=== PATIENT | male | born 1970 | race Caucasian/White ===

== ENCOUNTER 2019-04-27 12:01 | Observation (INO) | payer SELFPAY ==
[2019-04-27] VITALS (45 sets, daily range): BP systolic 182–226; BP diastolic 104–133; PULSE 73–89; RESP 11–23; TEMP 36.4–37.2; O2SAT 88–96
--- NOTE | 2019-04-27 12:42 | W.ED.GENAD ---
Discharge Plan Disposition Patient Disposition: [facility] INPATIENT Condition: Improving Discharge Details Chief Complaint: Headache Clinical Impression: Hypertensive urgency Primary Care Provider: None,None ED Provider: Anthony Cooley Home Meds and New Rx's Prescriptions: No Action fluticasone propionate [Flonase Allergy Relief] 50 mcg/actuation [place],Suspension INTRANASAL PRN PRNRF: 0 Medical Decision Making 48-year-old male presents from home complaining of headache last night with associated blurry vision. Noted elevated blood pressure. States that he used to take both hydrochlorothiazide and lisinopril, but lost his insurance and has had no medications for approximately 4 to 5 years. Initial blood pressure elevated at 194/112. He does not have any neurologic deficits and visual acuity is as stated 20/100. Referred for CT scan of the head, screening laboratories, EKG and chest x-ray. CAT scan unremarkable, labs essentially unremarkable with a normal troponin and normal creatinine. Chest x-ray without acute findings. Patient given clonidine 0.1 mg and observed. Subsequently he developed recurrent headache and his blood pressure went up to 212/180. Following hydromorphone for pain, the patient's discomfort completely resolved blood pressure measured at 191/115. ECG Data Attestation: I personally reviewed and interpreted this ECG (s) as follows: Interpretation: Normal sinus rhythm with a rate of 82, no evidence of ST segment elevation HPI General Mode of arrival: ambulatory. Date/Time Provider Initiated Documentation: 04/27/19 12:18. Limitations to Documentation: no limitations. Information obtained by: patient and family. History of Present Illness 48 year old M presents to the emergency department with the chief complaint of Headache last night, blurry vision, elevated blood pressure, described as moderate, Quality is described as dull and constant, and is localized to the head. Patient reports no radiation. Patient started experiencing this hour(s) and it has been constant. No relieving factors improve symptom(s), No exacerbating factors reported . Patient notes no other symptoms.; denies chest pain, nausea/vomiting, seizure and syncope. Patient did receive the following treatments prior to arrival, none Related Data Home Medications Medication Instructions Recorded Confirmed fluticasone propionate [Flonase INTRANASAL PRN PRN 04/27/19 Allergy Relief] Allergies Allergy/AdvReac Type Severity Reaction Status Date / Time grass pollen-perennial rye, Allergy Unverified 04/27/19 12:27 standar General Stated Complaint: Headache TOMAS: 3 Review of Systems Review of Systems 6 systems reviewed and otherwise negative [facility] Social History Smoking/Tobacco Use Status: Current every day Tobacco Type: cigarettes Alcohol Intake: current Alcohol Intake frequency: 0-2 drinks per day Alcohol type: hard liquor Drug use: Rarely Substance use type: marijuana Do you feel safe at home: Yes Do you feel safe in your relationship?: Yes Exam Narrative Exam Narrative: GEN: awake, alert, oriented 3. Pleasant, well groomed, interactive. HEAD: Normocephalic, atraumatic ENT: Mucous membranes moist, oropharynx unremarkable, External ear exam unremarkable EYES: PERRL, EOMI NECK: Full ROM, no THANIA, no menigismus CHEST/RESP: Nontender, clear to auscultation bilateral, no wheeze/rhonchi/rales CARDIOVASCULAR: RRR, no murmur, rub tuyet. 2+ Rad pulse bilateral ABDOMEN: Soft, nontender, no mass. +Bowel sounds EXT: Full ROM, no edema, no rash Neuro: Grossly normal neurologic exam, conversant, interactive. Visual ren intact to confrontation, visual acuity is 200/100 OD, OS, OU. [id number]-[id number] intact. Cranial nerves II through XII intact. Psych: Speech fluent, thoughts congruent, affect normal Course Vital Signs Temperature 37.2 C 04/27/19 12:20 Pulse 85 04/27/19 12:20 Respiratory Rate 16 04/27/19 12:20 Blood Pressure 194/112 H 04/27/19 12:20 Pulse Oximetry 94 L 04/27/19 12:20 Temperature 37.2 C 04/27/19 12:20 Temperature Source Temporal Artery Scan 04/27/19 12:20 Pulse 85 04/27/19 12:20 Respiratory Rate 16 04/27/19 12:20 Blood Pressure 194/112 H 04/27/19 12:20 Blood Pressure Position Supine 04/27/19 12:20 Pulse Oximetry 94 L 04/27/19 12:20 Oxygen Delivery Method Room Air 04/27/19 12:20 Oxygen Flow Rate 0 04/27/19 12:20 Pain Level 3 04/27/19 12:20
[2019-04-27 12:55] LABS: Abs Immature Grans 0.02 k/cumm (0.0-0.09); Absolute Basophil Count 0.03 k/cumm (0.0-0.2); Absolute Eosinophil Count 0.46 k/cumm (0.0-0.7); Absolute Lymphocyte Count 1.81 k/cumm (1.2-3.4); Absolute Monocyte Count 0.76 k/cumm (0.11-0.7); Absolute Neutrophil Count 5.11 k/cumm (1.2-6.7); Basophils % 0.4; Eosinophils % 5.6; Immature Grans % 0.2; Lymphocytes % 22.1; Mean Corp. HGB Concentration 35.7 g/dL (32.0-36.0); Mean Corpuscular Hemoglobin 37.2 pg (27.0-33.0); Mean Corpuscular Volume 104.2 fL (80-95); Mean Platelet Volume 10.4 fL (8.0-11.0); Monocytes % 9.3; Neutrophils % 62.4; Platelet Count 197 x1000/uL (130-400); RBC 4.03 m/cumm (4.50-6.00); RBC Distribution Width 12.4 % (11.8-14.1); White Blood Cell Count 8.19 k/cumm (4.4-10.8)
[2019-04-27] MEDS: Normal Saline 1,000 ML 150 ML IV ×2 (12:56→17:02)
--- NOTE | 2019-04-27 13:10 | DI.COMBO_ITS ---
SYMPTOM/DIAGNOSIS: HEADACHE, HYPERTENSION PA AND LATERAL CHEST: The heart is normal in size. The lungs are clear. The mediastinal structures and pleura appear intact. CONCLUSION: Normal chest. NONCONTRAST HEAD CT: A noncontrast cranial CT was performed. Note is made of mucoperiosteal thickening of left maxillary antrum and to a lesser degree the ethmoid air cells consistent with a chronic sinusitis. Mastoid air cells are clear. Sphenoid and frontal sinuses appear clear. Orbital and temporal bone structures appear intact. No evidence of acute intracranial hemorrhage, mass effect or midline shift. There may be mild generalized cerebral atrophy. CONCLUSION: No evidence of acute intracranial process. Note is made of left maxillary chronic sinusitis.
[2019-04-27 13:12] LABS: ALT 48 U/L (16-63); AST 38 U/L (15-37); Albumin 3.6 g/dL (3.4-5.0); Alkaline Phosphatase 113 U/L (46-116); Anion Gap 10.2 mmol/L (3-11); BUN 16 mg/dL (7-18); Bilirubin, Total 0.3 mg/dL (0.2-1.0); CO2 27.8 mmol/L (21.0-32.0); CREATININE 0.81 mg/dL (0.70-1.30); Chloride 100 mmol/L (98-107); Glucose 94 mg/dL (70-100); Potassium 3.8 mmol/L (3.5-5.1); Sodium 138 mmol/L (136-145); Total Protein 7.6 g/dL (6.4-8.2); Troponin I < 0.05 ng/mL (0.00-0.06)
--- NOTE | 2019-04-27 13:22 | DI.VRAD_ITS ---
EXAM: CT Head Without Contrast EXAM DATE/TIME: 04/27/2019 12:42 PM CLINICAL HISTORY: 48 years old, male; Pain and condition or disease; Other: Elevated blood pressure; Headache not specified TECHNIQUE: Imaging protocol: Computed tomography of the head without contrast. COMPARISON: No relevant prior studies available. FINDINGS: No evidence of hemorrhage. No mass effect. No acute intracranial abnormality. Chronic appearing moderate left maxillary sinus disease with minimal left ethmoidal sinus disease. No air-fluid levels. IMPRESSION: No evidence of acute intracranial process. Dictated and Authenticated by: Virgilio Guy MD. Ordering:DEMETRIO Cruz MD
--- NOTE | 2019-04-27 13:23 | DI.VRAD_ITS ---
EXAM: XR Chest, 2 Views EXAM DATE/TIME: 04/27/2019 1:11 PM CLINICAL HISTORY: 48 years old, male; Other: Hypertension, headache TECHNIQUE: Imaging protocol: XR of the chest Views: 2 views. COMPARISON: No relevant prior studies available. FINDINGS: The lung ren are clear bilaterally. No focal pulmonary consolidation is present. The cardiac silhouette is within normal limits. The costophrenic angles are sharp. The bony structures appear unremarkable. IMPRESSION: No evidence of acute cardiopulmonary disease. Dictated and Authenticated by: Virgilio Guy MD. Ordering:DEMETRIO Cruz MD
[2019-04-27] MEDS: cloNIDine 0.1 MG TAB PO (13:29)
[2019-04-27] MEDS: HYDROmorphone 2 MG/ML VIAL 1 MG IVP (14:20)
[2019-04-27] MEDS: Labetalol 100 MG/20 ML VIAL 20 MG IVP (15:22)
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
[2019-04-27] MEDS: amLODIPine 5 MG TAB PO (16:33)
[2019-04-27] MEDS: Enoxaparin 40 MG/0.4 ML SYR SC (16:35)
[2019-04-27] MEDS: hydroCHLOROthiazide 25 MG TAB PO (16:37)
[2019-04-27] MEDS: LORazepam 1 MG TAB PO/SL (18:52)
[2019-04-27 20:50] LABS: Bilirubin Negative (Negative); Blood Negative (Negative); Clarity Clear (Clear); Glucose Negative (Negative); Ketones Negative (Negative); Leukocyte Esterase Negative (Negative); Nitrite Negative (Negative); Specific Gravity 1.015 (1.005-1.025); Urobilinogen 0.2 EU/dL (Up TO 0.2); pH 5.5 (5-8)
[2019-04-28] VITALS (14 sets, daily range): BP systolic 155–198; BP diastolic 98–125; PULSE 69–86; RESP 17–18; TEMP 36.4–37; O2SAT 93–95
[2019-04-28] MEDS: Labetalol 100 MG/20 ML VIAL 20 MG IVP (00:29)
[2019-04-28] MEDS: Multivitamin TAB 1 TAB PO (07:58)
[2019-04-28] MEDS: Thiamine 100 MG TAB PO (07:58)
[2019-04-28] MEDS: Folic Acid 1 MG TAB PO (07:58)
[2019-04-28] MEDS: Omeprazole 20 MG CAPCR PO (07:58)
[2019-04-28] MEDS: hydroCHLOROthiazide 25 MG TAB PO (07:59)
[2019-04-28] MEDS: amLODIPine 10 MG TAB PO (08:00)
[2019-04-28 08:50] LABS: Abs Immature Grans 0.01 k/cumm (0.0-0.09); Absolute Basophil Count 0.03 k/cumm (0.0-0.2); Absolute Eosinophil Count 0.44 k/cumm (0.0-0.7); Absolute Lymphocyte Count 1.32 k/cumm (1.2-3.4); Absolute Monocyte Count 0.66 k/cumm (0.11-0.7); Absolute Neutrophil Count 4.27 k/cumm (1.2-6.7); Basophils % 0.4; Eosinophils % 6.5; HCT 42.4 % (40.0-50.0); HGB 14.7 g/dL (13.5-17.5); Immature Grans % 0.1; Lymphocytes % 19.6; Mean Corp. HGB Concentration 34.7 g/dL (32.0-36.0); Mean Corpuscular Volume 106.8 fL (80-95); Mean Platelet Volume 10.6 fL (8.0-11.0); Monocytes % 9.8; Neutrophils % 63.6; Platelet Count 190 x1000/uL (130-400); RBC 3.97 m/cumm (4.50-6.00); RBC Distribution Width 12.4 % (11.8-14.1); White Blood Cell Count 6.73 k/cumm (4.4-10.8)
[2019-04-28 09:05] LABS: BUN 12 mg/dL (7-18); CREATININE 0.81 mg/dL (0.70-1.30); Calcium 8.4 mg/dL (8.5-10.1); Calculated LDL 89 mg/dL; Chloride 102 mmol/L (98-107); Cholesterol 161 mg/dL (50-200); Glucose 100 mg/dL (70-100); HDL Cholesterol 42 mg/dL (40-60); Magnesium 1.9 mg/dL (1.8-2.4); Potassium 3.6 mmol/L (3.5-5.1); Sodium 139 mmol/L (136-145); Triglyceride 153 mg/dL (30-150)
[2019-04-28 09:09] LABS: Hemoglobin A1C 5.5 % (4.5-6.2)
[2019-04-28] MEDS: LORazepam 1 MG TAB PO/SL (10:18)
[2019-04-28] MEDS: Metoprolol 25 MG TAB PO ×2 (11:24→17:25)
--- NOTE | 2019-04-28 13:19 | PHARADMIT ---
Admission Pharmacy Clinical Review Hypertension (observation) Code Status Full Code Current Weight 147.418 kg Renally Cleared and Narrow Therapeutic Index Meds CrCl~131ml/min QTc Value / Action Taken QTC 462 BP Control, Fever BP 187/116 Afebrile Electrolytes reviewed WNL DVT Prophylaxis Lovenox 40mg Opiate Usage / Scheduled Bowel Regimen Ordered Plt/SCr for Heparin / Enoxaparin Plt 190 SCr 0.81 INR for Warfarin H/H stable, WBC/Bands H/H 14.7/42.4 WBC 6.73 Antibiotic appropriateness Cultures and Sensitivities n/a Surgical ABX d/c within 24 hr DM control / Insulin Dosing A1c 5.5 BG 100 Heart Failure (Check EF%) (SHANTELL's, B-Block, Diuretics) Amlodipine increased from 5mg to 10mg HCTZ, adding Metoprolol tartrate Labetalol IV prn..kindof strange order, not sure if interpreted as 1x order, or as needed with parameters IV to PO Switch Home Meds Reviewed Home Meds Not Ordered Comments Ibuprofen for headache...resolved per coordinator Lorazepam for CIWA, scoring zero Nicotine patch and inhaler
--- NOTE | 2019-04-28 15:30 | DI.CT_ITS ---
SYMPTOM/DIAGNOSIS: HYPERTENSION, BLURRY VISION, ? CVA OR DISSECTION CTA NECK AND HEAD: Noncontrast scanning of the head is unremarkable. CT angiography was performed with multi slice acquisition and multi planar and 3D reconstruction. CT angiography of the cervicocranial region was performed with intravenous infusion of 100 cc's of Omnipaque 350. The most proximal portion of the left common carotid is not included on the imaging field. Remainder of the left common carotid is unremarkable in appearance with mild calcified atheromatous plaque, less than 20% luminal diameter stenosis, at the bulb. Right common carotid artery is unremarkable with minimal calcification also present at the bulb. Internal carotid arteries appear normal bilaterally with no evidence of aneurysm, dissection or stenosis. There is left dominant vertebral artery with a small but patent right vertebral artery. No vertebral aneurysm, dissection or stenosis identified. Basilar artery appears normal. The anterior middle and posterior cerebral arteries are unremarkable in appearance bilaterally. Left posterior cerebral artery is supplied mainly across the posterior communicating artery. Visualized lung apices are clear. Tracheal laryngeal structures appear intact. No cervical mass or adenopathy is seen. CONCLUSION: Minimal atheromatous calcified plaque in the carotid bulbs bilaterally. Otherwise unremarkable study.
--- NOTE | 2019-04-28 15:52 | INITIAL_ITS ---
Care Management Initial Assess REASON FOR HOSPITALIZATION:: HTN PAST MEDICAL HISTORY/PAST SURGICAL HISTORY:: Alcohol dependence, HTN, Tobacco dependence PREVIOUS FUNCTIONAL STATUS/SOCIAL/FAMILY SUPPORTS:: Tremaine resides with his , Misha in [place], [place]. 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 CURRENT FUNCTIONAL STATUS:: Tremaine is lying flat, watching the race on TV. He permits CM to ask questions but provides simple vague answers and avoids eye contact. He does report his vision is still blurry but that his headache has subsided. He is agreeable to PCP follow up at [facility]. He answers questions when prompted with simple yes, ya, no responses. ADVANCE DIRECTIVES:: None on file. Has patient been provided with information about the portal?: No Did the patient sign up for the portal?: No CODE STATUS:: Full Code INSURANCE COVERAGE / FINANCIAL ISSUES:: SELF PAY: Patient agreeable to Financial Assistance application. Non-committal to [facility] referral. Does report seeking insurance in the past but was too expensive. CURRENT HOME/COMMUNITY SERVICES/EQUIPMENT:: No current services or equipment. PRIMARY CARE PHYSICIAN:: Follow up referral faxed to [facility]. Isatu Raza telephone lines repairer telephone provider. POTENTIAL DISCHARGE NEEDS:: PCP F/U appt, medication overview-[facility] $4 list. PATIENT/FAMILY EDUCATION NEEDS:: Patient education around financial assistance and insurance navigation. Review of discharge instructions, discuss Ask Me Three. ANTICIPATED BARRIERS TO DISCHARGE:: None identified. TRANSPORTATION:: Via private vehicle with his . PLAN:: Tremaine reports wanting to return home. He will follow up with [facility] and his plan of care as prescribed. Per provider, medication prescriptions to transfer to [facility] to ensure affordability as Tremaine does not have insurance coverage at this time. Tremaine will transport home via private vehicle with his .
--- NOTE | 2019-04-28 16:00 | W.PM.DS.N ---
Date of service: 04/28/19 Time of Service: 16:01 DS: Diagnosis Discharge Diagnosis (1) HTN (hypertension): Start date: 04/28/19 Start time: 16:01 Status: Chronic Asessment and Plan: Started on amlodipine 10 mg, HCTZ 25 and metoprolol 25 mg BID. Follow up with Dr. Sidhu, we will call for appt and let you know when. Take all meds as prescribed. Right field cut could be due to occipital stroke. Lipid panel normal, A1C 5.3. CTA ordered to r/o carotid stenosis. 20% plaque build up. Start 81 mg ASA daily. (2) Headache: Status: Acute (3) Tobacco dependence: Status: Acute (4) Alcohol dependence: Status: Acute (5) DVT prophylaxis: Status: Acute Discharge Plan Disposition Patient Disposition: HOME Condition: Improving Discharge Details Chief Complaint: Headache Clinical Impression: Hypertensive urgency Reason For Visit: HTN Admit Date/Time: 04/27/19 15:20 Admit Provider: Thania Craig Attending Provider: Thania Craig Primary Care Provider: Isatu Raza ED Provider: Anthony Cooley Hospital Course Hospital Course: Mr. Godfrey was admitted from [facility] yesterday with HTN and BROUSSARD. His only PMH is HTN. BROUSSARD resolved last night. BP is down systolic 180's after receiving dose of amlodipine 10 mg, HCTZ 25 mg and metropolol 25 mg. On admission bp was 220's over 120's. He better describes his vision today as not being able to see peripherally. Which could possibly be occipital cva, however treatment would not change and CT was negative for abnormality. CTA ordered to r/o carotid stenosis or dissection. 20% plaque to carotids with no stenosis or dissection. Lipid panel was normal. A1C 5.3. Recommend 81 aspirin daily along with BP medications. Follow up with PCP this week for bp management and release back to work. He denies CP, SOB, N/v/D. He will be discharged home. Home Meds and New Rx's Prescriptions: No Action fluticasone propionate [Flonase Allergy Relief] 50 mcg/actuation [place],Suspension INTRANASAL PRN PRNRF: 0 Discharge Instructions Instructions: Metoprolol (By mouth), Hydrochlorothiazide (By mouth), Amlodipine (By mouth), How to Stop Smoking (GEN), Heart Healthy Diet (DC), Cigarette Smoking and Your Health (GEN), Cholesterol and Your Health (GEN), DASH Eating Plan (GEN), Low Sodium Diet (GEN), Hypertensive Crisis (GEN), Hypertension (GEN) Additional Instructions: QUIT SMOKING LIMIT DRINKING TO 1 BEER A NIGHT OR COUPLE TIMES PER WEEK Follow up with Dr. Sidhu for outpatient care Out of work until seen by Dr. Sidhu Eat a heart healthy low sodium diet. You have been started on 3 different medications for your blood pressure. It is very important you follow up for management. Take an 81 mg aspirin daily. Seek medical treatment immediately if you have Chest pain, shortness of breath or nausea, vomiting. Activity:: Activity as Tolerated Equipment/Supplies:: No Equipment Needed Diet:: Low Sodium Discharge Orders Discharge Orders: Discharge Order (Routine); Ordered 04/28/19 Ordered By: Thania Craig Exam Const General: cooperative, healthy appearing and comfortable Orientation: alert, awake and oriented x3 HENMT Head: normal to inspection Face and sinus: normal facial exam Eyes General: appearance normal, both eyes and all related structures Neck Neck: normal visual inspection Chest Chest: normal inspection of the chest Resp Effort & Inspection: normal respiratory effort Cardio Jugular venous pressure: no JVD Rate: regular rate Rhythm: regular rhythm Heart Sounds: S1 normal and S2 normal GI Inspection: normal to inspection Palpation: soft and no hepatosplenomegaly Auscultation: normal bowel sounds Back/Spine/Pelvis Back: no CVA tenderness Skin General skin exam: other (sebaceous cyst to left upper back) Wounds: no wounds Neuro General: alert, awake and oriented x3 Speech: speech normal Extrem General: normal to inspection and full ROM Psych Appearance: grossly normal Mood: congruent mood Affect: normal affect Attitude: cooperative Thought Process: normal Thought Content: normal DS: Data Vitals/I&O Vitals and I&O: Vital Signs Temperature 36.8 C 04/28/19 15:54 Temperature Source Tympanic 04/28/19 15:54 Pulse 76 04/28/19 15:54 Pulse Rhythm Regular 04/28/19 08:50 Pulse 75 04/27/19 15:40 Respiratory Rate 18 04/28/19 15:54 Respiratory Effort Non-Labored 04/28/19 08:50 Respiratory Depth Normal 04/28/19 08:50 Respiratory Pattern Normal 04/28/19 08:50 Blood Pressure 183/120 H 04/28/19 15:54 Blood Pressure Mean 139 04/27/19 15:31 Blood Pressure Position Supine 04/27/19 12:20 Pulse Oximetry 93 L 04/28/19 15:54 Oxygen Delivery Method Room Air 04/28/19 15:54 Oxygen Flow Rate 0 04/28/19 15:54 Pain Level 0 04/28/19 15:54 Comment 04/28/19 15:54 Intake & Output 04/27/19 04/28/19 04/28/19 23:59 11:59 23:59 Intake Total 1195 / 1195 480 / 720 240 / 720 Output Total 300 / 300 Balance 895 / 895 480 / 720 240 / 720 Weight 147.418 kg Intake: IV 1195 / 1195 Oral 480 / 720 240 / 720 Output: Urine 300 / 300 Other: Urine Color Yellow Urine Appearance Clear Urine Odor Normal Comment Urine not seen, reports voiding and flushing urine. Voiding Methods Toilet Toilet Completed studies during hospitalization [Text1]: Exam(s) EXAM: CT Head Without Contrast EXAM DATE/TIME: 04/27/2019 12:42 PM CLINICAL HISTORY: 48 years old, male; Pain and condition or disease; Other: Elevated blood pressure; Headache not specified TECHNIQUE: Imaging protocol: Computed tomography of the head without contrast. COMPARISON: No relevant prior studies available. FINDINGS: No evidence of hemorrhage. No mass effect. No acute intracranial abnormality. Chronic appearing moderate left maxillary sinus disease with minimal left ethmoidal sinus disease. No air-fluid levels. IMPRESSION: No evidence of acute intracranial process. Exam(s) a CT:CT brain & neck CTA SYMPTOM/DIAGNOSIS: HYPERTENSION, BLURRY VISION, ? CVA OR DISSECTION CTA NECK AND HEAD: Noncontrast scanning of the head is unremarkable. CT angiography was performed with multi slice acquisition and multi planar and 3D reconstruction. CT angiography of the cervicocranial region was performed with intravenous infusion of 100 cc's of Omnipaque 350. The most proximal portion of the left common carotid is not included on the imaging field. Remainder of the left common carotid is unremarkable in appearance with mild calcified atheromatous plaque, less than 20% luminal diameter stenosis, at the bulb. Right common carotid artery is unremarkable with minimal calcification also present at the bulb. Internal carotid arteries appear normal bilaterally with no evidence of aneurysm, dissection or stenosis. There is left dominant vertebral artery with a small but patent right vertebral artery. No vertebral aneurysm, dissection or stenosis identified. Basilar artery appears normal. The anterior middle and posterior cerebral arteries are unremarkable in appearance bilaterally. Left posterior cerebral artery is supplied mainly across the posterior communicating artery. Visualized lung apices are clear. Tracheal laryngeal structures appear intact. No cervical mass or adenopathy is seen. CONCLUSION: Minimal atheromatous calcified plaque in the carotid bulbs bilaterally. Otherwise unremarkable study. Labs on day of discharge: Labs from last 24 hours 04/28/19 04/28/19 04/28/19 07:48 07:48 07:48 WBC 6.73 RBC 3.97 L Hgb 14.7 Hct 42.4 MCV 106.8 H MCH 37.0 H MCHC 34.7 RDW 12.4 Plt Count 190 MPV 10.6 Immature Gran % 0.1 Neutrophils % 63.6 Lymphocytes % 19.6 Monocytes % 9.8 Eosinophils % 6.5 Basophils % 0.4 Absolute Neutrophils 4.27 Absolute Lymphocytes 1.32 Absolute Monocytes 0.66 Absolute Eosinophils 0.44 Absolute Basophils 0.03 Sodium 139 Potassium 3.6 Chloride 102 Carbon Dioxide 28.0 Anion Gap 9.0 BUN 12 Creatinine 0.81 Estimated GFR/1.73 m2 >= 60.00 Glucose 100 Hemoglobin A1c 5.5 Calcium 8.4 L Magnesium 1.9 Triglycerides 153 H Total Cholesterol 161 LDL Cholesterol, Calc 89 HDL Cholesterol 42 Urine Color Urine Clarity Urine pH Ur Specific [place] Urine Protein Urine Ketones Urine Blood Urine Nitrite Urine Bilirubin Urine Urobilinogen Ur Leukocyte Esterase Urine Glucose 04/27/19 20:40 WBC RBC Hgb Hct MCV MCH MCHC RDW Plt Count MPV Immature Gran % Neutrophils % Lymphocytes % Monocytes % Eosinophils % Basophils % Absolute Neutrophils Absolute Lymphocytes Absolute Monocytes Absolute Eosinophils Absolute Basophils Sodium Potassium Chloride Carbon Dioxide Anion Gap BUN Creatinine Estimated GFR/1.73 m2 Glucose Hemoglobin A1c Calcium Magnesium Triglycerides Total Cholesterol LDL Cholesterol, Calc HDL Cholesterol Urine Color Yellow Urine Clarity Clear Urine pH 5.5 Ur Specific [place] 1.015 Urine Protein Negative Urine Ketones Negative Urine Blood Negative Urine Nitrite Negative Urine Bilirubin Negative Urine Urobilinogen 0.2 Ur Leukocyte Esterase Negative Urine Glucose Negative [facility] Medical History Alcohol dependence (Acute) HTN (hypertension) (Chronic) Tobacco dependence (Acute) Social History Smoking/Tobacco Use Status: Current every day Tobacco Type: cigarettes Alcohol Intake: current Alcohol Intake frequency: 0-2 drinks per day Alcohol type: hard liquor Drug use: Rarely Substance use type: marijuana Do you feel safe at home: Yes Do you feel safe in your relationship?: Yes
[2019-04-28] MEDS: Omnipaque 350 MG/ML 100 ML BTL IJ (16:17)
[2019-04-28] MEDS: Enoxaparin 40 MG/0.4 ML SYR SC (16:39)
== END 2019-04-28 17:20 | disposition home or self-care (01) ==
LOC: ER 15:09 → MS 16:30
PROVIDERS: Admitting Provider Nurse Practitioner Family; Emergency Provider Emergency Medicine; PCP Family Medicine; Visit Provider Internal Medicine
DX: I10 Essential (primary) hypertension; T50.2X6A Underdosing of carbonic-anhydrase inhibitors, benzothiadiazides and other diuretics, initial encounter; T46.4X6A Underdosing of angiotensin-converting-enzyme inhibitors, initial encounter; Z91.128 Patient's intentional underdosing of medication regimen for other reason; R51 Headache; F17.210 Nicotine dependence, cigarettes, uncomplicated; F10.20 Alcohol dependence, uncomplicated
CPT/HCPCS: 36415; 70496; 70498; 80048; 80053; 80061; 93005; 96361; 96374; 99223; 99239; 99285; J1650; 70450; 71046; 81003; 83036; 83735; 84484; 85025; 93010; 99217; 99220; 99284; G0378; J3490

== ENCOUNTER 2019-07-24 13:43 | Emergency (ER) | payer SELFPAY ==
[2019-07-24 13:49] VITALS: BP 178/94; PULSE 87; RESP 16; TEMP 36.4; O2SAT 96
--- NOTE | 2019-07-24 13:59 | ED.GENADUL_ITS ---
Discharge Plan Disposition Patient Disposition: HOME Condition: Improving Discharge Details Chief Complaint: Cellulitis Clinical Impression: Cellulitis of foot, left Primary Care Provider: Harman Watson ED Provider: Anthony Cooley Home Meds and New Rx's Prescriptions: New amoxicillin-pot clavulanate 875-125 mg tablet 1 tab PO BID 10 Days Qty: 20 RF: 0 Continued fluticasone propionate [Flonase Allergy Relief] 50 mcg/actuation [place],Suspension INTRANASAL PRN PRNRF: 0 multivitamin [Multiple Vitamins] Tablet 1 tab PO DAILY Qty: 30 RF: 0 amlodipine 10 mg Tablet 10 mg PO DAILY Qty: 30 RF: 0 hydrochlorothiazide 25 mg Tablet 25 mg PO DAILY Qty: 30 RF: 0 metoprolol tartrate 25 mg Tablet 25 mg PO BID Qty: 60 RF: 0 Discharge Instructions Instructions: Cellulitis (ED) Additional Instructions: Elevate the foot above the level of the heart to reduce pain and swelling. Take antibiotics as prescribed. Return for progressive redness, development of a fever, or any other acute concerns. Continue your regular medications. Stand Alone Forms: Work Release Discharge Data Discharge Date/Time-TO BE ENTERED AT DEPARTURE: 07/24/19 15:19 Medical Decision Making 48-year-old male presents with day 3 of left great toe and foot swelling with erythema. He noted the erythema began after standing on his feet all day and has had some dry skin in the area but no lacerations or abrasions. He will also note injury (broke it) to that toe as a child. He has known hypertension, his vital signs are stable, the foot is swollen and erythematous. Differential diagnosis includes cellulitis versus gout. Screening laboratories and x-ray obtained. XR: There are severe degenerative changes at the 1st MTP joint, worsening when compared with the previous exam. There is prominent periarticular spurring as well as irregularity. There are subchondral cysts on both sides of the joint. There is some soft tissue swelling. No definite bony destruction is seen. The remaining MTP joints are unremarkable. Labs: WBC 10, Hct41, platelets 171. CRP elevated at 11, uric acid within normal limits at 4.6. Most consistent with cellulitis. Note of a glucose of 175 which may be stress response. He does not have a diagnosis of diabetes. Will treat with a course of Augmentin. Today and tomorrow off work for elevation. He understands return precautions for re-check if not improving. HPI General Mode of arrival: ambulatory . Date/Time Provider Initiated Documentation: 07/24/19 13:44 . Limitations to Documentation: no limitations . Information obtained by: patient . History of Present Illness 49 year old M presents to the emergency department with the chief complaint of Left great toe and foot pain over 2 to half days, described as moderate, Quality is described as aching, and is localized to the left. Patient reports no radiation. Patient started experiencing this day(s) and it has been constant. No relieving factors improve symptom(s), No exacerbating factors reported . Patient notes other (Redness. No fever or chills.). Patient did receive the following treatments prior to arrival, none Related Data Home Medications Medication Instructions Recorded Confirmed fluticasone propionate [Flonase INTRANASAL PRN PRN 04/27/19 Allergy Relief] amlodipine 10 mg PO DAILY #30 tab 04/28/19 07/24/19 hydrochlorothiazide 25 mg PO DAILY #30 tab 04/28/19 07/24/19 metoprolol tartrate 25 mg PO BID #60 tab 04/28/19 07/24/19 multivitamin [Multiple Vitamins] 1 tab PO DAILY #30 tab 04/28/19 07/24/19 amoxicillin-pot clavulanate 1 tab PO BID 10 Days #20 tab 07/24/19 Previous Rx's Medication Instructions Recorded amlodipine 10 mg PO DAILY #30 tab 04/28/19 hydrochlorothiazide 25 mg PO DAILY #30 tab 04/28/19 metoprolol tartrate 25 mg PO BID #60 tab 04/28/19 multivitamin [Multiple Vitamins] 1 tab PO DAILY #30 tab 04/28/19 amoxicillin-pot clavulanate 1 tab PO BID 10 Days #20 tab 07/24/19 Allergies Allergy/AdvReac Type Severity Reaction Status Date / Time grass pollen-perennial rye, Allergy Unverified 07/24/19 13:52 standar General Stated Complaint: Cellulitis TOMAS: 3 Review of Systems Narrative: The patient reports breaking his great toe on the left as a child. Feels it is been deformed since that time. 6 systems reviewed and otherwise negative [facility] Medical History Alcohol dependence (Acute) HTN (hypertension) (Chronic) Tobacco dependence (Acute) Social History Smoking/Tobacco Use Status: Current every day Tobacco Type: cigarettes Alcohol Intake: current Alcohol Intake frequency: 0-2 drinks per day Alcohol type: hard liquor Drug use: Rarely Substance use type: marijuana Do you feel safe at home: Yes Do you feel safe in your relationship?: Yes Exam Narrative Exam Narrative: GEN: awake, alert, oriented 3. Pleasant, well groomed, interactive. HEAD: Normocephalic, atraumatic ENT: Mucous membranes moist, oropharynx unremarkable, External ear exam unremarkable EYES: PERRL, EOMI NECK: Full ROM, no THANIA, no menigismus CHEST/RESP: Nontender, clear to auscultation bilateral, no wheeze/rhonchi/rales CARDIOVASCULAR: RRR, no murmur, rub tuyet. 2+ Rad pulse bilateral EXT: Full ROM, left foot is erythematous from the great toe to mid foot primarily on the dorsal surface. There is overlying erythema that blanches to the touch foot is warm to the touch. No lesions appreciated. Neuro: Grossly normal neurologic exam, conversant, interactive. Psych: Speech fluent, thoughts congruent, affect normal Course Vital Signs Vital signs: Vital Signs Temperature 36.4 C L 07/24/19 13:49 Pulse 87 07/24/19 13:49 Respiratory Rate 16 07/24/19 13:49 Blood Pressure 178/94 H 07/24/19 13:49 Pulse Oximetry 96 07/24/19 13:49 Temperature 36.4 C L 07/24/19 13:49 Temperature Source Skin 07/24/19 13:49 Pulse 87 07/24/19 13:49 Respiratory Rate 16 07/24/19 13:49 Respiratory Effort Non-Labored 07/24/19 13:49 Blood Pressure 178/94 H 07/24/19 13:49 Blood Pressure Position Sitting 07/24/19 13:49 Pulse Oximetry 96 07/24/19 13:49 Oxygen Delivery Method Room Air 07/24/19 13:49 Oxygen Flow Rate 0 07/24/19 13:49 Pain Level 10 07/24/19 13:49
--- NOTE | 2019-07-24 14:26 | DI.RAD_ITS ---
EXAM: XR FOOT LT COMPLETE INDICATION: pain and swelling great toe. COMPARISON: LEFT FOOT COMPLETE from 12/12/2013 TECHNIQUE: 2D digital imaging was performed. FINDINGS: No fracture or dislocation is seen. There are severe degenerative changes at the 1st MTP joint, wor sening when compared with the previous exam. There is prominent periarticular spurring as well as ir regularity. There are subchondral cysts on both sides of the joint. There is some soft tissue swell ing. No definite bony destruction is seen. The remaining MTP joints are unremarkable. 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
[2019-07-24 14:39] LABS: Abs Immature Grans 0.04 k/cumm (0.0-0.09); Absolute Basophil Count 0.03 k/cumm (0.0-0.2); Absolute Eosinophil Count 0.26 k/cumm (0.0-0.7); Absolute Neutrophil Count 8.01 k/cumm (1.2-6.7); Basophils % 0.3; Eosinophils % 2.5; Immature Grans % 0.4; Lymphocytes % 10.7; Mean Corp. HGB Concentration 34.1 g/dL (32.0-36.0); Mean Corpuscular Hemoglobin 36.5 pg (27.0-33.0); Mean Corpuscular Volume 106.8 fL (80-95); Mean Platelet Volume 10.1 fL (8.0-11.0); Monocytes % 7.8; Neutrophils % 78.3; Platelet Count 171 x1000/uL (130-400); RBC 3.84 m/cumm (4.50-6.00); RBC Distribution Width 12.7 % (11.8-14.1); White Blood Cell Count 10.24 k/cumm (4.4-10.8)
[2019-07-24 14:51] LABS: Diff Comment RBC Morph Reviewed; Macrocytosis 2+; Polychromasia Present
[2019-07-24 14:53] LABS: Anion Gap 8.7 mmol/L (3-11); BUN 15 mg/dL (7-18); C-Reactive Protein 11.89 mg/dL (0.0-0.3); CO2 28.3 mmol/L (21.0-32.0); CREATININE 0.96 mg/dL (0.70-1.30); Calcium 8.8 mg/dL (8.5-10.1); Chloride 102 mmol/L (98-107); Glucose 175 mg/dL (74-106); Poikilocytes 2+; Potassium 3.8 mmol/L (3.5-5.1); Sodium 139 mmol/L (136-145); Uric Acid 4.6 mg/dL (3.5-7.2)
[2019-07-24] MEDS: Amoxicillin 875/Clav. 125 TAB PO (15:10)
[2019-07-24 15:15] VITALS: BP 157/89; PULSE 86; RESP 16; O2SAT 95
== END 2019-07-24 15:19 | disposition home or self-care (01) ==
PROVIDERS: Emergency Provider Emergency Medicine; PCP Specialist/Technologist Athletic Trainer
DX: L03.116 Cellulitis of left lower limb (principal); R60.0 Localized edema; I10 Essential (primary) hypertension
CPT/HCPCS: 36415; 80048; 99283; 73630; 84550; 85025; 86140

== ENCOUNTER 2019-09-25 08:14 | Emergency (ER) | payer OTHER, SELFPAY ==
[2019-09-25 08:17] VITALS: BP 146/95; PULSE 77; RESP 20; TEMP 36.4; O2SAT 94
--- NOTE | 2019-09-25 08:40 | ED.GENADUL_ITS ---
Discharge Plan Disposition Patient Disposition: HOME Discharge Details Chief Complaint: Orthopedic Clinical Impression: Groin strain Primary Care Provider: Harman Watson ED Provider: Sadie Walker Home Meds and New Rx's Prescriptions: No Action fluticasone propionate [Flonase Allergy Relief] 50 mcg/actuation [place],Suspension INTRANASAL PRN PRNRF: 0 multivitamin [Multiple Vitamins] Tablet 1 tab PO DAILY Qty: 30 RF: 0 amlodipine 10 mg Tablet 10 mg PO DAILY Qty: 30 RF: 0 hydrochlorothiazide 25 mg Tablet 25 mg PO DAILY Qty: 30 RF: 0 metoprolol tartrate 25 mg Tablet 25 mg PO BID Qty: 60 RF: 0 Discharge Instructions Instructions: Groin Strain (ED) Additional Instructions: Rest. Activities as tolerated. Elevate injury to prevent swelling. Crutches for comfort for one week. Ice to the area of discomfort for 15 min. 3-5 times daily. Motrin every 8 hours with food or Tylenol every 6 hours for soreness if needed over the counter for comfort. Followup with orthopedic doctor as discussed if not improving in one week. Xray are normal today. Return for any worsening or concerns sooner if needed. Stand Alone Forms: Work Release Referrals: Elliot Rose MD [ [facility] STAFF PHYSICIAN] - Discharge Data Discharge Date/Time-TO BE ENTERED AT DEPARTURE: 09/25/19 10:53 Medical Decision Making Is a 49-year-old patient presenting for complaints of left groin pain. Patient reports he externally rotated his leg which was caught on a tote on the ground while he was moving items at work. Patient reports immediate pain in the left groin area. Patient reports injury occurred yesterday, he was able to ambulate until getting home when after sitting he attempted to stand and had significant increase in pain in the left groin area. Patient denies radiating symptoms. Denies associated back pain. No areas of swelling in the left groin noted. Urinating and moving bowels without difficulty. No complaints of abdominal pain. On exam patient has pain with hip flexion as well as external rotation of the hip. No palpable tenderness through the back, buttocks, hip or groin. Focal complaints only in the left groin without radiating symptoms. No focal weakness, numbness or tingling on exam. X-rays ordered of the left groin to rule out any associated hip or pelvic fracture. Tylenol for discomfort provided. X-rays reveal EXAM: XR HIP LT COMPLETE AP PELVIS INDICATION: PAIN, injury. COMPARISON: No exams were available for comparison TECHNIQUE: 2D digital imaging was performed. FINDINGS: No acute fracture or dislocation is present. There are degenerative changes of the hips bilaterally. The soft tissues are unremarkable. The sacroiliac joints and symphysis pubis are intact. IMPRESSION: No acute fracture or dislocation. Rice encouraged, crutches encouraged for 1 week. Work note provided. Orthopedic referral provided for persistence of symptoms lasting greater than 1 week however I do suspect a groin strain. The patient was stable and requested discharge. Prior to discharge, my usual and customary return precautions were reviewed with the patient - this included follow-up instructions and reasons to return to the Emergency Department if conditions worsens, does not improve as expected, or other new concerns arise. HPI General Date/Time Provider Initiated Documentation: 09/25/19 08:19 . HPI Narrative: This is a 49-year-old patient presenting to the emergency room for complaints of left hip and groin pain. Patient reports he was at work yesterday moving items from one place to another. Patient works at [employer]. Patient reports when he was moving items which seemed unremarkable his foot got caught and he externally rotated his left hip. Patient felt immediate pain in the groin. Patient reports persistent pain since that time. Pain was mild until he returned home and sat down. After which he noted significant increase in pain and subsequently has had difficulty ambulating due to pain. Patient denies any radiating symptoms. Denies numbness, tingling or weakness. Patient denies any back pain associated. Denies abdominal pain. No other concerns or complaints at this time. Related Data Home Medications Medication Instructions Recorded Confirmed fluticasone propionate [Flonase INTRANASAL PRN PRN 04/27/19 Allergy Relief] amlodipine 10 mg PO DAILY #30 tab 04/28/19 09/25/19 hydrochlorothiazide 25 mg PO DAILY #30 tab 04/28/19 09/25/19 metoprolol tartrate 25 mg PO BID #60 tab 04/28/19 09/25/19 multivitamin [Multiple Vitamins] 1 tab PO DAILY #30 tab 04/28/19 09/25/19 Previous Rx's Medication Instructions Recorded amlodipine 10 mg PO DAILY #30 tab 04/28/19 hydrochlorothiazide 25 mg PO DAILY #30 tab 04/28/19 metoprolol tartrate 25 mg PO BID #60 tab 04/28/19 multivitamin [Multiple Vitamins] 1 tab PO DAILY #30 tab 04/28/19 Allergies Allergy/AdvReac Type Severity Reaction Status Date / Time grass pollen-perennial rye, Allergy Unverified 09/25/19 08:21 standar General Stated Complaint: Orthopedic TOMAS: 3 Review of Systems All systems reviewed & are unremarkable except as noted in HPI and below Constitutional Constitutional: Denies weakness ENT Ears, Nose, Mouth, and Throat: Denies neck pain Musculoskeletal Musculoskeletal: Reports abnormal gait (Limping), Denies back pain, Denies deformity, Denies neck pain, Denies numbness and Denies tingling Integumentary/Breasts Skin/Breast: Denies rash and Denies wounds Neurologic Neurologic: Reports abnormal gait (Limping), Denies focal weakness, Denies numbness, Denies tingling, Denies paresthesias and Denies weakness [facility] Medical History Alcohol dependence (Acute) HTN (hypertension) (Chronic) Tobacco dependence (Acute) Social History Smoking/Tobacco Use Status: Current every day Tobacco Type: cigarettes Alcohol Intake: current Alcohol Intake frequency: 0-2 drinks per day Alcohol type: hard liquor Drug use: Rarely Substance use type: marijuana Do you feel safe at home: Yes Do you feel safe in your relationship?: Yes Exam Narrative Exam Narrative: CONST: Healthy appearing patient, in no acute distress. Well hydrated. Alert and oriented. Back: No midline tenderness through the cervical spine, thoracic or lumbar back. No SI joint tenderness. No sciatic notch pain with palpation. MUSCULOSKELETAL: Normal Gait. Pain with straight leg raise at the hip on the left. Significant pain against resistance of hip flexion. No significant pain with hip extension. Pain with external rotation. No focal groin tenderness with palpation. No femur pain with palpation when he pain with palpation motion pain with palpation, calf, ankle or foot pain with palpation. Sensation intact. No foot drop. No obvious weakness. SKIN: Normal. Dry. No rashes. NEURO: Alert and awake. Speech clear. PSYCH: Normal affect. Cooperative. Course Vital Signs Vital signs: Vital Signs Temperature 36.4 C L 09/25/19 08:17 Pulse 77 09/25/19 08:17 Respiratory Rate 20 09/25/19 08:17 Blood Pressure 146/95 H 09/25/19 08:17 Pulse Oximetry 94 L 09/25/19 08:17 Temperature 36.4 C L 09/25/19 08:17 Temperature Source Temporal Artery Scan 09/25/19 08:17 Pulse 77 09/25/19 08:17 Respiratory Rate 20 09/25/19 08:17 Respiratory Effort Non-Labored 09/25/19 08:25 Blood Pressure 146/95 H 09/25/19 08:17 Blood Pressure Position Sitting 09/25/19 08:17 Pulse Oximetry 94 L 09/25/19 08:17 Oxygen Delivery Method Room Air 09/25/19 08:17 Oxygen Flow Rate 0 09/25/19 08:17 Pain Level 10 09/25/19 08:25 Comment 09/25/19 08:17
[2019-09-25] MEDS: Acetaminophen 500 MG TAB 1000 MG PO (08:48)
--- NOTE | 2019-09-25 08:57 | DI.RAD_ITS ---
EXAM: XR HIP LT COMPLETE AP PELVIS INDICATION: PAIN, injury. COMPARISON: No exams were available for comparison TECHNIQUE: 2D digital imaging was performed. FINDINGS: No acute fracture or dislocation is present. There are degenerative changes of the hips bilaterally. The soft tissues are unremarkable. The sacroiliac joints and symphysis pubis are intact. IMPRESSION: No acute fracture or dislocation.
[2019-09-25 09:57] VITALS: BP 135/83; PULSE 64; RESP 16; TEMP 36.7; O2SAT 94
[2019-09-25 10:51] VITALS: RESP 16; TEMP 36.7; O2SAT 94
== END 2019-09-25 10:53 | disposition home or self-care (01) ==
PROVIDERS: Emergency Provider Physician Assistant; PCP Specialist/Technologist Athletic Trainer
DX: S76.012A Strain of muscle, fascia and tendon of left hip, initial encounter (principal); X50.9XXA Other and unspecified overexertion or strenuous movements or postures, initial encounter; Y99.0 Civilian activity done for income or pay; I10 Essential (primary) hypertension
CPT/HCPCS: 99282; 73502; E0114

== ENCOUNTER → 2020-01-21 08:51 | Outpatient (CLI) | payer BC, SELFPAY ==
--- NOTE | 2020-01-21 09:15 | DI.RAD_ITS ---
EXAM: XR HIP LT COMPLETE AP PELVIS CLINICAL HISTORY: LT HIP JOINT PAIN, M25.552 COMPARISON: CR XR HIP LT COMPLETE AP PELVIS from 09/25/2019 FINDINGS: Four views were obtained. There is severe loss of the cartilaginous joint space of the left hip part icularly superiorly. Moderate marginal osteophyte formation seen involving acetabulum and to a lesse r degree the femoral head. There is subchondral sclerosis of the acetabulum and femoral head. Moderate degenerative changes of the right hip noted as well. There are also questionable lucencies projected over the right hip, I am uncertain whether these represent a bony process or soft tissue pr ocess. Additional radiographs of the right hip including lateral view requested for further evaluati on. IMPRESSION: Severe DJD left hip. Moderate DJD right hip. Questionable lucencies overlying right hip, these may be bony versus artifactual, additional views of the right hip requested.
== END ==
PROVIDERS: PCP Specialist/Technologist Athletic Trainer; Visit Provider Physician Assistant
DX: M25.552 Pain in left hip (principal); M16.0 Bilateral primary osteoarthritis of hip
CPT/HCPCS: 73502

== ENCOUNTER → 2020-02-17 10:38 | Outpatient (CLI) | payer BC, SELFPAY ==
--- NOTE | 2020-02-17 09:10 | DI.RAD_ITS ---
EXAM: XR PELVIS AP and XR hip right AP Lat only CLINICAL HISTORY: left hip DJD. TECHNIQUE: 2D digital imaging was performed. COMPARISON: CT CT BRAIN NECK CTA from 04/28/2019 CR XR HIP LT COMPLETE AP PELVIS from 01/21/2020 FINDINGS: No acute fracture or dislocation is present. In the left hip, there is joint space narrowing, subcho ndral sclerosis and periarticular spurring. In the right hip, there is joint space narrowing, subcho ndral sclerosis and subchondral cysts. The findings appear stable compared to the examination from . Degenerative changes are seen in the lower lumbar spine. The soft tissues are unremarkable . The sacroiliac joints and symphysis pubis appear unremarkable. IMPRESSION: Bilateral osteoarthritis of the hips. DATA REPOSITORY: RADIATION DOSE DELIVERED:
== END ==
PROVIDERS: PCP Specialist/Technologist Athletic Trainer; Referring Provider Specialist/Technologist Athletic Trainer; Visit Provider Physician Assistant
DX: M16.0 Bilateral primary osteoarthritis of hip (principal)
CPT/HCPCS: 72170; 73502

== ENCOUNTER → 2020-02-20 | Outpatient (CLI) | payer BC, SELFPAY ==
--- NOTE | 2020-02-20 08:15 | DI.RAD_ITS ---
EXAM: RF JOINT INJECTION FLUORO GUID CLINICAL HISTORY: L HIP INJ UNDER FLUORO, DEGENERATIVE JOINT DISEASE LT HIP, M16.12 TECHNIQUE: 2D and realtime digital imaging was performed. CONTRAST MATERIAL: Water soluble contrast was administered. COMPARISON: No exams were available for comparison FINDINGS: Fluoroscopy was provided for Dr. Camara during the performance of a left hip injection. Please re rosamaria to the procedure report for complete details. Fluoro time: 5 seconds IMPRESSION:
--- NOTE | 2020-02-20 14:10 | W.PROCNOTE ---
Date of service: 02/20/20 Time of Service: 14:10 Procedure Note Date of procedure: 02/20/20 Procedure: Left Hip Injection with Fluoroscopic Guidance Surgeon/Proceduralist/Physician: Harvey Camara Procedure Diagnosis: Left Hip Osteoarthritis Procedure Indications: Tremaine has had persistent pain of the LEFT hip and groin. Noninvasive measures have been tried. To serve as both diagnostic and therapeutic, an injection under fluoroscopy was recommended. I had discussed the risks of the procedure and the patient elected to proceed. Procedure Description: Tremaine was greeted in the flouroscopy room. The correct side was identified and the consent was reviewed with the patient and signed. The patient was then placed in the supine position on the fluoroscopy table. The LEFT hip was then prepped with Chloraprep. The anterolateral injection starting point was identiifed by bony landmarks and fluoroscopy. The skin and soft tissue in the tract of the injection was anesthetized with 1% Lidocaine. A spinal needle was then inserted deep into the hip joint at the level of the lateral femoral neck under fluoroscopic guidance. A small amount of Omnipaque solution was injected to confirm intraarticular placement. Once confirmed, the hip was injected with 6cc of 0.5% Bupivicaine and 80mg of Depo-Medrol. A bandaid was placed on the injection site. The patient tolerated the procedure well and noted improvement in pre-injection pain.
[2020-02-20] MEDS: Bupivacaine 0.5% Pres-Free 10 ML VIAL 6 ML IJ (14:35)
[2020-02-20] MEDS: Omnipaque 300 MG/ML 10 ML BTL IJ (14:36)
[2020-02-20] MEDS: methylPREDNISolone ACETATE 80 MG/ML VIAL IM (14:36)
== END | disposition home or self-care (01) ==
PROVIDERS: PCP Nurse Practitioner Family; Visit Provider Student in an Organized Health Care Education/Training Program
DX: M25.552 Pain in left hip (principal); M16.12 Unilateral primary osteoarthritis, left hip
CPT/HCPCS: 20610; 77002; J1040

== ENCOUNTER 2020-03-27 07:26 | Day surgery (SDC) | payer BC, SELFPAY ==
[2020-03-27 07:47] VITALS: BP 184/106; PULSE 98; RESP 18; TEMP 36.2; O2SAT 95
--- NOTE | 2020-03-27 08:16 | PDOC.DSDIS_ITS ---
Discharge Plan Disposition Patient Disposition: HOME Condition: Good Discharge Details Reason For Visit: Colonoscopy Attending Provider: Ava Lazaro Primary Care Provider: Suze Nair Home Meds and New Rx's Prescriptions: Discontinued polyethylene glycol 3350 17 gram/dose powder 238 g PO ONCE Qty: 238 RF: 0 bisacodyl [Dulcolax (bisacodyl)] 5 mg tablet,delayed release (DR/EC) 5 mg PO ONCE Qty: 4 RF: 0 No Action albuterol 90 mcg/actuation aerosol 90 mcg IH .Q6 PRNRF: 0 aspirin [Adult Aspirin Regimen] 81 mg tablet,delayed release (DR/EC) 81 mg PO DAILY RF: 0 fluticasone propionate [Flonase Allergy Relief] 50 mcg/actuation [place],Suspension 1 spray INTRANASAL PRN PRNRF: 0 multivitamin [Multiple Vitamins] Tablet 1 tab PO DAILY Qty: 30 RF: 0 amlodipine 10 mg Tablet 10 mg PO DAILY Qty: 30 RF: 0 hydrochlorothiazide 25 mg Tablet 25 mg PO DAILY Qty: 30 RF: 0 metoprolol tartrate 25 mg Tablet 25 mg PO BID Qty: 60 RF: 0 Discharge Instructions Additional Instructions: Findings: One small polyp was removed from the rectum. My office will contact you with biopsy results. Follow up: If the biopsy shows an adenomatous polyp, plan for a colonoscopy in 5 years. Please call if you develop: fevers >101.5 Nausea or Vomiting Abdominal pain that is not transient DAY SURGERY UNIT POST COLONOSCOPY INSTRUCTIONS 1. Because there will be medication in your system for the next 24 hours, you may feel a little sleepy. Your coordination will be affected. Therefore: a. Do not drive or operate dangerous equipment for 24 hours. b. Do not drink alcohol beverages for 24 hours (not even beer). c. Plan to go home and rest for the day. 2. Generally there are no restrictions on your activity after a day or so has gone by, but you may feel a bit fatigued for a few days. 3 After you arrive home you may have a light meal and return to a normal diet as you can tolerate it without feeling sick to your stomach. 4. After surgery, you may feel pain or discomfort. This should be only transient, but if it persists please contact your doctor. 5. If there are any questions regarding the findings of your procedure, please feel free to contact your doctor. 6. If you are unable to contact your doctor with a problem, contact the hospital at [phone]. 7. Continue all your regular medications unless directed otherwise. I understand the above instructions and have no questions. Signature of Patient or Responsible Adult Escort Date/Time Name of Responsible Adult Escort Signature of Nurse Date/Time Activity:: Activity as Tolerated Diet:: As Tolerated Discharge Orders Discharge Orders: Discharge Order (Routine); Ordered 03/27/20 Ordered By: Ava Lazaro DS: Diagnosis Discharge Diagnosis (1) Colon polyp: Status: Acute
[2020-03-27] MEDS: Lactated Ringers 1,000 ML 80 ML IV (08:17)
--- NOTE | 2020-03-27 08:17 | COLE_ITS ---
Date of service: 03/27/20 Time of Service: 10:05 Colonoscopy Report Date of procedure: 03/27/20 Pre-op diagnosis general: Screening Post-op diagnosis procedure note: other (Rectal polyp) Procedure: Colonoscopy with cold forceps polypectomy Surgeon: Ava Lazaro Anesthesia proc note operative: MAC Indications: This 49 year old man presents for his first screening colonoscopy. No symptoms or FH colon cancer. Procedure Description: The patient was placed in the left [place] position. Propofol was titrated to sedation. Digital rectal examination revealed no abnormalities. The scope was advanced to the cecum without difficulty. The ileocecal valve and appendiceal orifice were clearly identified. The prep was good. The scope was slowly withdrawn over the course of greater than 6 minutes with no abnormalities seen in the ascending, transverse, descending or sigmoid c olon. In the rectum a less than 1cm polyp was removed with the cold forceps. The rectum was otherwise normal including on retroflexed view. The patient tolerated the procedure well and was stable to recovery. If the polyp is adenomatous, he will need a colonoscopy in 5 years. Will contact with biopsy results.
--- NOTE | 2020-03-27 09:55 | BOWEL_PTH ---
PATIENT: Tremaine Godfrey LOC: [facility] U#:[id number] AGE/SX: 49/M ROOM: RE03/27/[address]: Ava Lazaro MD : 1970 BED: DIS: 03/27/2020 SPEC #: [id number] RECD: 03/27/20 12:53 STATUS: ELEANOR REQ #: [id number] JOHN: 03/27/20 09:[address]: Ava Lazaro DEPT: Surgical Specimen RECD BY: Iliana Bray ENTERED: 03/27/20 12:55 SP TYPE: Bowel OTHR DR: Suze Nair Tissues: 1 - BIOPSY BOWEL Procedures: GROSS AND MICRO LEVEL 4 Comments: [id number]
[2020-03-27 10:33] VITALS: BP 161/96; PULSE 75; RESP 18; TEMP 36.5; O2SAT 95
== END 2020-03-27 10:39 | disposition home or self-care (01) ==
PROVIDERS: PCP Nurse Practitioner Family; Visit Provider Surgery
PROC: 0DJD8ZZ Inspection of Lower Intestinal Tract, Via Natural or Artificial Opening Endoscopic (ICD-10-PCS; CPT 45378; principal; 2020-03-27 09:15)
DX: Z12.11 Encounter for screening for malignant neoplasm of colon (principal); K62.1 Rectal polyp; I10 Essential (primary) hypertension; E83.119 Hemochromatosis, unspecified; F10.20 Alcohol dependence, uncomplicated
CPT/HCPCS: 45380; 88305; J2001

== ENCOUNTER → 2020-04-23 10:37 | Outpatient (CLI) | payer BC, SELFPAY ==
--- NOTE | 2020-04-23 10:15 | DI.RAD_ITS ---
EXAM: XR PELVIS AP CLINICAL HISTORY: preoperative. TECHNIQUE: 2D digital imaging was performed. COMPARISON: CR XR HIP LT COMPLETE AP PELVIS from 01/21/2020 CR XR PELVIS AP from 02/17/2020 FINDINGS: There are stable severe degenerative changes of the left hip. Findings include joint space narrowing , subchondral sclerosis and periarticular spurring. There is an unchanged lucency and sclerotic line in the head of the right femur which may reflect avascular necrosis. Mild degenerative changes are seen in the right hip. No acute fracture or dislocation. The soft tissues are unremarkable. Vascul ar calcifications are present. IMPRESSION: DATA REPOSITORY: RADIATION DOSE DELIVERED:
== END ==
PROVIDERS: PCP Nurse Practitioner Family; Referring Provider Nurse Practitioner Family; Visit Provider Physician Assistant Surgical
DX: M16.12 Unilateral primary osteoarthritis, left hip (principal)
CPT/HCPCS: 72170

== ENCOUNTER → 2020-06-05 01:46 | Outpatient (CLI) | payer BC, SELFPAY ==
[2020-06-05 14:21] LABS: HCT 43.6 % (40.0-50.0); HGB 15.2 g/dL (13.5-17.5); MCH 37.2 pg (27.0-33.0); MCHC 34.9 % (32.0-36.0); MCV 106.6 fL (80-95); MPV 10.3 fL (8.0-11.0); Platelet Count 181 10^3/uL (130-400); RBC 4.09 10^6/uL (4.36-5.78); RDW 11.8 % (11.8-14.1); RDW-SD 46.1 fL; WBC 9.52 10^3/uL (4.4-10.8)
[2020-06-05 16:26] LABS: Anion Gap 5.4 mmol/L (3-11); BUN 17 mg/dL (7-18); CO2 30.6 mmol/L (21.0-32.0); CREATININE 0.92 mg/dL (0.70-1.30); Calcium 9.7 mg/dL (8.5-10.1); Chloride 100 mmol/L (98-107); Glucose 105 mg/dL (74-106); Potassium 3.9 mmol/L (3.5-5.1); Sodium 136 mmol/L (136-145)
== END ==
PROVIDERS: PCP Nurse Practitioner Family; Visit Provider Student in an Organized Health Care Education/Training Program
DX: M25.552 Pain in left hip (principal); M16.12 Unilateral primary osteoarthritis, left hip; Z01.818 Encounter for other preprocedural examination; Z01.812 Encounter for preprocedural laboratory examination
CPT/HCPCS: 36415; 80048; 85027; 86850; 86900; 86901

== ENCOUNTER 2020-06-05 08:41 | Outpatient (CLI) | payer BC, SELFPAY ==
[2020-06-06 17:55] LABS: COVID-19 RT-PCR Result NEGATIVE (Negative)
== END 2020-06-05 09:01 ==
PROVIDERS: PCP Nurse Practitioner Family; Visit Provider Student in an Organized Health Care Education/Training Program
DX: Z11.59 Encounter for screening for other viral diseases (principal); Z01.818 Encounter for other preprocedural examination; M16.12 Unilateral primary osteoarthritis, left hip
CPT/HCPCS: U0003

== ENCOUNTER 2020-06-10 05:51 | Observation (INO) | payer BC, SELFPAY ==
[2020-06-10] VITALS (16 sets, daily range): BP systolic 92–139; BP diastolic 51–89; PULSE 61–78; RESP 12–27; TEMP 36–36.9; O2SAT 93–99
[2020-06-10] MEDS: Celecoxib 200 MG CAP 400 MG PO (06:18)
[2020-06-10] MEDS: Acetaminophen 500 MG TAB 1000 MG PO ×2 (06:18→12:59)
[2020-06-10] MEDS: Lactated Ringers 1,000 ML 80 ML IV ×2 (06:19→12:59)
[2020-06-10] MEDS: ceFAZolin 3,000 MG in Normal Saline 100 ML 200 MG IVPB (07:35)
[2020-06-10] MEDS: Ketorolac 30 MG/ML VIAL (10:00)
[2020-06-10] MEDS: Bupivacaine 0.25% Pres-Free 30 ML VIAL (10:00)
--- NOTE | 2020-06-10 10:44 | DI.RAD_ITS ---
EXAM: XR HIP LT IN OR CLINICAL HISTORY: DJD LEFT HIP. TECHNIQUE: 2D and realtime digital imaging was performed. COMPARISON: No exams were available for comparison FINDINGS: Fluoroscopy was provided in the OR for Dr. Camara. Hard copy images show placement of a left hip p rosthesis. The alignment appears satisfactory. Please see procedure note for details. Fluoro time: 54.2 sec RADIATION DOSE DELIVERED:
[2020-06-10] MEDS: diazePAM 5 MG TAB PO (12:10)
--- NOTE | 2020-06-10 12:14 | W.PM.OP ---
Date of service: 06/10/20 Time of Service: 10:47 Operative Note Operative Note DATE OF PROCEDURE: 06/10/20 PRE-OP DIAGNOSIS: Left Hip Osteoarthritis POST-OP DIAGNOSIS: same PROCEDURE: Left Anterior Total Hip Arthroplasty SURGEON: Harvey Camara EMERGENCY GENERATOR MECHANIC: Huong Irizarry ANESTHESIA: GETA ESTIMATED BLOOD LOSS: 700 PATHOLOGY: none sent COMPLICATIONS: None Patient was transported to: PACU Patient's condition: stable Implants: 1. Depuy Chandler Acetabular Component, 58mm 2. Depuy Acetabular Liner, [id number] 3. Depuy Actis High Offset Femoral Stem, Size 6 4. Depuy Altrx Ceramic Femoral Head, Size 36+8.5mm Indications: I have seen Tremaine in clinic for symptoms of hip arthritis, confirmed with radiographic findings. He has exhausted nonoperative methods and was having significant limitations in daily function and desired better function and less pain. I discussed the technical details of a hip replacement. I explained the risks of the procedure to include, but not limited to, bleeding, infection, pain, stiffness, fracture, damage to nerves and vessels, damage to muscles and tendons, loosening, instability, leg length inequality, need for repeat procedure, blood clot and cardiopulmonary demise. Despite these risks, Tremaine elected to proceed. Findings: There was significant signs of arthritis throughout the hip. Procedure Description: Tremaine was greeted in the preoperative holding area where the correct side was identified and marked. The consent was reviewed with the patient and signed. The history and physical was updated. All questions were answered. He was taken back to the operating room. A spinal anesthestic was then attempted, but unsuccessful, so he was converted to a general anesthetic. The patient was placed into the supine position on the operating room table. The patient was then positioned onto the ARCH table. Both feet were wrapped with Webrill cotton wrap along with Coban. The feet were placed in specialized boots for the HANA table, well seated within the boots and secured. SCDs were applied. The patient was then slid down onto a peroneal post. A preoperative AP pelvis was obtained to serve as a reference for determining leg lengths. Prophylactic antibiotics in the form of Cefazolin were administered. 1g of Tranxemic Acid was given intravenously within 30 minutes of incision. The left leg was then prepped with Chloraprep and draped in a standard fashion. A second prep with Chloraprep was performed prior to placement of a shower-curtain type drape with Iodine impregnated skin protection. A timeout to confirm correct identity, side and site, procedure, allergies, anesthesia, and medical concerns was performed. An obliquely oriented incision was made starting lateral to the ASIS and running distal over the Tensor Fascia Apoorva (TFL) muscle belly toward the fibular head, approximately 10cm. The skin and soft tissue was dissected sharply, through Izabela?s fascia, and to the fascia of the TFL. With the fascia and superior border of the IT band identified, the fascia was incised with a new knife just above any perforators from the IT band. The TFL muscle belly was bluntly dissected away from the fascia and moved laterally. The fat between TFL and rectus was identified to ensure the dissection was not within the TFL. Blunt dissection created space between abductors and the capsule and retractor was placed over the lateral femoral neck. The fibers of the rectus femoris tendon were identified and these were freed from the anterior capsule. A second cobra retractor was placed around the medial femoral neck. The TFL was further retracted laterally to show the deep fascia. Careful dissection through this layer identified three main crossing vessels of the lateral femoral circumflex. These were cauterized in multiple locations and then cut without any noticeable bleeding. The TFL was further released bluntly from the deep fascia to expose anterior hip capsule and fat The Michael orthopaedic retractor was then placed beneath the TFL and against sartorius and medial soft tissues to protect and retract the soft tissues. A T-capsulotomy was then performed starting at the superior lateral acetabulum and moving distally to the intertrochanteric ridge. These capsular flaps were tagged with a No. 1 Ethibond and elevated from within. The capsular flaps were released to the shoulder of the lateral neck and to the lesser trochanter to give excellent visualization of the proximal femur. A neck osteotomy was performed using an oscillating saw based on preoperative templates. This cut started in the shoulder and of the lateral neck and exited medially. The saw was at all times directed medially to avoid injury to the greater trochanter. The femoral head was removed with a corkscrew, making sure to protect the TFL on its exit. Its removal was difficult due to the size as well as the osteophytes and capsular attachments. This was measured on the back table to determing the starting reamer size. Portions of the rectus obscuring visualization were minimally elevated off the superior acetabulum. An anterior retractor was placed over the anterior wall between capsule and labrum and attached to the Gripper retraction system. A posterior retractor was placed similarly. This provided excellent visualization. The contents of the cotyloid fossa were removed with electrocautery and the labrum was removed with a knife. There was a notable floor osteophyte. There was significant chondromalacia of the superior acetabulum. Acetabular reaming began with a 54mm reamer. This first reaming was directed anterior to posterior and medial to get down to the true floor. This was inspected and reamed until the true floor was reached. The anterior retractor was then released and entry and exit was provided by traction on the capsular flaps. I then reamed sequentially up to a 58mm reamer where good fit was obtained. The larger reamers were oriented based on anatomical reference of the anterior and lateral aguero to ensure proper abduction and anteversion. Positioning and size was confirmed with the fluoroscopy. A 58mm Depuy Chandler acetabular component was selected. The acetabulum was reamed around the periphery with the selected acetabular size to prevent a rim fit. The deep tissues were irrigated. The acetabular component was then impacted in a position of about 40-45 degrees of abduction and 15-20 degrees of anteversion, using the patient?s anatomy as the ultimate landmark. Fluoroscopy was used to confirm this. There was excellent mine safety director of the acetabular component and the inserting handle was removed. The acetabular liner, Depuy [id number] polyethylene liner, was inserted and lined up with the tines of the acetabular component. There was no soft tissue interposition. The liner was then impacted into position and confirmed to be well-seated. A portion of the debbie-articular cocktail was then injected around the acetabulum into the capsule and periosteum. This cocktail consisted of 50cc of 0.25% Bupivicaine and 20cc of Exparel, expanded to a total of 120cc. Traction was released from the femur. The leg was rotated to 120 degrees. Any remaining medial capsule was released until the lesser trochanter was easily palpable. A Alarcon retractor was placed medially. The lateral capsule was further released into the shoulder to allow access to the greater trochanter. A Alarcon retractor was placed over the greater trochanter which allowed the trochanter to flip in front of the capsule for excellent exposure. The leg was brought down into maximal extension and 20 degrees of adduction while ensuring there was no impingement on the acetabulum. Any remnant capsule within the trochanter was released. Piriformis and obturator externis were identified. The lateral neck remnant was removed with a rongeur. Extensively femur was challenging. He had significant soft tissues medially which made exposure quite difficult. I brought the leg up back out of this extended position to reevaluate capsular releases. There is no notable capsular attachments remaining. The leg back in extension and external rotation are removed the short external rotators and piriformis as well to improve exposure. However, access was still challenging. It was not so much that the femur was not moving, it was that the soft tissue medially was impeding access. I worked on this as much as possible to improve visualization. Finally, a blunt canal probe was used to identify the canal and trajectory for later broaching. A box osteotome initiated the broach course. Broaching then began with a size 0 Actisl broach. This was inserted manually around the trochanter and into the canal before mallet blows. The broach was seated to the neck cut level based on the neck cut and the preoperative template. Sequential broaching was continued with the Chartbeatse pneumatic broaching device until a tight fit was obtained with good rotational control of the femur. A trial high offset neck was inserted along with a +5 trial head. The leg was brought out of extension and adduction and then reduced with traction and internal rotation. The leg was stable anteriorly in a position of 30 degrees of extension and 90 degrees of external rotation. Fluoroscopy was used to ensure there was no fracture and the stem was seated well. Leg lengths were checked with an AP pelvis and pelvic reference points. [email or web address] navigation system was used to confirm appropriate positioning and leg length and offset. This still under represented leg length and offset, so I went to a 8.5mm head. Once content with the desired offset and leg lengths, the leg was brought back into extension, external rotation and adduction. The periosteum and surrounding tissue was injected with remaining portion of the debbie-articular cocktail. The proximal femur was irrigated as well as the deep tissues. The SevenLunchesuy Actis High Offset stem, size 6, was then manually inserted into the proximal femur making sure to control rotation. It was then malleted into position with light blows, giving breaks to allow bone expansion and decrease risk of fracture. The selected Depuy Altrx Ceramic Head, size 36+8.5mm, was then placed onto the clean and dry trunnion and secured with impaction onto the tapered fit. The leg was brought back out of extension and adduction and reduced with traction and internal rotation. Stability was confirmed with no shuck at 90 degrees of external rotation and 30 degrees of extension. No impingement through range of motion arc. Final x-ray images were obtained with fluoroscopy to confirm adequate positioning and no intraoperative fracture. The deep tissues were thoroughly irrigated with Irrisept chlorhexadine solution. The second dose of TXA 1g was administered intravenously.The capsule was then reapproximated with the previously placed Ethibond sutures. The TFL fascia was finally closed with a No. 2 Stratafix, barbed suture. Deep tissues were then reapproximated with 0 Vicryl and a running 2-0 Vicryl. The skin was closed with a running 4-0 Monocryl in a subcuticular fashion. This was reinforced with skin glue. A Mepilex silver dressing was applied. At the end of the case, all counts were correct. Tremaine was transferred to the hospital bed without difficulty and suffering no apparent complication. He has a good prognosis. Physical therapy will start today and without restrictions, weight-bearing as tolerated. Aspirin 81mg BID will be used for DVT prophylaxis.
[2020-06-10] MEDS: ceFAZolin 1 GM/50 ML BAG IVPB (12:59)
--- NOTE | 2020-06-10 14:38 | PT.INIE ---
Date of service: 06/10/20 Time of Service: 14:38 PT Notes Visit Reasons: TOTAL HIP Physical Therapy Inpatient Initial Evaluation Date: 06/10/2020 Referring Doctor: Harvey Camara MD PT Orders: PT CONSULT: S/P Ortho surgery. S/P left HIEU. Precautions: Fall. Standard. WBAT on left LE Patient Profile/Admitting Diagnosis: Tremaine is a 49-year-old male with degenerative joint disease of the left hip and is status post left total hip arthroplasty on postoperative day 0. PMHX: Medical History (Updated 04/23/20 @ 10:28 by SAVANAH Hall) Alcohol dependence Degenerative joint disease of left hip Degenerative joint disease of right hip pt. denies having this on right R hip Hemochromatosis HTN (hypertension) Obesity Tobacco dependence Surgical History History of tonsillectomy Hx of wisdom tooth extraction Social History/Home Situation: Tremaine lives with in a private home with 2 steps to enter with rails on both sides; he also has a ramp directly to an alternate entrance in the house. Works at [employer]. Independent with all aspects of ADLs without an assistive ambulatory device nor adaptive equipment. Equipment Owned/DME: None Subjective: Agreeable to PT consult. Denies headache, chest pain, and dizziness throughout PT session. Objective: General Observation: Supine in bed. Bilateral TDS on them. Antithromboembolic pumps to both leg. Mepilex Ag over surgical incision. IV in the left UE. Mental Status: Alert and oriented x4 Pain: 0/10 Vital Signs: Within normal limits as measured by nurse only preceding PT session ROM: Right Upper Extremity: Shoulder Flexion WFL. Shoulder abduction WFL. Elbow flexion WFL. Wrist flexion WFL. Opening and closing of hand WFL. Left Upper Extremity: Shoulder Flexion WFL. Shoulder abduction WFL. Elbow flexion WFL. Wrist flexion WFL. Opening and closing of hand WFL. Right Lower Extremity: Hip flexion WFL. Hip abduction WFL. Knee flexion WFL. Ankle dorsiflexion WFL. Ankle plantarflexion WFL. Left Lower Extremity: Hip flexion WFL. Hip abduction WFL. Knee flexion WFL. Ankle dorsiflexion WFL. Ankle plantarflexion WFL. Strength: Right Upper Extremity: Shoulder flexors 5/5. Shoulder abductors 5/5. Elbow flexors 5/5. Elbow extensors 5/5. 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 Left Upper Extremity: Shoulder flexors 5/5. Shoulder abductors 5/5. Elbow flexors 5/5. Elbow extensors 5/5. 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 Right Lower Extremity: Hip flexors 5/5. Hip abductors 5/5. Knee flexors 5/5. Knee extensors 5/5. Ankle dorsiflexors 5/5. Ankle plantarflexors 5/5. Left Lower Extremity:Hip flexors 4/5. Hip abductors 4/5. Knee flexors 4/5. Knee extensors 4/5. Ankle dorsiflexors 5/5. Ankle plantarflexors 5/5. Sensation: Intact as to pain and pressure on bilateral lower extremities. Bed Mobility/Transfers: Rolling independent Supine to sit independent Sit to supine independent Sit to stand independent Stand to sit independent Bed to chair supervision Chair to bed supervision Gait: Patient tolerated level surface ambulation of 120 feet x 2 using the front wheeled walker with step through gait pattern during only contact-guard assist from PT. Up-and-down six 4 inch steps and 4 onto bilateral rails with step to gait pattern with supervision assist. Balance: Static Sitting: Normal Dynamic Sitting: Normal Static Standing: Fair Dynamic Standing: Fair Special Tests: Mobility Limitations Standardized Measure [facility] 6 clicks Basic Mobility Inpatient Short Form: Raw Score: 23 CMS Score: 11% deficit Informed Consent/Education: Patient instructed in purpose of PT consult and plan of care. Assessment: Tremaine demonstrates functional mobility decline requiring the use of a front wheeled walker for all mobility ADL 4 minutes, decreased activity tolerance, gait impairment, and increased risk for falls due to postoperative status. Tremaine is a 49-year-old male with degenerative joint disease of the left hip and is status post left total hip arthroplasty on postoperative day 0. Patient presents with clinical signs and symptoms consistent with current/admitting diagnoses that have resulted to mobility limitations, gait instability, generalized weakness, and impairment of motor control as demonstrated by the following impairment level findings: 1. Decreased strength to left hip major muscle groups 2. Impaired standing balance 3. Impaired activity tolerance Impairments are contributing to the following functional limitations: 1. Inability to safely ambulate without assistive device and physical assistance 2. Increase completion time for mobility ADL performance 3. Increased fall risk 4. Inability to negotiate steps alone safely Patient is assessed as a 75188 moderate complexity based on the following: History: 49-year-old male with impairment level findings, functional limitations, and past medical history as indicated above Examination: Demonstrable impairment in strength, balance, and mobility level with underlying impairments and functional limitations as documented above Presentation:Evolving Decision Makin moderate complexity Goals: N/A. PT eval and 1 treatment session only for HEP education and functional mobility training using the front wheeled walker to maximize safety at home. Plan of Care/Treatment Plan: N/A. PT eval and 1 treatment session only for HEP education and functional mobility training using the front wheeled walker to maximize safety at home. DISCHARGE RECOMMENDATIONS: Home when medically cleared by orthopedic surgeon. Outpatient PT services to facilitate return to premorbid independent level and vocational activities. TREATMENT CODE/TIME: 63221 x 30 minutes, 00038 x 14 minutes beginning at 14:38 PM. Thank you for the opportunity to participate in the care of this patient. Nicol Quinteros PT, DPT, CLT [facility] [place], [place]
--- NOTE | 2020-06-10 16:34 | W.PM.DS.N ---
Date of service: 06/10/20 Time of Service: 16:35 DS: Diagnosis Discharge Diagnosis (1) Degenerative joint disease of left hip: Status: Acute Discharge Plan Disposition Patient Disposition: HOME Condition: Stable Discharge Details Reason For Visit: TOTAL HIP Admit Date/Time: 06/10/20 05:51 Admit Provider: Harvey Camara Attending Provider: Harvye Camara Primary Care Provider: Suze Nair Hospital Course Hospital Course: Patient was admitted to the medical/surgical floor following the procedure. The surgery was tolerated well without any notable medical, surgical, or anesthetic complications. Mobilization began postoperatively. He was voiding spontaneously. Vitals were stable. Physical therapy worked with the patient and was cleared for discharge home. No acute medical issues. Pain was controlled on oral regimen. Home Meds and New Rx's Prescriptions: New celecoxib [Celebrex] 200 mg capsule 200 mg PO BID Qty: 60 RF: 0 aspirin 81 mg tablet,delayed release (DR/EC) 81 mg PO BID Qty: 60 RF: 0 acetaminophen [Tylenol Extra Strength] 500 mg tablet 500 mg PO Q6H PRNQty: 90 RF: 0 pantoprazole [Protonix] 40 mg tablet,delayed release (DR/EC) 40 mg PO DAILY Qty: 30 RF: 0 oxycodone 5 mg tablet 5 mg PO Q4H PRNQty: 18 RF: 0 Continued albuterol 90 mcg/actuation aerosol 90 mcg IH .Q6 PRNRF: 0 fluticasone propionate [Flonase Allergy Relief] 50 mcg/actuation [place],Suspension 1 spray INTRANASAL PRN PRNRF: 0 multivitamin [Multiple Vitamins] Tablet 1 tab PO DAILY Qty: 30 RF: 0 amlodipine 10 mg Tablet 10 mg PO DAILY Qty: 30 RF: 0 hydrochlorothiazide 25 mg Tablet 25 mg PO DAILY Qty: 30 RF: 0 metoprolol tartrate 25 mg Tablet 25 mg PO BID Qty: 60 RF: 0 Discontinued aspirin [Adult Aspirin Regimen] 81 mg tablet,delayed release (DR/EC) 81 mg PO DAILY RF: 0 Discharge Instructions Additional Instructions: Total Hip Discharge Instructions Activity: The most important activity is to walk. You should try to take short walks a few times a day. You have no restrictions on movement or positioning, but do not try to force what you do. You will find some stiffness and weakness with hip flexion (lifting your knee). Do not try to strengthen this too early, continue to practice walking and stairs and this will come. - Outpatient physical therapy can be helpful to help return you to a normal gait and improve your flexibility and strength. This can start around 2 weeks. For some patients, it?s not necessary. Usually this is determined at the time of discharge or at the first post-operative visit. - You should wear the MONTY hose on both legs for 2 weeks. Dressing: Keep the surgical dressing in place for at least one week. After the first week it may be removed and replace with light gauze and tape or nothing. It may get wet after 3 days but avoid soaking the dressing. If it gets wet, just lightly pat dry. It is important to always keep some gauze between skin folds, especially when you are sitting. Spend some time with the wound exposed when you are lying flat as the incision does wrinkle onto itself. Medications: - You should take Tylenol and an anti-inflammatory Celebrex as your primary pain control medications. If Celebrex is not covered or too expensive, you may take 2 Aleve twice a day, or call Dr. Camara for other options. - You have been prescribed a stronger pain medication Oxycodone for breakthrough pain, take as needed as prescribed. - You have also been prescribed a stomach acid reduction agent Pantoprozole to help reduce stomach acid and reflux. - You will be taking Aspirin 81mg twice a day for DVT prevention unless instructed otherwise. - If you have constipation you should take Colace or Miralax (both [id number]). It takes most people 3-4 days to have a bowel movement. Follow-up: 2 weeks If you have any acute concerns or questions, please do not hesitate to contact the office at [phone]. You may contact Dr. Camara with any questions after hours through the hospital at [phone] or on his cell phone at [phone]. Referrals: Harvey Cmaara MD [ [facility]] - Activity:: Activity as Tolerated Equipment/Supplies:: Walker Diet:: As Tolerated Discharge Orders Discharge Orders: Discharge Order (Routine); Ordered 06/10/20 Ordered By: Harvey Camara DS: Summary Status at Discharge Functional status at discharge: uses cane/walker Overall status at discharge: patient is progressing back to baseline Mental Status: mental status grossly normal Speech and Movement: speech and movement normal Mood: congruent mood Affect: normal affect Exam Psych Mental Status: mental status grossly normal Speech and Movement: speech and movement normal Mood: congruent mood Affect: normal affect DS: Data Vitals/I&O Vitals and I&O: Vital Signs Temperature 36.8 C 06/10/20 14:00 Temperature Source Tympanic 06/10/20 14:00 Pulse 71 06/10/20 14:00 Pulse Rhythm Regular 06/10/20 12:30 Respiratory Rate 18 06/10/20 14:00 Respiratory Effort Non-Labored 06/10/20 12:30 Respiratory Depth Normal 06/10/20 12:30 Respiratory Pattern Normal 06/10/20 12:30 Blood Pressure 128/80 06/10/20 14:00 Pulse Oximetry 94 06/10/20 14:00 Respiratory End-tidal CO2 33 06/10/20 11:55 Oxygen Delivery Method Room Air 06/10/20 14:00 Oxygen Flow Rate 0 06/10/20 14:00 Pain Level 0 06/10/20 14:00 Intake & Output 06/09/20 06/10/20 06/10/20 23:59 11:59 23:59 Intake Total 980 / 1176 196 / 1176 Output Total 700 / 700 Balance 280 / 476 196 / 476 Weight 149 kg Intake: IV 920 / 1096 176 / 1096 Oral 60 / 80 20 / 80 Output: Estimated Blood Loss 700 / 700 Other: Urine Color Yellow Urine Appearance Clear Urine Odor None Emesis Description None None Voiding Methods Toilet [facility] Medical History Alcohol dependence Degenerative joint disease of left hip Degenerative joint disease of right hip pt. denies having this on right R hip Hemochromatosis HTN (hypertension) Obesity Tobacco dependence Surgical History History of tonsillectomy Hx of wisdom tooth extraction Social History Smoking/Tobacco Use Status: Current every day Tobacco Type: cigarettes Smoking packs per day: 1 Smoking cigarettes per day: 20.0 Years smoked: 30 Smoking pack-years: 30.00 Alcohol Intake: current Alcohol Intake frequency: 3 or more drinks per day Alcohol type: hard liquor Drug use: Rarely Substance use type: marijuana current occupation: [employer] Current gender identity: male Do you feel safe at home: Yes Do you feel safe in your relationship?: Yes
== END 2020-06-10 17:50 | disposition home or self-care (01) ==
LOC: PDS 10:57 → MS 10:57
PROVIDERS: Admitting Provider Student in an Organized Health Care Education/Training Program; PCP Nurse Practitioner Family; Visit Provider Student in an Organized Health Care Education/Training Program
PROC: (CPT 27130; principal; 2020-06-10 07:30)
DX: M16.12 Unilateral primary osteoarthritis, left hip (principal); I10 Essential (primary) hypertension; F17.210 Nicotine dependence, cigarettes, uncomplicated; E66.9 Obesity, unspecified; E83.119 Hemochromatosis, unspecified; Z79.82 Long term (current) use of aspirin; Z68.41 Body mass index [BMI] 40.0-44.9, adult
CPT/HCPCS: 27130; 90686; 97162; 97530; NC; 73501; G0378; J0690; J1100; J1885; J2405

== ENCOUNTER → 2020-06-25 10:22 | Outpatient (CLI) | payer BC, SELFPAY ==
--- NOTE | 2020-06-25 09:15 | DI.RAD_ITS ---
EXAM: XR HIP LT COMPLETE AP PELVIS CLINICAL HISTORY: 1ST POST OP. TECHNIQUE: 2D digital imaging was performed. COMPARISON: CR XR HIP LT COMPLETE AP PELVIS from 09/25/2019 CR XR HIP LT COMPLETE AP PELVIS from 01/21/2020 FINDINGS: BONES: There are stable post operative changes present. No fracture or dislocation. Lucencies are se en projected over the right femoral head. These may represent subchondral cysts or avascular necrosi s. Able. JOINTS: The joint spaces are well maintained. No joint effusion is present. SOFT TISSUE: Normal. IMPRESSION: Stable postoperative changes. DATA REPOSITORY: RADIATION DOSE DELIVERED:
== END ==
PROVIDERS: PCP Nurse Practitioner Family; Referring Provider Nurse Practitioner Family; Visit Provider Student in an Organized Health Care Education/Training Program
DX: Z96.642 Presence of left artificial hip joint (principal)
CPT/HCPCS: 73502

== ENCOUNTER 2020-07-28 03:34 | Outpatient (CLI) | payer BC, SELFPAY ==
[2020-07-31 18:52] LABS: COVID-19 RT-PCR Result NEGATIVE (Negative)
== END 2020-07-28 03:54 ==
PROVIDERS: PCP Nurse Practitioner Family; Visit Provider Nurse Practitioner Family
DX: Z20.828 Contact with and (suspected) exposure to other viral communicable diseases (principal)
CPT/HCPCS: U0003

== ENCOUNTER 2020-11-19 11:17 | Outpatient (REF) | payer BC, SELFPAY ==
[2020-11-19 13:53] LABS: HCT 43.4 % (40.0-50.0); MCH 37.2 pg (27.0-33.0); MCHC 34.6 % (32.0-36.0); MCV 107.7 fL (80-95); MPV 11.1 fL (8.0-11.0); Platelet Count 207 10^3/uL (130-400); RBC 4.03 10^6/uL (4.36-5.78); RDW 12.2 % (11.8-14.1); RDW-SD 49.1 fL; WBC 8.72 10^3/uL (4.4-10.8)
[2020-11-19 14:22] LABS: Iron 226 ug/dL (65-175); Total Iron Binding Capacity 217 ug/dL (250-450); Transferrin Sat 104 % (20-55)
[2020-11-19 14:49] LABS: ALT 77 U/L (16-63); AST 51 U/L (15-37); Anion Gap 6.4 mmol/L (3-11); BUN 14 mg/dL (7-18); CO2 32.6 mmol/L (21.0-32.0); CREATININE 0.8 mg/dL (0.70-1.30); Calcium 9.4 mg/dL (8.5-10.1); Chloride 102 mmol/L (98-107); Glucose 100 mg/dL (74-106); Potassium 4.6 mmol/L (3.5-5.1); Sodium 141 mmol/L (136-145)
[2020-11-19 14:50] LABS: Ferritin 1894 ng/mL (26-388)
== END 2020-11-19 11:18 | disposition home or self-care (01) ==
LOC: NCHCN 11:17
PROVIDERS: PCP Nurse Practitioner Family; Visit Provider Nurse Practitioner Family
DX: Z00.00 Encounter for general adult medical examination without abnormal findings (principal); I10 Essential (primary) hypertension; E66.9 Obesity, unspecified
CPT/HCPCS: 80048; 85027; 82728; 83540; 83550; 84450; 84460

== ENCOUNTER 2020-12-15 02:38 | Outpatient (RCR) | payer BC, SELFPAY ==
[2020-12-08 08:09] LABS: HCT 45.2 % (40.0-50.0); HGB 15.7 g/dL (13.5-17.5)
[2020-12-08] MEDS: Normal Saline Flush 10 ML SYR IVP (08:38)
[2020-12-15] MEDS: Normal Saline Flush 10 ML SYR IVP (08:03)
[2020-12-15 08:13] LABS: HGB 14.3 g/dL (13.5-17.5)
== END 2020-12-18 23:59 | disposition home or self-care (01) ==
LOC: INF 02:38
PROVIDERS: PCP Nurse Practitioner Family; Visit Provider Internal Medicine
DX: E83.118 Other hemochromatosis (principal)
CPT/HCPCS: 36415; 99195; 85014; 85018

== ENCOUNTER 2020-12-21 01:55 | Outpatient (CLI) | payer BC, SELFPAY ==
[2020-12-21 11:58] LABS: Source Nasal/Nares
[2020-12-21 19:27] LABS: COVID-19 PCR Negative (Negative)
== END 2020-12-21 01:56 | disposition home or self-care (01) ==
LOC: LBO 01:55
PROVIDERS: PCP Nurse Practitioner Family; Visit Provider Surgery
DX: Z20.822 Contact with and (suspected) exposure to COVID-19 (principal); Z01.818 Encounter for other preprocedural examination
CPT/HCPCS: 87635

== ENCOUNTER 2020-12-22 12:49 | Day surgery (SDC) | payer BC, SELFPAY ==
[2020-12-22 13:18] VITALS: BP 152/91; PULSE 69; RESP 17; TEMP 36.3; O2SAT 94
--- NOTE | 2020-12-22 14:32 | SOFT_PTH ---
PATIENT: Tremaine Godfrey LOC: [facility] U#:[id number] AGE/SX: 50/M ROOM: RE12/22/[address]: Gilda Anthony : 1970 BED: DIS: 12/22/2020 SPEC #: [id number] RECD: 12/22/20 17:00 STATUS: ELEANOR SIMON #: [id number] JOHN: 12/22/20 14:[address]: Gilda Anthony DEPT: Surgical Specimen RECD BY: Iliana Bray ENTERED: 12/22/20 17:01 SP TYPE: SOFT OTHR DR: Suze Nair Tissues: 1 - SOFT TISSUE MISC (INC. LIPOMA) Procedures: GROSS AND MICRO LEVEL 3 Comments: [id number]
[2020-12-22 15:05] VITALS: BP 151/87; PULSE 85; RESP 20; TEMP 36.7; O2SAT 93
--- NOTE | 2020-12-22 15:22 | W.PM.DSUDISC ---
Discharge Plan Disposition Patient Disposition: HOME Condition: Good Discharge Details Reason For Visit: cyst removal Attending Provider: Gilda Anthony Primary Care Provider: Suze Nair Home Meds and New Rx's Prescriptions: New tramadol 50 mg tablet 50 mg PO Q6H PRNQty: 7 RF: 0 Continued aspirin [Adult Aspirin Regimen] 81 mg tablet,delayed release (DR/EC) 81 mg PO DAILY RF: 0 losartan 25 mg tablet 25 mg PO DAILY RF: 0 fluticasone propionate [Flonase Allergy Relief] 50 mcg/actuation [place],Suspension 1 spray INTRANASAL PRN PRNRF: 0 multivitamin [Multiple Vitamins] Tablet 1 tab PO DAILY Qty: 30 RF: 0 amlodipine 10 mg Tablet 10 mg PO DAILY Qty: 30 RF: 0 hydrochlorothiazide 25 mg Tablet 25 mg PO DAILY Qty: 30 RF: 0 metoprolol tartrate 25 mg Tablet 25 mg PO BID Qty: 60 RF: 0 acetaminophen [Tylenol Extra Strength] 500 mg tablet 500 mg PO Q6H PRNQty: 90 RF: 0 Discharge Instructions Additional Instructions: Caring for Your Incision You?ll need to help care for your incision after surgery and certain medical procedures. To close an incision, your healthcare provider used stitches (sutures), special strips of surgical tape called Steri-Strips, surgical wolfgang, or surgical skin glue. Follow the tips on this sheet to help stop bleeding, speed healing, and prevent infection of your incision. Pain Control Use ice! Ice keeps the swelling down and swelling is what causes pain. Never apply ice directly to the skin. Wrap it in a towel or cloth. Apply ice 20 minutes on and 20 minutes off for pain control. Use as needed. Take tylenol 500 mg by mouth with food every 4 hours as needed for pain. Or ibuprofen 600 mg by mouth with food every 6 hours as needed for pain. Do not take tylenol if you have a history of heavy drinking , hepatits C or liver problems. Do not take ibuprofen if you have a history of stomach ulcers/problems, bleeding problem or kidney issues. Types of incision closures ? Surgical stitches (sutures) are placed by sewing the edges of an incision together with surgical thread. Sutures are either absorbable or non-absorbable. Absorbable sutures break down in the body over time. Non-absorbable sutures need to be removed. ? Home care ? Always wash your hands before touching your incision. ? Keep the incision clean, dry, and out of water, keep the incision out of water. ? Do not to pick at the scabs. Scabs help protect the wound. ? You can take a shower in 24 hours and wash the incision with soap and water. Pat dry/don?t scrub. It?s OK to wash around the incision. But don?t spray water directly on it. ? Pat stitches dry if they get wet. Don't rub. ? Check the incision site daily for pain, redness, drainage, swelling, or separation of the incision edges. ? If there is a bandage (dressing) over the incision, change this every 24 hours as instructed by your provider. Using clean hands change the dressing as directed by your healthcare provider. Always wash your hands before changing your dressing. ? Make sure any clothing that touches the incision is loose-fitting. This will prevent rubbing. If the incision is on the head, keep your child from wearing caps or other head coverings. These may rub against the incision. ? Try to avoid from rough play, contact sports, or physical activities for two weeks. This can put you at risk of opening the incision. ? Make sure you avoid doing things that could cause dirt or sweat to get in or on the incision. As your incision heals, the skin may appear pink or red. It may also feel slightly bumpy or raised. This is called a healing ridge. Over time, the color should fade and the raised skin will become less noticeable. Care for specific closures : ? Sutures or wolfgang. Once you no longer need to keep these dry, clean the incision or wound daily, generally after the first 24 hours. First remove the bandage using clean hands. Then wash the area gently with soap and warm water. Use a wet cotton swab to loosen and remove any blood or crust that forms. After cleaning, put a thin layer of antibiotic ointment on. Then put on a new bandage. Follow-up care [place] or sutures generally need to be removed in 7-10 days. Be sure to return for suture or staple removal as directed. If dissolving stitches were used in your mouth, these will not need to be removed. They should fall out or dissolve on their own. If tape closures were used, remove them yourself when your healthcare provider tells you to if they have not fallen off on their own. When to seek medical care Call your healthcare provider right away if you have any of these: ? More pain, redness, swelling, bleeding, or foul-smelling discharge around the incision area ? Fever of 101?F (38.3?C) or higher, or as directed by your child's healthcare provider ? Shaking chills ? Vomiting or nausea that doesn?t go away ? Numbness, coldness, or tingling around the incision area, or changes in skin color ? Opening of the sutures or wound Stitches or wolfgang come apart or fall out or surgical tape falls off before 7 days, or as directed by your healthcare provider [facility] if problems [phone] Follow up: 12/25 @ 8:30am w/ Monique to have the drain removed. 01/07 @ 9am w/ Monique for suture removal Activity:: no lifting over 20#'s x 3 days Remove Dressings/Wound Care:: 24 hours Shower/Bathe:: 24 hours Diet:: As Tolerated Discharge Orders Discharge Orders: Discharge Order (Routine); Ordered 12/21/20 Ordered By: Gilda Anthony DS: Diagnosis Discharge Diagnosis (1) Sebaceous cyst: Status: Acute
--- NOTE | 2020-12-22 21:32 | W.PM.OP ---
Date of service: 12/22/20 Time of Service: 21:32 Operative Note Operative Note DATE OF PROCEDURE: 12/22/20 PRE-OP DIAGNOSIS: Sebaceous cyst POST-OP DIAGNOSIS: same PROCEDURE: Excision SURGEON: Gilda Anthony C UNIX DEVELOPER: Katrina Tovar ANESTHESIA TYPE: Local By Surgeon Refer to Anesthesia Record ESTIMATED BLOOD LOSS: 10 PATHOLOGY: other COMPLICATIONS: None Patient was transported to: same day Procedure Description: Patient has a large sebaceous cyst on the midportion of his upper back that he would like removed. Informed consent is obtained explaining risks and benefits of the procedure including but not limited to: Bleeding, infection, pneumonia, blood clots. Need to heal by secondary intent, scar, need for removal of more tissue. Complications from the anesthesia. And other unforetold complications. Patient was marked and same day. Is brought to the operative room suite and placed in prone position, all bony surfaces padded. A timeout is performed. He was prepped and draped in usual sterile fashion using a ChloraPrep scrub solution. He did not require antibiotics. 50 cc of 1% lidocaine with epi is used for local anesthetization. A 1.5 inch incision is made over the mid apex of the lesion. Skin flaps are raised. Electrocautery is used to provide hemostasis. Lesion was then dissected out. It is approximately 2 x 3 x 1 inches. Does appear to be a sebaceous cyst. He is sent to pathology for evaluation. All portions of the capsule are removed. Electrocautery is used to provide hemostasis. The cavity is irrigated there is no bleeding noted. 1/4 inch [place] drain is placed in the cavity as this does leave slightly larger than 2 x 3 inch defect this is sewn in place with 3-0 nylon sterile dressings were applied. Patient is given instructions in wound care, activity, pain management, and warning signs. He will follow-up in clinic on Monday for wound check and drain removal. We will follow up in 2 weeks for suture removal. If he has any questions or concerns please contact the clinic.
== END 2020-12-22 15:50 | disposition home or self-care (01) ==
PROVIDERS: PCP Nurse Practitioner Family; Visit Provider Surgery
PROC: (CPT 11406; principal; 2020-12-22 14:30)
DX: L72.8 Other follicular cysts of the skin and subcutaneous tissue (principal)
CPT/HCPCS: 11406; 88304

== ENCOUNTER 2021-01-12 02:50 | Outpatient (RCR) | payer BC, SELFPAY ==
[2020-12-29 08:15] LABS: HGB 15.2 g/dL (13.5-17.5)
[2020-12-29] MEDS: Normal Saline Flush 10 ML SYR IVP (08:52)
[2021-01-05] MEDS: Normal Saline Flush 10 ML SYR IVP (08:15)
[2021-01-05 08:28] LABS: HGB 14.4 g/dL (13.5-17.5)
[2021-01-05 09:31] LABS: Ferritin 1705 ng/mL (26-388)
[2021-01-12] MEDS: Normal Saline Flush 10 ML SYR IVP (08:21)
[2021-01-12 08:26] LABS: HGB 14.7 g/dL (13.5-17.5)
== END 2021-01-18 23:59 | disposition home or self-care (01) ==
LOC: INF 02:50
PROVIDERS: PCP Nurse Practitioner Family; Visit Provider Internal Medicine
DX: E83.118 Other hemochromatosis (principal)
CPT/HCPCS: 36415; 99195; 82728; 85018

== ENCOUNTER 2021-02-16 02:34 | Outpatient (RCR) | payer BC, SELFPAY ==
[2021-01-19] MEDS: Normal Saline Flush 10 ML SYR IVP (08:31)
[2021-01-19 08:42] LABS: HCT 40.5 % (40.0-50.0)
[2021-01-26 08:15] LABS: HGB 14.1 g/dL (13.5-17.5)
[2021-01-26] MEDS: Normal Saline Flush 10 ML SYR IVP (09:05)
[2021-02-02] MEDS: Normal Saline Flush 10 ML SYR IVP (08:32)
[2021-02-02 08:33] LABS: HGB 14.1 g/dL (13.5-17.5)
[2021-02-02 09:28] LABS: Ferritin 1579 ng/mL (26-388)
[2021-02-09 08:10] LABS: HGB 14.3 g/dL (13.5-17.5)
[2021-02-16] MEDS: Normal Saline Flush 10 ML SYR IVP (08:07)
[2021-02-16 08:08] LABS: HGB 14.2 g/dL (13.5-17.5)
== END 2021-02-17 23:59 | disposition home or self-care (01) ==
LOC: INF 02:34
PROVIDERS: PCP Nurse Practitioner Family; Visit Provider Internal Medicine
DX: E83.118 Other hemochromatosis (principal)
CPT/HCPCS: 36415; 99195; 82728; 83036; 85014; 85018

== ENCOUNTER 2021-03-16 03:09 | Outpatient (RCR) | payer BC, SELFPAY ==
[2021-03-02] MEDS: Normal Saline Flush 10 ML SYR IVP (08:11)
[2021-03-02 08:21] LABS: HGB 15.5 g/dL (13.5-17.5)
[2021-03-02 09:56] LABS: Ferritin 1572 ng/mL (26-388)
[2021-03-09 08:22] LABS: HGB 15.4 g/dL (13.5-17.5)
[2021-03-09] MEDS: Normal Saline Flush 10 ML SYR IVP (08:32)
== END 2021-03-20 23:59 | disposition home or self-care (01) ==
LOC: INF 03:09
PROVIDERS: PCP Nurse Practitioner Family; Visit Provider Internal Medicine
DX: E83.118 Other hemochromatosis (principal)
CPT/HCPCS: 36415; 99195; 82728; 85018

== ENCOUNTER 2021-04-20 02:09 | Outpatient (RCR) | payer BC, SELFPAY ==
[2021-03-23] MEDS: Normal Saline Flush 10 ML SYR IVP (08:38)
[2021-03-23 08:42] LABS: HGB 15.6 g/dL (13.5-17.5)
[2021-03-30] MEDS: Normal Saline Flush 10 ML SYR IVP (08:12)
[2021-03-30 08:20] LABS: HGB 15.8 g/dL (13.5-17.5)
[2021-03-30 09:08] LABS: Ferritin 1325 ng/mL (26-388)
[2021-04-06 08:27] LABS: HGB 15.7 g/dL (13.5-17.5)
[2021-04-06] MEDS: Normal Saline Flush 10 ML SYR IVP (09:33)
[2021-04-13 08:22] LABS: HGB 15.6 g/dL (13.5-17.5)
[2021-04-13] MEDS: Normal Saline Flush 10 ML SYR IVP (08:35)
== END 2021-04-20 23:59 | disposition home or self-care (01) ==
LOC: INF 02:09
PROVIDERS: PCP Nurse Practitioner Family; Visit Provider Internal Medicine
DX: E83.118 Other hemochromatosis (principal)
CPT/HCPCS: 36415; 99195; 82728; 85018

== ENCOUNTER 2021-05-18 02:45 | Outpatient (RCR) | payer BC, SELFPAY ==
[2021-04-27 08:43] LABS: HGB 15.4 g/dL (13.5-17.5)
[2021-04-27] MEDS: Normal Saline Flush 10 ML SYR IVP (09:02)
[2021-04-27 09:08] LABS: Ferritin 796 ng/mL (26-388)
[2021-05-04] MEDS: Normal Saline Flush 10 ML SYR IVP (09:05)
[2021-05-04 09:35] LABS: HGB 15.8 g/dL (13.5-17.5)
[2021-05-11] MEDS: Normal Saline Flush 10 ML SYR IVP (08:14)
[2021-05-11 08:27] LABS: HGB 15.5 g/dL (13.5-17.5)
[2021-05-18 08:15] LABS: HGB 15.4 g/dL (13.5-17.5)
== END 2021-05-20 23:59 | disposition home or self-care (01) ==
LOC: INF 02:45
PROVIDERS: PCP Nurse Practitioner Family; Visit Provider Internal Medicine
DX: E83.118 Other hemochromatosis (principal)
CPT/HCPCS: 36415; 99195; 82728; 85018

== ENCOUNTER 2021-06-14 09:12 | Outpatient (CLI) | payer BC, SELFPAY ==
--- NOTE | 2021-06-14 08:45 | DI.RAD_ITS ---
Exam(s) XR HIP LT AP LAT ONLY EXAM: XR HIP LT AP LAT ONLY CLINICAL HISTORY: ANNUAL F/U L HIEU. TECHNIQUE: 2D digital imaging was performed. COMPARISON: CR XR HIP LT COMPLETE AP PELVIS from 06/25/2020 FINDINGS: There is continued stable position alignment of the components of the prosthesis. No fracture nor lo osening evident. IMPRESSION: DATA REPOSITORY: RADIATION DOSE DELIVERED:
== END 2021-06-14 09:13 | disposition home or self-care (01) ==
LOC: DIORS 09:13
PROVIDERS: PCP Nurse Practitioner Family; Referring Provider Nurse Practitioner Family; Visit Provider Student in an Organized Health Care Education/Training Program
DX: Z96.642 Presence of left artificial hip joint (principal); Z47.1 Aftercare following joint replacement surgery
CPT/HCPCS: 73502

== ENCOUNTER 2021-06-15 01:09 | Outpatient (RCR) | payer BC, SELFPAY ==
[2021-05-25] MEDS: Normal Saline Flush 10 ML SYR IVP (08:35)
[2021-05-25 08:46] LABS: HGB 14.7 g/dL (13.5-17.5)
[2021-06-01] MEDS: Normal Saline Flush 10 ML SYR IVP (08:30)
[2021-06-01 08:50] LABS: HGB 16.4 g/dL (13.5-17.5)
[2021-06-01 09:12] LABS: Ferritin 454 ng/mL (26-388)
[2021-06-08 08:43] LABS: HGB 15.4 g/dL (13.5-17.5)
[2021-06-08 09:40] LABS: ALT 58 U/L (16-63); AST 42 U/L (15-37); Anion Gap 5.2 mmol/L (3-11); BUN 9 mg/dL (7-18); CO2 33.8 mmol/L (21.0-32.0); CREATININE 0.9 mg/dL (0.70-1.30); Calcium 9.2 mg/dL (8.5-10.1); Chloride 102 mmol/L (98-107); Glucose 116 mg/dL (74-106); Potassium 3.8 mmol/L (3.5-5.1); Sodium 141 mmol/L (136-145)
[2021-06-08] MEDS: Normal Saline Flush 10 ML SYR IVP (09:43)
[2021-06-08 09:45] LABS: Hemoglobin A1C 5.1 % (<5.7)
[2021-06-08 10:02] LABS: Calculated LDL 115 mg/dL (<100); Cholesterol 185 mg/dL (<200); HDL Cholesterol 49 mg/dL (40-60); Triglyceride 105 mg/dL (<150)
[2021-06-15] MEDS: Normal Saline Flush 10 ML SYR IVP (08:26)
[2021-06-15 08:34] LABS: HGB 16.5 g/dL (13.5-17.5)
== END 2021-06-20 23:59 | disposition home or self-care (01) ==
LOC: INF 01:09
PROVIDERS: PCP Nurse Practitioner Family; Visit Provider Internal Medicine
DX: E83.118 Other hemochromatosis (principal); E66.9 Obesity, unspecified; I10 Essential (primary) hypertension
CPT/HCPCS: 36415; 80048; 80061; 99195; 82728; 83036; 84450; 84460; 85018

== ENCOUNTER 2021-07-20 02:10 | Outpatient (RCR) | payer BC, SELFPAY ==
[2021-06-22] MEDS: Normal Saline Flush 10 ML SYR IVP (08:17)
[2021-06-22 08:26] LABS: HGB 15.9 g/dL (13.5-17.5)
[2021-06-29] MEDS: Normal Saline Flush 10 ML SYR IVP (08:10)
[2021-06-29 08:50] LABS: HGB 15.8 g/dL (13.5-17.5)
[2021-06-29 09:07] LABS: Ferritin 341 ng/mL (26-388)
[2021-07-06] MEDS: Normal Saline Flush 10 ML SYR IVP (09:44)
[2021-07-06 11:57] LABS: HGB 15.8 g/dL (13.5-17.5)
[2021-07-20] MEDS: Normal Saline Flush 10 ML SYR IVP (08:29)
[2021-07-20 08:32] LABS: HGB 15.7 g/dL (13.5-17.5)
== END 2021-07-20 23:59 | disposition home or self-care (01) ==
LOC: INF 02:10
PROVIDERS: PCP Nurse Practitioner Family; Visit Provider Internal Medicine
DX: E83.118 Other hemochromatosis (principal)
CPT/HCPCS: 36415; 99195; 82728; 85018

== ENCOUNTER 2021-08-10 01:17 | Outpatient (RCR) | payer BC, SELFPAY ==
[2021-07-27] MEDS: Normal Saline Flush 10 ML SYR IVP (08:16)
[2021-08-03] MEDS: Normal Saline Flush 10 ML SYR IVP (08:24)
[2021-08-03 08:29] LABS: HGB 15.6 g/dL (13.5-17.5)
[2021-08-03 08:55] LABS: Ferritin 104 ng/mL (26-388)
[2021-08-10 08:20] LABS: HGB 15.9 g/dL (13.5-17.5)
[2021-08-10 08:47] LABS: Ferritin 87 ng/mL (26-388)
== END 2021-08-20 23:59 | disposition home or self-care (01) ==
LOC: INF 01:17
PROVIDERS: PCP Nurse Practitioner Family; Visit Provider Internal Medicine
DX: E83.118 Other hemochromatosis (principal)
CPT/HCPCS: 36415; 99195; 82728; 85018

== ENCOUNTER 2021-11-23 14:40 | Outpatient (REF) | payer BC, SELFPAY ==
[2021-11-23 16:18] LABS: HCT 52.6 % (40.0-50.0); HGB 17.8 g/dL (13.5-17.5); MCH 34.7 pg (27.0-33.0); MCHC 33.8 % (32.0-36.0); MCV 102.5 fL (80-95); MPV 11.5 fL (8.0-11.0); Platelet Count 153 10^3/uL (130-400); RBC 5.13 10^6/uL (4.36-5.78); RDW 13.9 % (11.8-14.1); RDW-SD 53.6 fL; WBC 8.57 10^3/uL (4.4-10.8)
[2021-11-23 17:49] LABS: ALT 47 U/L (16-63); AST 36 U/L (15-37); Albumin 3.8 g/dL (3.4-5.0); Alkaline Phosphatase 116 U/L (46-116); Anion Gap 9.4 mmol/L (3-11); BUN 15 mg/dL (7-18); Bilirubin, Total 0.6 mg/dL (0.2-1.0); CO2 31.6 mmol/L (21.0-32.0); CREATININE 0.8 mg/dL (0.70-1.30); Calcium 8.8 mg/dL (8.5-10.1); Chloride 97 mmol/L (98-107); Ferritin 137 ng/mL (26-388); Glucose 103 mg/dL (74-106); Potassium 4.5 mmol/L (3.5-5.1); Sodium 138 mmol/L (136-145); Total Protein 7.3 g/dL (6.4-8.2)
== END 2021-11-23 14:41 | disposition home or self-care (01) ==
LOC: NCHCN 14:40
PROVIDERS: PCP Nurse Practitioner Family; Visit Provider Nurse Practitioner Family
DX: Z00.00 Encounter for general adult medical examination without abnormal findings (principal); E83.119 Hemochromatosis, unspecified; I10 Essential (primary) hypertension
CPT/HCPCS: 80053; 85027; 82728

== ENCOUNTER 2022-03-18 07:10 | Inpatient (IN) | payer BC, SELFPAY ==
[2022-03-18] VITALS (109 sets, daily range): BP systolic 107–180; BP diastolic 67–139; PULSE 58–163; RESP 8–31; TEMP 36.4–37.2; O2SAT 81–97
--- NOTE | 2022-03-18 | DI.CT_ITS ---
Exam(s) CT CHEST PE CTA EXAM: CT CHEST PE CTA CLINICAL HISTORY: Hypoxemia. TECHNIQUE: Imaging Protocol: Axial CT angiography was performed with multi-slice acquisition and mu lti-planar and/or 3D reconstructions. CONTRAST MATERIAL: Intravenous: Omnipaque 350 contrast volume:100 mL COMPARISON: CT CT BRAIN NECK CTA from 04/28/2019 CR XR PORTABLE CHEST AP from 03/18/2022 FINDINGS: The examination is limited due to patient motion artifact. Tracheobronchial tree: Patent where visualized. Pulmonary parenchyma: There is a large right pleural effusion with near complete consolidation of the right lower lobe. Compressive atelectatic changes are also seen in the right middle and right upper lobe. There is a very small left pleural effusion effusion with subjacent small infiltrate. No arc hitectural distortion. Pulmonary Arteries: Because of the patient motion artifact, some segmental and subsegmental branches of the pulmonary artery cannot be evaluated particularly in the right lung. No central pulmonary emb olus is identified. Mediastinum and Yudelka: No dominant adenopathy or fluid collection. The esophagus is unremarkable. Visualized thyroid gland: Unremarkable. Pleura: No pneumothorax. Heart: The heart is not dilated. No coronary artery calcifications are seen. No pericardial effusion. Aorta: Thoracic aorta non-dilated. No evidence of dissection. Atherosclerosis is present. Upper abdomen: Abdominal ascites is present. Soft tissues: Unremarkable. Bones: Within normal limits for the patient's age. IMPRESSION: 1. Suboptimal evaluation of the peripheral pulmonary arteries secondary to patient motion artifact. 2. No central pulmonary embolus is identified. 3. No evidence of thoracic aortic aneurysm or dissection. 4. Large right pleural effusion and small left pleural effusion with near complete consolidation of t he right lower lobe. Subjacent infiltrates are also seen in the right middle, right upper lobes and left lower lobe. This may represent atelectasis or pneumonia. Please correlate clinically. 5. Abdominal ascites RADIATION DOSE DELIVERED: 685.45mGy.cm Total DLP DATA REPOSITORY: All CT scans at this facility are submitted to the National Radiology Data Registry (NRDR) Dose Index Registry (DIR) with the [employer] (ACR). RADIATION OPTIMIZATION: All CT scans at this facility use at least one of these dose optimization te chniques: automated exposure control; mA and/or kV adjustment per patient size (includes targeted exa ms where dose is matched to clinical indication); or iterative reconstruction.
--- NOTE | 2022-03-18 | DI.RAD_ITS ---
Exam(s) XR PORTABLE CHEST AP EXAM: XR PORTABLE CHEST AP CLINICAL HISTORY: s/o thoro TECHNIQUE: COMPARISON: CR XR PORTABLE CHEST AP from 03/18/2022 FINDINGS: Portable AP radiographs obtained at 1843 hours. Comparison with prior examination obtained 0738 hour s again shows right basilar lung densities and minimal left basilar lung densities. Small right pleu ral effusion again noted. Cardiac size is enlarged. Little interval change from prior examination. IMPRESSION: Stable appearance of chest. RADIATION DOSE DELIVERED: Total DLP
--- NOTE | 2022-03-18 07:15 | RT.EKG_ITS ---
APPROVED REPORT Exam: Resting ECG Reason for Exam: chest pain Patient Location: E HR:85 bpm ECG Measurements Heart Rate 85 AXIS VT 198 P 55 QRSd 91 QRS 10 QT 370 T 62 QTc 441 Conclusion Sinus rhythm...normal P axis, V-rate 60- 99 Atrial premature complexes...SV complexes w/ short R-R intvls Probable left atrial enlargement...P >50mS, <-0.10mV V1 sinus rhythm, normal axis, normal intervals, non ischemic
--- NOTE | 2022-03-18 07:15 | DI.RAD_ITS ---
Exam(s) XR PORTABLE CHEST AP EXAM: XR PORTABLE CHEST AP CLINICAL HISTORY: hypoxia, edema, concern for CHF TECHNIQUE: 2D digital imaging was performed of the chest. One image was obtained. An AP view was ob tained. COMPARISON: CR,XR XR CHEST 2V PA LATERAL from 04/27/2019 FINDINGS: MEDIASTINUM: Normal. HEART: Cardiac silhouette is stable and at the upper limits of normal in size. PULMONARY VASCULATURE: Normal. LUNGS: The left lung is clear. Opacities are seen in the right lung base. PLEURAL SPACE: There is a small right pleural effusion. No right pneumothorax. No left pleural effu anyi or pneumothorax. BONE:Within normal limits for the patient's age. OTHER FINDINGS:Normal. IMPRESSION: Right basilar infiltrate. This may represent atelectasis or pneumonia. Small right pleural effusion. DATA REPOSITORY: RADIATION DOSE DELIVERED:
--- NOTE | 2022-03-18 07:32 | W.ED.GENAD ---
Discharge Plan Disposition Patient Disposition: [facility] INPATIENT Condition: Fair Discharge Details Chief Complaint: SOB Clinical Impression: CHF (congestive heart failure), Hemochromatosis, Hypoxia Primary Care Provider: Suze Nair ED Provider: Harshal Nielsen Home Meds and New Rx's Prescriptions: No Action aspirin [Adult Aspirin Regimen] 81 mg tablet,delayed release (DR/EC) 81 mg PO DAILY losartan 25 mg tablet 25 mg PO DAILY multivitamin [Multiple Vitamins] Tablet 1 tab PO DAILY Qty: 30 0RF amlodipine 10 mg Tablet 10 mg PO DAILY Qty: 30 0RF hydrochlorothiazide 25 mg Tablet 25 mg PO DAILY Qty: 30 0RF metoprolol tartrate 25 mg Tablet 25 mg PO BID Qty: 60 0RF acetaminophen [Tylenol Extra Strength] 500 mg tablet 500 mg PO Q6H PRNQty: 90 0RF Medical Decision Making 51-year-old male presents with shortness of breath, history of hypertension, obesity, noncompliant with medications, worsening edema and shortness of breath over the last several weeks to months, purple cyanotic appearance to face, pitting edema to bilateral lower extremities up into groin, hypertension on arrival, tachypnea and hypoxia to the 70s on room air, placed on nonrebreather, quickly transition to BiPAP. EKG sinus rhythm nonischemic high clinical suspicion for CHF, less likely COPD or pneumonia or PE, muscles consider ACS. Stat labs EKG x-ray diuresis BiPAP admission 8: 51 patient resting more comfortably, oxygenation now 91 to 96% on CPAP. Beginning to diurese currently. Patient does have history of hemochromatosis believes he was phlebotomized within the last couple of months. Also is a chronic smoker of note he appears to be retaining CO2 on his VBG, have added nebs and steroids, patient is displaying some somnolence on reassessment concern that he may be retaining further CO2, will continue with CPAP/BiPAP, diuresis, will be admitted to the ICU for continued treatment and monitoring. HPI General Date/Time Provider Initiated Documentation: 03/18/22 07:14. HPI Narrative: 51-year-old male history of hypertension, obesity, presents with shortness of breath and edema worsening over the past several weeks to months, denies history of cardiac stents or bypass. Has not been taking his medications as prescribed. Related Data Home Medications Medication Instructions Recorded Confirmed amlodipine 10 mg tablet 10 mg PO DAILY #30 tabs 04/28/19 03/18/22 hydrochlorothiazide 25 mg tablet 25 mg PO DAILY #30 tabs 04/28/19 03/18/22 metoprolol tartrate 25 mg tablet 25 mg PO BID #60 tabs 04/28/19 03/18/22 multivitamin (Multiple Vitamins 1 tab PO DAILY #30 tabs 04/28/19 03/18/22 tablet) acetaminophen 500 mg tablet 500 mg PO Q6H PRN #90 tabs 06/10/20 06/14/21 (Tylenol Extra Strength) aspirin 81 mg tablet,delayed 81 mg PO DAILY 11/24/20 03/18/22 release (Adult Aspirin Regimen) losartan 25 mg tablet 25 mg PO DAILY 11/24/20 03/18/22 Previous Rx's Medication Instructions Recorded amlodipine 10 mg tablet 10 mg PO DAILY #30 tabs 04/28/19 hydrochlorothiazide 25 mg tablet 25 mg PO DAILY #30 tabs 04/28/19 metoprolol tartrate 25 mg tablet 25 mg PO BID #60 tabs 04/28/19 multivitamin (Multiple Vitamins 1 tab PO DAILY #30 tabs 04/28/19 tablet) acetaminophen 500 mg tablet 500 mg PO Q6H PRN #90 tabs 06/10/20 (Tylenol Extra Strength) Allergies Allergy/AdvReac Type Severity Reaction Status Date / Time grass pollen-perennial rye, Allergy Mild Other (See Verified 03/18/22 07:44 standar Comment) lisinopril AdvReac Severe made me Verified 03/18/22 07:44 feel lousy General TOMAS: 3 Review of Systems Narrative: Review of Systems Constitutional: negative Eyes: negative ENT: negative Cardiovascular: Edema Respiratory: Shortness of breath Gastrointestinal: negative : negative Musculoskeletal: negative Skin: negative Neurologic: negative Psych: negative PFSH All Active Problems (Updated 03/18/22 @ 08:54 by Harshal Nielsen MD) CHF (congestive heart failure) (Chronic) Hemochromatosis (Acute) Hypoxia (Acute) Delayed wound healing (Acute) Sebaceous cyst (Acute) Status post total hip replacement, left (Acute 06/10/20) Degenerative joint disease of left hip (Acute) Colon polyp (Acute) Headache (Acute) DVT prophylaxis (Acute) Groin strain (Acute) Obesity (Chronic) Hemochromatosis (Acute) Degenerative joint disease of right hip (Acute) pt. denies having this on right R hip Degenerative joint disease of left hip (Acute) Alcohol dependence (Acute) Tobacco dependence (Acute) HTN (hypertension) (Chronic) Surgical History (Updated 12/30/20 @ 13:01 by Chelsea Peres RN) History of removal of cyst (~12/22/20) upper back, Stoiber, drain placed History of tonsillectomy Hx of wisdom tooth extraction Social History Smoking/Tobacco Use Status: Current every day Tobacco Type: cigarettes Smoking packs per day: 1 Smoking cigarettes per day: 20.0 Years smoked: 30 Smoking pack-years: 30.00 Smoking risk assessment performed?: Yes Alcohol Intake: current Alcohol Intake frequency: 3 or more drinks per day Alcohol type: hard liquor Drug use: Rarely Substance use type: marijuana Details: Pt reports no use [employer] today. current occupation: [employer] Current gender identity: male Do you feel safe at home: Yes Do you feel safe in your relationship?: Yes Exam Narrative Exam Narrative: Physical Examination General: alert, awake, cooperative, uncomfortable appearing HEENT: normocephalic, atraumatic; PERRL, EOM intact, conjunctiva normal; no nasal discharge; moist mucous membranes, oral and pharyngeal mucosa normal, tolerating secretions Neck: supple, trachea midline; full ROM Chest: normal to inspection Respiratory: Tachypnea, no wheezing appreciated Cardiac: regular rate, regular rhythm, S1S2 intact, no murmurs rubs or gallops GI: abdomen soft, non-tender, non-distended; no palpable mass or hepatosplenomegaly Skin: Purple-red appearance to skin, more cyanotic in the face Neuro: AAOx3, normal speech, moving all extremities Extremities: Peripheral edema pitting involving bilateral lower extremities up into groin Psych: Appropriate mood and affect
[2022-03-18 07:36] LABS: BE (Venous) 8 mmol/L (-2-3); HCO3 (Venous) 36 mmol/L (23-28); O2 Sat (Venous) 45 %; TCO2 (Venous) 31 mmol/L (24-29); pH (Venous) 7.26 (7.31-7.41); pO2 (Venous) 25 mmHg
[2022-03-18] MEDS: Furosemide 100 MG/10 ML VIAL 80 MG IVP (07:36)
[2022-03-18 07:40] LABS: Abs Immature Grans 0.05 10^3/uL (0.0-0.06); Absolute Basophil Count 0.07 10^3/uL (0.0-0.2); Absolute Eosinophil Count 0.12 10^3/uL (0.0-0.7); Absolute Lymphocyte Count 1.29 10^3/uL (1.2-3.4); Absolute Monocyte Count 0.81 10^3/uL (0.1-0.8); Absolute Neutrophil Count 5.36 10^3/uL (1.2-6.7); Basophils % 0.9; Eosinophils % 1.6; Immature Grans % 0.6; Lymphocytes % 16.8; MCH 38.7 pg (27.0-33.0); MCHC 33.1 % (32.0-36.0); MCV 117 fL (80-95); MPV 10.6 fL (8.0-11.0); Monocytes % 10.5; Neutrophils % 69.6; Platelet Count 142 10^3/uL (130-400); RBC 4.99 10^6/uL (4.36-5.78); RDW-SD 66.8 fL; pCO2 (Venous) 79 mmHg (41-51)
[2022-03-18 07:43] LABS: HCT 58.3 % (40.0-50.0); HGB 19.3 g/dL (13.5-17.5)
[2022-03-18 07:51] LABS: INR 1.4 (0.9-1.1); PTT Activated 26.9 sec (21.0-27.5); Prothrombin Time 13.8 sec (9.3-11.0)
[2022-03-18 08:06] LABS: ALT 56 U/L (16-63); AST 52 U/L (15-37); Albumin 3.8 g/dL (3.4-5.0); Alkaline Phosphatase 161 U/L (46-116); Anion Gap 4.9 mmol/L (3-11); BUN 15 mg/dL (7-18); CO2 35.1 mmol/L (21.0-32.0); CREATININE 1.1 mg/dL (0.70-1.30); Calcium 8.9 mg/dL (8.5-10.1); Chloride 96 mmol/L (98-107); Glucose 124 mg/dL (74-106); NT-proBNP 2644 pg/mL (<300); Potassium 4.3 mmol/L (3.5-5.1); Sodium 136 mmol/L (136-145)
[2022-03-18 08:07] LABS: Troponin I 90 ng/L (<or=60)
[2022-03-18 08:19] LABS: Bilirubin Negative (Negative); Blood Negative (Negative); Clarity Clear (Clear); Glucose Negative (Negative); Ketones Negative (Negative); Leukocyte Esterase Negative (Negative); Nitrite Negative (Negative)
[2022-03-18 08:36] LABS: Bacteria Negative HPF (Negative); C & S Indicated? No; Casts 0-2 Hyaline LPF (Negative); Crystals Negative HPF (Negative); Epithelial Cells Rare HPF (Negative); Mucus Negative (Negative); RBC Negative HPF (0-2); WBC Negative HPF (0-5)
[2022-03-18 08:46] LABS: Source Nasal/Nares
[2022-03-18 09:02] LABS: Lab Add On Test DONE
[2022-03-18] MEDS: Ipratropium 0.5 MG/2.5 ML UPD VIAL UPD (09:09)
[2022-03-18] MEDS: Dexamethasone 10 MG/ML VIAL IVP (09:10)
[2022-03-18] MEDS: Levalbuterol 1.25 MG/3 ML UPD VIAL UPD (09:10)
[2022-03-18] MEDS: Aspirin 81 MG CHEW 324 MG CH (09:11)
[2022-03-18 09:22] LABS: Hemoglobin A1C 5.5 % (<5.7)
[2022-03-18 09:36] LABS: COVID-19 PCR Negative (Negative)
[2022-03-18 10:50] LABS: Troponin I 75 ng/L (<or=60)
--- NOTE | 2022-03-18 11:00 | NUR.NOTE ---
[facility] called for vaccine records. They faxed them over and they were documented Nursing Note:
[2022-03-18] MEDS: Enoxaparin 40 MG/0.4 ML SYR SC ×2 (11:22→20:47)
--- NOTE | 2022-03-18 11:23 | CMPROGNOTE_ITS ---
- If Service Date Differs Date of service: 03/18/22 Time of Service: 11:23 Care Management Progress Note SBIRT screen: Pt reports daily drinking (AUDIT 10) of 1-2 drinks but drinks 4 or more once weekly. Pt reports no other substance use and does not endorse any anxiety or depression symptoms. it is of note that Pt may be under-reporting alcohol use and mental health symptoms. Pt is a daily smoker with medical problems exacerbated by smoking and was provided with tobacco cessation resour bhumi.
--- NOTE | 2022-03-18 14:03 | NUR.NOTE ---
Patient sating 88% on 50% FI02. RN increases FI02 to 55% and saturation increases to 90% while patient is rests with eyes closed.Nursing Note:
--- NOTE | 2022-03-18 14:35 | W.PM.HP.N ---
Date of service: 03/18/22 Time of Service: 14:35 Assessment and Plan Assessment and plan (1) CHF (congestive heart failure): Status: Chronic Assessment and plan: Anasarca. No CP. Trop mildly elevated and trending down. No echocardiogram available until next Tu. Diuresed nearly 5L after ED administered 80mg IV lasix. Cont IV lasix at 40mg BID Daily wts and low Na diet. (2) Hemochromatosis: Status: Acute Assessment and plan: He has had intermittent phlebotomy and his ferritin has normalized over the last 10 months. (3) Acute respiratory failure with hypoxia and hypercapnia: Status: Acute Assessment and plan: Now on BiPAP with some increasing demands. VBG repeat pending. CTA ordered for further evaluation. (4) Tobacco dependence: Status: Acute Assessment and plan: Nicotine patch. (5) Alcohol dependence: Status: Acute Assessment and plan: Endorses 3 beers daily. CIWA scoring. (6) HTN (hypertension): Status: Chronic Assessment and plan: Cont amlodipine, HCTZ and Metoprolol. Monitor. (7) Morbid obesity: Status: Acute Assessment and plan: Likely has a degree of obesity hypoventilation syndrome. History of Present Illness History of Present Illness Chief Complaint: Shortness of breath Narrative: This is a 51 yo male with a PMH of morbid obesity, HTN, medication noncompliance, hemochromatosis, alcohol dependence, tobacco dependence. He presented to the ED with c/o worsening generalized edema and shortness of air over several weeks to months. No CP/palpitations noted. No F/C. In the ED he was noted to be tachypneic and hypoxic with RA O2 saturations in the 70's. He was initially placed on a nonrebreather, then transitioned to BiPAP. CXR showed pulmonary edema. WBC count normal. Hgb 19.3. INR 1.4. VBG pH 7.26, pCO2 79, pO2 25. Na and K normal. BUN 15. Troponin 90 > 75. NTProBNP 2644. Admitted for further treatment and evaluation. Review of Systems All systems reviewed & are unremarkable except as noted in HPI and below PFSH All Active Problems (Updated 03/18/22 @ 15:05 by Harshal Ocampo MD) Morbid obesity (Acute) Acute respiratory failure with hypoxia and hypercapnia (Acute) CHF (congestive heart failure) (Chronic) Hemochromatosis (Acute) Hypoxia (Acute) Delayed wound healing (Acute) Sebaceous cyst (Acute) Status post total hip replacement, left (Acute 06/10/20) Degenerative joint disease of left hip (Acute) Colon polyp (Acute) Headache (Acute) DVT prophylaxis (Acute) Groin strain (Acute) Obesity (Chronic) Hemochromatosis (Acute) Degenerative joint disease of right hip (Acute) pt. denies having this on right R hip Degenerative joint disease of left hip (Acute) Alcohol dependence (Acute) Tobacco dependence (Acute) HTN (hypertension) (Chronic) Surgical History History of removal of cyst (~12/22/20) upper back, Stoiber, drain placed History of tonsillectomy Hx of wisdom tooth extraction Social History Smoking/Tobacco Use Status: Current every day Tobacco Type: cigarettes Smoking packs per day: 1 Smoking cigarettes per day: 20.0 Years smoked: 30 Smoking pack-years: 30.00 Smoking risk assessment performed?: Yes Alcohol Intake: current Alcohol Intake frequency: 3 or more drinks per day Alcohol type: hard liquor Drug use: Rarely Substance use type: marijuana Details: Pt reports no use [employer] today. current occupation: [employer] Current gender identity: male Do you feel safe at home: Yes Do you feel safe in your relationship?: Yes Meds Allergies and Home Medications Allergies Allergy/AdvReac Type Severity Reaction Status Date / Time grass pollen-perennial rye, Allergy Mild Other (See Verified 03/18/22 07:44 standar Comment) lisinopril AdvReac Severe made me Verified 03/18/22 07:44 feel lousy Home Medications Medication Instructions Recorded Confirmed Type amlodipine 10 mg tablet 10 mg PO DAILY #30 tabs 04/28/19 03/18/22 Rx hydrochlorothiazide 25 mg tablet 25 mg PO DAILY #30 tabs 04/28/19 03/18/22 Rx metoprolol tartrate 25 mg tablet 25 mg PO BID #60 tabs 04/28/19 03/18/22 Rx multivitamin (Multiple Vitamins 1 tab PO DAILY #30 tabs 04/28/19 03/18/22 Rx tablet) acetaminophen 500 mg tablet 500 mg PO Q6H PRN #90 tabs 06/10/20 06/14/21 Rx (Tylenol Extra Strength) aspirin 81 mg tablet,delayed 81 mg PO DAILY 11/24/20 03/18/22 History release (Adult Aspirin Regimen) losartan 25 mg tablet 25 mg PO DAILY 11/24/20 03/18/22 History Exam Narrative Exam Narrative: Lying in bed with BiPAP in place. Conversant. Const General: cooperative and no acute distress Nutritional Appearance: obese Orientation: alert and oriented x3 Eyes General: appearance normal, both eyes and all related structures Sclera: sclerae normal Neck Neck: normal visual inspection (Large girth) Resp Effort & Inspection: normal respiratory effort Auscultation: diminished lung sounds and rales bilaterally at the base Cardio Rate: regular rate Rhythm: regular rhythm Heart Sounds: S1 normal and S2 normal GI Inspection: large pannus and obesity Palpation: soft and nontender Auscultation: normal bowel sounds Skin Full body images: 1. Juanito red skin discoloration. No open lesions or drainage. 2. Erythema of lower abd. No erythema under pannus. Neuro General: no focal motor deficits Cranial Nerves: facial strength normal Speech: speech normal Extrem General: no calf tenderness and edema Laterality: bilateral (from proximal thighs to feet. ) Results Labs Result diagrams: 03/18/22 07:30 03/18/22 07:30 Labs: Laboratory Results - last 24 hr 03/18/22 03/18/22 03/18/22 07:30 07:30 07:30 WBC RBC Hgb Hct MCV MCH MCHC RDW Plt Count MPV Immature Gran % Neutrophils % Lymphocytes % Monocytes % Eosinophils % Basophils % Nucleated RBC % Absolute Neutrophils Absolute Lymphocytes Absolute Monocytes Absolute Eosinophils Absolute Basophils PT INR APTT VBG pH 7.26 L VBG pCO2 79 H* VBG pO2 25 VBG HCO3 36 H VBG Total CO2 31 H VBG O2 Saturation 45 VBG Base Excess 8 H Sodium 136 Cancelled Potassium 4.3 Cancelled Chloride 96 L Cancelled Carbon Dioxide 35.1 H Cancelled Anion Gap 4.9 Cancelled BUN 15 Cancelled Creatinine 1.1 Cancelled Estimated GFR/1.73 m2 >= 60.00 Cancelled Glucose 124 H Cancelled Hemoglobin A1c Calcium 8.9 Cancelled Total Bilirubin 1.0 Cancelled AST 52 H Cancelled ALT 56 Cancelled Alkaline Phosphatase 161 H Cancelled Troponin I 90 H* NT-Pro-B Natriuret Pep 2644 H Total Protein 8.0 Cancelled Albumin 3.8 Cancelled Urine Color Urine Clarity Urine pH Ur Specific [place] Urine Protein Urine Ketones Urine Blood Urine Nitrite Urine Bilirubin Urine Urobilinogen Ur Leukocyte Esterase Urine RBC Urine WBC Ur Epithelial Cells Urine Crystals Urine Bacteria Urine Casts Urine Mucus Ur Culture Indicated? Urine Glucose COVID-19 Source SARS-CoV-2 (PCR) Add-On Test Request 03/18/22 03/18/22 03/18/22 07:30 07:30 07:30 WBC 7.70 RBC 4.99 Hgb 19.3 H* Hct 58.3 H* MCV 117 H MCH 38.7 H MCHC 33.1 RDW 15.0 H Plt Count 142 MPV 10.6 Immature Gran % 0.6 Neutrophils % 69.6 Lymphocytes % 16.8 Monocytes % 10.5 Eosinophils % 1.6 Basophils % 0.9 Nucleated RBC % 0.0 Absolute Neutrophils 5.36 Absolute Lymphocytes 1.29 Absolute Monocytes 0.81 H Absolute Eosinophils 0.12 Absolute Basophils 0.07 PT 13.8 H INR 1.4 H APTT 26.9 VBG pH VBG pCO2 VBG pO2 VBG HCO3 VBG Total CO2 VBG O2 Saturation VBG Base Excess Sodium Potassium Chloride Carbon Dioxide Anion Gap BUN Creatinine Estimated GFR/1.73 m2 Glucose Hemoglobin A1c 5.5 Calcium Total Bilirubin AST ALT Alkaline Phosphatase Troponin I NT-Pro-B Natriuret Pep Total Protein Albumin Urine Color Urine Clarity Urine pH Ur Specific [place] Urine Protein Urine Ketones Urine Blood Urine Nitrite Urine Bilirubin Urine Urobilinogen Ur Leukocyte Esterase Urine RBC Urine WBC Ur Epithelial Cells Urine Crystals Urine Bacteria Urine Casts Urine Mucus Ur Culture Indicated? Urine Glucose COVID-19 Source SARS-CoV-2 (PCR) Add-On Test Request 03/18/22 03/18/22 03/18/22 07:54 08:00 10:10 WBC RBC Hgb Hct MCV MCH MCHC RDW Plt Count MPV Immature Gran % Neutrophils % Lymphocytes % Monocytes % Eosinophils % Basophils % Nucleated RBC % Absolute Neutrophils Absolute Lymphocytes Absolute Monocytes Absolute Eosinophils Absolute Basophils PT INR APTT VBG pH VBG pCO2 VBG pO2 VBG HCO3 VBG Total CO2 VBG O2 Saturation VBG Base Excess Sodium Potassium Chloride Carbon Dioxide Anion Gap BUN Creatinine Estimated GFR/1.73 m2 Glucose Hemoglobin A1c Calcium Total Bilirubin AST ALT Alkaline Phosphatase Troponin I 75 H* NT-Pro-B Natriuret Pep Total Protein Albumin Urine Color Yellow Urine Clarity Clear Urine pH 6.0 Ur Specific [place] 1.020 Urine Protein Trace H Urine Ketones Negative Urine Blood Negative Urine Nitrite Negative Urine Bilirubin Negative Urine Urobilinogen 1.0 H Ur Leukocyte Esterase Negative Urine RBC Negative Urine WBC Negative Ur Epithelial Cells Rare Urine Crystals Negative Urine Bacteria Negative Urine Casts 0-2 Hyaline Urine Mucus Negative Ur Culture Indicated? No Urine Glucose Negative COVID-19 Source Nasal/Nares SARS-CoV-2 (PCR) Negative Add-On Test Request 03/18/22 Unknown WBC RBC Hgb Hct MCV MCH MCHC RDW Plt Count MPV Immature Gran % Neutrophils % Lymphocytes % Monocytes % Eosinophils % Basophils % Nucleated RBC % Absolute Neutrophils Absolute Lymphocytes Absolute Monocytes Absolute Eosinophils Absolute Basophils PT INR APTT VBG pH VBG pCO2 VBG pO2 VBG HCO3 VBG Total CO2 VBG O2 Saturation VBG Base Excess Sodium Potassium Chloride Carbon Dioxide Anion Gap BUN Creatinine Estimated GFR/1.73 m2 Glucose Hemoglobin A1c Calcium Total Bilirubin AST ALT Alkaline Phosphatase Troponin I NT-Pro-B Natriuret Pep Total Protein Albumin Urine Color Urine Clarity Urine pH Ur Specific [place] Urine Protein Urine Ketones Urine Blood Urine Nitrite Urine Bilirubin Urine Urobilinogen Ur Leukocyte Esterase Urine RBC Urine WBC Ur Epithelial Cells Urine Crystals Urine Bacteria Urine Casts Urine Mucus Ur Culture Indicated? Urine Glucose COVID-19 Source SARS-CoV-2 (PCR) Add-On Test Request DONE Last Vital Signs Temp 36.4 C L 03/18/22 10:30 Pulse 75 03/18/22 11:01 Resp 11 L 03/18/22 11:30 BP 161/93 H 03/18/22 11:01 Pulse Ox 92 03/18/22 11:30 PAWSS Have you Been Recently Intoxicated or Drunk Within the Last 30 days?: No Have you Ever Experienced Previous Episodes of Alcohol Withdrawal?: No Have you ever Experienced Withdrawal Seizures?: No Have you ever Experienced Delirium Tremens(DT)s?: No Have you ever undergone Alcohol Rehabilitation Treatment (i.e, inpt ot outpatient treatment programs)?: No Have you ever Experienced Blackouts?: No Have you ever Combined Alcohol with other Downers within the last 90 days?: No Have you ever Combined Alcohol with any other Substance of Abuse during the last 90 days?: No Positive Blood Alcohol level on Presentation? [PCS.BAL]: No Evidence of Increased Autonomic Activity (i.e. HR>120, tremor, sweating, agitation, nausea)?: No Result: 0
[2022-03-18] MEDS: Losartan 25 MG TAB PO (14:55)
[2022-03-18] MEDS: amLODIPine 10 MG TAB PO (14:55)
--- NOTE | 2022-03-18 15:00 | NUR.NOTE ---
ABG is drawn.Nursing Note:
[2022-03-18] MEDS: Furosemide 40 MG/4 ML VIAL IVP (15:08)
[2022-03-18] MEDS: Normal Saline Flush 10 ML SYR IVP (15:09)
[2022-03-18 15:20] LABS: BE 12 mmol/L (-2-3); HCO3 39 mmol/L (22-26); pH 7.26 (7.35-7.45); pO2 89 mmHg (80-105); sO2 96 % (95-98); tCO2 34 mmol/L (23-27)
[2022-03-18 15:22] LABS: pCO2 87 mmHg (35-45)
[2022-03-18 15:23] LABS: FIO2 60 %; Site Right Radial
[2022-03-18] MEDS: Omnipaque 350 MG/ML 100 ML BTL IJ (15:37)
--- NOTE | 2022-03-18 15:44 | NUR.NOTE ---
Patient is placed on a hover mat and taken to radiology for CT angio to check for PE at 15:15. Said procedure was uneventful. Patient returns to his room at 1550. Patient's 02 settings on BIPAP are changed to 18/8 with 50% FI02 in an attempt to blow off more CO2. Worsening ABG.Nursing Note:
[2022-03-18 17:34] LABS: Lab Add On Test DONE
--- NOTE | 2022-03-18 18:20 | PAPNONF_PTH ---
PATIENT: Tremaine Godfrey LOC: U#:[id number] AGE/SX: 51/M ROOM: 227 RE03/18/[address]: Ivone Sahni : 1970 BED: A DIS: 03/25/2022 SPEC #: [id number] RECD: 03/21/22 12:34 STATUS: ELEANOR REQ #: [id number] JOHN: 03/18/22 18:[address]: Harshal Ocampo DEPT: [facility] Cytology RECD BY: Iliana Bray ENTERED: 03/21/22 12:35 SP TYPE: [facility]ENTINE KAHN DR: Suze Nair Tissues: 1 - BODY FLUID CYTO(NOT S/U/N/EM)[facility] Procedures: BODY FLUID CYTO(NOT SPU/UR/NIP/ENDOM)[facility] Comments: [id number] (TOTAL VOLUME = 750 ml)
[2022-03-18 18:21] LABS: Procalcitonin < 0.1 ng/mL
--- NOTE | 2022-03-18 18:28 | NUR.NOTE ---
Patient undergoes thoracentesis. Dr. Anthony extracts 850ml of serous colored fluid. Same sent for culture.Nursing Note:
--- NOTE | 2022-03-18 18:30 | W.SURGCON ---
Date of service: 03/18/22 Time of Service: 18:30 Assessment and Plan Assessment and plan (1) Morbid obesity: Status: Chronic (2) Acute respiratory failure with hypoxia and hypercapnia: Status: Acute (3) CHF (congestive heart failure): Status: Chronic Qualifiers: Heart failure type: unspecified Heart failure chronicity: acute Qualified Code(s): I50.9 - Heart failure, unspecified (4) Alcohol dependence: Status: Acute (5) Tobacco dependence: Status: Acute (6) HTN (hypertension): Status: Chronic (7) Obesity: Status: Chronic (8) Pleural effusion, right: Status: Acute Assessment and plan: Thoracentesis will be performed. His obesity does complicate procedure. He also did receive Lovenox in the ER. Patient is able to sit at the bedside to have the procedure performed. Sats are 89 to 90% while he is on BiPAP and sitting. Blood pressure and heart rate are stable. Risks include but are not limited to bleeding, infection, pneumothorax, damage to blood vessels or lung and requiring surgery, and complications from local anesthetics patient does consent. I did discuss this case with Dr. Ocampo I did personally review all the pertinent CT scans 60 minutes is spent doing the consultation History of Present Illness Narrative: Patient seen at the request of Dr. Ocampo regarding right pleural effusion. Patient is in the hospital w/ acute CHF exacerbation and acute respiratory failure. He is morbidly abuse and diabetic. He never had a pleural effusion or a tap Before He is currently on BiPAP. He is awake and alert. He is able to give consent. He did receive Lovenox in the ER. He also received a full dose aspirin. Risks include bleeding infection pneumothorax and complications from local anesthetics. He has never had to have this procedure done before. He has a history of EtOH and tobacco abuse as well as obesity and hemochromatosis. PFSH All Active Problems (Updated 03/20/22 @ 17:27 by Gilda Anthony DO) Pleural effusion, right (Acute) Discharge planning issues (Acute) DVT prophylaxis (Acute) Ascites (Acute) Morbid obesity (Chronic) Acute respiratory failure with hypoxia and hypercapnia (Acute) CHF (congestive heart failure) (Chronic) Hemochromatosis (Chronic) Hypoxia (Acute) Delayed wound healing (Acute) Sebaceous cyst (Acute) Status post total hip replacement, left (Acute 06/10/20) Degenerative joint disease of left hip (Acute) Colon polyp (Acute) Headache (Acute) DVT prophylaxis (Acute) Groin strain (Acute) Obesity (Chronic) Hemochromatosis (Acute) Degenerative joint disease of right hip (Acute) pt. denies having this on right R hip Degenerative joint disease of left hip (Acute) Alcohol dependence (Acute) Tobacco dependence (Acute) HTN (hypertension) (Chronic) Surgical History History of removal of cyst (~12/22/20) upper back, Stoiber, drain placed History of tonsillectomy Hx of wisdom tooth extraction Social History Smoking/Tobacco Use Status: Current every day Tobacco Type: cigarettes Smoking packs per day: 1 Smoking cigarettes per day: 20.0 Years smoked: 30 Smoking pack-years: 30.00 Smoking risk assessment performed?: Yes Alcohol Intake: current Alcohol Intake frequency: 3 or more drinks per day Alcohol type: hard liquor Drug use: Rarely Substance use type: marijuana Details: Pt reports no use marijauna today. current occupation: [employer] Current gender identity: male Do you feel safe at home: Yes Do you feel safe in your relationship?: Yes Exam HENMT Other: Patient has BiPAP in place Resp Effort & Inspection: normal respiratory effort Other: Decreased breath sounds on the right. Ultrasound was used to localize the fluid. Cardio Other: Normal sinus rhythm with a heart rate in the 90s GI Inspection: large pannus Other: No pain. Internal organs are not palpable Extrem Other: Anasarca Results Last Vital Signs Temp 36.5 C 03/18/22 17:06 Pulse 76 03/18/22 17:06 Resp 20 03/18/22 17:06 BP 120/67 03/18/22 17:06 Pulse Ox 90 L 03/18/22 17:06 Labs Result diagrams: 03/20/22 05:18 03/20/22 05:18 Labs: Laboratory Results - last 24 hr 03/18/22 03/18/22 03/18/22 07:30 07:30 07:30 WBC RBC Hgb Hct MCV MCH MCHC RDW Plt Count MPV Immature Gran % Neutrophils % Lymphocytes % Monocytes % Eosinophils % Basophils % Nucleated RBC % Absolute Neutrophils Absolute Lymphocytes Absolute Monocytes Absolute Eosinophils Absolute Basophils PT INR APTT ABG Sample Site ABG pH ABG pCO2 ABG pO2 ABG HCO3 ABG Total CO2 ABG O2 Saturation ABG Base Excess VBG pH 7.26 L VBG pCO2 79 H* VBG pO2 25 VBG HCO3 36 H VBG Total CO2 31 H VBG O2 Saturation 45 VBG Base Excess 8 H FiO2 Sodium 136 Cancelled Potassium 4.3 Cancelled Chloride 96 L Cancelled Carbon Dioxide 35.1 H Cancelled Anion Gap 4.9 Cancelled BUN 15 Cancelled Creatinine 1.1 Cancelled Estimated GFR/1.73 m2 >= 60.00 Cancelled Glucose 124 H Cancelled Hemoglobin A1c Calcium 8.9 Cancelled Total Bilirubin 1.0 Cancelled AST 52 H Cancelled ALT 56 Cancelled Alkaline Phosphatase 161 H Cancelled Troponin I 90 H* NT-Pro-B Natriuret Pep 2644 H Total Protein 8.0 Cancelled Albumin 3.8 Cancelled Procalcitonin Urine Color Urine Clarity Urine pH Ur Specific [place] Urine Protein Urine Ketones Urine Blood Urine Nitrite Urine Bilirubin Urine Urobilinogen Ur Leukocyte Esterase Urine RBC Urine WBC Ur Epithelial Cells Urine Crystals Urine Bacteria Urine Casts Urine Mucus Ur Culture Indicated? Urine Glucose COVID-19 Source SARS-CoV-2 (PCR) Add-On Test Request 03/18/22 03/18/22 03/18/22 07:30 07:30 07:30 WBC 7.70 RBC 4.99 Hgb 19.3 H* Hct 58.3 H* MCV 117 H MCH 38.7 H MCHC 33.1 RDW 15.0 H Plt Count 142 MPV 10.6 Immature Gran % 0.6 Neutrophils % 69.6 Lymphocytes % 16.8 Monocytes % 10.5 Eosinophils % 1.6 Basophils % 0.9 Nucleated RBC % 0.0 Absolute Neutrophils 5.36 Absolute Lymphocytes 1.29 Absolute Monocytes 0.81 H Absolute Eosinophils 0.12 Absolute Basophils 0.07 PT 13.8 H INR 1.4 H APTT 26.9 ABG Sample Site ABG pH ABG pCO2 ABG pO2 ABG HCO3 ABG Total CO2 ABG O2 Saturation ABG Base Excess VBG pH VBG pCO2 VBG pO2 VBG HCO3 VBG Total CO2 VBG O2 Saturation VBG Base Excess FiO2 Sodium Potassium Chloride Carbon Dioxide Anion Gap BUN Creatinine Estimated GFR/1.73 m2 Glucose Hemoglobin A1c 5.5 Calcium Total Bilirubin AST ALT Alkaline Phosphatase Troponin I NT-Pro-B Natriuret Pep Total Protein Albumin Procalcitonin Urine Color Urine Clarity Urine pH Ur Specific [place] Urine Protein Urine Ketones Urine Blood Urine Nitrite Urine Bilirubin Urine Urobilinogen Ur Leukocyte Esterase Urine RBC Urine WBC Ur Epithelial Cells Urine Crystals Urine Bacteria Urine Casts Urine Mucus Ur Culture Indicated? Urine Glucose COVID-19 Source SARS-CoV-2 (PCR) Add-On Test Request 03/18/22 03/18/22 03/18/22 07:30 07:30 07:54 WBC RBC Hgb Hct MCV MCH MCHC RDW Plt Count MPV Immature Gran % Neutrophils % Lymphocytes % Monocytes % Eosinophils % Basophils % Nucleated RBC % Absolute Neutrophils Absolute Lymphocytes Absolute Monocytes Absolute Eosinophils Absolute Basophils PT INR APTT ABG Sample Site ABG pH ABG pCO2 ABG pO2 ABG HCO3 ABG Total CO2 ABG O2 Saturation ABG Base Excess VBG pH VBG pCO2 VBG pO2 VBG HCO3 VBG Total CO2 VBG O2 Saturation VBG Base Excess FiO2 Sodium Potassium Chloride Carbon Dioxide Anion Gap BUN Creatinine Estimated GFR/1.73 m2 Glucose Hemoglobin A1c Calcium Total Bilirubin AST ALT Alkaline Phosphatase Troponin I NT-Pro-B Natriuret Pep Total Protein Albumin Procalcitonin < 0.1 Urine Color Urine Clarity Urine pH Ur Specific [place] Urine Protein Urine Ketones Urine Blood Urine Nitrite Urine Bilirubin Urine Urobilinogen Ur Leukocyte Esterase Urine RBC Urine WBC Ur Epithelial Cells Urine Crystals Urine Bacteria Urine Casts Urine Mucus Ur Culture Indicated? Urine Glucose COVID-19 Source Nasal/Nares SARS-CoV-2 (PCR) Negative Add-On Test Request DONE 03/18/22 03/18/22 03/18/22 08:00 10:10 15:03 WBC RBC Hgb Hct MCV MCH MCHC RDW Plt Count MPV Immature Gran % Neutrophils % Lymphocytes % Monocytes % Eosinophils % Basophils % Nucleated RBC % Absolute Neutrophils Absolute Lymphocytes Absolute Monocytes Absolute Eosinophils Absolute Basophils PT INR APTT ABG Sample Site Right Radial ABG pH 7.26 L ABG pCO2 87 H* ABG pO2 89 ABG HCO3 39 H ABG Total CO2 34 H ABG O2 Saturation 96 ABG Base Excess 12 H VBG pH VBG pCO2 VBG pO2 VBG HCO3 VBG Total CO2 VBG O2 Saturation VBG Base Excess FiO2 60 Sodium Potassium Chloride Carbon Dioxide Anion Gap BUN Creatinine Estimated GFR/1.73 m2 Glucose Hemoglobin A1c Calcium Total Bilirubin AST ALT Alkaline Phosphatase Troponin I 75 H* NT-Pro-B Natriuret Pep Total Protein Albumin Procalcitonin Urine Color Yellow Urine Clarity Clear Urine pH 6.0 Ur Specific [place] 1.020 Urine Protein Trace H Urine Ketones Negative Urine Blood Negative Urine Nitrite Negative Urine Bilirubin Negative Urine Urobilinogen 1.0 H Ur Leukocyte Esterase Negative Urine RBC Negative Urine WBC Negative Ur Epithelial Cells Rare Urine Crystals Negative Urine Bacteria Negative Urine Casts 0-2 Hyaline Urine Mucus Negative Ur Culture Indicated? No Urine Glucose Negative COVID-19 Source SARS-CoV-2 (PCR) Add-On Test Request 03/18/22 Unknown WBC RBC Hgb Hct MCV MCH MCHC RDW Plt Count MPV Immature Gran % Neutrophils % Lymphocytes % Monocytes % Eosinophils % Basophils % Nucleated RBC % Absolute Neutrophils Absolute Lymphocytes Absolute Monocytes Absolute Eosinophils Absolute Basophils PT INR APTT ABG Sample Site ABG pH ABG pCO2 ABG pO2 ABG HCO3 ABG Total CO2 ABG O2 Saturation ABG Base Excess VBG pH VBG pCO2 VBG pO2 VBG HCO3 VBG Total CO2 VBG O2 Saturation VBG Base Excess FiO2 Sodium Potassium Chloride Carbon Dioxide Anion Gap BUN Creatinine Estimated GFR/1.73 m2 Glucose Hemoglobin A1c Calcium Total Bilirubin AST ALT Alkaline Phosphatase Troponin I NT-Pro-B Natriuret Pep Total Protein Albumin Procalcitonin Urine Color Urine Clarity Urine pH Ur Specific [place] Urine Protein Urine Ketones Urine Blood Urine Nitrite Urine Bilirubin Urine Urobilinogen Ur Leukocyte Esterase Urine RBC Urine WBC Ur Epithelial Cells Urine Crystals Urine Bacteria Urine Casts Urine Mucus Ur Culture Indicated? Urine Glucose COVID-19 Source SARS-CoV-2 (PCR) Add-On Test Request DONE
--- NOTE | 2022-03-18 18:30 | W.PM.OP ---
Date of service: 03/18/22 Time of Service: 18:31 Operative Note Operative Note DATE OF PROCEDURE: 03/18/22 PRE-OP DIAGNOSIS: Right pleural effusion/acute respiratory failure. POST-OP DIAGNOSIS: same PROCEDURE: thorocentisis SURGEON: Gilda Anthony ANESTHESIA TYPE: Local By Surgeon Refer to Anesthesia Record ESTIMATED BLOOD LOSS: 4 PATHOLOGY: other COMPLICATIONS: None Patient was transported to: ICU Patient's condition: stable Procedure Description: cl yellow fluid- 850cc Pt requires thoracentesis for symptoms of acute resp. failure.? Chest x-ray was reviewed prior to beginning the procedure.? Informed consent was obtained explaining risks and benefits of the procedure, including but not limited to bleeding, infection, pneumothorax, recurrence, complications of anesthesia, and other unforetold complications. ? PROCEDURE:? The patient is brought to the procedure room and placed in the seated position.? Ultrasound is used to localize the pocket on the right chest.? The area is marked and then prepped and draped in the usual sterile fashion using a ChloraPrep scrub solution.? 30cc's of 1% Lidocaine is used to anesthetize the T9 interspace. ? The small kaye is made with a #11 blade.? The needle and catheter is then inserted over the top of the rib, aspirating as it is inserted.? The needle is then removed.? The catheter is then hooked up to the Vacutainer system and 850 cc's of straw-colored fluid is evacuated.? The catheter is removed; pressure is held.? Sterile compression dressing is applied. The fluid is sent for culture and cytologic evaluation, ? Portable chest x-ray shows no pneumothorax.? Pt is given instructions in wound care, activity, medications, and warning signs: SOB, increasing in pain, chest pain, redness or temperature- if these occur, come to ED.
--- NOTE | 2022-03-18 18:39 | NUR.NOTE ---
Chest x-ray taken post thorancentesis.Nursing Note:
--- NOTE | 2022-03-18 19:26 | DI.VRAD_ITS ---
PROCEDURE INFORMATION: Exam: XR Chest Exam date and time: 03/18/2022 6:27 PM Age: 51 years old Clinical indication: Other: S/P thoracentesis TECHNIQUE: Imaging protocol: Radiologic exam of the chest. Views: 1 view. COMPARISON: CR XR PORTABLE CHEST AP 03/18/2022 7:38 AM FINDINGS: Lungs: Mild bibasilar atelectatic lung features. Pleural spaces: Small right pleural effusion is suggested. No pneumothorax evident. Heart/Mediastinum: Mild cardiac enlargement. Bones/joints: Unremarkable. IMPRESSION: 1. No pneumothorax evident. 2. Minor right pleural effusion is suggested as residual change. 3. Minor bibasilar atelectatic lung features. 4. Mild cardiac enlargement. Dictated and Authenticated by: Bandar Johnson MD. Ordering:GENIA Vo MD
[2022-03-18 19:35] LABS: Source: Pleural
[2022-03-18 19:45] LABS: Source Pleural
[2022-03-18 19:46] LABS: Nucleated Cells 445 uL (0)
[2022-03-18 20:02] LABS: Mononuclear Cells 80 %; Polynuclear Cells 20 %
[2022-03-18] MEDS: Metoprolol 12.5 MG TAB 25 MG PO (20:47)
[2022-03-19] VITALS (61 sets, daily range): BP systolic 130–192; BP diastolic 58–106; PULSE 70–159; RESP 13–25; TEMP 34–37.1; O2SAT 85–98
[2022-03-19 05:40] LABS: Abs Immature Grans 0.04 10^3/uL (0.0-0.06); Absolute Basophil Count 0.04 10^3/uL (0.0-0.2); Absolute Eosinophil Count 0.01 10^3/uL (0.0-0.7); Absolute Lymphocyte Count 1.09 10^3/uL (1.2-3.4); Absolute Monocyte Count 0.98 10^3/uL (0.1-0.8); Basophils % 0.4; Eosinophils % 0.1; HCT 55.6 % (40.0-50.0); HGB 18.4 g/dL (13.5-17.5); Immature Grans % 0.4; Lymphocytes % 11.9; MCH 38.3 pg (27.0-33.0); MCHC 33.1 % (32.0-36.0); MCV 116 fL (80-95); MPV 10.4 fL (8.0-11.0); Monocytes % 10.7; Neutrophils % 76.5; Platelet Count 140 10^3/uL (130-400); RBC 4.81 10^6/uL (4.36-5.78); RDW 14.8 % (11.8-14.1); RDW-SD 65.5 fL; WBC 9.16 10^3/uL (4.4-10.8)
[2022-03-19 05:57] LABS: ALT 44 U/L (16-63); AST 45 U/L (15-37); Albumin 3.1 g/dL (3.4-5.0); Alkaline Phosphatase 133 U/L (46-116); Anion Gap 3.1 mmol/L (3-11); BUN 16 mg/dL (7-18); Bilirubin, Total 0.8 mg/dL (0.2-1.0); CO2 37.9 mmol/L (21.0-32.0); Calcium 8.6 mg/dL (8.5-10.1); Chloride 99 mmol/L (98-107); Glucose 103 mg/dL (74-106); Potassium 5.3 mmol/L (3.5-5.1); Sodium 140 mmol/L (136-145); Total Protein 7.1 g/dL (6.4-8.2)
[2022-03-19 06:01] LABS: Macrocytosis 3+
--- NOTE | 2022-03-19 08:30 | DI.RAD_ITS ---
Exam(s) XR PORTABLE CHEST AP EXAM: XR PORTABLE CHEST AP CLINICAL HISTORY: s/p thoro. TECHNIQUE: 2D digital imaging was performed. COMPARISON: CR,XR XR PORTABLE CHEST AP from 03/18/2022 FINDINGS: LUNGS: Clear. No pleural abnormality seen. HEART: Normal. MEDIASTINUM: Normal. OTHER FINDINGS: None. IMPRESSION: No acute pulmonary findings. DATA REPOSITORY: RADIATION DOSE DELIVERED: Total DLP
--- NOTE | 2022-03-19 08:49 | INITIAL_ITS ---
- If Service Date Differs Date of service: 03/19/22 Time of Service: 08:54 Care Management Initial Assess REASON FOR HOSPITALIZATION:: CHF, hemochromatosis. PAST MEDICAL HISTORY/PAST SURGICAL HISTORY:: All Active Problems: Morbid obesity (Acute), Acute respiratory failure with hypoxia and hypercapnia (Acute), CHF (congestive heart failure) (Chronic),. Hemochromatosis (Acute), Hypoxia (Acute), Delayed wound healing (Acute), Sebaceous cyst (Acute), Status post total hip replacement, left (Acute 06/10/20), Degenerative joint disease of left hip (Acute), Colon polyp (Acute), Headache (Acute), DVT prophylaxis (Acute), Groin strain (Acute), Obesity (Chronic), Hemochromatosis (Acute), Degenerative joint disease of right hip (Acute) - pt. 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 Surgical History: History of removal of cyst (~12/22/20) - upper back, Stoiber, drain placed, History of tonsillectomy, and Hx of wisdom tooth extraction. PREVIOUS FUNCTIONAL STATUS/SOCIAL/FAMILY SUPPORTS:: Tremaine lives in [place] with his , Misha, and their 16 year old daughter. He works full-time at [employer]. On his days off, he enjoys watching television and spending time with his family. Tremaine drives and is independent with his ADLs at baseline. CURRENT FUNCTIONAL STATUS:: Tremaine is sitting up in bed when comes to meet with him. He is pleasant and easily engages in conversation. He hopes to be able to return home soon. ADVANCE DIRECTIVES:: None on file; patient declines form. Has patient been provided with info about the portal/API?: Yes Did the patient sign up for the portal?: No CODE STATUS:: Full Code INSURANCE COVERAGE / FINANCIAL ISSUES:: [employer] CURRENT HOME/COMMUNITY SERVICES/EQUIPMENT:: No home/community services. Tremaine has a walker and a set of crutches at home. PRIMARY CARE PHYSICIAN:: DIONTE Ludwig ([facility]). POTENTIAL DISCHARGE NEEDS:: Follow up appointments with PCP and board certified behavioral analyst. PATIENT/FAMILY EDUCATION NEEDS:: Review discharge instructions; discuss Ask Me Three. ANTICIPATED BARRIERS TO DISCHARGE:: None identified at this time. TRANSPORTATION:: Via private vehicle with family. PLAN:: Tremaine will likely be discharged home with no services when medically cleared by provider. He will follow up with his PCP, cardiology and plan of care as instructed. His , Misha, will drive him home via private vehicle when ready. CM will continue to follow.
[2022-03-19 08:57] LABS: BE (Venous) 15 mmol/L (-2-3); HCO3 (Venous) 40 mmol/L (23-28); O2 Sat (Venous) 96 %; TCO2 (Venous) 33 mmol/L (24-29); pH (Venous) 7.39 (7.31-7.41); pO2 (Venous) 80 mmHg
[2022-03-19 09:01] LABS: pCO2 (Venous) 65 mmHg (41-51)
[2022-03-19 09:33] LABS: Lab Add On Test DONE
--- NOTE | 2022-03-19 10:04 | DI.VRAD_ITS ---
PROCEDURE INFORMATION: Exam: XR Chest Exam date and time: 03/19/2022 8:15 AM Age: 51 years old Clinical indication: Other: S/P thoro TECHNIQUE: Imaging protocol: Radiologic exam of the chest. Views: 1 view. COMPARISON: CR XR PORTABLE CHEST AP 03/18/2022 6:27 PM FINDINGS: Lungs: Decreasing opacities in the bases may represent improving atelectasis or pneumonia.. Pleural spaces: Unremarkable. No pleural effusion. No pneumothorax. Heart/Mediastinum: Unremarkable. No cardiomegaly. Bones/joints: Unremarkable. IMPRESSION: Decreasing opacities in the bases may represent improving atelectasis or pneumonia.. Dictated and Authenticated by: Alvaro Tillman MD. Ordering:GENIA Vo MD
[2022-03-19] MEDS: Furosemide 40 MG/4 ML VIAL 20 MG IVP ×2 (10:16→15:39)
[2022-03-19] MEDS: Enoxaparin 40 MG/0.4 ML SYR SC ×2 (10:16→19:35)
[2022-03-19] MEDS: Multivitamin TAB 1 TAB PO (10:17)
[2022-03-19] MEDS: Normal Saline Flush 10 ML SYR IVP ×2 (10:17→15:40)
[2022-03-19] MEDS: Aspirin E.C. 81 MG TABEC PO (10:17)
[2022-03-19] MEDS: Folic Acid 1 MG TAB PO (10:18)
[2022-03-19] MEDS: Metoprolol 12.5 MG TAB 25 MG PO (10:18)
[2022-03-19] MEDS: Thiamine 100 MG TAB PO (10:18)
[2022-03-19] MEDS: Losartan 25 MG TAB PO (10:18)
[2022-03-19] MEDS: hydroCHLOROthiazide 25 MG TAB PO (10:18)
[2022-03-19] MEDS: amLODIPine 10 MG TAB PO (10:18)
[2022-03-19 10:41] LABS: Procalcitonin < 0.1 ng/mL
--- NOTE | 2022-03-19 12:56 | PGE_ITS ---
Date of Service Date of service: 03/19/22 Time of Service: 10:30 Assessment and Plan Assessment and plan (1) Acute respiratory failure with hypoxia and hypercapnia: Status: Acute Assessment and plan: In setting of acute CHF/pulmonary edema. Improving post thoracenthesis yesterday and with diuresis and with BiPAP overnight. The patient may very well have KRISTEN, but has never been tested. VBG this morning shows that his respiratory acidosis has been corrected. Currently on humidified heated high flow NC. Continue to wean O2 down. Encourage IS. Continue diuresis. Monitor I/O's and daily weights. Needs an echo. (2) CHF (congestive heart failure): Status: Chronic Assessment and plan: Acute/new diagnosis. EF unknown. At risk for Cardiomyopathy due to both hemochromatosis and EtOH abuse. As above. Also, check TSH and US abdomen to ensure no cirrhosis. I attribute mild elevation of troponin to demand due to this rather than ACS. Continue IV lasix, monitoring I/Os and daily weights. Qualifiers: Heart failure type: unspecified Heart failure chronicity: acute Qualified Code(s): I50.9 - Heart failure, unspecified (3) Alcohol dependence: Status: Acute Assessment and plan: Continue monitoring on CIWA. no signs of w/d at this time. Check US abdomen for cirrhosis/ascites. Prn lorazepam (has not yet required). Continue thiamine/MVI. (4) Hemochromatosis: Status: Chronic Assessment and plan: As above (5) Ascites: Status: Acute Assessment and plan: No evidence for SBP. Obtain US abdomen. Diurese. May require a paracenthesis, but no clear inidication right now - comfortable. (6) Tobacco dependence: Status: Acute Assessment and plan: Reinforced cessation. Continue prn nicotine patch. (7) HTN (hypertension): Status: Chronic Assessment and plan: Continue metoprolol (increase dose) and losartan. D/c amlodipine due to edema. Hold HCTZ as we can more reliably diurese with lasix. Once potassium normalizes, would add aldactone. (8) Morbid obesity: Status: Chronic Assessment and plan: BMI of 45.2 kg/m2. Agree that likely has KRISTEN/OHS. Will need outpatient workup. (9) DVT prophylaxis: Status: Acute Assessment and plan: Lovenox 40 mg SC BID (10) Discharge planning issues: Status: Acute Assessment and plan: Full code Keep in ICU. Total Critical Care Time 40 minutes. Discussed with patient's . Subjective Subjective Interval history since last seen: Mr Bekah states that he feels better. His breathing is better. He got off of BiPAP this morning and was transitioned to a humidified heated high flow NC. Denies CP, SOB. Reports his chronic morning cough productive of yellow sputum. Denies n/v. Abdomen does not hurt but the distention was bothering him at home, especially for the last week when he had difficulty fitting through his shower doors. The legs and scrotum have gotten more swollen over weeks to months. Last drink on . Denies h/o EtOH w/d. We discussed how both alcohol and hemochromatosis can have an effect on the heart and liver. UOP overnight was 7 L. 850 cc out in L-sided thoracenthesis yesterday. Exam Narrative Exam Narrative: General: Pleasant obese male who is very awake, A&Ox3, comfortable on humidified heated high flow NC HEENT: EOMI, MMM Heart: RRR, no m/r/g Lungs: Diminished breath sounds L lung field Abdomen: soft, obese, ?fluid wave, nontender Extremities: 3+ pitting edema BLEs - symmetric, scrotal edema, chronic venous stasis dermatitis Objective Last Vital Signs Temp 37.1 C 03/19/22 11:52 Pulse 84 03/19/22 11:52 Resp 21 03/19/22 11:52 BP 192/101 H 03/19/22 10:01 Pulse Ox 93 03/19/22 11:52 Laboratory Results - last 24 hr 03/18/22 03/18/22 03/18/22 07:30 07:30 15:03 WBC RBC Hgb Hct MCV MCH MCHC RDW Plt Count MPV Immature Gran % Neutrophils % Lymphocytes % Monocytes % Eosinophils % Basophils % Nucleated RBC % Absolute Neutrophils Absolute Lymphocytes Absolute Monocytes Absolute Eosinophils Absolute Basophils RBC Morphology Macrocytosis ABG Sample Site Right Radial ABG pH 7.26 L ABG pCO2 87 H* ABG pO2 89 ABG HCO3 39 H ABG Total CO2 34 H ABG O2 Saturation 96 ABG Base Excess 12 H VBG pH VBG pCO2 VBG pO2 VBG HCO3 VBG Total CO2 VBG O2 Saturation VBG Base Excess FiO2 60 Sodium Potassium Chloride Carbon Dioxide Anion Gap BUN Creatinine Estimated GFR/1.73 m2 Glucose Calcium Total Bilirubin AST ALT Alkaline Phosphatase Total Protein Albumin Procalcitonin < 0.1 Fluid Source Fluid Color Fluid Clarity Fluid pH Fluid WBC Fld Polynuclear WBCs % Fluid Mononuclear Cell Fluid Other Cells Path Cons Comment Add-On Test Request DONE 03/18/22 03/18/22 03/18/22 18:20 18:20 18:20 WBC RBC Hgb Hct MCV MCH MCHC RDW Plt Count MPV Immature Gran % Neutrophils % Lymphocytes % Monocytes % Eosinophils % Basophils % Nucleated RBC % Absolute Neutrophils Absolute Lymphocytes Absolute Monocytes Absolute Eosinophils Absolute Basophils RBC Morphology Macrocytosis ABG Sample Site ABG pH ABG pCO2 ABG pO2 ABG HCO3 ABG Total CO2 ABG O2 Saturation ABG Base Excess VBG pH VBG pCO2 VBG pO2 VBG HCO3 VBG Total CO2 VBG O2 Saturation VBG Base Excess FiO2 Sodium Potassium Chloride Carbon Dioxide Anion Gap BUN Creatinine Estimated GFR/1.73 m2 Glucose Calcium Total Bilirubin AST ALT Alkaline Phosphatase Total Protein Albumin Procalcitonin Fluid Source Pleural Pleural Fluid Color Yellow Fluid Clarity Fluid pH 8.0 Fluid WBC 445 Fld Polynuclear WBCs % Cancelled 20 Fluid Mononuclear Cell Cancelled 80 Fluid Other Cells Cancelled Path Cons Comment Cancelled Add-On Test Request 03/19/22 03/19/22 03/19/22 05:05 05:05 08:50 WBC 9.16 RBC 4.81 Hgb 18.4 H Hct 55.6 H MCV 116 H MCH 38.3 H MCHC 33.1 RDW 14.8 H Plt Count 140 MPV 10.4 Immature Gran % 0.4 Neutrophils % 76.5 Lymphocytes % 11.9 Monocytes % 10.7 Eosinophils % 0.1 Basophils % 0.4 Nucleated RBC % 0.0 Absolute Neutrophils 7.00 H Absolute Lymphocytes 1.09 L Absolute Monocytes 0.98 H Absolute Eosinophils 0.01 Absolute Basophils 0.04 RBC Morphology See Below Macrocytosis 3+ ABG Sample Site ABG pH ABG pCO2 ABG pO2 ABG HCO3 ABG Total CO2 ABG O2 Saturation ABG Base Excess VBG pH VBG pCO2 VBG pO2 VBG HCO3 VBG Total CO2 VBG O2 Saturation VBG Base Excess FiO2 Sodium 140 Potassium 5.3 H D Chloride 99 Carbon Dioxide 37.9 H Anion Gap 3.1 BUN 16 Creatinine 1.0 Estimated GFR/1.73 m2 >= 60.00 Glucose 103 Calcium 8.6 Total Bilirubin 0.8 AST 45 H ALT 44 Alkaline Phosphatase 133 H Total Protein 7.1 Albumin 3.1 L Procalcitonin Fluid Source Fluid Color Fluid Clarity Fluid pH Fluid WBC Fld Polynuclear WBCs % Fluid Mononuclear Cell Fluid Other Cells Path Cons Comment Add-On Test Request DONE 03/19/22 03/19/22 08:50 08:50 WBC RBC Hgb Hct MCV MCH MCHC RDW Plt Count MPV Immature Gran % Neutrophils % Lymphocytes % Monocytes % Eosinophils % Basophils % Nucleated RBC % Absolute Neutrophils Absolute Lymphocytes Absolute Monocytes Absolute Eosinophils Absolute Basophils RBC Morphology Macrocytosis ABG Sample Site ABG pH ABG pCO2 ABG pO2 ABG HCO3 ABG Total CO2 ABG O2 Saturation ABG Base Excess VBG pH 7.39 VBG pCO2 65 H* VBG pO2 80 VBG HCO3 40 H VBG Total CO2 33 H VBG O2 Saturation 96 VBG Base Excess 15 H FiO2 Sodium Potassium Chloride Carbon Dioxide Anion Gap BUN Creatinine Estimated GFR/1.73 m2 Glucose Calcium Total Bilirubin AST ALT Alkaline Phosphatase Total Protein Albumin Procalcitonin < 0.1 Fluid Source Fluid Color Fluid Clarity Fluid pH Fluid WBC Fld Polynuclear WBCs % Fluid Mononuclear Cell Fluid Other Cells Path Cons Comment Add-On Test Request Objective Narrative Objective Narrative: CXR: Decreasing opacities in the bases may represent improving atelectasis or pneumonia.. PAWSS Have you Been Recently Intoxicated or Drunk Within the Last 30 days?: Yes Have you Ever Experienced Previous Episodes of Alcohol Withdrawal?: No Have you ever Experienced Withdrawal Seizures?: No Have you ever Experienced Delirium Tremens(DT)s?: No Have you ever undergone Alcohol Rehabilitation Treatment (i.e, inpt ot outpatient treatment programs)?: No Have you ever Experienced Blackouts?: No Have you ever Combined Alcohol with other Downers within the last 90 days?: No Have you ever Combined Alcohol with any other Substance of Abuse during the last 90 days?: No Positive Blood Alcohol level on Presentation? [PCS.BAL]: No Evidence of Increased Autonomic Activity (i.e. 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
[2022-03-19] MEDS: Metoprolol 25 MG TAB PO ×2 (14:35→19:36)
--- NOTE | 2022-03-19 17:21 | DI.US_ITS ---
Exam(s) US ABDOMEN EXAM: US ABDOMEN CLINICAL HISTORY: Ascites, r/o liver pathology. Please measure volume of ascites TECHNIQUE: Ultrasound performed using standard protocol. COMPARISON: US ABDOMEN ULTRASOUND from 12/22/2009 FINDINGS: Abdominal ultrasound was performed according to the usual protocol. Abdominal aorta and IVC were not well visualized due to overlying bowel gas, pancreas is also suboptimally visualized secondary to ov erlying bowel gas. Liver is is mildly enlarged with a 22 cm length. No focal hepatic lesion identified. No evidence of cholelithiasis or biliary dilatation. Spleen is unremarkable in appearance. Kidneys appear normal with no evidence of hydronephrosis or nephrolithiasis. There is mild abdominal ascites, the largest collection lies in the left lower quadrant and measures up to about 4 cm in diameter. IMPRESSION: Mild abdominal ascites. Question mild hepatomegaly. DATA REPOSITORY:
[2022-03-19 18:17] LABS: Anion Gap 6.2 mmol/L (3-11); BUN 16 mg/dL (7-18); CO2 39.8 mmol/L (21.0-32.0); CREATININE 0.8 mg/dL (0.70-1.30); Chloride 96 mmol/L (98-107); Glucose 145 mg/dL (74-106); Magnesium 1.5 mg/dL (1.8-2.4); Potassium 3.9 mmol/L (3.5-5.1); Sodium 142 mmol/L (136-145)
--- NOTE | 2022-03-19 18:39 | DI.VRAD_ITS ---
PROCEDURE INFORMATION: Exam: US Abdomen Complete Exam date and time: 03/19/2022 17:35 Age: 51 years old Clinical indication: Abnormal findings; Abnormal radiologic finding of the abdomen; Radiologic exam and body structure: CT pe showed ascites TECHNIQUE: Imaging protocol: Real-time ultrasound of the abdomen with image documentation. Complete exam. COMPARISON: CT CHEST PE CTA 03/18/2022 15:29 FINDINGS: Liver: Fatty liver or other chronic hepatocellular disease. Difficult to tell if the liver is nodular however this is suspected. Probable cirrhosis. Gallbladder: No gross gallstones. No gallbladder wall thickening. Biliary ducts: No stones in the visualized portion. Upper limits of normal for age at 5 mm. Pancreas: Visualized pancreas is unremarkable. Right kidney: No hydronephrosis or significant stones. Left kidney: No hydronephrosis or significant stones. Spleen: No splenomegaly. Intraperitoneal space: Small ascites in all 4 quadrants. Aorta: Obscured by bowel gas. Inferior vena cava: Grossly normal. IMPRESSION: Small ascites in all 4 quadrants. Suspected cirrhosis or other chronic hepatocellular disease. Dictated and Authenticated by: Bree Gutiérrez MD. Ordering:SISSY Wiseman MD
[2022-03-20] VITALS (43 sets, daily range): BP systolic 130–171; BP diastolic 69–103; PULSE 72–85; RESP 11–24; TEMP 31–37; O2SAT 80–95
[2022-03-20] MEDS: Metoprolol 25 MG TAB PO ×4 (02:54→19:28)
[2022-03-20 06:06] LABS: Abs Immature Grans 0.03 10^3/uL (0.0-0.06); Absolute Basophil Count 0.05 10^3/uL (0.0-0.2); Absolute Eosinophil Count 0.12 10^3/uL (0.0-0.7); Absolute Lymphocyte Count 1.02 10^3/uL (1.2-3.4); Absolute Monocyte Count 0.85 10^3/uL (0.1-0.8); Absolute Neutrophil Count 5.65 10^3/uL (1.2-6.7); Basophils % 0.6; Eosinophils % 1.6; HCT 53.4 % (40.0-50.0); HGB 18.2 g/dL (13.5-17.5); Immature Grans % 0.4; Lymphocytes % 13.2; MCH 38.5 pg (27.0-33.0); MCHC 34.1 % (32.0-36.0); MCV 113 fL (80-95); MPV 10.3 fL (8.0-11.0); Neutrophils % 73.2; Platelet Count 143 10^3/uL (130-400); RBC 4.73 10^6/uL (4.36-5.78); RDW 14.9 % (11.8-14.1); RDW-SD 63.8 fL; WBC 7.72 10^3/uL (4.4-10.8)
[2022-03-20 06:27] LABS: Anion Gap 0.9 mmol/L (3-11); BUN 15 mg/dL (7-18); CO2 42.1 mmol/L (21.0-32.0); CREATININE 0.8 mg/dL (0.70-1.30); Calcium 9.1 mg/dL (8.5-10.1); Chloride 96 mmol/L (98-107); Glucose 102 mg/dL (74-106); Magnesium 1.7 mg/dL (1.8-2.4); Sodium 139 mmol/L (136-145); TSH (W/Ref FT4) 4.15 uIU/mL (0.36-3.74)
[2022-03-20 06:45] LABS: FREE T4 0.98 ng/dL (0.76-1.46)
[2022-03-20] MEDS: Folic Acid 1 MG TAB PO (07:49)
[2022-03-20] MEDS: Thiamine 100 MG TAB PO (07:49)
[2022-03-20] MEDS: Furosemide 40 MG/4 ML VIAL 20 MG IVP ×2 (07:50→15:56)
[2022-03-20] MEDS: Aspirin E.C. 81 MG TABEC PO (07:50)
[2022-03-20] MEDS: Multivitamin TAB 1 TAB PO (07:50)
[2022-03-20] MEDS: Enoxaparin 40 MG/0.4 ML SYR SC ×2 (07:50→19:28)
[2022-03-20] MEDS: MAGNESIUM SULFATE 2 GM/50 ML BAG IVPB (07:53)
[2022-03-20] MEDS: Losartan 25 MG TAB PO (07:53)
--- NOTE | 2022-03-20 11:44 | W.PM.PROGNOT ---
Date of Service Date of service: 03/20/22 Time of Service: 10:30 Assessment and Plan Assessment and plan (1) Acute respiratory failure with hypoxia and hypercapnia: Status: Acute Assessment and plan: In setting of acute CHF/pulmonary edema. Improving post thoracenthesis, diuresis, and with BiPAP. Suspect underlying KRISTEN/OHS as well. wean O2 down as tolerated. Encourage IS. Continue diuresis. Monitor I/O's and daily weights. Needs an echo. (2) CHF (congestive heart failure): Status: Chronic Assessment and plan: Acute/new diagnosis. EF unknown. At risk for Cardiomyopathy due to both hemochromatosis and EtOH abuse. Does also have cirrhosis which is contributing to anasarca, though degree of his hypoalbuminemia alone would be unlikely to result in this level of anasarca. TSH only mildly elevated; FT4 nml. As above. I attribute mild elevation of troponin to demand due to this rather than ACS. Continue IV lasix, monitoring I/Os and daily weights. Qualifiers: Heart failure chronicity: acute Heart failure type: unspecified Qualified Code(s): I50.9 - Heart failure, unspecified (3) Alcohol dependence: Status: Acute Assessment and plan: Continue monitoring on CIWA. no signs of w/d at this time. Does have evidence of cirrhosis and mild ascites. Advised to quit. Prn lorazepam written (has not yet required). Continue thiamine/MVI. (4) Hemochromatosis: Status: Chronic Assessment and plan: As above (5) Ascites: Status: Acute Assessment and plan: Mild ascites and cirrhosis confirmed by US. No evidence for SBP. Not enough ascites for paracenthesis. Diurese. (6) Tobacco dependence: Status: Acute Assessment and plan: Reinforced cessation. Continue prn nicotine patch. (7) HTN (hypertension): Status: Chronic Assessment and plan: Continue metoprolol (increase dose) and losartan. Hold HCTZ as we can more reliably diurese with lasix. Add aldactone. (8) Morbid obesity: Status: Chronic Assessment and plan: BMI of 45.2 kg/m2. Likely has KRISTEN/OHS. Will need outpatient workup. (9) DVT prophylaxis: Status: Acute Assessment and plan: Lovenox 40 mg SC BID (10) Discharge planning issues: Status: Acute Assessment and plan: Full code Keep in ICU. Total Critical Care Time 35 minutes. Discussed with patient's . Subjective Subjective Interval history since last seen: Mr Godfrey states he is feeling better. He slept on BiPAP (18/8 45% FiO2). He is 4.2 L negative as of yesterday and has good UOP today. His breathing is better. Denies dizziness, chest pain, nausea. States his abdomen is not uncomfortable. We discussed that, with his small amount of ascites seen on the US, paracenthesis would not be indicated. We also discussed findings of likely cirrhosis of the liver on the US and how he should abstain from alcohol. CIWA 0s. Exam Narrative Exam Narrative: General: Pleasant obese male who is interactive/engaged, A&Ox3, comfortable on humidified heated high flow NC HEENT: EOMI, MMM Heart: RRR, no m/r/g Lungs: Diminished breath sounds L lung field Abdomen: soft, obese/rotund, no obvious fluid wave, nontender Extremities: 3+ pitting edema BLEs - symmetric, slightly better, chronic venous stasis dermatitis Objective Last Vital Signs Temp 36.2 C L 03/20/22 08:45 Pulse 77 03/20/22 08:45 Resp 18 03/20/22 08:45 BP 161/92 H 03/20/22 06:01 Pulse Ox 92 03/20/22 08:45 Laboratory Results - last 24 hr 03/18/22 03/19/22 03/19/22 Unknown 17:24 17:52 WBC RBC Hgb Hct MCV MCH MCHC RDW Plt Count MPV Immature Gran % Neutrophils % Lymphocytes % Monocytes % Eosinophils % Basophils % Nucleated RBC % Absolute Neutrophils Absolute Lymphocytes Absolute Monocytes Absolute Eosinophils Absolute Basophils VBG pH Cancelled VBG pCO2 Cancelled VBG pO2 Cancelled VBG HCO3 Cancelled VBG Total CO2 Cancelled VBG O2 Saturation Cancelled VBG Base Excess Cancelled Sodium Cancelled 142 Potassium Cancelled 3.9 D Chloride Cancelled 96 L Carbon Dioxide Cancelled 39.8 H Anion Gap Cancelled 6.2 BUN Cancelled 16 Creatinine Cancelled 0.8 Estimated GFR/1.73 m2 Cancelled >= 60.00 Glucose Cancelled 145 H Calcium Cancelled 9.0 Magnesium Cancelled 1.5 L TSH Free T4 03/20/22 03/20/22 05:18 05:18 WBC 7.72 RBC 4.73 Hgb 18.2 H Hct 53.4 H MCV 113 H MCH 38.5 H MCHC 34.1 RDW 14.9 H Plt Count 143 MPV 10.3 Immature Gran % 0.4 Neutrophils % 73.2 Lymphocytes % 13.2 Monocytes % 11.0 Eosinophils % 1.6 Basophils % 0.6 Nucleated RBC % 0.0 Absolute Neutrophils 5.65 Absolute Lymphocytes 1.02 L Absolute Monocytes 0.85 H Absolute Eosinophils 0.12 Absolute Basophils 0.05 VBG pH VBG pCO2 VBG pO2 VBG HCO3 VBG Total CO2 VBG O2 Saturation VBG Base Excess Sodium 139 Potassium 4.0 Chloride 96 L Carbon Dioxide 42.1 H Anion Gap 0.9 L BUN 15 Creatinine 0.8 Estimated GFR/1.73 m2 >= 60.00 Glucose 102 Calcium 9.1 Magnesium 1.7 L TSH 4.15 H Free T4 0.98 PAWSS Have you Been Recently Intoxicated or Drunk Within the Last 30 days?: Yes Have you Ever Experienced Previous Episodes of Alcohol Withdrawal?: No Have you ever Experienced Withdrawal Seizures?: No Have you ever Experienced Delirium Tremens(DT)s?: No Have you ever undergone Alcohol Rehabilitation Treatment (i.e, inpt ot outpatient treatment programs)?: No Have you ever Experienced Blackouts?: No Have you ever Combined Alcohol with other Downers within the last 90 days?: No Have you ever Combined Alcohol with any other Substance of Abuse during the last 90 days?: No Positive Blood Alcohol level on Presentation? [PCS.BAL]: No Evidence of Increased Autonomic Activity (i.e. 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
--- NOTE | 2022-03-20 12:05 | PHA.REVIEW ---
Pharmacy Admission Review - Admission Clinical Review (Last Reviewed 03/18/22 @ 14:57 by Harshal Ocampo MD) Discharge planning issues (Acute) DVT prophylaxis (Acute) Ascites (Acute) Acute respiratory failure with hypoxia and hypercapnia (Acute) Hypoxia (Acute) Alcohol dependence (Acute) Tobacco dependence (Acute) grass pollen-perennial rye, standar Allergy (Mild, Verified 03/18/22 07:44) Other (See Comment) lisinopril Adverse Reaction (Severe, Verified 03/18/22 07:44) made me feel lousy Resuscitation Status Full Code Height 6 ft 3 in Weight 163.4 kg - Renal Dosing Renal Dosing: BUN 15 mg/dL (7-18) 03/20/22 05:18 Creatinine 0.8 mg/dL (0.70-1.30) 03/20/22 05:18 Medications needing adjustments: Reviewed (Crcl over 120 mL/min. Current meds okay) - Anticoagulation Anticoagulation: Hgb 18.2 g/dL (13.5-17.5) H 03/20/22 05:18 Hct 53.4 % (40.0-50.0) H 03/20/22 05:18 Plt Count 143 10^3/uL (130-400) 03/20/22 05:18 INR 1.4 (0.9-1.1) H 03/18/22 07:30 Creatinine 0.8 mg/dL (0.70-1.30) 03/20/22 05:18 DVT Prophylaxis: Reviewed Medications: Enoxaparin Therapeutic Anticoagulation: N/A - Opiate Usage Evaluate Pain Scale/Pains Meds: N/A - Relevant Labs Sodium 139 mmol/L (136-145) 03/20/22 05:18 Potassium 4.0 mmol/L (3.5-5.1) 03/20/22 05:18 Chloride 96 mmol/L (98-107) L 03/20/22 05:18 Magnesium 1.7 mg/dL (1.8-2.4) L 03/20/22 05:18 Electrolytes, C-Reactive P, ESR: Reviewed (IV mag ordered) - DM Control DM Control: Glucose 102 mg/dL (74-106) 03/20/22 05:18 Hemoglobin A1c 5.5 % (<5.7) 03/18/22 07:30 Insulin Dosing: N/A (No DM noted in pt's medical history, A1c 5.5) - Heart Failure/MD Heart Failure/MD: Troponin I 75 ng/L (<or=60) H* 03/18/22 10:10 NT-Pro-B Natriuret Pep 2644 pg/mL (<300) H 03/18/22 07:30 EF%, SHANTELL's, B-Blockers, Diuretics: Reviewed - BP Control BP Control: Blood Pressure 161/92 Blood Pressure 149/86 Blood Pressure 130/69 If elevated: Reviewed (BP has been elevated most of admission so far. Losartan, metoprolol, and furosemide currently ordered.) - Qtc Review If Elevated: N/A (QTc 441 on admission) - IV to PO Switch IV Medications: Reviewed - Home Meds Home Med List reviewed: Reviewed (amlodipine (d/c'd due to edema per progress note)) - Current meds Current Medication Order Review: Intervened (Discontinued DI meds that had already been given.) - Comments Comments/Follow Ups: Watch BP, mag, labs and for med changes.
[2022-03-20] MEDS: Spironolactone 25 MG TAB PO (13:53)
[2022-03-20] MEDS: Normal Saline Flush 10 ML SYR IVP (15:56)
[2022-03-20 17:38] LABS: Albumin, Body FLuid 1.5 g/dL (See Note)
[2022-03-20 17:39] LABS: Glucose, Fluid 151 mg/dL (See Note)
[2022-03-21] VITALS (39 sets, daily range): BP systolic 126–170; BP diastolic 71–97; PULSE 68–87; RESP 2–25; TEMP 29–37.2; O2SAT 83–99
[2022-03-21] MEDS: Metoprolol 25 MG TAB PO ×3 (01:38→09:05)
[2022-03-21 06:39] LABS: HCT 53.5 % (40.0-50.0); MCH 37.9 pg (27.0-33.0); MCHC 33.6 % (32.0-36.0); MCV 113 fL (80-95); MPV 10.8 fL (8.0-11.0); Platelet Count 133 10^3/uL (130-400); RBC 4.75 10^6/uL (4.36-5.78); RDW 14.4 % (11.8-14.1); RDW-SD 60.5 fL
[2022-03-21 07:02] LABS: Anion Gap 2.9 mmol/L (3-11); BUN 17 mg/dL (7-18); CO2 41.1 mmol/L (21.0-32.0); CREATININE 0.8 mg/dL (0.70-1.30); Calcium 9.3 mg/dL (8.5-10.1); Chloride 92 mmol/L (98-107); Glucose 105 mg/dL (74-106); Magnesium 1.9 mg/dL (1.8-2.4); Potassium 4.5 mmol/L (3.5-5.1); Sodium 136 mmol/L (136-145)
--- NOTE | 2022-03-21 07:33 | W.PULMCC ---
General Date of Service Date of service: 03/21/22 Time of Service: 07:33 Reason for Admission to ICU: Respiratory failure Assessment and Plan Assessment and plan (1) Morbid obesity: Status: Chronic (2) Respiratory failure with hypoxia and hypercapnia: Status: Acute Qualifiers: Chronicity: acute on chronic Qualified Code(s): J96.21 - Acute and chronic respiratory failure with hypoxia; J96.22 - Acute and chronic respiratory failure with hypercapnia (3) Hemochromatosis: Status: Chronic Qualifiers: Hemochromatosis type: other hemochromatosis Qualified Code(s): E83.118 - Other hemochromatosis (4) Troponin level elevated: Status: Acute (5) Tobacco dependence: Status: Acute (6) HTN (hypertension): Status: Chronic (7) CHF exacerbation: Status: Acute Assessment and plan: This is a 51 yo man with acute on chronic hypoxic and hypercapnic respiratory failure admitted to the ICU for a CHF exacerbation resulting in volume overload and respiratory failure. Based on a review of his chart he does also likely have OHS resulting in chronic hypoxia and chronic hypercapnea which is certainly contributing to his polycythemia (in addition to his hemochromatosis). Once he is on nasal cannula I will assess his need for AVAPS upon discharge with a spirometry and ABG. He has done quite well with diuresis thus far, but still does have ground to cover. He meets the clinical definition for chronic bronchitis, but has not been diagnosed with COPD formally. I do this this in likely in addition to a likely dilated cardiomyopathy and OHS. Recommendations Pulmonary: Acute on Chronic Hypoxic and Hypercapnic respiratory failure - continue to wean O2 needs - continue BiPAP at night and with naps - sat target 88-92% - out of bed to chair - recommend PT - will evaluate for NIV once weaned closer to baseline - IS and Acapella Likely COPD - start Stiolto - can be discharged on this - tid standing Duonebs - prn Xopenex ordered Smoking - discussed cessation Cardiac: CHF exacerbation - I suspect a dilated cardiomyopathy - agree with formal echo - continue with aggressive diuresis Troponin elevation - due to demand HTN - on metoprolol and spironolactone - will defer up titration/addition to hospitalist service Renal: No acute concerns I&O: Intake & Output 03/18/22 03/19/22 03/20/22 03/21/22 23:59 23:59 23:59 23:59 Intake Total 240 / 240 960 / 960 940 / 940 Output Total 6400 / 6400 5175 / 5175 5000 / 5000 900 / 900 Balance -6160 / -6160 -4215 / -4215 -4060 / -4060 -900 / -900 Weight 164 kg 163.4 kg 159.5 kg Daily Fluid Goal:: Negative 1 to 2 L in 24 hours GI Nutrition: Alcohol use disorder - on CIWA Date of Last Bowel Movement: 03/17/22 Infectious Disease: No acute concerns Hematologic: Hemachromatosis - familial - no further work up needed Neurologic: No acute concerns Endocrine: No acute concerns Lines: PIV Prophylaxis: Lovenox Code Status: Resuscitation Status Full Code Subjective Critical and life-threatening events over the past 24 hours: This is an obese 51 yo man admitted to the ICU for acute on chronic hypoxic and hypercapnic respiratory failure due to a likely combination of CHF and OHS. He had a right sided pleural effusion (likely due to volume overload) and received a therapeutic thoracentesis. He had an ABG which found acute on chronic hypercapnea. He also has what is likely a secondary hemochromatosis. He is being diuresed, and per the chart is 15 L negative. His O2 requirements have been weaning but is still requiring BiPAP while sleeping. Exam Narrative Exam Narrative: POCUS 03/21/22: Very limited views. Only able to adequately see apical 4 chamber. Likely dilated LV and RV with probable low EF on this single view. Gen: NAD, normal respiratory effort, obese HENT: PERRL, No LAD or JVD Chest: No respiratory distress, normal appearance of chest, clear to auscultation bilaterally, no crackles or wheezes, normal inspiratory effort Heart: regular rate and rhythym, no murmurs, rubs or gallops Abdomen: Non-distended, soft, non tender Extremities: No clubbing, + edema, cyanosis, rashes Neuro: AAOx3 , non focal Psych: cooperative, appropriate mental affect Most Recent VS/Results Last Vital Signs Temp 36.9 C 03/21/22 00:00 Pulse 75 03/21/22 04:28 Resp 22 03/21/22 04:28 BP 155/95 H 03/21/22 04:28 Pulse Ox 99 03/21/22 04:28 Laboratory Results - last 24 hr 03/21/22 03/21/22 05:07 05:07 WBC 8.60 RBC 4.75 Hgb 18.0 H Hct 53.5 H MCV 113 H MCH 37.9 H MCHC 33.6 RDW 14.4 H Plt Count 133 MPV 10.8 Sodium 136 Potassium 4.5 Chloride 92 L Carbon Dioxide 41.1 H Anion Gap 2.9 L BUN 17 Creatinine 0.8 Estimated GFR/1.73 m2 >= 60.00 Glucose 105 Calcium 9.3 Magnesium 1.9 Review of Systems All systems reviewed & are unremarkable except as noted in HPI and below Time spent with patient Time spent in Critical Care: 45 Time spent in Critical care included: Chart review, Documenting critically ill care, Time at immediate bedside and Discussing critically ill care with other medical staff
--- NOTE | 2022-03-21 08:14 | PDOC.CMPRO ---
- If Service Date Differs Date of service: 03/21/22 Time of Service: 08:14 Care Management Progress Note S/O: Tremaine remains in the ICU diuresing and being closely monitored and treated for CHF. He remains on BIPAP at night, per provider. Awaiting ECHO (scheduled tomorrow) possible PFT, ABG. CM continues to follow. A: 51 year old male admitted to [facility] 03/18/22 for CHF, hemochromatosis P: Tremaine will likely be discharged home with no services when medically cleared by provider. He will follow up with his PCP, cardiology and plan of care as instructed. His , Misha, will drive him home via private vehicle when ready. CM will continue to follow.
[2022-03-21] MEDS: Spironolactone 25 MG TAB PO (08:29)
[2022-03-21] MEDS: Enoxaparin 40 MG/0.4 ML SYR SC ×2 (08:29→19:36)
[2022-03-21] MEDS: Folic Acid 1 MG TAB PO (08:29)
[2022-03-21] MEDS: Aspirin E.C. 81 MG TABEC PO (08:29)
[2022-03-21] MEDS: Multivitamin TAB 1 TAB PO (08:29)
[2022-03-21] MEDS: Thiamine 100 MG TAB PO (08:30)
[2022-03-21] MEDS: Losartan 25 MG TAB PO (08:30)
[2022-03-21] MEDS: Furosemide 40 MG/4 ML VIAL 20 MG IVP ×2 (08:31→16:27)
--- NOTE | 2022-03-21 08:48 | W.PM.PROGNOT ---
Date of Service Date of service: 03/21/22 Time of Service: 08:48 Assessment and Plan Assessment and plan (1) Acute on chronic respiratory failure with hypoxia and hypercapnia: Status: Acute Assessment and plan: In setting of acute CHF/pulmonary edema and probable underlying COPD. Suspect underlying KRISTEN/OHS as well. Evaluated by Dr Lyles - there probably was chronic hypoxia prior to this as his resting O2 sats were 90% as outpatient. Improving post thoracenthesis, diuresis, and with BiPAP. Dr Lyles plans on adding an inhaler. Continue diuresis. wean O2 down as tolerated. Encourage IS. Await echo. Monitor I/O's and daily weights. (2) CHF (congestive heart failure): Status: Chronic Assessment and plan: Acute/new diagnosis. EF unknown. At risk for Cardiomyopathy due to both hemochromatosis and EtOH abuse. Does also have cirrhosis which is contributing to anasarca, though degree of his hypoalbuminemia alone would be unlikely to result in this level of anasarca. TSH only mildly elevated; FT4 nml. As above. I attribute mild elevation of troponin to demand due to this rather than ACS. Continue IV lasix, monitoring I/Os and daily weights. Qualifiers: Heart failure type: unspecified Heart failure chronicity: acute Qualified Code(s): I50.9 - Heart failure, unspecified (3) Alcohol dependence: Status: Acute Assessment and plan: Continue monitoring on CIWA. No signs of w/d. Does have evidence of cirrhosis and mild ascites. Advised to quit. Prn lorazepam written (has not yet required). Continue thiamine/MVI. (4) Hemochromatosis: Status: Chronic Assessment and plan: As above Diagnosed as child. A family member had from hemochromatosis, the whole family was tested, and several family members have it, including the patient's mother. Contributing to polycythemia. No obvious evidence of infiltrative cardiomyopathy by POCUS, per Dr Lyles, but the study was of poor quality due to patient's anatomy - await a formal echo. Qualifiers: Hemochromatosis type: other hemochromatosis Qualified Code(s): E83.118 - Other hemochromatosis (5) Ascites: Status: Acute Assessment and plan: Mild ascites and cirrhosis confirmed by US. No evidence for SBP. Not enough ascites for paracenthesis. Diurese. (6) Tobacco dependence: Status: Acute Assessment and plan: Reinforced cessation. Continue prn nicotine patch. (7) HTN (hypertension): Status: Chronic Assessment and plan: Continue metoprolol (increase dose again), losartan, aldactone. Hold HCTZ as we can more reliably diurese with lasix. (8) Morbid obesity: Status: Chronic Assessment and plan: BMI of 45.2 kg/m2. Likely has KRISTEN/OHS. Will need outpatient workup. (9) DVT prophylaxis: Status: Acute Assessment and plan: Lovenox 40 mg SC BID (10) Discharge planning issues: Status: Acute Assessment and plan: Full code Keep in ICU. Total Critical Care Time [address] Lyles. Subjective Subjective Interval history since last seen: Mr Godfrey states he is not feeling better than yesterday - he has generally felt well since arrival to the hospital, he states. He slept on BiPAP (18/8 FiO2 45%), he is on humidified heated high flow 55 L 55% FiO2. O2 sats 95%. -4L in 24 hrs. Exam Narrative Exam Narrative: General: Pleasant obese male who is interactive/engaged, A&Ox3, comfortable on humidified heated high flow NC HEENT: EOMI, MMM Heart: RRR, no m/r/g Lungs: Diminished breath sounds L lung field Abdomen: soft, obese/rotund, no obvious fluid wave, nontender Extremities: 3+ pitting edema BLEs - symmetric, slightly better, chronic venous stasis dermatitis Objective Last Vital Signs Temp 36.9 C 03/21/22 00:00 Pulse 75 03/21/22 04:28 Resp 22 03/21/22 04:28 BP 155/95 H 03/21/22 04:28 Pulse Ox 99 03/21/22 04:28 Laboratory Results - last 24 hr 03/21/22 03/21/22 05:07 05:07 WBC 8.60 RBC 4.75 Hgb 18.0 H Hct 53.5 H MCV 113 H MCH 37.9 H MCHC 33.6 RDW 14.4 H Plt Count 133 MPV 10.8 Sodium 136 Potassium 4.5 Chloride 92 L Carbon Dioxide 41.1 H Anion Gap 2.9 L BUN 17 Creatinine 0.8 Estimated GFR/1.73 m2 >= 60.00 Glucose 105 Calcium 9.3 Magnesium 1.9 PAWSS Have you Been Recently Intoxicated or Drunk Within the Last 30 days?: Yes Have you Ever Experienced Previous Episodes of Alcohol Withdrawal?: No Have you ever Experienced Withdrawal Seizures?: No Have you ever Experienced Delirium Tremens(DT)s?: No Have you ever undergone Alcohol Rehabilitation Treatment (i.e, inpt ot outpatient treatment programs)?: No Have you ever Experienced Blackouts?: No Have you ever Combined Alcohol with other Downers within the last 90 days?: No Have you ever Combined Alcohol with any other Substance of Abuse during the last 90 days?: No Positive Blood Alcohol level on Presentation? [PCS.BAL]: No Evidence of Increased Autonomic Activity (i.e. HR>120, tremor, sweating, agitation, nausea)?: No Result: 1 Multi-Disciplinary Checklist Lines/Tubes CENTRAL LINE: no ARTERIAL LINE: no ARREOLA: yes, Arreola Day#: 3 ENDOTRACHEAL TUBE: no ICU Maintenance GLUCOSE 140-180mg/dL: no, Reason/Intervention: not diabetic, eating NUTRITION AT GOAL: yes PRESSURE ULCER: no RESTRAINTS: no ANTIBIOTICS(if yes, consider Stewardship): No Social Issues FAMILY UPDATED: yes PT/OT: yes GOALS/DISPOSITION/FOUNTAIN HELPER: yes CODE STATUS: Full Prophylaxis DVT PROPHYLAXIS: yes GI PROPHYLAXIS: no
--- NOTE | 2022-03-21 09:30 | PT.INIE ---
PT Notes Visit Reasons: CHF, Hemochromatosis Physical Therapy Inpatient Initial Evaluation Date: 03/21/2022 Referring Doctor: Ivone Sahni MD PT Orders: PT CONSULT: Eval/Treat Precautions: Fall. Standard. Activity as tolerated. Patient Profile/Admitting Diagnosis: Tremaine is a 51-year-old male who presented to the ED on 03/18/2022 due to increasing shortness of breath. Patient is diagnosed with congestive heart failure, hemochromatosis, acute respiratory failure with hypoxia and hypercapnia status post thoracentesis on 03/18/2022, tobacco dependence, EtOH dependence, and hypertension. PMHX: All Active Problems?(Updated 03/18/22 @ 15:05 by Harshal Ocampo MD) Morbid obesity (Acute) Acute respiratory failure with hypoxia and hypercapnia (Acute) CHF (congestive heart failure) (Chronic) Hemochromatosis (Acute) Hypoxia (Acute) Delayed wound healing (Acute) Sebaceous cyst (Acute) Status post total hip replacement, left (Acute 06/10/20) Degenerative joint disease of left hip (Acute) Colon polyp (Acute) Headache (Acute) DVT prophylaxis (Acute) Groin strain (Acute) Obesity (Chronic) Hemochromatosis (Acute) Degenerative joint disease of right hip (Acute) pt. denies having this on right R hip Degenerative joint disease of left hip (Acute) Alcohol dependence (Acute) Tobacco dependence (Acute) HTN (hypertension) (Chronic) Surgical History? History of removal of cyst (~12/22/20) upper back, Stoiber, drain placed History of tonsillectomy Hx of wisdom tooth extraction Social History/Home Situation: Lives with her in a private home. Works and a [employer]. Independent in all aspects of ADLs prior to admission. Equipment Owned/DME: None Subjective: Agreeable to PT consult. Reports fatigue with short distance walking. Objective: General Observation: Supine in bed. On HF oxygen supplemetation via NC. Telemetry monitoring in place. Portillo catheter in place. Bilateral leg and pedal edema noted. Mental Status: Alert and oriented as to person, place, time, and purpose. Able to pay attention, focus, and respond appropriately. Pain: Denies Vital Signs: WNL as amrlene paz via telemetry ROM: Right Upper Extremity: Shoulder Flexion WFL. Shoulder abduction WFL. Elbow flexion WFL. Wrist flexion WFL. Functional opening and closing of hand WFL. Left Upper Extremity: Shoulder Flexion WFL. Shoulder abduction WFL. Elbow flexion WFL. Wrist flexion WFL. Functional opening and closing of hand WFL. Right Lower Extremity: Hip flexion WFL. Hip abduction WFL. Knee flexion WFL. Ankle dorsiflexion to neutral only. Ankle plantarflexion WFL. Left Lower Extremity: Hip flexion WFL. Hip abduction WFL. Knee flexion WFL. Ankle dorsiflexion to neutral only. Ankle plantarflexion WFL. Strength: Right Upper Extremity: Shoulder flexors 4/5. Shoulder abductors 4/5. Elbow flexors 4/5. Elbow extensors 4/5. Assisted Living Housekeeper strong. Left Upper Extremity: Shoulder flexors 4/5. Shoulder abductors 4/5. Elbow flexors 4/5. Elbow extensors 4/5. Assisted Living Housekeeper strong. Right Lower Extremity: Hip flexors 4/5. Hip abductors 4/5. Knee flexors 4/5. Knee extensors 4/5. Ankle dorsiflexors 3-/5. Ankle plantarflexors 4/5. Left Lower Extremity: Hip flexors 4/5. Hip abductors 4/5. Knee flexors 4/5. Knee extensors 4/5. Ankle dorsiflexors 3-/5. Ankle plantarflexors 4/5. Bed Mobility/Transfers: Supine to sit with standby assist with HOB at 30 degrees Sit to stand with standby assist Stand to sit with standby assist Bed to reclining chair standby assist Gait: Instructed patient with level surface ambulation of 30 feet requiring stand by assist. No AD needed but needed to hold onto bed for stability. Kathrine decreased. Balance: Static Sitting: Normal Dynamic Sitting: Normal Static Standing: Good Dynamic Standing: Fair Special Tests: Mobility Limitations Standardized Measure [facility] AM-PAC 6 clicks Basic Mobility Inpatient Short Form: Raw Score: 20 CMS Score: 36% deficit Informed Consent/Education: Patient was instructed in purpose of PT consult and plan of care. Agreeable to proceed with established PT POC to achieve personal goals. Assessment: May benefit from the use of SPC for all long distance ambulation for safety and energy conservation technique. Patient presents with clinical signs and symptoms consistent with current/admitting diagnoses that have resulted to mobility limitations, gait instability, generalized weakness, and overall ADL decline as demonstrated by the following impairment level findings: 1. Decreased strength to B UE/LE major muscle groups 2. Impaired sitting/standing balance 3. Impaired activity tolerance 4. Shortness of breath 5. Swelling 6. Fatigue Impairments are contributing to the following functional limitations: 1. Difficulty with ambulation without Fatigue and shortness of breath 2. Increased completion time for mobility ADL performance 3. Increased risk for falls 4. Difficulty with managing steps alone safely Patient is assessed as a [id number] mdoerate complexity based on the following: History: 51-year-old male with past medical history as indicated above Examination: Demonstrable impairment in strength, balance, and mobility level with underlying impairments and functional limitations as exhibited above as well as deficit score of 36% utilizing the [facility] Mobility Inpatient Short Form Presentation: Evolving Decision Makin moderate complexity Goals: Goals X1 week 1. Supine-Sit independent 2. Sit-Supine independent 3. Sit-Stand independent 4. Stand-Sit independent with no AD 5. Bed-Chair independent with no AD 6. Chair-Bed independent with no AD 7. Independent gait on level surface with use of SPC for at least 500 feet without report of pain nor dyspnea 8. Independent stair negotiation while holding onto B rails for at least 5 steps without report of pain nor dyspnea 9. Independent with home exercise program 10. Good static and dynamic standing balance/tolerance Plan of Care/Treatment Plan: 1-2x/day, 7 days/week x 1 week. Plan of care has been reviewed with the ORAL AND MAXILLOFACIAL SURGERY RESIDENT providing the service under Physical Therapy direction. Initiate Physical Therapy intervention for pain management as needed, strengthening, bed mobility, transfers, gait, stairs, balance training, and use of assistive device. DISCHARGE RECOMMENDATIONS: Home with no services [] [X] Home with services. Patient will benefit from home health PT services in order to progress mobility level using least restrictive assistive ambulatory device, assess home safety, identify additional equipment needs, and establish a functional maintenance program that will increase ability of patient to remain at home. [] Home with outpatient PT [] [] SNF for continued rehabilitation [] [] [facility] [] [] SNF versus LTC based on ability to participate and progress [] TREATMENT CODE/TIME: 9716 2 x 20 minutes, 9753 0 x 17 minutes beginning at 9:30 AM. Thank you for the opportunity to participate in the care of this patient. Nicol Quinteros PT, DPT, CLT [facility] [place], [place]
[2022-03-21] MEDS: Metoprolol 25 MG TAB 50 MG PO ×2 (14:09→19:36)
[2022-03-21] MEDS: Albuterol/Ipratropium 3 ML UPD VIAL UPD ×2 (16:10→19:36)
[2022-03-21] MEDS: Normal Saline Flush 10 ML SYR IVP (16:28)
[2022-03-21] MEDS: Docusate Sodium 100 MG CAP PO (19:36)
[2022-03-22] VITALS (42 sets, daily range): BP systolic 132–159; BP diastolic 67–114; PULSE 64–85; RESP 1–28; TEMP 36.1–38; O2SAT 86–96
[2022-03-22] MEDS: Metoprolol 25 MG TAB 50 MG PO ×4 (02:47→20:51)
[2022-03-22 06:25] LABS: HCT 53.3 % (40.0-50.0); HGB 17.9 g/dL (13.5-17.5); MCH 37.8 pg (27.0-33.0); MCHC 33.6 % (32.0-36.0); MCV 112 fL (80-95); MPV 10.7 fL (8.0-11.0); Platelet Count 129 10^3/uL (130-400); RBC 4.74 10^6/uL (4.36-5.78); RDW 14.4 % (11.8-14.1); RDW-SD 61.6 fL; WBC 9.64 10^3/uL (4.4-10.8)
[2022-03-22 06:39] LABS: Anion Gap 1.1 mmol/L (3-11); BUN 18 mg/dL (7-18); CO2 40.9 mmol/L (21.0-32.0); CREATININE 0.8 mg/dL (0.70-1.30); Calcium 9.1 mg/dL (8.5-10.1); Chloride 93 mmol/L (98-107); Glucose 104 mg/dL (74-106); Sodium 135 mmol/L (136-145)
--- NOTE | 2022-03-22 08:00 | DI.US_ITS ---
APPROVED REPORT EXAM: Comprehensive 2D, Doppler, and color-flow Echocardiogram Patient Location: In-Patient Room/Bed: [id number] Sewer: Sandi Regalado RDCS (AE) Indications: CHF Other Information Study Quality: Fair. Technically limited study due to body habitus, inability to position patient exa m done bedside icu supine. Conclusion Borderline concentric left ventricular hypertrophy. Estimated ejection fraction is 55%. Wall motion is normal Mildly dilated right atrium and right ventricle Normal left atrial size The aortic valve is sclerotic without stenosis or regurgitation Mitral annular calcification. Trace mitral regurgitation Normal tricuspid valve with trace regurgitation. Right ventricular systolic pressure could not be es timated Wall motion Left Ventricle The left ventricle is normal size. The overall left ventricular systolic function appears normal. Bor derline concentric left ventricular hypertrophy. There is normal LV segmental wall motion. There is n o ventricular septal defect visualized. LVEF is 55%. Right Ventricle Right ventricle is mildly dilated. Right ventricular systolic function is grossly normal. Atria The left atrium size is normal. Right atrium is mildly dilated. The interatrial septum is intact with no evidence for an atrial septal defect. Aortic Valve The Aortic valve is sclerotic. There is no aortic valvular stenosis. No aortic regurgitation is prese nt. Mitral Valve mitral annular calcification. No evidence of mitral valve stenosis. Trace mitral regurgitation. Tricuspid Valve The tricuspid valve is normal in structure. There is no tricuspid valve stenosis. Trace tricuspid reg urgitation. Unable to assess PA pressure. Pulmonic Valve Pulmonic valve is not well visualized. Great Vessels The aortic root is normal in size. Ascending aorta is not well visualized. The IVC collapses <50% wit h inspiration. Pericardium There is no pericardial effusion. 2D Dimensions IVSD d PLAX 1.27 cm M: 0.6-1.2 LV Vol A4C d MOD 217.5 mL LVPW d PLAX 1.23 cm M: 0.6 - 1.2 LV EF A4C MOD 54.6 % LVID d PLAX 5.05 cm M: 4.2 - 5.8 LVDs 3.55 cm M: 2.5 - 4.0 Ao Root d 3.52 cm M: 3.1 - 3.7 LV EF Teichholz 56.3 % LV Volume Index 78.03 mL/m2 M: 34 - 74 FS 29.55 % M-Mode TAPSE 2.20 cm (M/F) >1.7 LV Diastology MV E' medial 0.087 (>0.07 m/s) E/A Ratio 0.9 LV E/e MED 11.35 (<14) MV E Vmax 0.99 (0.4-1.3 m/s) MV E' lateral 0.087 (>0.1 m/s) MV A Vmax 1.10 (0.4-1.3 m/s) LV E/e LAT 11.35 (<14) MV E/A Ratio 0.87 MV E/E' medial 11.36 MV E/E' lateral 11.36 Aortic Valve LVOT Area 4.33 cm2 AoV Area Vmax 2.88 cm2 LVOT Vmax 1.32 m/s AoV Area/ BSA (Vmax) 1.03 cm2/m2 LVOT Mean Pepe. 0.79 m/s MICHAEL Mean Pepe. 2.53 cm2 LVOT Peak Grad 6.9 mmHg MICHAEL Mean Pepe. Index 0.91 cm2/m2 LVOT Mean Grad 3.1 mmHg LVOT VTI 0.282 m LVOT Diam s 2.30 cm AoV Vmax 1.98 m/s Velocity Ratio 0.66 AoV Mean Pepe. 1.35 m/s AoV Peak Grad 15.7 mmHg LVOT SV 122.22 mL AoV Mean Grad 8.4 mmHg AoV VTI 0.312 m AoV Area VTI 3.91 cm2 AoV Area/ BSA (VTI) 1.40 cm/m2 Mitral Valve MV DT 353 (160-240 msec) MV PHT 103 msec MV Area PHT 2.15 cm2 MV VTI 0.350 m MV Area VTI 3.50 (4.0-6.0 cm2)
[2022-03-22] MEDS: Furosemide 40 MG/4 ML VIAL 20 MG IVP ×2 (08:40→16:53)
[2022-03-22] MEDS: Losartan 25 MG TAB PO (08:40)
[2022-03-22] MEDS: Normal Saline Flush 10 ML SYR IVP ×2 (08:40→16:53)
[2022-03-22] MEDS: Enoxaparin 40 MG/0.4 ML SYR SC ×2 (08:41→20:51)
[2022-03-22] MEDS: Docusate Sodium 100 MG CAP PO ×2 (08:41→20:51)
[2022-03-22] MEDS: Spironolactone 25 MG TAB PO (08:41)
[2022-03-22] MEDS: Folic Acid 1 MG TAB PO (08:42)
[2022-03-22] MEDS: Multivitamin TAB 1 TAB PO (08:42)
[2022-03-22] MEDS: Thiamine 100 MG TAB PO (08:42)
[2022-03-22] MEDS: Aspirin E.C. 81 MG TABEC PO (08:42)
--- NOTE | 2022-03-22 09:02 | W.PULMCC ---
General Date of Service Date of service: 03/22/22 Time of Service: 07:45 Reason for Admission to ICU: Respiratory failure Assessment and Plan Assessment and plan (1) Morbid obesity: Status: Chronic (2) Respiratory failure with hypoxia and hypercapnia: Status: Acute Qualifiers: Chronicity: acute on chronic Qualified Code(s): J96.21 - Acute and chronic respiratory failure with hypoxia; J96.22 - Acute and chronic respiratory failure with hypercapnia (3) Hemochromatosis: Status: Chronic Qualifiers: Hemochromatosis type: other hemochromatosis Qualified Code(s): E83.118 - Other hemochromatosis (4) Troponin level elevated: Status: Acute (5) Tobacco dependence: Status: Acute (6) HTN (hypertension): Status: Chronic (7) CHF exacerbation: Status: Acute Assessment and plan: This is a 51 yo man with acute on chronic hypoxic and hypercapnic respiratory failure admitted to the ICU for a CHF exacerbation resulting in volume overload and respiratory failure. Based on a review of his chart he does also likely have OHS resulting in chronic hypoxia and chronic hypercapnea which is certainly contributing to his polycythemia (in addition to his hemochromatosis). If he can tolerate nasal cannula throughout the day, I will assess his need for AVAPS tomorrow with a spirometry and ABG. He has done quite well with diuresis thus far, but still does have ground to cover. He meets the clinical definition for chronic bronchitis, but has not been diagnosed with COPD formally. I do think there is COPD, likely in addition to a likely dilated cardiomyopathy and OHS. Recommendations Pulmonary: Acute on Chronic Hypoxic and Hypercapnic respiratory failure - continue to wean O2 needs - placed on nasal cannula this morning - continue BiPAP at night and with naps - I decreased from 18/8 to 16/8 - sat target 88-92% - out of bed to chair - recommend PT - will evaluate for NIV possibly tomorrow - IS and Acapella Likely COPD - start Stiolto - can be discharged on this - tid standing Duonebs - prn Xopenex ordered Smoking - discussed cessation Cardiac: CHF exacerbation - I suspect a dilated cardiomyopathy - agree with formal echo - continue with aggressive diuresis Troponin elevation - due to demand HTN - on metoprolol and spironolactone - will defer up titration/addition to hospitalist service Renal: No acute concerns I&O: Intake & Output 03/19/22 03/20/22 03/21/22 03/22/22 23:59 23:59 23:59 23:59 Intake Total 960 / 960 940 / 940 1240 / 1240 Output Total 5175 / 5175 5000 / 5000 3810 / 3810 1400 / 1400 Balance -4215 / -4215 -4060 / -4060 -2570 / -2570 -1400 / -1400 Weight 163.4 kg 159.5 kg 158.2 kg Daily Fluid Goal:: Negative 1 to 2 L in 24 hours GI Nutrition: Alcohol use disorder - on CIWA Date of Last Bowel Movement: 03/17/22 Infectious Disease: No acute concerns Hematologic: Hemachromatosis - familial - no further work up needed Neurologic: No acute concerns Endocrine: No acute concerns Lines: PIV Portillo Prophylaxis: Lovenox Code Status: Resuscitation Status Full Code Subjective Critical and life-threatening events over the past 24 hours: Tremaine did well overnight. He diuresed 3L as well. He is not short of breath and is feeling well. Exam Narrative Exam Narrative: POCUS 03/21/22: Very limited views. Only able to adequately see apical 4 chamber. Likely dilated LV and RV with probable low EF on this single view. Gen: NAD, normal respiratory effort, obese HENT: PERRL, No LAD or JVD Chest: No respiratory distress, normal appearance of chest, clear to auscultation bilaterally, no crackles or wheezes, normal inspiratory effort Heart: regular rate and rhythym, no murmurs, rubs or gallops Abdomen: Non-distended, soft, non tender Extremities: No clubbing, + edema, cyanosis, rashes Neuro: AAOx3 , non focal Psych: cooperative, appropriate mental affect Most Recent VS/Results Last Vital Signs Temp 36.6 C 03/22/22 04:22 Pulse 66 03/22/22 04:22 Resp 16 03/22/22 04:22 BP 139/72 03/22/22 04:22 Pulse Ox 93 03/22/22 04:22 Laboratory Results - last 24 hr 03/18/22 03/18/22 03/22/22 18:20 18:20 05:20 WBC RBC Hgb Hct MCV MCH MCHC RDW Plt Count MPV Sodium 135 L Potassium 4.0 Chloride 93 L Carbon Dioxide 40.9 H Anion Gap 1.1 L BUN 18 Creatinine 0.8 Estimated GFR/1.73 m2 >= 60.00 Glucose 104 Calcium 9.1 Magnesium 2.0 Fluid Glucose 151 Fluid Albumin 1.5 03/22/22 05:20 WBC 9.64 RBC 4.74 Hgb 17.9 H Hct 53.3 H MCV 112 H MCH 37.8 H MCHC 33.6 RDW 14.4 H Plt Count 129 L MPV 10.7 Sodium Potassium Chloride Carbon Dioxide Anion Gap BUN Creatinine Estimated GFR/1.73 m2 Glucose Calcium Magnesium Fluid Glucose Fluid Albumin Review of Systems All systems reviewed & are unremarkable except as noted in HPI and below Time spent with patient Time spent in Critical Care: 40 Time spent in Critical care included: Coordination of care, Chart review, Documenting critically ill care, Time at immediate bedside and Discussing critically ill care with other medical staff
[2022-03-22] MEDS: Polyethylene Glycol 3350 17 GM PACKET PO (09:17)
--- NOTE | 2022-03-22 09:29 | PDOC.CMPRO ---
- If Service Date Differs Date of service: 03/22/22 Time of Service: 09:29 Care Management Progress Note S/O: Tremaine is making gains towards discharge, per MD, anticipate he will transition to M/S level of care today. He remains on BIPAP at night, as well as IV lasix for diuresis per provider. CM continues to follow. A: 51 year old male admitted to [facility] 03/18/22 for CHF, hemochromatosis P: Tremaine will likely be discharged home with no services when medically cleared by provider. He will follow up with his PCP, cardiology and plan of care as instructed. His , Misha, will drive him home via private vehicle when ready. CM will continue to follow.
[2022-03-22] MEDS: Albuterol/Ipratropium 3 ML UPD VIAL UPD ×3 (09:48→20:51)
[2022-03-22] MEDS: Tiotropium/Olodaterol 10 PUFF INHALER 2 PUFF IH (09:54)
--- NOTE | 2022-03-22 10:28 | NUR.NOTE ---
This typewriters functional tester and SÁNCHEZ Gilman assisted patient on a walk. Patient walked half a loop on the med surge floor and once back in room, patient sat in chair. This typewriters functional tester let RN know that patient was having a shortness of breath with exertion. Nursing Note:
--- NOTE | 2022-03-22 12:24 | PGE_ITS ---
Date of Service Date of service: 03/22/22 Time of Service: 08:30 Assessment and Plan Assessment and plan (1) Acute on chronic respiratory failure with hypoxia and hypercapnia: Status: Acute Assessment and plan: In setting of acute CHF/pulmonary edema and probable underlying COPD. Suspect underlying KRISTEN/OHS as well. Improving post thoracenthesis, diuresis, and with BiPAP. Now only requiring 1-2 L of O2. Can likely be transferred out of the ICU this afternoon. Continue diuresis. Would benefit from NIV - I discussed with Dr Lyles that we will likely do an ABG/PFT tomorrow. wean O2 down as tolerated. Encourage IS. Echo with dilated RA and RV, unable to estimate pulmonary pressures, LVEF of 55%, borderline LVH. Monitor I/O's and daily weights. (2) CHF (congestive heart failure): Status: Chronic Assessment and plan: Acute/new diagnosis. EF 55%, unable to assess RVSP on echo due to patient's anatomy. Evidence of borderline LVH - suspect diastolic dysfunction + pulmonary hypertension. Does also have cirrhosis which is contributing to anasarca, though degree of his hypoalbuminemia alone would be unlikely to result in this level of anasarca. TSH only mildly elevated; FT4 nml. As above. I attribute mild elevation of troponin to demand due to this rather than ACS. Continue IV lasix, monitoring I/Os and daily weights. Continue BiPAP at night. Qualifiers: Heart failure type: unspecified Heart failure chronicity: acute Qualified Code(s): I50.9 - Heart failure, unspecified (3) Alcohol dependence: Status: Acute Assessment and plan: Continue monitoring on CIWA. No signs of w/d. Does have evidence of cirrhosis and mild ascites. Advised to quit. Prn lorazepam written (has not yet required). Continue thiamine/MVI. (4) Hemochromatosis: Status: Chronic Assessment and plan: As above Diagnosed as child. A family member had from hemochromatosis, the whole family was tested, and several family members have it, including the patient's mother. Contributing to polycythemia. No suggestion of infiltrative cardiomyopathy by echo. Qualifiers: Hemochromatosis type: other hemochromatosis Qualified Code(s): E83.118 - Other hemochromatosis (5) Ascites: Status: Acute Assessment and plan: Mild ascites and cirrhosis confirmed by US. No evidence for SBP. Not enough ascites for paracenthesis. Diurese. (6) Tobacco dependence: Status: Acute Assessment and plan: Reinforced cessation. Continue prn nicotine patch. (7) HTN (hypertension): Status: Chronic Assessment and plan: Continue metoprolol , losartan, aldactone at current doses. Hold HCTZ as we can more reliably diurese with lasix. (8) Morbid obesity: Status: Chronic Assessment and plan: BMI of 45.2 kg/m2. Likely has KRISTEN/OHS. Will need outpatient workup. (9) DVT prophylaxis: Status: Acute Assessment and plan: Lovenox 40 mg SC BID (10) Discharge planning issues: Status: Acute Assessment and plan: Full code Likely transfer to medical surgical floor later today. Discussed with Dr Lyles. Subjective Subjective Interval history since last seen: Mr Godfrey was down to 1L of O2 by NC this am when I saw him but had to be bumped up to 2 L with O2 sats in mid-80s while talking. He slept well on BiPAP. Denies dizziness, chest pain, shortness of breath, na usea. No signs of EtOH w/d. Exam Narrative Exam Narrative: General: Pleasant obese male who is seen on 1L NC with O2 sats of 85%, no dyspnea/tachypnea/cyanosis, A&Ox3 HEENT: EOMI, MMM Heart: RRR, no m/r/g Lungs: Diminished breath sounds L lung field Abdomen: soft, obese/rotund, no obvious fluid wave, nontender Extremities: 3+ pitting edema BLEs - symmetric, improving, chronic venous stasis dermatitis Objective Last Vital Signs Temp 37.3 C 03/22/22 08:30 Pulse 70 03/22/22 10:20 Resp 16 03/22/22 09:48 BP 133/82 03/22/22 10:20 Pulse Ox 86 L 03/22/22 10:20 Laboratory Results - last 24 hr 03/22/22 03/22/22 05:20 05:20 WBC 9.64 RBC 4.74 Hgb 17.9 H Hct 53.3 H MCV 112 H MCH 37.8 H MCHC 33.6 RDW 14.4 H Plt Count 129 L MPV 10.7 Sodium 135 L Potassium 4.0 Chloride 93 L Carbon Dioxide 40.9 H Anion Gap 1.1 L BUN 18 Creatinine 0.8 Estimated GFR/1.73 m2 >= 60.00 Glucose 104 Calcium 9.1 Magnesium 2.0 Objective Narrative Objective Narrative: Echo: Borderline concentric left ventricular hypertrophy.? Estimated ejection fraction is 55%.? Wall motion is normal Mildly dilated right atrium and right ventricle Normal left atrial size The aortic valve is sclerotic without stenosis or regurgitation Mitral annular calcification.? Trace mitral regurgitation Normal tricuspid valve with trace regurgitation.? Right ventricular systolic pressure could not be estimated PAWSS Have you Been Recently Intoxicated or Drunk Within the Last 30 days?: Yes Have you Ever Experienced Previous Episodes of Alcohol Withdrawal?: No Have you ever Experienced Withdrawal Seizures?: No Have you ever Experienced Delirium Tremens(DT)s?: No Have you ever undergone Alcohol Rehabilitation Treatment (i.e, inpt ot outpatient treatment programs)?: No Have you ever Experienced Blackouts?: No Have you ever Combined Alcohol with other Downers within the last 90 days?: No Have you ever Combined Alcohol with any other Substance of Abuse during the last 90 days?: No Positive Blood Alcohol level on Presentation? [PCS.BAL]: No Evidence of Increased Autonomic Activity (i.e. HR>120, tremor, sweating, agitation, nausea)?: No Result: 1
--- NOTE | 2022-03-22 14:20 | PT.INTREAT ---
Date of service: 03/22/22 Time of Service: 11:34 PT Notes Visit Reasons: CHF, Hemochromatosis Inpatient Physical Therapy Treatment Note [facility] Date: 03/22/2022 PRECAUTIONS: Activity as tolerated SUBJECTIVE: Tremaine is pleasant and agreeable to participating in PT. She states that she continues to feel better after she receives pain medication. She indicates that is her biggest concern if she discharges to home from the hospital versus a SNF-level rehab. OBJECTIVE: PAIN: No c/o pain BED MOBILITY/TRANSFERS Sit-stand: I Stand-sit: I Bed-chair: I Chair-bed: I GAIT Assistive Device: No AD Weight bearing: Full Assist: I Distance: 400' Deviation: None STAIRS: Up/down 3x4 and 2x6 using U rail and a step-over pattern independently ASSESSMENT: Patient tolerated session well, without complaint. He demonstrates independence with transfers and ambulation at this time. PLAN: Discharge from PT services as patient is at independent baseline level of function. TREATMENT CODE/TIME: 16 minutes; [id number] (11:34)
--- NOTE | 2022-03-22 18:00 | INDS_ITS ---
Date of service: 03/31/22 PT Notes Visit Reasons: CHF, Hemochromatosis Physical Therapy Inpatient Discharge Summary Date: 03/22/2022 Dates of Service: through 03/22/2022 This is a clinical summary of care provided for the duration of dates listed above. No charge was made in the completion of this documentation. Referring Doctor:Antonio Sahni MD PT Orders: PT CONSULT: Eval/Treat Precautions: Fall. Standard. Activity as tolerated. Patient Profile/Admitting Diagnosis:? Tremaine is a 51-year-old male who presented to the ED on 03/18/2022 due to increasing shortness of breath.? Patient is diagnosed with congestive heart failure, hemochromatosis, acute respiratory failure with hypoxia and hypercapnia status post thoracentesis on 03/18/2022, tobacco dependence, EtOH dependence, and hypertension. PMHX: All Active Problems?(Updated 03/18/22 @ 15:05 by Harshal Ocampo MD) Morbid obesity (Acute) Acute respiratory failure with hypoxia and hypercapnia (Acute) CHF (congestive heart failure) (Chronic) Hemochromatosis (Acute) Hypoxia (Acute) Delayed wound healing (Acute) Sebaceous cyst (Acute) Status post total hip replacement, left (Acute 06/10/20) Degenerative joint disease of left hip (Acute) Colon polyp (Acute) Headache (Acute) DVT prophylaxis (Acute) Groin strain (Acute) Obesity (Chronic) Hemochromatosis (Acute) Degenerative joint disease of right hip (Acute) pt. denies having this on right R hip Degenerative joint disease of left hip (Acute) Alcohol dependence (Acute) Tobacco dependence (Acute) HTN (hypertension) (Chronic) Surgical History? History of removal of cyst (~12/22/20) upper back, Stoiber, drain placed History of tonsillectomy Hx of wisdom tooth extraction Social History/Home Situation: Lives with her in a private home.? Works and a [employer] and [employer].? Independent in all aspects of ADLs prior to admission. Equipment Owned/DME: None Subjective: NT. See most recent MANAGER [employer]ER[employer] notes. Objective: General Observation: NT. See most recent [employer] notes. Mental Status: NT. See most recent [employer] notes. Pain: NT. See most recent [employer] notes. Vital Signs: NT. See most recent [employer] notes. ROM: Right Upper Extremity: ? Shoulder Flexion WFL. Shoulder abduction WFL. Elbow flexion WFL. Wrist flexion WFL. Functional opening and closing of hand WFL. Left Upper Extremity:? Shoulder Flexion WFL. Shoulder abduction WFL. Elbow flexion WFL. Wrist flexion WFL. Functional opening and closing of hand WFL. Right Lower Extremity: Hip flexion WFL. Hip abduction WFL. Knee flexion WFL. Ankle dorsiflexion to neutral only. Ankle plantarflexion WFL. Left Lower Extremity: Hip flexion WFL. Hip abduction WFL. Knee flexion WFL. Ankle dorsiflexion to neutral only. Ankle plantarflexion WFL. Strength: Right Upper Extremity: Shoulder flexors 4/5. Shoulder abductors 4/5. Elbow flexors 4/5. Elbow extensors 4/5. Knife Sharpener strong. Left Upper Extremity: Shoulder flexors 4/5. Shoulder abductors 4/5. Elbow flexors 4/5. Elbow extensors 4/5. Knife Sharpener strong. Right Lower Extremity: Hip flexors 4/5. Hip abductors 4/5. Knee flexors 4/5. Knee extensors 4/5. Ankle dorsiflexors 3-/5. Ankle plantarflexors 4/5. Left Lower Extremity: Hip flexors 4/5. Hip abductors 4/5. Knee flexors 4/5. Knee extensors 4/5. Ankle dorsiflexors 3-/5. Ankle plantarflexors 4/5. BED MOBILITY/TRANSFERS? Sit-stand: I ? Stand-sit: I Bed-chair: I Chair-bed: I ? GAIT? Assistive Device: No AD ? Weight bearing: Full Assist: I ? Distance:? 400' ? Deviation: None STAIRS: He had ingested about 2 time to get a fracture like that and it Is a very flexible method of balance up/down 3x4 and 2x6 using U rail and a step-over pattern independently Balance: Static Sitting: Normal Dynamic Sitting: Normal Static Standing: Good Dynamic Standing: Fair Assessment: Patient has demonstrated functional mobility improvement during this episode of care. Goals: Goals X1 week 1. Supine-Sit independent MET 2. Sit-Supine independent MET 3. Sit-Stand independent MET 4. Stand-Sit independent with no AD MET 5. Bed-Chair independent with no AD MET 6. Chair-Bed independent with no AD MET 7. Independent gait on level surface with use of SPC for at least 500 feet without report of pain nor dyspnea MET 8. Independent stair negotiation while holding onto B rails for at least 5 steps without report of pain nor dyspnea MET 9. Independent with home exercise program MET 10. Good static and dynamic standing balance/tolerance MET DISCHARGE RECOMMENDATIONS: [] Home with no services [] [X] ? Home with services.? Patient will benefit from home health PT services in order to progress mobility level using least restrictive assistive ambulatory device, assess home safety, identify additional equipment needs, and establish a functional maintenance program that will increase ability of patient to remain at home. [] ? Home with outpatient PT [] [] ? SNF for continued rehabilitation [] [] ? [employer] Operator Care [] [] ? SNF versus LTC based on ability to participate and progress [] TREATMENT CODE/TIME: NC Thank you for the opportunity to participate in the care of this patient. Nicol Quinteros PT, DPT, CLT [facility] [place], [place]
--- NOTE | 2022-03-22 19:36 | NUR.NOTE ---
PT called has many concerns about POC, DC planning. reviewed md/rad/labs with her. Took her phone number and will report that she would like to be there for MD meeting with pt. Please have MD select a time to meet with her and pt and call her on her cell [phone] to schedule. She needs 30mins time to arrive. She is concerned about What is causing his liver issue? What stage is his heart failure? Why hasnt he been seen by cardiology? should he be [place] [facility] After 20mins reviewing MD progress notes, explaining CHF as an acute DX that may/maynot improve as pt's overall health improves, explained that heart failure is not a sentence but a manageable diagnosis. That at DC we will plan for referal for specialist if needed. Reported to MS RN at this time the above and MS RN has 's cell number - will pass on to dayshift for MD Nursing Note:
--- NOTE | 2022-03-22 20:45 | DI.RAD_ITS ---
Exam(s) XR PORTABLE CHEST AP EXAM: XR PORTABLE CHEST AP CLINICAL HISTORY: temp 38.0 r/o infection TECHNIQUE: 2D digital imaging was performed. COMPARISON: CR,XR XR PORTABLE CHEST AP from 03/19/2022 FINDINGS: LUNGS: Clear. No pleural abnormality seen. HEART: Normal. AORTA: Normal. BONES: Unremarkable for age. Soft tissues: Unremarkable. IMPRESSION: No acute findings. DATA REPOSITORY: RADIATION DOSE DELIVERED:
[2022-03-22] MEDS: Melatonin 3 MG TAB PO (20:51)
[2022-03-22] MEDS: Acetaminophen 325 MG TAB PO (20:51)
[2022-03-22 21:41] LABS: Bilirubin Negative (Negative); Blood Moderate (Negative); Clarity Sl Cloudy (Clear); Glucose Negative (Negative); Ketones Negative (Negative); Leukocyte Esterase Negative (Negative); Nitrite Negative (Negative); Specific Gravity 1.015 (1.005-1.025); pH 8.5 (5-8)
[2022-03-22 21:53] LABS: Bacteria Rare HPF (Negative); C & S Indicated? Yes; Crystals Negative HPF (Negative); Epithelial Cells Negative HPF (Negative); Mucus Negative (Negative); RBC >50 HPF (0-2)
--- NOTE | 2022-03-22 22:48 | DI.VRAD_ITS ---
PROCEDURE INFORMATION: Exam: XR Chest Exam date and time: 03/22/2022 9:21 PM Age: 51 years old Clinical indication: Fever; Patient HX: Temp 38.0 R/O infection TECHNIQUE: Imaging protocol: Radiologic exam of the chest. Views: 1 view. COMPARISON: CR XR PORTABLE CHEST AP 03/19/2022 8:15 AM FINDINGS: Lungs: Unremarkable. No consolidation. Pleural spaces: Unremarkable. No pleural effusion. No pneumothorax. Heart/Mediastinum: Unremarkable. No cardiomegaly. Bones/joints: Unremarkable. IMPRESSION: No acute findings. Dictated and Authenticated by: Jeff Dillard MD. Ordering:BRITTANI Winter MD
[2022-03-23] VITALS (22 sets, daily range): BP systolic 143–168; BP diastolic 80–101; PULSE 61–89; RESP 4–22; TEMP 36.1–38.6; O2SAT 87–97
--- NOTE | 2022-03-23 | DI.US_ITS ---
Exam(s) US EXTREMITY VENOUS BI EXAM: US EXTREMITY VENOUS BI CLINICAL HISTORY: fever, LE edema, concern for DVT. TECHNIQUE: Bilateral lower extremity venous ultrasound performed using grayscale, color-flow, and sp ectral Doppler analysis. COMPARISON: No exams were available for comparison FINDINGS: The bilateral common femoral, femoral and popliteal veins demonstrate normal compressibility, augment ation, and color Doppler. The posterior tibial veins are patent. Bilateral subcutaneous edema is not ed. No focal collection. IMPRESSION: Right: Negative for DVT Left: Negative for DVT DATA REPOSITORY:
--- NOTE | 2022-03-23 | DI.RAD_ITS ---
Exam(s) XR PORTABLE CHEST AP EXAM: XR PORTABLE CHEST AP CLINICAL HISTORY: fever TECHNIQUE: 2D digital imaging was performed. COMPARISON: CR,XR XR PORTABLE CHEST AP from 03/18/2022 CR,XR XR PORTABLE CHEST AP from 03/19/2022 CR,XR XR PORTABLE CHEST AP from 03/22/2022 FINDINGS: Exam is limited by portable technique and positioning. LUNGS: Clear. No pleural abnormality seen. HEART: Normal. AORTA: Normal. BONES: Unremarkable for age. Soft tissues: Unremarkable. IMPRESSION: No acute findings. DATA REPOSITORY: RADIATION DOSE DELIVERED:
[2022-03-23] MEDS: Metoprolol 25 MG TAB 50 MG PO ×4 (02:02→20:29)
[2022-03-23 06:58] LABS: Anion Gap 3.5 mmol/L (3-11); BUN 20 mg/dL (7-18); CO2 37.5 mmol/L (21.0-32.0); CREATININE 0.7 mg/dL (0.70-1.30); Calcium 8.8 mg/dL (8.5-10.1); Chloride 95 mmol/L (98-107); Folate 16.9 ng/mL (8.6-20.0); Glucose 104 mg/dL (74-106); Magnesium 2.2 mg/dL (1.8-2.4); Potassium 4.2 mmol/L (3.5-5.1); Sodium 136 mmol/L (136-145); Vitamin B12 225 pg/mL (193-986)
[2022-03-23 07:43] LABS: Abs Immature Grans 0.03 10^3/uL (0.0-0.06); Absolute Basophil Count 0.04 10^3/uL (0.0-0.2); Absolute Eosinophil Count 0.23 10^3/uL (0.0-0.7); Absolute Lymphocyte Count 0.53 10^3/uL (1.2-3.4); Absolute Neutrophil Count 5.44 10^3/uL (1.2-6.7); Basophils % 0.6; Eosinophils % 3.2; HCT 52.7 % (40.0-50.0); HGB 17.9 g/dL (13.5-17.5); Immature Grans % 0.4; Lymphocytes % 7.4; MCV 112 fL (80-95); MPV 10.4 fL (8.0-11.0); Monocytes % 12.6; Neutrophils % 75.8; Platelet Count 136 10^3/uL (130-400); RBC 4.71 10^6/uL (4.36-5.78); RDW 14.3 % (11.8-14.1); RDW-SD 60.2 fL; WBC 7.17 10^3/uL (4.4-10.8)
[2022-03-23 07:58] LABS: Source Nasal/Nares
[2022-03-23] MEDS: Albuterol/Ipratropium 3 ML UPD VIAL UPD ×3 (08:24→20:29)
[2022-03-23] MEDS: Tiotropium/Olodaterol 10 PUFF INHALER 2 PUFF IH (08:24)
[2022-03-23] MEDS: Aspirin E.C. 81 MG TABEC PO (08:35)
[2022-03-23] MEDS: Losartan 25 MG TAB PO (08:35)
[2022-03-23] MEDS: Spironolactone 25 MG TAB PO (08:35)
[2022-03-23] MEDS: Folic Acid 1 MG TAB PO (08:35)
[2022-03-23] MEDS: Furosemide 40 MG/4 ML VIAL IVP ×2 (08:36→16:33)
[2022-03-23] MEDS: Thiamine 100 MG TAB PO (08:36)
[2022-03-23] MEDS: Docusate Sodium 100 MG CAP PO ×2 (08:36→20:29)
[2022-03-23] MEDS: Multivitamin TAB 1 TAB PO (08:36)
[2022-03-23] MEDS: Enoxaparin 40 MG/0.4 ML SYR SC ×2 (08:36→20:29)
[2022-03-23] MEDS: Normal Saline Flush 10 ML SYR IVP (08:37)
[2022-03-23 08:57] LABS: COVID-19 PCR Negative (Negative)
[2022-03-23 10:35] LABS: HCO3 40 mmol/L (22-26); pCO2 53 mmHg (35-45); pH 7.49 (7.35-7.45); pO2 58 mmHg (80-105); sO2 91 % (95-98); tCO2 33 mmol/L (23-27)
[2022-03-23 10:38] LABS: BE > 15 mmol/L (-2-3)
[2022-03-23 10:39] LABS: FIO2L 2 L; Site Left Radial
--- NOTE | 2022-03-23 10:59 | PDOC.CMPRO ---
- If Service Date Differs Date of service: 03/23/22 Time of Service: 10:59 Care Management Progress Note S/O: Tremaine was sitting up in his chair when CM met with him. He reported that he had not yet seen the provider today, and he is unclear of his plan. CM stated that per report, he has not been medically cleared, and will remain overnight in order to have an ABG test tomorrow. He has blood cultures pending and had a temperature of 38.6 this morning. He is agreeable to remain overnight, but reported that he is looking forward to returning home. CM will continue to follow. A: 51 year old male admitted to [facility] 03/18/22 for CHF, hemochromatosis P: Tremaine will likely be discharged home with no services when medically cleared by provider. He will follow up with his PCP, cardiology and plan of care as instructed. His , Misha, will drive him home via private vehicle when ready. CM will continue to follow.
[2022-03-23] MEDS: Acetaminophen 325 MG TAB PO ×2 (11:40→20:35)
[2022-03-23 13:55] LABS: Lab Add On Test DONE
[2022-03-23 14:25] LABS: Procalcitonin 0.1 ng/mL
--- NOTE | 2022-03-23 17:25 | PGE_ITS ---
Date of Service Date of service: 03/23/22 Time of Service: 17:25 Assessment and Plan Assessment and plan (1) Acute on chronic respiratory failure with hypoxia and hypercapnia: Status: Acute Assessment and plan: In setting of acute CHF/pulmonary edema and probable underlying COPD. Suspect underlying KRISTEN/OHS as well. Improving post thoracenthesis, diuresis, and with BiPAP. Now only requiring 1-2 L of O2. On med surg floor, doing well. Continue diuresis. No BIPAP tonight - plan for ABG/PFT in am in an attempt to qualify the patient for BiPAP. Encourage IS. Echo with dilated RA and RV, unable to estimate pulmonary pressures, LVEF of 55%, borderline LVH. Monitor I/O's and daily weights. (2) Fever: Status: Acute Assessment and plan: While blood cultures are negative, the patient does not appear to have an infection clinically. COVID-19 negative. If fever recurs, would repeat. UA negative. We d/c'ed marin catheter today. CXR negative. Procalcitonin negative. I suspect atelectasis. Encourage IS (which we will ensure is in his room). (3) CHF (congestive heart failure): Status: Chronic Assessment and plan: Acute/new diagnosis. EF 55%, unable to assess RVSP on echo due to patient's anatomy. Evidence of borderline LVH - suspect diastolic dysfunction + pulmonary hypertension. Does also have cirrhosis which is contributing to anasarca, though degree of his hypoalbuminemia alone would be unlikely to result in this level of anasarca. TSH only mildly elevated; FT4 nml. As above. I attribute mild elevation of troponin to demand due to this rather than ACS. Continue IV lasix, monitoring I/Os and daily weights. Qualifiers: Heart failure type: unspecified Heart failure chronicity: acute Qualified Code(s): I50.9 - Heart failure, unspecified (4) Alcohol dependence: Status: Acute Assessment and plan: Continue monitoring on CIWA. No signs of w/d. Does have evidence of cirrhosis and mild ascites. Advised to quit. Prn lorazepam written (has not yet required). Continue thiamine/MVI. (5) Hemochromatosis: Status: Chronic Assessment and plan: As above Diagnosed as child. A family member had from hemochromatosis, the whole family was tested, and several family members have it, including the patient's mother. Contributing to polycythemia. No suggestion of infiltrative cardiomyopathy by echo. Qualifiers: Hemochromatosis type: other hemochromatosis Qualified Code(s): E83.118 - Other hemochromatosis (6) Ascites: Status: Acute Assessment and plan: Mild ascites and cirrhosis confirmed by US. No evidence for SBP. Not enough ascites for paracenthesis. Diurese. (7) Tobacco dependence: Status: Acute Assessment and plan: Reinforced cessation. Continue prn nicotine patch. (8) HTN (hypertension): Status: Chronic Assessment and plan: Continue metoprolol , losartan, aldactone at current doses. Hold HCTZ as we can more reliably diurese with lasix. (9) Morbid obesity: Status: Chronic Assessment and plan: BMI of 45.2 kg/m2. Likely has KRISTEN/OHS. Will need outpatient workup. (10) DVT prophylaxis: Status: Acute Assessment and plan: Lovenox 40 mg SC BID (11) Discharge planning issues: Status: Acute Assessment and plan: Full code [facility] on 03/22/22 Subjective Subjective Interval history since last seen: Mr Godfrey had a fever last night/this morning. He does not know where it is coming from. Denies any cough, diarrhea, any nasal congestion or painful teeth. Denies dizziness, chest pain, shortness of breath, nausea. Spent the night on BiPAP. 1-2L of O2 by NC during the day. Of note, the patient had not been working with IS - one not in his room. Exam Narrative Exam Narrative: General: Pleasant obese male who is seen on 2L NC, sitting in a chair, no dyspnea/tachypnea/cyanosis, A&Ox3 HEENT: EOMI, MMM Heart: RRR, no m/r/g Lungs: Diminished breath sounds L lung field Abdomen: soft, obese/rotund, no obvious fluid wave, nontender Extremities: 3+ pitting edema BLEs - symmetric, improving, chronic venous stasis dermatitis Objective Last Vital Signs Temp 37.3 C 03/23/22 15:44 Pulse 73 03/23/22 15:44 Resp 20 03/23/22 15:44 BP 144/80 H 03/23/22 15:44 Pulse Ox 93 03/23/22 15:44 Laboratory Results - last 24 hr 03/18/22 03/22/22 03/23/22 18:20 21:15 05:45 WBC RBC Hgb Hct MCV MCH MCHC RDW Plt Count MPV Immature Gran % Neutrophils % Lymphocytes % Monocytes % Eosinophils % Basophils % Nucleated RBC % Absolute Neutrophils Absolute Lymphocytes Absolute Monocytes Absolute Eosinophils Absolute Basophils ABG Sample Site ABG pH ABG pCO2 ABG pO2 ABG HCO3 ABG Total CO2 ABG O2 Saturation ABG Base Excess Oxygen Liter Flow Sodium 136 Potassium 4.2 Chloride 95 L Carbon Dioxide 37.5 H Anion Gap 3.5 BUN 20 H Creatinine 0.7 Estimated GFR/1.73 m2 >= 60.00 Glucose 104 Calcium 8.8 Magnesium 2.2 Vitamin B12 225 Folate 16.9 Procalcitonin Urine Color Yellow Urine Clarity Sl Cloudy Urine pH 8.5 H Ur Specific [place] 1.015 Urine Protein 30 H Urine Ketones Negative Urine Blood Moderate H Urine Nitrite Negative Urine Bilirubin Negative Urine Urobilinogen 4.0 H Ur Leukocyte Esterase Negative Urine RBC >50 H Urine WBC 5-10 Ur Epithelial Cells Negative Urine Crystals Negative Urine Bacteria Rare Urine Mucus Negative Ur Culture Indicated? Yes Urine Glucose Negative COVID-19 Source SARS-CoV-2 (PCR) Path Cons Comment SEE COMMENT Add-On Test Request 03/23/22 03/23/22 03/23/22 05:45 05:45 07:32 WBC 7.17 RBC 4.71 Hgb 17.9 H Hct 52.7 H MCV 112 H MCH 38.0 H MCHC 34.0 RDW 14.3 H Plt Count 136 MPV 10.4 Immature Gran % 0.4 Neutrophils % 75.8 Lymphocytes % 7.4 Monocytes % 12.6 Eosinophils % 3.2 Basophils % 0.6 Nucleated RBC % 0.0 Absolute Neutrophils 5.44 Absolute Lymphocytes 0.53 L Absolute Monocytes 0.90 H Absolute Eosinophils 0.23 Absolute Basophils 0.04 ABG Sample Site ABG pH ABG pCO2 ABG pO2 ABG HCO3 ABG Total CO2 ABG O2 Saturation ABG Base Excess Oxygen Liter Flow Sodium Potassium Chloride Carbon Dioxide Anion Gap BUN Creatinine Estimated GFR/1.73 m2 Glucose Calcium Magnesium Vitamin B12 Folate Procalcitonin 0.1 Urine Color Urine Clarity Urine pH Ur Specific [place] Urine Protein Urine Ketones Urine Blood Urine Nitrite Urine Bilirubin Urine Urobilinogen Ur Leukocyte Esterase Urine RBC Urine WBC Ur Epithelial Cells Urine Crystals Urine Bacteria Urine Mucus Ur Culture Indicated? Urine Glucose COVID-19 Source SARS-CoV-2 (PCR) Path Cons Comment Add-On Test Request DONE 03/23/22 03/23/22 07:55 10:27 WBC RBC Hgb Hct MCV MCH MCHC RDW Plt Count MPV Immature Gran % Neutrophils % Lymphocytes % Monocytes % Eosinophils % Basophils % Nucleated RBC % Absolute Neutrophils Absolute Lymphocytes Absolute Monocytes Absolute Eosinophils Absolute Basophils ABG Sample Site Left Radial ABG pH 7.49 H ABG pCO2 53 H ABG pO2 58 L ABG HCO3 40 H ABG Total CO2 33 H ABG O2 Saturation 91 L ABG Base Excess > 15 H Oxygen Liter Flow 2 Sodium Potassium Chloride Carbon Dioxide Anion Gap BUN Creatinine Estimated GFR/1.73 m2 Glucose Calcium Magnesium Vitamin B12 Folate Procalcitonin Urine Color Urine Clarity Urine pH Ur Specific [place] Urine Protein Urine Ketones Urine Blood Urine Nitrite Urine Bilirubin Urine Urobilinogen Ur Leukocyte Esterase Urine RBC Urine WBC Ur Epithelial Cells Urine Crystals Urine Bacteria Urine Mucus Ur Culture Indicated? Urine Glucose COVID-19 Source Nasal/Nares SARS-CoV-2 (PCR) Negative Path Cons Comment Add-On Test Request PAWSS Have you Been Recently Intoxicated or Drunk Within the Last 30 days?: Yes Have you Ever Experienced Previous Episodes of Alcohol Withdrawal?: No Have you ever Experienced Withdrawal Seizures?: No Have you ever Experienced Delirium Tremens(DT)s?: No Have you ever undergone Alcohol Rehabilitation Treatment (i.e, inpt ot outpatient treatment programs)?: No Have you ever Experienced Blackouts?: No Have you ever Combined Alcohol with other Downers within the last 90 days?: No Have you ever Combined Alcohol with any other Substance of Abuse during the last 90 days?: No Positive Blood Alcohol level on Presentation? [PCS.BAL]: No Evidence of Increased Autonomic Activity (i.e. HR>120, tremor, sweating, agitation, nausea)?: No Result: 1
[2022-03-23] MEDS: Melatonin 3 MG TAB PO (21:50)
[2022-03-24] VITALS (11 sets, daily range): BP systolic 133–146; BP diastolic 77–104; PULSE 71–94; RESP 4–19; TEMP 37.1–37.3; O2SAT 85–96
[2022-03-24] MEDS: Metoprolol 25 MG TAB 50 MG PO ×4 (02:28→19:22)
[2022-03-24 07:35] LABS: BE 13 mmol/L (-2-3); HCO3 37 mmol/L (22-26); pCO2 52 mmHg (35-45); pH 7.46 (7.35-7.45); pO2 69 mmHg (80-105); sO2 94 % (95-98); tCO2 31 mmol/L (23-27)
[2022-03-24 07:37] LABS: FIO2L 2 L; Site Left Radial
[2022-03-24 07:38] LABS: Anion Gap 5.2 mmol/L (3-11); BUN 21 mg/dL (7-18); CO2 32.8 mmol/L (21.0-32.0); Calcium 9.4 mg/dL (8.5-10.1); Chloride 94 mmol/L (98-107); Glucose 108 mg/dL (74-106); Magnesium 2.1 mg/dL (1.8-2.4); Potassium 4.2 mmol/L (3.5-5.1); Sodium 132 mmol/L (136-145)
[2022-03-24] MEDS: Albuterol/Ipratropium 3 ML UPD VIAL UPD ×3 (08:39→19:22)
[2022-03-24] MEDS: Tiotropium/Olodaterol 10 PUFF INHALER 2 PUFF IH (08:39)
[2022-03-24] MEDS: Enoxaparin 40 MG/0.4 ML SYR SC ×2 (08:47→19:22)
[2022-03-24] MEDS: Furosemide 40 MG/4 ML VIAL IVP ×2 (08:47→15:22)
[2022-03-24] MEDS: Normal Saline Flush 10 ML SYR IVP ×2 (08:47→15:22)
[2022-03-24] MEDS: Spironolactone 25 MG TAB PO (08:48)
[2022-03-24] MEDS: Multivitamin TAB 1 TAB PO (08:48)
[2022-03-24] MEDS: Folic Acid 1 MG TAB PO (08:48)
[2022-03-24] MEDS: Losartan 25 MG TAB PO (08:48)
[2022-03-24] MEDS: Aspirin E.C. 81 MG TABEC PO (08:49)
[2022-03-24] MEDS: Docusate Sodium 100 MG CAP PO ×2 (08:49→19:22)
[2022-03-24] MEDS: Thiamine 100 MG TAB PO (09:11)
--- NOTE | 2022-03-24 14:13 | W.PM.PROGNOT ---
Date of Service Date of service: 03/24/22 Time of Service: 14:13 Assessment and Plan Assessment and plan (1) Acute on chronic respiratory failure with hypoxia and hypercapnia: Status: Acute Assessment and plan: In setting of acute CHF/pulmonary edema and probable underlying COPD. Suspect underlying KRISTEN/OHS as well. Improving post thoracenthesis, diuresis, and with BiPAP. Actually was weaned off oxygen this morning and on room air his O2 saturation was 92% but with activity his oxygen level dropped down to 90% and he was placed on 1 L nasal cannula. On med surg floor, doing well. Continue diuresis. Currently on furosemide 40 mg IV twice daily No BIPAP tonight - plan for ABG/PFT in am in an attempt to qualify the patient for BiPAP. Encourage IS. Echo with dilated RA and RV, unable to estimate pulmonary pressures, LVEF of 55%, borderline LVH. Monitor I/O's and daily weights. Professional time spent interviewing and examining patient, discussion of goals of care with hospital team (care management, nursing and consulting professionals) was 30 minutes. (2) Fever: Status: Acute Assessment and plan: While blood cultures are negative, the patient does not appear to have an infection clinically. COVID-19 negative. If fever recurs, would repeat. UA negative. We d/c'ed marin catheter today. CXR negative. Procalcitonin negative. I suspect atelectasis. Encourage IS (which we will ensure is in his room). No further fevers since 03/23/2022 at 2144 hrs. his temp was 38.2 WBCs were normal yesterday at 7100. (3) CHF (congestive heart failure): Status: Chronic Assessment and plan: Acute/new diagnosis. EF 55%, unable to assess RVSP on echo due to patient's anatomy. Evidence of borderline LVH - suspect diastolic dysfunction + pulmonary hypertension. Continue IV diuretics as well as losartan and spironolactone. We will add Jardiance to his regimen. Qualifiers: Heart failure type: unspecified Heart failure chronicity: acute Qualified Code(s): I50.9 - Heart failure, unspecified (4) Alcohol dependence: Status: Acute Assessment and plan: CIWA scores have been zero since 03/19. He is now 6 days since admission. I think we can stop CIWA monitoring and dc any prn ativan Does have evidence of cirrhosis and mild ascites. Advised to quit. Prn lorazepam written (has not yet required) will dc lorazepam. Continue thiamine/MVI. (5) Hemochromatosis: Status: Chronic Assessment and plan: As above Diagnosed as child. A family member had from hemochromatosis, the whole family was tested, and several family members have it, including the patient's mother. Contributing to polycythemia. No suggestion of infiltrative cardiomyopathy by echo. Qualifiers: Hemochromatosis type: other hemochromatosis Qualified Code(s): E83.118 - Other hemochromatosis (6) Ascites: Status: Acute Assessment and plan: Mild ascites and cirrhosis confirmed by US. No evidence for SBP. Not enough ascites for paracenthesis. Diurese. (7) Tobacco dependence: Status: Acute Assessment and plan: Reinforced cessation. Continue prn nicotine patch. (8) HTN (hypertension): Status: Chronic Assessment and plan: Continue metoprolol , losartan, aldactone at current doses. Hold HCTZ as we can more reliably diurese with lasix. (9) Morbid obesity: Status: Chronic Assessment and plan: BMI of 45.2 kg/m2. Likely has KRISTEN/OHS. Will need outpatient workup. (10) DVT prophylaxis: Status: Acute Assessment and plan: Lovenox 40 mg SC BID (11) Discharge planning issues: Status: Acute Assessment and plan: Full code Transferred to medr floor on 03/22/22 Subjective Subjective Interval history since last seen: Mr. Godfrey denies any dyspnea, CP, nor any abdominal complaints. He states that he slept well last night. He was off BIPAP overnight so that an ABG could be obtained this morning on his baseline oxygen requirements in order to try to qualify him for AVAPS. ABG on 2 LPM demonstrates mixed chronic respiratory acidosis and metabolic alkalosis. PCO2 was 51.9 mm and PO2 was 68.8 mm w/ SAO2 of 94%. He is currently undergoing bedside spirometry to document the degree of airflow obstruction. He has never had a formal workup for COPD although it is suspected based on his hx. Exam Narrative Exam Narrative: Obese white male with plethoric facial appearance Neck is supple no overt JVD Lungs are clear but with prolonged expiratory phase without rhonchi or wheezes or rales Heart is regular rate and rhythm (review of telemetry demonstrates sinus rhythm rate of 79 bpm with first-degree AV block with TN interval 0.21 with rates varying between 76 to 101 bpm) Abdomen is obese soft nontender Lower extremities with 2+ pitting edema of his lower legs and feet and ankles with peripheral erythema Objective Last Vital Signs Temp 37.2 C 03/24/22 11:13 Pulse 73 03/24/22 11:13 Resp 18 03/24/22 11:13 BP 143/104 H 03/24/22 11:13 Pulse Ox 92 03/24/22 11:13 Laboratory Results - last 24 hr 03/23/22 03/24/22 03/24/22 05:45 05:55 07:30 ABG Sample Site Left Radial ABG pH 7.46 H ABG pCO2 52 H ABG pO2 69 L ABG HCO3 37 H ABG Total CO2 31 H ABG O2 Saturation 94 L ABG Base Excess 13 H Oxygen Liter Flow 2 Sodium 132 L Potassium 4.2 Chloride 94 L Carbon Dioxide 32.8 H Anion Gap 5.2 BUN 21 H Creatinine 1.0 Estimated GFR/1.73 m2 >= 60.00 Glucose 108 H Calcium 9.4 Magnesium 2.1 Procalcitonin 0.1 PAWSS Have you Been Recently Intoxicated or Drunk Within the Last 30 days?: Yes Have you Ever Experienced Previous Episodes of Alcohol Withdrawal?: No Have you ever Experienced Withdrawal Seizures?: No Have you ever Experienced Delirium Tremens(DT)s?: No Have you ever undergone Alcohol Rehabilitation Treatment (i.e, inpt ot outpatient treatment programs)?: No Have you ever Experienced Blackouts?: No Have you ever Combined Alcohol with other Downers within the last 90 days?: No Have you ever Combined Alcohol with any other Substance of Abuse during the last 90 days?: No Positive Blood Alcohol level on Presentation? [PCS.BAL]: No Evidence of Increased Autonomic Activity (i.e. HR>120, tremor, sweating, agitation, nausea)?: No Result: 1
--- NOTE | 2022-03-24 17:31 | PDOC.CMPRO ---
- If Service Date Differs Date of service: 03/24/22 Time of Service: 17:31 Care Management Progress Note S/O: Tremaine was sitting up on the edge of his bed when CM met with him. His , Misha, was in the room. Misha had some questions/concerns for the MD, CM attempted to connect MD to her, but he was unavailable at that time. MD stated that he will reach out to her later today to discuss her questions. CM explained that he will likely have follow up out patient, and CM will send referrals as necessary. She stated that she is looking for guidance upon his discharge regarding next steps to keep him healthy at home. CM will continue to follow. A: 51 year old male admitted to [facility] 03/18/22 for CHF, hemochromatosis P: Tremaine will likely be discharged home with no services when medically cleared by provider. He will follow up with his PCP, cardiology and plan of care as instructed. His , Misha, will drive him home via private vehicle when ready. CM will continue to follow.
[2022-03-24] MEDS: Melatonin 3 MG TAB PO (21:23)
[2022-03-25] VITALS (9 sets, daily range): BP systolic 129–133; BP diastolic 77–87; PULSE 65–78; RESP 8–18; TEMP 36.5–37.3; O2SAT 85–96
[2022-03-25] MEDS: Metoprolol 25 MG TAB 50 MG PO ×3 (01:59→13:49)
[2022-03-25 07:10] LABS: HCT 55.1 % (40.0-50.0); HGB 18.7 g/dL (13.5-17.5); MCH 37.3 pg (27.0-33.0); MCHC 33.9 % (32.0-36.0); MCV 110 fL (80-95); MPV 10.6 fL (8.0-11.0); Platelet Count 158 10^3/uL (130-400); RBC 5.02 10^6/uL (4.36-5.78); RDW 13.8 % (11.8-14.1); RDW-SD 57.5 fL; WBC 5.26 10^3/uL (4.4-10.8)
--- NOTE | 2022-03-25 07:35 | W.PULMPROG ---
Assessment and Plan Assessment and plan (1) Acute on chronic respiratory failure with hypoxia and hypercapnia: Status: Acute (2) Morbid obesity: Status: Chronic (3) CHF (congestive heart failure): Status: Chronic Qualifiers: Heart failure chronicity: acute Heart failure type: unspecified Qualified Code(s): I50.9 - Heart failure, unspecified (4) Tobacco dependence: Status: Acute Assessment and plan: This is a 51 yo man admitted to the ICU originally for acute on chronic hypoxic and hypercapnic respiratory failure necessitating BiPAP. He had underwent massive diuresis with remarkable improvements. He likely has COPD in addition to some degree of heart failure and cor pulmonale. His ABG's, spirometry and clinical improvements do not necessitate Trilogy use upon discharge. I will follow this patient up as an outpatient and re-assess him for a BiPAP qualification including a sleep study as is ATS recommendation. I recommend we stop BiPAP/CPAP for him now. He undoubtedly has some degree of KRISTEN/OHS and so nocturnal desaturations are expected, but again can be managed in an outpatient setting. From a COPD standpoint, I recommend he be discharged on Stiolto and prn albuterol. COPD - continue Stiolto and recommend he be discharged on this - recommend discharge on prn albuterol Acute on chronic hypoxic and hypercapnic respiratory failure - I do not recommend Trilogy on discharge - I will reassess him as an outpatient for BiPAP - ambulatory pulse ox prior to discharge - discontinue BiPAP/CPAP General Date Of Service Date of service: 03/25/22 Time of Service: 07:35 Reason for Consult: Hypoxic and hypercapnic respiratory failure Subjective 24 Hour Events: Tremaine has been improving from a respiratory standpoint with continued diuresis (negative 30L cumulative) although he has had a bump in his creatinine yesterday indicated he is probably approaching euvolemia. His ABG's and clinic improvement do not warrant a Trilogy ventilator upon discharge from the hospital. Tremaine is feeling well today. He continues to make improvements. He is not feeling short of breath. Exam Narrative Exam Narrative: POCUS 03/21/22: Very limited views. Only able to adequately see apical 4 chamber. Likely dilated LV and RV with probable low EF on this single view. Gen: NAD, normal respiratory effort, obese HENT: PERRL, No LAD or JVD Chest: No respiratory distress, normal appearance of chest, clear to auscultation bilaterally, no crackles or wheezes, normal inspiratory effort Heart: regular rate and rhythym, no murmurs, rubs or gallops Abdomen: Non-distended, soft, non tender Extremities: No clubbing, + edema, cyanosis, rashes Neuro: AAOx3 , non focal Psych: cooperative, appropriate mental affect Objective Last Vital Signs Temp 37.3 C 03/25/22 04:34 Pulse 71 03/25/22 04:34 Resp 18 03/25/22 04:34 BP 133/77 03/25/22 04:34 Pulse Ox 96 03/25/22 04:34 Laboratory Results - last 24 hr 03/24/22 03/24/22 03/25/22 05:55 07:30 06:25 WBC 5.26 RBC 5.02 Hgb 18.7 H Hct 55.1 H MCV 110 H MCH 37.3 H MCHC 33.9 RDW 13.8 Plt Count 158 MPV 10.6 ABG Sample Site Left Radial ABG pH 7.46 H ABG pCO2 52 H ABG pO2 69 L ABG HCO3 37 H ABG Total CO2 31 H ABG O2 Saturation 94 L ABG Base Excess 13 H Oxygen Liter Flow 2 Sodium 132 L Potassium 4.2 Chloride 94 L Carbon Dioxide 32.8 H Anion Gap 5.2 BUN 21 H Creatinine 1.0 Estimated GFR/1.73 m2 >= 60.00 Glucose 108 H Calcium 9.4 Magnesium 2.1 Results Medications Medications: Active Medications Generic Name Dose Route Start Last Admin Trade Name Freq PRN Reason Stop Dose Admin Acetaminophen 0 mg 03/18/22 08:57 03/23/22 20:35 Acetaminophen 325 Mg Tab PO 650 mg Q4H PRN PRN Administration Albuterol/Ipratropium 3 ml 03/21/22 14:00 03/24/22 19:22 Albuterol/Ipratropium 3 Ml Upd Vial UPD 3 ml TID NOEMI Administration Aspirin 81 mg 03/19/22 08:30 03/24/22 08:49 Aspirin E.C. 81 Mg Tabec PO 81 mg DAILY NOEMI Administration Bisacodyl 10 mg 03/21/22 18:51 Bisacodyl 10 Mg Supp [place] DAILY PRN PRN Bisacodyl 5 mg 03/22/22 08:53 Bisacodyl 5 Mg Tabec PO DAILY PRN PRN Device 1 each 03/21/22 14:00 Inhaler, Assist Device MC DIRECTED [facility] Dimethicone/Zinc Oxide 0 gm 03/18/22 08:51 Natalia Protect Cream 142 Gm Tube TP PRN PRN Docusate Sodium 100 mg 03/21/22 20:00 03/24/22 19:22 Docusate Sodium 100 Mg Cap PO 100 mg BID NOEMI Administration Empagliflozin 10 mg 03/25/22 08:30 Empaglifozin 10 Mg Tab PO QAM [facility] Enoxaparin Sodium 40 mg 03/18/22 09:00 03/24/22 19:22 Enoxaparin 40 Mg/0.4 Ml Syr SC 40 mg BID NOEMI Administration Folic Acid 1 mg 03/19/22 08:30 03/24/22 08:48 Folic Acid 1 Mg Tab PO 03/25/22 08:31 1 mg QAM [facility] Administration Furosemide 40 mg 03/23/22 08:00 03/24/22 15:22 Furosemide 40 Mg/4 Ml Vial IVP 40 mg BID@0800,1600 [facility] Administration Sodium Chloride 500 mls @ 0 mls/hr 03/18/22 10:20 Saline 500ml Bag IV PRN PRN As Directed IV Miscellaneous Supplies 1 each 03/18/22 10:30 Iv Access IV DIRECTED [facility] Levalbuterol HCl 0.63 mg 03/18/22 08:58 Levalbuterol 0.63 Mg/3 Ml Upd Vial UPD Q2H PRN PRN Losartan Potassium 25 mg 03/18/22 14:30 03/24/22 08:48 Losartan 25 Mg Tab PO 25 mg DAILY NOEMI Administration Melatonin 3 mg 03/21/22 22:00 03/24/22 21:23 Melatonin 3 Mg Tab PO 3 mg HS NOEMI Administration Metoprolol Tartrate 50 mg 03/21/22 14:00 03/25/22 01:59 Metoprolol 25 Mg Tab PO 50 mg Q6H NOEMI Administration Multivitamins 1 tab 03/19/22 08:30 03/24/22 08:48 Multivitamin Tab PO 03/25/22 08:31 1 tab QAM NOEMI Administration Nicotine 21 mg 03/18/22 08:57 Nicotine 21 Mg/24 Hr Patch TD DAILY PRN PRN Polyethylene Glycol 17 gm 03/22/22 08:52 Polyethylene Glycol 3350 17 Gm Packet PO DAILY PRN PRN Sodium Chloride 0 ml 03/18/22 10:20 03/24/22 15:22 Normal Saline Flush 10 Ml Syr IVP 10 ml PRN PRN Administration Spironolactone 25 mg 03/21/22 08:30 03/24/22 08:48 Spironolactone 25 Mg Tab PO 25 mg DAILY NOEMI Administration Thiamine HCl 100 mg 03/19/22 08:30 03/24/22 09:11 Thiamine 100 Mg Tab PO 03/25/22 08:31 100 mg QAM NOEMI Administration Tiotropium Ramona/Olodaterol 2 puff 03/22/22 08:30 03/24/22 08:39 Tiotropium/Olodaterol 10 Puff Inhaler IH 2 inh DAILY NOEMI Administration Allergies grass pollen-perennial rye, standar Allergy (Mild, Verified 03/18/22 07:44) Other (See Comment) lisinopril Adverse Reaction (Severe, Verified 03/18/22 07:44) made me feel lousy Labs Result Diagrams: 03/25/22 06:25 03/24/22 05:55 Labs: 03/22/22 21:54 Blood Blood Culture - Preliminary NO GROWTH 48 HOURS 03/22/22 21:28 Blood Blood Culture - Preliminary NO GROWTH 48 HOURS 03/22/22 21:15 Urine - Reflex from Ua Urine Culture - Preliminary Staph Sp., Not Aureus 03/18/22 18:20 Pleural Body Fluid Culture - Final 03/18/22 18:20 Pleural Gram Stain - Final Laboratory Tests Range/Units 03/18/22 03/18/22 03/18/22 07:30 07:30 07:30 WBC (4.4-10.8) 10^3/uL RBC (4.36-5.78) 10^6/uL Hgb (13.5-17.5) g/dL Hct (40.0-50.0) % MCV (80-95) fL MCH (27.0-33.0) pg MCHC (32.0-36.0) % RDW (11.8-14.1) % Plt Count (130-400) 10^3/uL MPV (8.0-11.0) fL Immature Gran % Neutrophils % Lymphocytes % Monocytes % Eosinophils % Basophils % Nucleated RBC % (0.0-0.3) % Absolute Neutrophils (1.2-6.7) 10^3/uL Absolute Lymphocytes (1.2-3.4) 10^3/uL Absolute Monocytes (0.1-0.8) 10^3/uL Absolute Eosinophils (0.0-0.7) 10^3/uL Absolute Basophils (0.0-0.2) 10^3/uL RBC Morphology Macrocytosis PT (9.3-11.0) sec INR (0.9-1.1) APTT (21.0-27.5) sec ABG Sample Site ABG pH (7.35-7.45) ABG pCO2 (35-45) mmHg ABG pO2 (80-105) mmHg ABG HCO3 (22-26) mmol/L ABG Total CO2 (23-27) mmol/L ABG O2 Saturation (95-98) % ABG Base Excess (-2-3) mmol/L VBG pH (7.31-7.41) 7.26 L VBG pCO2 (41-51) mmHg 79 H* VBG pO2 mmHg 25 VBG HCO3 (23-28) mmol/L 36 H VBG Total CO2 (24-29) mmol/L 31 H VBG O2 Saturation % 45 VBG Base Excess (-2-3) mmol/L 8 H Oxygen Liter Flow L FiO2 % Sodium (136-145) mmol/L 136 Cancelled Potassium (3.5-5.1) mmol/L 4.3 Cancelled Chloride (98-107) mmol/L 96 L Cancelled Carbon Dioxide (21.0-32.0) mmol/L 35.1 H Cancelled Anion Gap (3-11) mmol/L 4.9 Cancelled BUN (7-18) mg/dL 15 Cancelled Creatinine (0.70-1.30) mg/dL 1.1 Cancelled Estimated GFR/1.73 m2 (mL/min/1.73m2) >= 60.00 Cancelled Glucose (74-106) mg/dL 124 H Cancelled Hemoglobin A1c (<5.7) % Calcium (8.5-10.1) mg/dL 8.9 Cancelled Magnesium Total Bilirubin (0.2-1.0) mg/dL 1.0 Cancelled AST (15-37) U/L 52 H Cancelled ALT (16-63) U/L 56 Cancelled Alkaline Phosphatase (46-116) U/L 161 H Cancelled Troponin I (<or=60) ng/L 90 H* NT-Pro-B Natriuret Pep (<300) pg/mL 2644 H Total Protein (6.4-8.2) g/dL 8.0 Cancelled Albumin (3.4-5.0) g/dL 3.8 Cancelled Vitamin B12 (193-986) pg/mL Folate (8.6-20.0) ng/mL Procalcitonin ng/mL TSH (0.36-3.74) uIU/mL Free T4 (0.76-1.46) ng/dL Urine Color (Yellow) Urine Clarity (Clear) Urine pH (5-8) Ur Specific [place] (1.005-1.025) Urine Protein (Negative) mg/dL Urine Ketones (Negative) mg/dL Urine Blood (Negative) Urine Nitrite (Negative) Urine Bilirubin (Negative) Urine Urobilinogen (Up TO 0.2) EU/dL Ur Leukocyte Esterase (Negative) Urine RBC (0-2) HPF Urine WBC (0-5) HPF Ur Epithelial Cells (Negative) HPF Urine Crystals (Negative) HPF Urine Bacteria (Negative) HPF Urine Casts (Negative) LPF Urine Mucus (Negative) Ur Culture Indicated? Urine Glucose (Negative) mg/dL Fluid Source Fluid Color Fluid Clarity Fluid pH Fluid WBC (0) uL Fld Polynuclear WBCs % Fluid Mononuclear Cell Fluid Other Cells Fluid Glucose (See Note) mg/dL Fluid Albumin (See Note) g/dL COVID-19 Source SARS-CoV-2 (PCR) (Negative) Path Cons Comment Add-On Test Request Range/Units 03/18/22 03/18/22 03/18/22 07:30 07:30 07:30 WBC (4.4-10.8) 10^3/uL 7.70 RBC (4.36-5.78) 10^6/uL 4.99 Hgb (13.5-17.5) g/dL 19.3 H* Hct (40.0-50.0) % 58.3 H* MCV (80-95) fL 117 H MCH (27.0-33.0) pg 38.7 H MCHC (32.0-36.0) % 33.1 RDW (11.8-14.1) % 15.0 H Plt Count (130-400) 10^3/uL 142 MPV (8.0-11.0) fL 10.6 Immature Gran % 0.6 Neutrophils % 69.6 Lymphocytes % 16.8 Monocytes % 10.5 Eosinophils % 1.6 Basophils % 0.9 Nucleated RBC % (0.0-0.3) % 0.0 Absolute Neutrophils (1.2-6.7) 10^3/uL 5.36 Absolute Lymphocytes (1.2-3.4) 10^3/uL 1.29 Absolute Monocytes (0.1-0.8) 10^3/uL 0.81 H Absolute Eosinophils (0.0-0.7) 10^3/uL 0.12 Absolute Basophils (0.0-0.2) 10^3/uL 0.07 RBC Morphology Macrocytosis PT (9.3-11.0) sec 13.8 H INR (0.9-1.1) 1.4 H APTT (21.0-27.5) sec 26.9 ABG Sample Site ABG pH (7.35-7.45) ABG pCO2 (35-45) mmHg ABG pO2 (80-105) mmHg ABG HCO3 (22-26) mmol/L ABG Total CO2 (23-27) mmol/L ABG O2 Saturation (95-98) % ABG Base Excess (-2-3) mmol/L VBG pH (7.31-7.41) VBG pCO2 (41-51) mmHg VBG pO2 mmHg VBG HCO3 (23-28) mmol/L VBG Total CO2 (24-29) mmol/L VBG O2 Saturation % VBG Base Excess (-2-3) mmol/L Oxygen Liter Flow L FiO2 % Sodium (136-145) mmol/L Potassium (3.5-5.1) mmol/L Chloride (98-107) mmol/L Carbon Dioxide (21.0-32.0) mmol/L Anion Gap (3-11) mmol/L BUN (7-18) mg/dL Creatinine (0.70-1.30) mg/dL Estimated GFR/1.73 m2 (mL/min/1.73m2) Glucose (74-106) mg/dL Hemoglobin A1c (<5.7) % 5.5 Calcium (8.5-10.1) mg/dL Magnesium Total Bilirubin (0.2-1.0) mg/dL AST (15-37) U/L ALT (16-63) U/L Alkaline Phosphatase (46-116) U/L Troponin I (<or=60) ng/L NT-Pro-B Natriuret Pep (<300) pg/mL Total Protein (6.4-8.2) g/dL Albumin (3.4-5.0) g/dL Vitamin B12 (193-986) pg/mL Folate (8.6-20.0) ng/mL Procalcitonin ng/mL TSH (0.36-3.74) uIU/mL Free T4 (0.76-1.46) ng/dL Urine Color (Yellow) Urine Clarity (Clear) Urine pH (5-8) Ur Specific [place] (1.005-1.025) Urine Protein (Negative) mg/dL Urine Ketones (Negative) mg/dL Urine Blood (Negative) Urine Nitrite (Negative) Urine Bilirubin (Negative) Urine Urobilinogen (Up TO 0.2) EU/dL Ur Leukocyte Esterase (Negative) Urine RBC (0-2) HPF Urine WBC (0-5) HPF Ur Epithelial Cells (Negative) HPF Urine Crystals (Negative) HPF Urine Bacteria (Negative) HPF Urine Casts (Negative) LPF Urine Mucus (Negative) Ur Culture Indicated? Urine Glucose (Negative) mg/dL Fluid Source Fluid Color Fluid Clarity Fluid pH Fluid WBC (0) uL Fld Polynuclear WBCs % Fluid Mononuclear Cell Fluid Other Cells Fluid Glucose (See Note) mg/dL Fluid Albumin (See Note) g/dL COVID-19 Source SARS-CoV-2 (PCR) (Negative) Path Cons Comment Add-On Test Request Range/Units 03/18/22 03/18/22 03/18/22 07:30 07:30 07:54 WBC (4.4-10.8) 10^3/uL RBC (4.36-5.78) 10^6/uL Hgb (13.5-17.5) g/dL Hct (40.0-50.0) % MCV (80-95) fL MCH (27.0-33.0) pg MCHC (32.0-36.0) % RDW (11.8-14.1) % Plt Count (130-400) 10^3/uL MPV (8.0-11.0) fL Immature Gran % Neutrophils % Lymphocytes % Monocytes % Eosinophils % Basophils % Nucleated RBC % (0.0-0.3) % Absolute Neutrophils (1.2-6.7) 10^3/uL Absolute Lymphocytes (1.2-3.4) 10^3/uL Absolute Monocytes (0.1-0.8) 10^3/uL Absolute Eosinophils (0.0-0.7) 10^3/uL Absolute Basophils (0.0-0.2) 10^3/uL RBC Morphology Macrocytosis PT (9.3-11.0) sec INR (0.9-1.1) APTT (21.0-27.5) sec ABG Sample Site ABG pH (7.35-7.45) ABG pCO2 (35-45) mmHg ABG pO2 (80-105) mmHg ABG HCO3 (22-26) mmol/L ABG Total CO2 (23-27) mmol/L ABG O2 Saturation (95-98) % ABG Base Excess (-2-3) mmol/L VBG pH (7.31-7.41) VBG pCO2 (41-51) mmHg VBG pO2 mmHg VBG HCO3 (23-28) mmol/L VBG Total CO2 (24-29) mmol/L VBG O2 Saturation % VBG Base Excess (-2-3) mmol/L Oxygen Liter Flow L FiO2 % Sodium (136-145) mmol/L Potassium (3.5-5.1) mmol/L Chloride (98-107) mmol/L Carbon Dioxide (21.0-32.0) mmol/L Anion Gap (3-11) mmol/L BUN (7-18) mg/dL Creatinine (0.70-1.30) mg/dL Estimated GFR/1.73 m2 (mL/min/1.73m2) Glucose (74-106) mg/dL Hemoglobin A1c (<5.7) % Calcium (8.5-10.1) mg/dL Magnesium Total Bilirubin (0.2-1.0) mg/dL AST (15-37) U/L ALT (16-63) U/L Alkaline Phosphatase (46-116) U/L Troponin I (<or=60) ng/L NT-Pro-B Natriuret Pep (<300) pg/mL Total Protein (6.4-8.2) g/dL Albumin (3.4-5.0) g/dL Vitamin B12 (193-986) pg/mL Folate (8.6-20.0) ng/mL Procalcitonin ng/mL < 0.1 TSH (0.36-3.74) uIU/mL Free T4 (0.76-1.46) ng/dL Urine Color (Yellow) Urine Clarity (Clear) Urine pH (5-8) Ur Specific [place] (1.005-1.025) Urine Protein (Negative) mg/dL Urine Ketones (Negative) mg/dL Urine Blood (Negative) Urine Nitrite (Negative) Urine Bilirubin (Negative) Urine Urobilinogen (Up TO 0.2) EU/dL Ur Leukocyte Esterase (Negative) Urine RBC (0-2) HPF Urine WBC (0-5) HPF Ur Epithelial Cells (Negative) HPF Urine Crystals (Negative) HPF Urine Bacteria (Negative) HPF Urine Casts (Negative) LPF Urine Mucus (Negative) Ur Culture Indicated? Urine Glucose (Negative) mg/dL Fluid Source Fluid Color Fluid Clarity Fluid pH Fluid WBC (0) uL Fld Polynuclear WBCs % Fluid Mononuclear Cell Fluid Other Cells Fluid Glucose (See Note) mg/dL Fluid Albumin (See Note) g/dL COVID-19 Source Nasal/Nares SARS-CoV-2 (PCR) (Negative) Negative Path Cons Comment Add-On Test Request DONE Range/Units 03/18/22 03/18/22 03/18/22 08:00 10:10 15:03 WBC (4.4-10.8) 10^3/uL RBC (4.36-5.78) 10^6/uL Hgb (13.5-17.5) g/dL Hct (40.0-50.0) % MCV (80-95) fL MCH (27.0-33.0) pg MCHC (32.0-36.0) % RDW (11.8-14.1) % Plt Count (130-400) 10^3/uL MPV (8.0-11.0) fL Immature Gran % Neutrophils % Lymphocytes % Monocytes % Eosinophils % Basophils % Nucleated RBC % (0.0-0.3) % Absolute Neutrophils (1.2-6.7) 10^3/uL Absolute Lymphocytes (1.2-3.4) 10^3/uL Absolute Monocytes (0.1-0.8) 10^3/uL Absolute Eosinophils (0.0-0.7) 10^3/uL Absolute Basophils (0.0-0.2) 10^3/uL RBC Morphology Macrocytosis PT (9.3-11.0) sec INR (0.9-1.1) APTT (21.0-27.5) sec ABG Sample Site Right Radial ABG pH (7.35-7.45) 7.26 L ABG pCO2 (35-45) mmHg 87 H* ABG pO2 (80-105) mmHg 89 ABG HCO3 (22-26) mmol/L 39 H ABG Total CO2 (23-27) mmol/L 34 H ABG O2 Saturation (95-98) % 96 ABG Base Excess (-2-3) mmol/L 12 H VBG pH (7.31-7.41) VBG pCO2 (41-51) mmHg VBG pO2 mmHg VBG HCO3 (23-28) mmol/L VBG Total CO2 (24-29) mmol/L VBG O2 Saturation % VBG Base Excess (-2-3) mmol/L Oxygen Liter Flow L FiO2 % 60 Sodium (136-145) mmol/L Potassium (3.5-5.1) mmol/L Chloride (98-107) mmol/L Carbon Dioxide (21.0-32.0) mmol/L Anion Gap (3-11) mmol/L BUN (7-18) mg/dL Creatinine (0.70-1.30) mg/dL Estimated GFR/1.73 m2 (mL/min/1.73m2) Glucose (74-106) mg/dL Hemoglobin A1c (<5.7) % Calcium (8.5-10.1) mg/dL Magnesium Total Bilirubin (0.2-1.0) mg/dL AST (15-37) U/L ALT (16-63) U/L Alkaline Phosphatase (46-116) U/L Troponin I (<or=60) ng/L 75 H* NT-Pro-B Natriuret Pep (<300) pg/mL Total Protein (6.4-8.2) g/dL Albumin (3.4-5.0) g/dL Vitamin B12 (193-986) pg/mL Folate (8.6-20.0) ng/mL Procalcitonin ng/mL TSH (0.36-3.74) uIU/mL Free T4 (0.76-1.46) ng/dL Urine Color (Yellow) Yellow Urine Clarity (Clear) Clear Urine pH (5-8) 6.0 Ur Specific [place] (1.005-1.025) 1.020 Urine Protein (Negative) mg/dL Trace H Urine Ketones (Negative) mg/dL Negative Urine Blood (Negative) Negative Urine Nitrite (Negative) Negative Urine Bilirubin (Negative) Negative Urine Urobilinogen (Up TO 0.2) EU/dL 1.0 H Ur Leukocyte Esterase (Negative) Negative Urine RBC (0-2) HPF Negative Urine WBC (0-5) HPF Negative Ur Epithelial Cells (Negative) HPF Rare Urine Crystals (Negative) HPF Negative Urine Bacteria (Negative) HPF Negative Urine Casts (Negative) LPF 0-2 Hyaline Urine Mucus (Negative) Negative Ur Culture Indicated? No Urine Glucose (Negative) mg/dL Negative Fluid Source Fluid Color Fluid Clarity Fluid pH Fluid WBC (0) uL Fld Polynuclear WBCs % Fluid Mononuclear Cell Fluid Other Cells Fluid Glucose (See Note) mg/dL Fluid Albumin (See Note) g/dL COVID-19 Source SARS-CoV-2 (PCR) (Negative) Path Cons Comment Add-On Test Request Range/Units 03/18/22 03/18/22 03/18/22 18:20 18:20 18:20 WBC (4.4-10.8) 10^3/uL RBC (4.36-5.78) 10^6/uL Hgb (13.5-17.5) g/dL Hct (40.0-50.0) % MCV (80-95) fL MCH (27.0-33.0) pg MCHC (32.0-36.0) % RDW (11.8-14.1) % Plt Count (130-400) 10^3/uL MPV (8.0-11.0) fL Immature Gran % Neutrophils % Lymphocytes % Monocytes % Eosinophils % Basophils % Nucleated RBC % (0.0-0.3) % Absolute Neutrophils (1.2-6.7) 10^3/uL Absolute Lymphocytes (1.2-3.4) 10^3/uL Absolute Monocytes (0.1-0.8) 10^3/uL Absolute Eosinophils (0.0-0.7) 10^3/uL Absolute Basophils (0.0-0.2) 10^3/uL RBC Morphology Macrocytosis PT (9.3-11.0) sec INR (0.9-1.1) APTT (21.0-27.5) sec ABG Sample Site ABG pH (7.35-7.45) ABG pCO2 (35-45) mmHg ABG pO2 (80-105) mmHg ABG HCO3 (22-26) mmol/L ABG Total CO2 (23-27) mmol/L ABG O2 Saturation (95-98) % ABG Base Excess (-2-3) mmol/L VBG pH (7.31-7.41) VBG pCO2 (41-51) mmHg VBG pO2 mmHg VBG HCO3 (23-28) mmol/L VBG Total CO2 (24-29) mmol/L VBG O2 Saturation % VBG Base Excess (-2-3) mmol/L Oxygen Liter Flow L FiO2 % Sodium (136-145) mmol/L Potassium (3.5-5.1) mmol/L Chloride (98-107) mmol/L Carbon Dioxide (21.0-32.0) mmol/L Anion Gap (3-11) mmol/L BUN (7-18) mg/dL Creatinine (0.70-1.30) mg/dL Estimated GFR/1.73 m2 (mL/min/1.73m2) Glucose (74-106) mg/dL Hemoglobin A1c (<5.7) % Calcium (8.5-10.1) mg/dL Magnesium Total Bilirubin (0.2-1.0) mg/dL AST (15-37) U/L ALT (16-63) U/L Alkaline Phosphatase (46-116) U/L Troponin I (<or=60) ng/L NT-Pro-B Natriuret Pep (<300) pg/mL Total Protein (6.4-8.2) g/dL Albumin (3.4-5.0) g/dL Vitamin B12 (193-986) pg/mL Folate (8.6-20.0) ng/mL Procalcitonin ng/mL TSH (0.36-3.74) uIU/mL Free T4 (0.76-1.46) ng/dL Urine Color (Yellow) Urine Clarity (Clear) Urine pH (5-8) Ur Specific [place] (1.005-1.025) Urine Protein (Negative) mg/dL Urine Ketones (Negative) mg/dL Urine Blood (Negative) Urine Nitrite (Negative) Urine Bilirubin (Negative) Urine Urobilinogen (Up TO 0.2) EU/dL Ur Leukocyte Esterase (Negative) Urine RBC (0-2) HPF Urine WBC (0-5) HPF Ur Epithelial Cells (Negative) HPF Urine Crystals (Negative) HPF Urine Bacteria (Negative) HPF Urine Casts (Negative) LPF Urine Mucus (Negative) Ur Culture Indicated? Urine Glucose (Negative) mg/dL Fluid Source Pleural Fluid Color Fluid Clarity Fluid pH 8.0 Fluid WBC (0) uL Fld Polynuclear WBCs % Cancelled Fluid Mononuclear Cell Cancelled Fluid Other Cells Cancelled Fluid Glucose (See Note) mg/dL 151 Fluid Albumin (See Note) g/dL COVID-19 Source SARS-CoV-2 (PCR) (Negative) Path Cons Comment Cancelled Add-On Test Request Range/Units 03/18/22 03/18/22 03/18/22 18:20 18:20 Unknown WBC (4.4-10.8) 10^3/uL RBC (4.36-5.78) 10^6/uL Hgb (13.5-17.5) g/dL Hct (40.0-50.0) % MCV (80-95) fL MCH (27.0-33.0) pg MCHC (32.0-36.0) % RDW (11.8-14.1) % Plt Count (130-400) 10^3/uL MPV (8.0-11.0) fL Immature Gran % Neutrophils % Lymphocytes % Monocytes % Eosinophils % Basophils % Nucleated RBC % (0.0-0.3) % Absolute Neutrophils (1.2-6.7) 10^3/uL Absolute Lymphocytes (1.2-3.4) 10^3/uL Absolute Monocytes (0.1-0.8) 10^3/uL Absolute Eosinophils (0.0-0.7) 10^3/uL Absolute Basophils (0.0-0.2) 10^3/uL RBC Morphology Macrocytosis PT (9.3-11.0) sec INR (0.9-1.1) APTT (21.0-27.5) sec ABG Sample Site ABG pH (7.35-7.45) ABG pCO2 (35-45) mmHg ABG pO2 (80-105) mmHg ABG HCO3 (22-26) mmol/L ABG Total CO2 (23-27) mmol/L ABG O2 Saturation (95-98) % ABG Base Excess (-2-3) mmol/L VBG pH (7.31-7.41) VBG pCO2 (41-51) mmHg VBG pO2 mmHg VBG HCO3 (23-28) mmol/L VBG Total CO2 (24-29) mmol/L VBG O2 Saturation % VBG Base Excess (-2-3) mmol/L Oxygen Liter Flow L FiO2 % Sodium (136-145) mmol/L Potassium (3.5-5.1) mmol/L Chloride (98-107) mmol/L Carbon Dioxide (21.0-32.0) mmol/L Anion Gap (3-11) mmol/L BUN (7-18) mg/dL Creatinine (0.70-1.30) mg/dL Estimated GFR/1.73 m2 (mL/min/1.73m2) Glucose (74-106) mg/dL Hemoglobin A1c (<5.7) % Calcium (8.5-10.1) mg/dL Magnesium Total Bilirubin (0.2-1.0) mg/dL AST (15-37) U/L ALT (16-63) U/L Alkaline Phosphatase (46-116) U/L Troponin I (<or=60) ng/L NT-Pro-B Natriuret Pep (<300) pg/mL Total Protein (6.4-8.2) g/dL Albumin (3.4-5.0) g/dL Vitamin B12 (193-986) pg/mL Folate (8.6-20.0) ng/mL Procalcitonin ng/mL TSH (0.36-3.74) uIU/mL Free T4 (0.76-1.46) ng/dL Urine Color (Yellow) Urine Clarity (Clear) Urine pH (5-8) Ur Specific [place] (1.005-1.025) Urine Protein (Negative) mg/dL Urine Ketones (Negative) mg/dL Urine Blood (Negative) Urine Nitrite (Negative) Urine Bilirubin (Negative) Urine Urobilinogen (Up TO 0.2) EU/dL Ur Leukocyte Esterase (Negative) Urine RBC (0-2) HPF Urine WBC (0-5) HPF Ur Epithelial Cells (Negative) HPF Urine Crystals (Negative) HPF Urine Bacteria (Negative) HPF Urine Casts (Negative) LPF Urine Mucus (Negative) Ur Culture Indicated? Urine Glucose (Negative) mg/dL Fluid Source Pleural Fluid Color Yellow Fluid Clarity Fluid pH Fluid WBC (0) uL 445 Fld Polynuclear WBCs % 20 Fluid Mononuclear Cell 80 Fluid Other Cells Fluid Glucose (See Note) mg/dL Fluid Albumin (See Note) g/dL 1.5 COVID-19 Source SARS-CoV-2 (PCR) (Negative) Path Cons Comment SEE COMMENT Add-On Test Request DONE Range/Units 03/18/22 03/19/22 03/19/22 Unknown 05:05 05:05 WBC (4.4-10.8) 10^3/uL 9.16 RBC (4.36-5.78) 10^6/uL 4.81 Hgb (13.5-17.5) g/dL 18.4 H Hct (40.0-50.0) % 55.6 H MCV (80-95) fL 116 H MCH (27.0-33.0) pg 38.3 H MCHC (32.0-36.0) % 33.1 RDW (11.8-14.1) % 14.8 H Plt Count (130-400) 10^3/uL 140 MPV (8.0-11.0) fL 10.4 Immature Gran % 0.4 Neutrophils % 76.5 Lymphocytes % 11.9 Monocytes % 10.7 Eosinophils % 0.1 Basophils % 0.4 Nucleated RBC % (0.0-0.3) % 0.0 Absolute Neutrophils (1.2-6.7) 10^3/uL 7.00 H Absolute Lymphocytes (1.2-3.4) 10^3/uL 1.09 L Absolute Monocytes (0.1-0.8) 10^3/uL 0.98 H Absolute Eosinophils (0.0-0.7) 10^3/uL 0.01 Absolute Basophils (0.0-0.2) 10^3/uL 0.04 RBC Morphology See Below Macrocytosis 3+ PT (9.3-11.0) sec INR (0.9-1.1) APTT (21.0-27.5) sec ABG Sample Site ABG pH (7.35-7.45) ABG pCO2 (35-45) mmHg ABG pO2 (80-105) mmHg ABG HCO3 (22-26) mmol/L ABG Total CO2 (23-27) mmol/L ABG O2 Saturation (95-98) % ABG Base Excess (-2-3) mmol/L VBG pH (7.31-7.41) Cancelled VBG pCO2 (41-51) mmHg Cancelled VBG pO2 mmHg Cancelled VBG HCO3 (23-28) mmol/L Cancelled VBG Total CO2 (24-29) mmol/L Cancelled VBG O2 Saturation % Cancelled VBG Base Excess (-2-3) mmol/L Cancelled Oxygen Liter Flow L FiO2 % Sodium (136-145) mmol/L 140 Potassium (3.5-5.1) mmol/L 5.3 H D Chloride (98-107) mmol/L 99 Carbon Dioxide (21.0-32.0) mmol/L 37.9 H Anion Gap (3-11) mmol/L 3.1 BUN (7-18) mg/dL 16 Creatinine (0.70-1.30) mg/dL 1.0 Estimated GFR/1.73 m2 (mL/min/1.73m2) >= 60.00 Glucose (74-106) mg/dL 103 Hemoglobin A1c (<5.7) % Calcium (8.5-10.1) mg/dL 8.6 Magnesium Total Bilirubin (0.2-1.0) mg/dL 0.8 AST (15-37) U/L 45 H ALT (16-63) U/L 44 Alkaline Phosphatase (46-116) U/L 133 H Troponin I (<or=60) ng/L NT-Pro-B Natriuret Pep (<300) pg/mL Total Protein (6.4-8.2) g/dL 7.1 Albumin (3.4-5.0) g/dL 3.1 L Vitamin B12 (193-986) pg/mL Folate (8.6-20.0) ng/mL Procalcitonin ng/mL TSH (0.36-3.74) uIU/mL Free T4 (0.76-1.46) ng/dL Urine Color (Yellow) Urine Clarity (Clear) Urine pH (5-8) Ur Specific [place] (1.005-1.025) Urine Protein (Negative) mg/dL Urine Ketones (Negative) mg/dL Urine Blood (Negative) Urine Nitrite (Negative) Urine Bilirubin (Negative) Urine Urobilinogen (Up TO 0.2) EU/dL Ur Leukocyte Esterase (Negative) Urine RBC (0-2) HPF Urine WBC (0-5) HPF Ur Epithelial Cells (Negative) HPF Urine Crystals (Negative) HPF Urine Bacteria (Negative) HPF Urine Casts (Negative) LPF Urine Mucus (Negative) Ur Culture Indicated? Urine Glucose (Negative) mg/dL Fluid Source Fluid Color Fluid Clarity Fluid pH Fluid WBC (0) uL Fld Polynuclear WBCs % Fluid Mononuclear Cell Fluid Other Cells Fluid Glucose (See Note) mg/dL Fluid Albumin (See Note) g/dL COVID-19 Source SARS-CoV-2 (PCR) (Negative) Path Cons Comment Add-On Test Request Range/Units 03/19/22 03/19/22 03/19/22 08:50 08:50 08:50 WBC (4.4-10.8) 10^3/uL RBC (4.36-5.78) 10^6/uL Hgb (13.5-17.5) g/dL Hct (40.0-50.0) % MCV (80-95) fL MCH (27.0-33.0) pg MCHC (32.0-36.0) % RDW (11.8-14.1) % Plt Count (130-400) 10^3/uL MPV (8.0-11.0) fL Immature Gran % Neutrophils % Lymphocytes % Monocytes % Eosinophils % Basophils % Nucleated RBC % (0.0-0.3) % Absolute Neutrophils (1.2-6.7) 10^3/uL Absolute Lymphocytes (1.2-3.4) 10^3/uL Absolute Monocytes (0.1-0.8) 10^3/uL Absolute Eosinophils (0.0-0.7) 10^3/uL Absolute Basophils (0.0-0.2) 10^3/uL RBC Morphology Macrocytosis PT (9.3-11.0) sec INR (0.9-1.1) APTT (21.0-27.5) sec ABG Sample Site ABG pH (7.35-7.45) ABG pCO2 (35-45) mmHg ABG pO2 (80-105) mmHg ABG HCO3 (22-26) mmol/L ABG Total CO2 (23-27) mmol/L ABG O2 Saturation (95-98) % ABG Base Excess (-2-3) mmol/L VBG pH (7.31-7.41) 7.39 VBG pCO2 (41-51) mmHg 65 H* VBG pO2 mmHg 80 VBG HCO3 (23-28) mmol/L 40 H VBG Total CO2 (24-29) mmol/L 33 H VBG O2 Saturation % 96 VBG Base Excess (-2-3) mmol/L 15 H Oxygen Liter Flow L FiO2 % Sodium (136-145) mmol/L Potassium (3.5-5.1) mmol/L Chloride (98-107) mmol/L Carbon Dioxide (21.0-32.0) mmol/L Anion Gap (3-11) mmol/L BUN (7-18) mg/dL Creatinine (0.70-1.30) mg/dL Estimated GFR/1.73 m2 (mL/min/1.73m2) Glucose (74-106) mg/dL Hemoglobin A1c (<5.7) % Calcium (8.5-10.1) mg/dL Magnesium Total Bilirubin (0.2-1.0) mg/dL AST (15-37) U/L ALT (16-63) U/L Alkaline Phosphatase (46-116) U/L Troponin I (<or=60) ng/L NT-Pro-B Natriuret Pep (<300) pg/mL Total Protein (6.4-8.2) g/dL Albumin (3.4-5.0) g/dL Vitamin B12 (193-986) pg/mL Folate (8.6-20.0) ng/mL Procalcitonin ng/mL < 0.1 TSH (0.36-3.74) uIU/mL Free T4 (0.76-1.46) ng/dL Urine Color (Yellow) Urine Clarity (Clear) Urine pH (5-8) Ur Specific [place] (1.005-1.025) Urine Protein (Negative) mg/dL Urine Ketones (Negative) mg/dL Urine Blood (Negative) Urine Nitrite (Negative) Urine Bilirubin (Negative) Urine Urobilinogen (Up TO 0.2) EU/dL Ur Leukocyte Esterase (Negative) Urine RBC (0-2) HPF Urine WBC (0-5) HPF Ur Epithelial Cells (Negative) HPF Urine Crystals (Negative) HPF Urine Bacteria (Negative) HPF Urine Casts (Negative) LPF Urine Mucus (Negative) Ur Culture Indicated? Urine Glucose (Negative) mg/dL Fluid Source Fluid Color Fluid Clarity Fluid pH Fluid WBC (0) uL Fld Polynuclear WBCs % Fluid Mononuclear Cell Fluid Other Cells Fluid Glucose (See Note) mg/dL Fluid Albumin (See Note) g/dL COVID-19 Source SARS-CoV-2 (PCR) (Negative) Path Cons Comment Add-On Test Request DONE Range/Units 03/19/22 03/19/22 03/20/22 17:24 17:52 05:18 WBC (4.4-10.8) 10^3/uL RBC (4.36-5.78) 10^6/uL Hgb (13.5-17.5) g/dL Hct (40.0-50.0) % MCV (80-95) fL MCH (27.0-33.0) pg MCHC (32.0-36.0) % RDW (11.8-14.1) % Plt Count (130-400) 10^3/uL MPV (8.0-11.0) fL Immature Gran % Neutrophils % Lymphocytes % Monocytes % Eosinophils % Basophils % Nucleated RBC % (0.0-0.3) % Absolute Neutrophils (1.2-6.7) 10^3/uL Absolute Lymphocytes (1.2-3.4) 10^3/uL Absolute Monocytes (0.1-0.8) 10^3/uL Absolute Eosinophils (0.0-0.7) 10^3/uL Absolute Basophils (0.0-0.2) 10^3/uL RBC Morphology Macrocytosis PT (9.3-11.0) sec INR (0.9-1.1) APTT (21.0-27.5) sec ABG Sample Site ABG pH (7.35-7.45) ABG pCO2 (35-45) mmHg ABG pO2 (80-105) mmHg ABG HCO3 (22-26) mmol/L ABG Total CO2 (23-27) mmol/L ABG O2 Saturation (95-98) % ABG Base Excess (-2-3) mmol/L VBG pH (7.31-7.41) VBG pCO2 (41-51) mmHg VBG pO2 mmHg VBG HCO3 (23-28) mmol/L VBG Total CO2 (24-29) mmol/L VBG O2 Saturation % VBG Base Excess (-2-3) mmol/L Oxygen Liter Flow L FiO2 % Sodium (136-145) mmol/L Cancelled 142 139 Potassium (3.5-5.1) mmol/L Cancelled 3.9 D 4.0 Chloride (98-107) mmol/L Cancelled 96 L 96 L Carbon Dioxide (21.0-32.0) mmol/L Cancelled 39.8 H 42.1 H Anion Gap (3-11) mmol/L Cancelled 6.2 0.9 L BUN (7-18) mg/dL Cancelled 16 15 Creatinine (0.70-1.30) mg/dL Cancelled 0.8 0.8 Estimated GFR/1.73 m2 (mL/min/1.73m2) Cancelled >= 60.00 >= 60.00 Glucose (74-106) mg/dL Cancelled 145 H 102 Hemoglobin A1c (<5.7) % Calcium (8.5-10.1) mg/dL Cancelled 9.0 9.1 Magnesium Cancelled 1.5 L 1.7 L Total Bilirubin (0.2-1.0) mg/dL AST (15-37) U/L ALT (16-63) U/L Alkaline Phosphatase (46-116) U/L Troponin I (<or=60) ng/L NT-Pro-B Natriuret Pep (<300) pg/mL Total Protein (6.4-8.2) g/dL Albumin (3.4-5.0) g/dL Vitamin B12 (193-986) pg/mL Folate (8.6-20.0) ng/mL Procalcitonin ng/mL TSH (0.36-3.74) uIU/mL 4.15 H Free T4 (0.76-1.46) ng/dL 0.98 Urine Color (Yellow) Urine Clarity (Clear) Urine pH (5-8) Ur Specific [place] (1.005-1.025) Urine Protein (Negative) mg/dL Urine Ketones (Negative) mg/dL Urine Blood (Negative) Urine Nitrite (Negative) Urine Bilirubin (Negative) Urine Urobilinogen (Up TO 0.2) EU/dL Ur Leukocyte Esterase (Negative) Urine RBC (0-2) HPF Urine WBC (0-5) HPF Ur Epithelial Cells (Negative) HPF Urine Crystals (Negative) HPF Urine Bacteria (Negative) HPF Urine Casts (Negative) LPF Urine Mucus (Negative) Ur Culture Indicated? Urine Glucose (Negative) mg/dL Fluid Source Fluid Color Fluid Clarity Fluid pH Fluid WBC (0) uL Fld Polynuclear WBCs % Fluid Mononuclear Cell Fluid Other Cells Fluid Glucose (See Note) mg/dL Fluid Albumin (See Note) g/dL COVID-19 Source SARS-CoV-2 (PCR) (Negative) Path Cons Comment Add-On Test Request Range/Units 03/20/22 03/21/22 03/21/22 05:18 05:07 05:07 WBC (4.4-10.8) 10^3/uL 7.72 8.60 RBC (4.36-5.78) 10^6/uL 4.73 4.75 Hgb (13.5-17.5) g/dL 18.2 H 18.0 H Hct (40.0-50.0) % 53.4 H 53.5 H MCV (80-95) fL 113 H 113 H MCH (27.0-33.0) pg 38.5 H 37.9 H MCHC (32.0-36.0) % 34.1 33.6 RDW (11.8-14.1) % 14.9 H 14.4 H Plt Count (130-400) 10^3/uL 143 133 MPV (8.0-11.0) fL 10.3 10.8 Immature Gran % 0.4 Neutrophils % 73.2 Lymphocytes % 13.2 Monocytes % 11.0 Eosinophils % 1.6 Basophils % 0.6 Nucleated RBC % (0.0-0.3) % 0.0 Absolute Neutrophils (1.2-6.7) 10^3/uL 5.65 Absolute Lymphocytes (1.2-3.4) 10^3/uL 1.02 L Absolute Monocytes (0.1-0.8) 10^3/uL 0.85 H Absolute Eosinophils (0.0-0.7) 10^3/uL 0.12 Absolute Basophils (0.0-0.2) 10^3/uL 0.05 RBC Morphology Macrocytosis PT (9.3-11.0) sec INR (0.9-1.1) APTT (21.0-27.5) sec ABG Sample Site ABG pH (7.35-7.45) ABG pCO2 (35-45) mmHg ABG pO2 (80-105) mmHg ABG HCO3 (22-26) mmol/L ABG Total CO2 (23-27) mmol/L ABG O2 Saturation (95-98) % ABG Base Excess (-2-3) mmol/L VBG pH (7.31-7.41) VBG pCO2 (41-51) mmHg VBG pO2 mmHg VBG HCO3 (23-28) mmol/L VBG Total CO2 (24-29) mmol/L VBG O2 Saturation % VBG Base Excess (-2-3) mmol/L Oxygen Liter Flow L FiO2 % Sodium (136-145) mmol/L 136 Potassium (3.5-5.1) mmol/L 4.5 Chloride (98-107) mmol/L 92 L Carbon Dioxide (21.0-32.0) mmol/L 41.1 H Anion Gap (3-11) mmol/L 2.9 L BUN (7-18) mg/dL 17 Creatinine (0.70-1.30) mg/dL 0.8 Estimated GFR/1.73 m2 (mL/min/1.73m2) >= 60.00 Glucose (74-106) mg/dL 105 Hemoglobin A1c (<5.7) % Calcium (8.5-10.1) mg/dL 9.3 Magnesium 1.9 Total Bilirubin (0.2-1.0) mg/dL AST (15-37) U/L ALT (16-63) U/L Alkaline Phosphatase (46-116) U/L Troponin I (<or=60) ng/L NT-Pro-B Natriuret Pep (<300) pg/mL Total Protein (6.4-8.2) g/dL Albumin (3.4-5.0) g/dL Vitamin B12 (193-986) pg/mL Folate (8.6-20.0) ng/mL Procalcitonin ng/mL TSH (0.36-3.74) uIU/mL Free T4 (0.76-1.46) ng/dL Urine Color (Yellow) Urine Clarity (Clear) Urine pH (5-8) Ur Specific [place] (1.005-1.025) Urine Protein (Negative) mg/dL Urine Ketones (Negative) mg/dL Urine Blood (Negative) Urine Nitrite (Negative) Urine Bilirubin (Negative) Urine Urobilinogen (Up TO 0.2) EU/dL Ur Leukocyte Esterase (Negative) Urine RBC (0-2) HPF Urine WBC (0-5) HPF Ur Epithelial Cells (Negative) HPF Urine Crystals (Negative) HPF Urine Bacteria (Negative) HPF Urine Casts (Negative) LPF Urine Mucus (Negative) Ur Culture Indicated? Urine Glucose (Negative) mg/dL Fluid Source Fluid Color Fluid Clarity Fluid pH Fluid WBC (0) uL Fld Polynuclear WBCs % Fluid Mononuclear Cell Fluid Other Cells Fluid Glucose (See Note) mg/dL Fluid Albumin (See Note) g/dL COVID-19 Source SARS-CoV-2 (PCR) (Negative) Path Cons Comment Add-On Test Request Range/Units 03/22/22 03/22/22 03/22/22 05:20 05:20 21:15 WBC (4.4-10.8) 10^3/uL 9.64 RBC (4.36-5.78) 10^6/uL 4.74 Hgb (13.5-17.5) g/dL 17.9 H Hct (40.0-50.0) % 53.3 H MCV (80-95) fL 112 H MCH (27.0-33.0) pg 37.8 H MCHC (32.0-36.0) % 33.6 RDW (11.8-14.1) % 14.4 H Plt Count (130-400) 10^3/uL 129 L MPV (8.0-11.0) fL 10.7 Immature Gran % Neutrophils % Lymphocytes % Monocytes % Eosinophils % Basophils % Nucleated RBC % (0.0-0.3) % Absolute Neutrophils (1.2-6.7) 10^3/uL Absolute Lymphocytes (1.2-3.4) 10^3/uL Absolute Monocytes (0.1-0.8) 10^3/uL Absolute Eosinophils (0.0-0.7) 10^3/uL Absolute Basophils (0.0-0.2) 10^3/uL RBC Morphology Macrocytosis PT (9.3-11.0) sec INR (0.9-1.1) APTT (21.0-27.5) sec ABG Sample Site ABG pH (7.35-7.45) ABG pCO2 (35-45) mmHg ABG pO2 (80-105) mmHg ABG HCO3 (22-26) mmol/L ABG Total CO2 (23-27) mmol/L ABG O2 Saturation (95-98) % ABG Base Excess (-2-3) mmol/L VBG pH (7.31-7.41) VBG pCO2 (41-51) mmHg VBG pO2 mmHg VBG HCO3 (23-28) mmol/L VBG Total CO2 (24-29) mmol/L VBG O2 Saturation % VBG Base Excess (-2-3) mmol/L Oxygen Liter Flow L FiO2 % Sodium (136-145) mmol/L 135 L Potassium (3.5-5.1) mmol/L 4.0 Chloride (98-107) mmol/L 93 L Carbon Dioxide (21.0-32.0) mmol/L 40.9 H Anion Gap (3-11) mmol/L 1.1 L BUN (7-18) mg/dL 18 Creatinine (0.70-1.30) mg/dL 0.8 Estimated GFR/1.73 m2 (mL/min/1.73m2) >= 60.00 Glucose (74-106) mg/dL 104 Hemoglobin A1c (<5.7) % Calcium (8.5-10.1) mg/dL 9.1 Magnesium 2.0 Total Bilirubin (0.2-1.0) mg/dL AST (15-37) U/L ALT (16-63) U/L Alkaline Phosphatase (46-116) U/L Troponin I (<or=60) ng/L NT-Pro-B Natriuret Pep (<300) pg/mL Total Protein (6.4-8.2) g/dL Albumin (3.4-5.0) g/dL Vitamin B12 (193-986) pg/mL Folate (8.6-20.0) ng/mL Procalcitonin ng/mL TSH (0.36-3.74) uIU/mL Free T4 (0.76-1.46) ng/dL Urine Color (Yellow) Yellow Urine Clarity (Clear) Sl Cloudy Urine pH (5-8) 8.5 H Ur Specific [place] (1.005-1.025) 1.015 Urine Protein (Negative) mg/dL 30 H Urine Ketones (Negative) mg/dL Negative Urine Blood (Negative) Moderate H Urine Nitrite (Negative) Negative Urine Bilirubin (Negative) Negative Urine Urobilinogen (Up TO 0.2) EU/dL 4.0 H Ur Leukocyte Esterase (Negative) Negative Urine RBC (0-2) HPF >50 H Urine WBC (0-5) HPF 5-10 Ur Epithelial Cells (Negative) HPF Negative Urine Crystals (Negative) HPF Negative Urine Bacteria (Negative) HPF Rare Urine Casts (Negative) LPF Urine Mucus (Negative) Negative Ur Culture Indicated? Yes Urine Glucose (Negative) mg/dL Negative Fluid Source Fluid Color Fluid Clarity Fluid pH Fluid WBC (0) uL Fld Polynuclear WBCs % Fluid Mononuclear Cell Fluid Other Cells Fluid Glucose (See Note) mg/dL Fluid Albumin (See Note) g/dL COVID-19 Source SARS-CoV-2 (PCR) (Negative) Path Cons Comment Add-On Test Request Range/Units 03/23/22 03/23/22 03/23/22 05:45 05:45 05:45 WBC (4.4-10.8) 10^3/uL RBC (4.36-5.78) 10^6/uL Hgb (13.5-17.5) g/dL Hct (40.0-50.0) % MCV (80-95) fL MCH (27.0-33.0) pg MCHC (32.0-36.0) % RDW (11.8-14.1) % Plt Count (130-400) 10^3/uL MPV (8.0-11.0) fL Immature Gran % Neutrophils % Lymphocytes % Monocytes % Eosinophils % Basophils % Nucleated RBC % (0.0-0.3) % Absolute Neutrophils (1.2-6.7) 10^3/uL Absolute Lymphocytes (1.2-3.4) 10^3/uL Absolute Monocytes (0.1-0.8) 10^3/uL Absolute Eosinophils (0.0-0.7) 10^3/uL Absolute Basophils (0.0-0.2) 10^3/uL RBC Morphology Macrocytosis PT (9.3-11.0) sec INR (0.9-1.1) APTT (21.0-27.5) sec ABG Sample Site ABG pH (7.35-7.45) ABG pCO2 (35-45) mmHg ABG pO2 (80-105) mmHg ABG HCO3 (22-26) mmol/L ABG Total CO2 (23-27) mmol/L ABG O2 Saturation (95-98) % ABG Base Excess (-2-3) mmol/L VBG pH (7.31-7.41) VBG pCO2 (41-51) mmHg VBG pO2 mmHg VBG HCO3 (23-28) mmol/L VBG Total CO2 (24-29) mmol/L VBG O2 Saturation % VBG Base Excess (-2-3) mmol/L Oxygen Liter Flow L FiO2 % Sodium (136-145) mmol/L 136 Potassium (3.5-5.1) mmol/L 4.2 Chloride (98-107) mmol/L 95 L Carbon Dioxide (21.0-32.0) mmol/L 37.5 H Anion Gap (3-11) mmol/L 3.5 BUN (7-18) mg/dL 20 H Creatinine (0.70-1.30) mg/dL 0.7 Estimated GFR/1.73 m2 (mL/min/1.73m2) >= 60.00 Glucose (74-106) mg/dL 104 Hemoglobin A1c (<5.7) % Calcium (8.5-10.1) mg/dL 8.8 Magnesium 2.2 Total Bilirubin (0.2-1.0) mg/dL AST (15-37) U/L ALT (16-63) U/L Alkaline Phosphatase (46-116) U/L Troponin I (<or=60) ng/L NT-Pro-B Natriuret Pep (<300) pg/mL Total Protein (6.4-8.2) g/dL Albumin (3.4-5.0) g/dL Vitamin B12 (193-986) pg/mL 225 Folate (8.6-20.0) ng/mL 16.9 Procalcitonin ng/mL 0.1 TSH (0.36-3.74) uIU/mL Free T4 (0.76-1.46) ng/dL Urine Color (Yellow) Urine Clarity (Clear) Urine pH (5-8) Ur Specific [place] (1.005-1.025) Urine Protein (Negative) mg/dL Urine Ketones (Negative) mg/dL Urine Blood (Negative) Urine Nitrite (Negative) Urine Bilirubin (Negative) Urine Urobilinogen (Up TO 0.2) EU/dL Ur Leukocyte Esterase (Negative) Urine RBC (0-2) HPF Urine WBC (0-5) HPF Ur Epithelial Cells (Negative) HPF Urine Crystals (Negative) HPF Urine Bacteria (Negative) HPF Urine Casts (Negative) LPF Urine Mucus (Negative) Ur Culture Indicated? Urine Glucose (Negative) mg/dL Fluid Source Fluid Color Fluid Clarity Fluid pH Fluid WBC (0) uL Fld Polynuclear WBCs % Fluid Mononuclear Cell Fluid Other Cells Fluid Glucose (See Note) mg/dL Fluid Albumin (See Note) g/dL COVID-19 Source SARS-CoV-2 (PCR) (Negative) Path Cons Comment Add-On Test Request DONE Range/Units 03/23/22 03/23/22 03/23/22 07:32 07:55 10:27 WBC (4.4-10.8) 10^3/uL 7.17 RBC (4.36-5.78) 10^6/uL 4.71 Hgb (13.5-17.5) g/dL 17.9 H Hct (40.0-50.0) % 52.7 H MCV (80-95) fL 112 H MCH (27.0-33.0) pg 38.0 H MCHC (32.0-36.0) % 34.0 RDW (11.8-14.1) % 14.3 H Plt Count (130-400) 10^3/uL 136 MPV (8.0-11.0) fL 10.4 Immature Gran % 0.4 Neutrophils % 75.8 Lymphocytes % 7.4 Monocytes % 12.6 Eosinophils % 3.2 Basophils % 0.6 Nucleated RBC % (0.0-0.3) % 0.0 Absolute Neutrophils (1.2-6.7) 10^3/uL 5.44 Absolute Lymphocytes (1.2-3.4) 10^3/uL 0.53 L Absolute Monocytes (0.1-0.8) 10^3/uL 0.90 H Absolute Eosinophils (0.0-0.7) 10^3/uL 0.23 Absolute Basophils (0.0-0.2) 10^3/uL 0.04 RBC Morphology Macrocytosis PT (9.3-11.0) sec INR (0.9-1.1) APTT (21.0-27.5) sec ABG Sample Site Left Radial ABG pH (7.35-7.45) 7.49 H ABG pCO2 (35-45) mmHg 53 H ABG pO2 (80-105) mmHg 58 L ABG HCO3 (22-26) mmol/L 40 H ABG Total CO2 (23-27) mmol/L 33 H ABG O2 Saturation (95-98) % 91 L ABG Base Excess (-2-3) mmol/L > 15 H VBG pH (7.31-7.41) VBG pCO2 (41-51) mmHg VBG pO2 mmHg VBG HCO3 (23-28) mmol/L VBG Total CO2 (24-29) mmol/L VBG O2 Saturation % VBG Base Excess (-2-3) mmol/L Oxygen Liter Flow L 2 FiO2 % Sodium (136-145) mmol/L Potassium (3.5-5.1) mmol/L Chloride (98-107) mmol/L Carbon Dioxide (21.0-32.0) mmol/L Anion Gap (3-11) mmol/L BUN (7-18) mg/dL Creatinine (0.70-1.30) mg/dL Estimated GFR/1.73 m2 (mL/min/1.73m2) Glucose (74-106) mg/dL Hemoglobin A1c (<5.7) % Calcium (8.5-10.1) mg/dL Magnesium Total Bilirubin (0.2-1.0) mg/dL AST (15-37) U/L ALT (16-63) U/L Alkaline Phosphatase (46-116) U/L Troponin I (<or=60) ng/L NT-Pro-B Natriuret Pep (<300) pg/mL Total Protein (6.4-8.2) g/dL Albumin (3.4-5.0) g/dL Vitamin B12 (193-986) pg/mL Folate (8.6-20.0) ng/mL Procalcitonin ng/mL TSH (0.36-3.74) uIU/mL Free T4 (0.76-1.46) ng/dL Urine Color (Yellow) Urine Clarity (Clear) Urine pH (5-8) Ur Specific [place] (1.005-1.025) Urine Protein (Negative) mg/dL Urine Ketones (Negative) mg/dL Urine Blood (Negative) Urine Nitrite (Negative) Urine Bilirubin (Negative) Urine Urobilinogen (Up TO 0.2) EU/dL Ur Leukocyte Esterase (Negative) Urine RBC (0-2) HPF Urine WBC (0-5) HPF Ur Epithelial Cells (Negative) HPF Urine Crystals (Negative) HPF Urine Bacteria (Negative) HPF Urine Casts (Negative) LPF Urine Mucus (Negative) Ur Culture Indicated? Urine Glucose (Negative) mg/dL Fluid Source Fluid Color Fluid Clarity Fluid pH Fluid WBC (0) uL Fld Polynuclear WBCs % Fluid Mononuclear Cell Fluid Other Cells Fluid Glucose (See Note) mg/dL Fluid Albumin (See Note) g/dL COVID-19 Source Nasal/Nares SARS-CoV-2 (PCR) (Negative) Negative Path Cons Comment Add-On Test Request Range/Units 03/24/22 03/24/22 03/25/22 05:55 07:30 06:25 WBC (4.4-10.8) 10^3/uL 5.26 RBC (4.36-5.78) 10^6/uL 5.02 Hgb (13.5-17.5) g/dL 18.7 H Hct (40.0-50.0) % 55.1 H MCV (80-95) fL 110 H MCH (27.0-33.0) pg 37.3 H MCHC (32.0-36.0) % 33.9 RDW (11.8-14.1) % 13.8 Plt Count (130-400) 10^3/uL 158 MPV (8.0-11.0) fL 10.6 Immature Gran % Neutrophils % Lymphocytes % Monocytes % Eosinophils % Basophils % Nucleated RBC % (0.0-0.3) % Absolute Neutrophils (1.2-6.7) 10^3/uL Absolute Lymphocytes (1.2-3.4) 10^3/uL Absolute Monocytes (0.1-0.8) 10^3/uL Absolute Eosinophils (0.0-0.7) 10^3/uL Absolute Basophils (0.0-0.2) 10^3/uL RBC Morphology Macrocytosis PT (9.3-11.0) sec INR (0.9-1.1) APTT (21.0-27.5) sec ABG Sample Site Left Radial ABG pH (7.35-7.45) 7.46 H ABG pCO2 (35-45) mmHg 52 H ABG pO2 (80-105) mmHg 69 L ABG HCO3 (22-26) mmol/L 37 H ABG Total CO2 (23-27) mmol/L 31 H ABG O2 Saturation (95-98) % 94 L ABG Base Excess (-2-3) mmol/L 13 H VBG pH (7.31-7.41) VBG pCO2 (41-51) mmHg VBG pO2 mmHg VBG HCO3 (23-28) mmol/L VBG Total CO2 (24-29) mmol/L VBG O2 Saturation % VBG Base Excess (-2-3) mmol/L Oxygen Liter Flow L 2 FiO2 % Sodium (136-145) mmol/L 132 L Potassium (3.5-5.1) mmol/L 4.2 Chloride (98-107) mmol/L 94 L Carbon Dioxide (21.0-32.0) mmol/L 32.8 H Anion Gap (3-11) mmol/L 5.2 BUN (7-18) mg/dL 21 H Creatinine (0.70-1.30) mg/dL 1.0 Estimated GFR/1.73 m2 (mL/min/1.73m2) >= 60.00 Glucose (74-106) mg/dL 108 H Hemoglobin A1c (<5.7) % Calcium (8.5-10.1) mg/dL 9.4 Magnesium 2.1 Total Bilirubin (0.2-1.0) mg/dL AST (15-37) U/L ALT (16-63) U/L Alkaline Phosphatase (46-116) U/L Troponin I (<or=60) ng/L NT-Pro-B Natriuret Pep (<300) pg/mL Total Protein (6.4-8.2) g/dL Albumin (3.4-5.0) g/dL Vitamin B12 (193-986) pg/mL Folate (8.6-20.0) ng/mL Procalcitonin ng/mL TSH (0.36-3.74) uIU/mL Free T4 (0.76-1.46) ng/dL Urine Color (Yellow) Urine Clarity (Clear) Urine pH (5-8) Ur Specific [place] (1.005-1.025) Urine Protein (Negative) mg/dL Urine Ketones (Negative) mg/dL Urine Blood (Negative) Urine Nitrite (Negative) Urine Bilirubin (Negative) Urine Urobilinogen (Up TO 0.2) EU/dL Ur Leukocyte Esterase (Negative) Urine RBC (0-2) HPF Urine WBC (0-5) HPF Ur Epithelial Cells (Negative) HPF Urine Crystals (Negative) HPF Urine Bacteria (Negative) HPF Urine Casts (Negative) LPF Urine Mucus (Negative) Ur Culture Indicated? Urine Glucose (Negative) mg/dL Fluid Source Fluid Color Fluid Clarity Fluid pH Fluid WBC (0) uL Fld Polynuclear WBCs % Fluid Mononuclear Cell Fluid Other Cells Fluid Glucose (See Note) mg/dL Fluid Albumin (See Note) g/dL COVID-19 Source SARS-CoV-2 (PCR) (Negative) Path Cons Comment Add-On Test Request
[2022-03-25] MEDS: Tiotropium/Olodaterol 10 PUFF INHALER 2 PUFF IH (07:37)
[2022-03-25] MEDS: Albuterol/Ipratropium 3 ML UPD VIAL UPD (07:38)
[2022-03-25] MEDS: Folic Acid 1 MG TAB PO (08:10)
[2022-03-25] MEDS: Docusate Sodium 100 MG CAP PO (08:10)
[2022-03-25] MEDS: Spironolactone 25 MG TAB PO (08:10)
[2022-03-25] MEDS: Losartan 25 MG TAB PO (08:10)
[2022-03-25] MEDS: Furosemide 40 MG/4 ML VIAL IVP (08:11)
[2022-03-25] MEDS: Empaglifozin 10 MG TAB PO (08:11)
[2022-03-25] MEDS: Normal Saline Flush 10 ML SYR IVP (08:11)
[2022-03-25] MEDS: Thiamine 100 MG TAB PO (08:11)
[2022-03-25] MEDS: Multivitamin TAB 1 TAB PO (08:11)
[2022-03-25] MEDS: Aspirin E.C. 81 MG TABEC PO (08:11)
[2022-03-25] MEDS: Enoxaparin 40 MG/0.4 ML SYR SC (08:11)
--- NOTE | 2022-03-25 08:42 | W.CARDCONSUL ---
Date of service: 03/25/22 Time of Service: 08:42 History of Present Illness Narrative: Cardiac evaluation is requested in this 51-year-old man. Patient was not interviewed or examined. The chart was reviewed My impression is that the patient has obesity/hypoventilation, chronic respiratory failure with secondary polycythemia. His LV function is normal His echocardiogram is consistent with right heart dysfunction due to his respiratory issues My recommendations would be to address the pulmonary problem as it is being done He should be on diuretics to achieve euvolemia I have no other specific cardiac recommendations at present FOR[facility]LY [facility], [facility] All Active Problems Fever (Acute) Troponin level elevated (Acute) Acute on chronic respiratory failure with hypoxia and hypercapnia (Acute) CHF exacerbation (Acute) Respiratory failure with hypoxia and hypercapnia (Acute) Pleural effusion, right (Acute) Discharge planning issues (Acute) DVT prophylaxis (Acute) Ascites (Acute) Morbid obesity (Chronic) Acute respiratory failure with hypoxia and hypercapnia (Acute) CHF (congestive heart failure) (Chronic) Hemochromatosis (Chronic) Hypoxia (Acute) Delayed wound healing (Acute) Sebaceous cyst (Acute) Status post total hip replacement, left (Acute 06/10/20) Degenerative joint disease of left hip (Acute) Colon polyp (Acute) Headache (Acute) DVT prophylaxis (Acute) Groin strain (Acute) Obesity (Chronic) Hemochromatosis (Acute) Degenerative joint disease of right hip (Acute) pt. denies having this on right R hip Degenerative joint disease of left hip (Acute) Alcohol dependence (Acute) Tobacco dependence (Acute) HTN (hypertension) (Chronic) Surgical History History of removal of cyst (~12/22/20) upper back, Stoiber, drain placed History of tonsillectomy Hx of wisdom tooth extraction Social History Smoking/Tobacco Use Status: Current every day Tobacco Type: cigarettes Smoking packs per day: 1 Smoking cigarettes per day: 20.0 Years smoked: 30 Smoking pack-years: 30.00 Smoking risk assessment performed?: Yes Alcohol Intake: current Alcohol Intake frequency: 3 or more drinks per day Alcohol type: hard liquor Drug use: Rarely Substance use type: marijuana Details: Pt reports no use marijauna today. current occupation: [employer] Current gender identity: male Do you feel safe at home: Yes Do you feel safe in your relationship?: Yes Results Last Vital Signs Temp 36.5 C 03/25/22 08:02 Pulse 70 03/25/22 08:02 Resp 18 03/25/22 08:02 BP 129/84 03/25/22 08:02 Pulse Ox 91 L 03/25/22 08:02 Labs Result diagrams: 03/25/22 06:25 03/24/22 05:55 Labs: Laboratory Results - last 24 hr 03/25/22 06:25 WBC 5.26 RBC 5.02 Hgb 18.7 H Hct 55.1 H MCV 110 H MCH 37.3 H MCHC 33.9 RDW 13.8 Plt Count 158 MPV 10.6
--- NOTE | 2022-03-25 09:46 | PFT_ITS ---
Date of service: 03/24/22 Time of Service: 14:19 Pulmonary Function Test Result Requesting Provider Bhargav Hernández Indications: Trilogy Qualification Interpretation Spirometry: Although the FEV1/FVC ratio is technically normal airflow limitation is suggested by the shape of the volume time curve and the flow volume loop. The FVC is low. Impression Likely mild airflow obstruction. The FVC is low which is likely due to pseudo- obstruction from an elevated BMI, however a true restrictive lung disease cannot be ruled out by spirometry alone. Clinical Correlation therefore is recommended.
--- NOTE | 2022-03-25 15:07 | CHAPLAIN ---
Tremaine was in the chair when I visited. He said he hopes to return home soon. His has been into visit.
--- NOTE | 2022-03-25 15:39 | W.PM.DS.N ---
Date of service: 03/25/22 Time of Service: 15:40 DS: Diagnosis Discharge Diagnosis (1) Acute on chronic respiratory failure with hypoxia and hypercapnia: Status: Resolved Asessment and Plan: Tremaine is a 51-year-old male with a past medical history of morbid obesity, HTN, hemochromatosis, alcohol dependence, tobacco dependence presented to the emergency department with worsening generalized edema and shortness of breath. In the ED he was noted to be tachypneic and hypoxic with a room air saturation in the 70s. He was placed on nonrebreather mask and transition to BiPAP. Chest x-ray demonstrated pulmonary edema. WBC count was normal. Hemoglobin showed polycythemia hemoglobin 19.3 g. INR was elevated at 1.4. VBG demonstrated respiratory acidosis with a pH 7.26 PCO2 of 29. proBNP was elevated at 2600. Troponin levels were borderline elevated at 90 and 75. He was admitted to the intensive care unit where he was kept on BiPAP started on IV diuretics. Consultations were obtained with Dr. Jo Loya from cardiology and Dr. Dionne Lyles from pulmonary services. See their notes for details. Dr. Lyles felt that he likely has underlying COPD contributing to his chronic hypoxia and hypercapnia and polycythemia and indicated that once he is weaned to a nasal cannula she would evaluate him for need for AVAPS upon discharge by repeating his ABG on nasal cannula and obtaining spirometry. Patient was aggressively diuresed with IV diuretics. He was put on goal-directed therapy and transition over to oral diuretics spironolactone 25 mg daily was added upon discharge she was switched from IV Lasix to torsemide 20 mg daily upon discharge his hydrochlorothiazide was discontinued. During his hospital stay his losartan 25 mg daily was restarted. His beta-rohit was uptitrated to Toprol-XL 200 mg daily. He was started on Jardiance 10 mg daily. At the time of discharge he was continued on Stiolto for his COPD Dr. Hernandez indicated his ABGs and spirometry and clinical improvement were consistent with KRISTEN/OHS but because his ABGs are adequate and his spirometry did not support the use of trilogy upon discharge. She did recommend follow-up outpatient polysomnogram and indicated she would follow-up with him as an outpatient to reevaluate him for BiPAP an amatory pulse oximetry was performed prior to discharge and according to respiratory therapist he did not qualify for supplemental oxygen. His resting oxygen saturation on room air was 93% with a heart rate of 68 and after walking 150 feet over 5-minute. His lowest oxygen saturation was 89% with a heart rate of 78 bpm after 2 minutes his oxygen saturation recovered to 93%. Echocardiogram was performed during his hospitalization that showed borderline concentric LVH with an LVEF of 55% and grossly normal wall motion. He has mildly dilated right atrium and right ventricle however right ventricular systolic pressures cannot be estimated. Tricuspid valve was normal with trace regurgitation. Aortic valve was sclerotic without stenosis or regurgitation and he has mitral annular calcifications with only trace of mitral regurgitation. Dr. Jo Loya, oral communication instructor did a review of the chart on the day of discharge. She did not examine or interview the patient but her impression is that the patient has obesity and hypoventilation syndrome and chronic respiratory failure with secondary polycythemia and that his LV function is normal. She feels that his right heart dysfunction is secondary to his underlying pulmonary problems. And that he should remain on diuretics to remain euvolemic. She had no other recommendations from a cardiac standpoint. Patient was discharged home in markedly improved condition not experiencing any dyspnea or chest discomfort with ambulation and not having any significant exertional hypoxemia. He is to follow-up with his PCP in the next week. He is to follow-up with Dr. Dionne Lyles May 25, 2022. Diet is to be low-sodium. Discharge medications as listed below. Repeat BMP to be done in a week. (2) Morbid obesity: Status: Chronic (3) CHF (congestive heart failure): Status: Chronic (4) Tobacco dependence: Status: Acute Discharge Plan Disposition Patient Disposition: HOME Condition: Improving Discharge Details Reason For Visit: CHF, Hemochromatosis Admit Date/Time: 03/18/22 10:25 Admit Provider: Ivone Sahni Attending Provider: Ivone Sahni Primary Care Provider: Suze Nair Home Meds and New Rx's Prescriptions: New spironolactone 25 mg Tablet 25 mg PO DAILY Qty: 30 0RF Stiolto Respimat 2.5-2.5 mcg/actuation Mist 2 puff inhalation DAILY Qty: 4 0RF Jardiance 10 mg Tablet 10 mg PO QAM Qty: 30 0RF Inhaler, Assist Devices [Pocket Chamber] 1 ea miscellaneous DIRECTED Qty: 0 0RF metoprolol succinate [Toprol XL] 200 mg tablet extended release 24 hr 200 mg PO DAILY Qty: 30 0RF torsemide 20 mg tablet 20 mg PO DAILY Qty: 30 0RF albuterol sulfate 90 mcg/actuation HFA aerosol inhaler 2 puff inhalation QID PRNQty: 8.5 0RF Continued aspirin [Adult Aspirin Regimen] 81 mg tablet,delayed release (DR/EC) 81 mg PO DAILY losartan 25 mg tablet 25 mg PO DAILY multivitamin [Multiple Vitamins] Tablet 1 tab PO DAILY Qty: 30 0RF amlodipine 10 mg Tablet 10 mg PO DAILY Qty: 30 0RF acetaminophen [Tylenol Extra Strength] 500 mg tablet 500 mg PO Q6H PRNQty: 90 0RF Discontinued hydrochlorothiazide 25 mg Tablet 25 mg PO DAILY Qty: 30 0RF metoprolol tartrate 25 mg Tablet 25 mg PO BID Qty: 60 0RF Discharge Instructions Instructions: Heart Failure (DC) Stand Alone Forms: Nursing Discharge Form Referrals: Dionne Lyles MD [ [facility] STAFF PHYSICIAN] - 05/25/22 2:00 pm Suze Nair [Primary Care Provider] - 03/29/22 7:45 am Activity:: Activity as Tolerated Equipment/Supplies:: No Equipment Needed Diet:: Low Sodium Discharge Orders Discharge Orders: Discharge Order (Routine); Ordered 03/25/22 Ordered By: Bhargav Hernández Other Ambulatory Orders: Basic Metabolic Panel (Routine) Timeframe: 1 Week Facility: [facility] - Location: Laboratory Outpatient - [facility] Ordered By: Bhargav Hernández Discharge Data Discharge Date/Time-TO BE ENTERED AT DEPARTURE: 03/25/22 17:23 DS: Summary Summary Time spent discussing smoking cessation with patient: 3 to 10 minutes Time Spent with Patient providing and/or coordinating discharge services: Less than 30 minutes Status at Discharge Functional status at discharge: independent ambulation Overall status at discharge: patient is progressing back to baseline Mental Status: mental status grossly normal Speech and Movement: speech and movement normal Mood: congruent mood Affect: normal affect Exam Narrative Exam Narrative: Tremaine sitting up in his chair he is alert and oriented person place time circumstance. He denies any dyspnea or chest discomfort Lungs are clear to auscultation with a prolonged expiratory phase no rhonchi wheezes or rales Heart is regular in rate and rhythm no appreciable murmur rub Abdomen is obese soft nontender Legs with 1+ bilateral pitting edema and dependent rubor Psych Mental Status: mental status grossly normal Speech and Movement: speech and movement normal Mood: congruent mood Affect: normal affect DS: Data Vitals/I&O Vitals and I&O: Vital Signs Temperature 36.8 C 03/25/22 14:43 Temperature Source Tympanic 03/25/22 14:43 Pulse 67 03/25/22 14:43 Pulse Rhythm Regular 03/25/22 13:50 Pulse 80 03/22/22 19:28 Respiratory Rate 18 03/25/22 14:43 Respiratory Effort Non-Labored 03/25/22 13:50 Respiratory Depth Normal 03/25/22 13:50 Respiratory Pattern Normal 03/25/22 13:50 Blood Pressure 130/87 03/25/22 14:43 Blood Pressure Mean 101 03/22/22 19:28 Blood Pressure Position Sitting 03/22/22 19:30 Pulse Oximetry 94 03/25/22 14:43 Oxygen Delivery Method Nasal Cannula 03/25/22 14:43 Oxygen Flow Rate 2 03/25/22 14:43 Fraction of Inspired Oxygen (FIO2) 45 03/25/22 07:40 Pain Level 0 03/25/22 14:43 Comment 03/24/22 11:13 Intake & Output 03/24/22 03/25/22 03/25/22 23:59 11:59 23:59 Intake Total 910 / 1310 800 / 1210 410 / 1210 Output Total 3225 / 5525 2425 / 2825 400 / 2825 Balance -2315 / -4215 -1625 / -1615 10 / -1615 Weight 147.5 kg Intake: IV Oral 900 / 1300 800 / 1200 400 / 1200 Output: Urine 3225 / 5525 2425 / 2825 400 / 2825 Other: Urine Color Pale Yellow Yellow Urine Appearance Clear Clear Clear Urine Odor None None Voiding Methods Toilet Toilet Data Completed and Pending Labs on day of discharge: Labs from last 24 hours 03/25/22 06:25 WBC 5.26 RBC 5.02 Hgb 18.7 H Hct 55.1 H MCV 110 H MCH 37.3 H MCHC 33.9 RDW 13.8 Plt Count 158 MPV 10.6 Preliminary micro results at discharge 03/22/22 21:54 Blood Culture - Preliminary Blood NO GROWTH 48 HOURS 03/22/22 21:28 Blood Culture - Preliminary Blood NO GROWTH 48 HOURS Additional Comments Additional comments: Ambulatory pulse oximetry done on the day of discharge she ambulated 450 feet did not require any supplemental oxygen as lowest SPO2 was 89% on room air. [facility] All Active Problems (Updated 03/26/22 @ 00:01 by TIESHA SAMAYOA) Medication monitoring encounter (Acute) Ascites (Acute) Morbid obesity (Chronic) CHF (congestive heart failure) (Chronic) Hemochromatosis (Chronic) Hypoxia (Acute) Delayed wound healing (Acute) Sebaceous cyst (Acute) Status post total hip replacement, left (Acute 06/10/20) Degenerative joint disease of left hip (Acute) Colon polyp (Acute) Headache (Acute) DVT prophylaxis (Acute) Groin strain (Acute) Obesity (Chronic) Hemochromatosis (Acute) Degenerative joint disease of right hip (Acute) pt. denies having this on right R hip Degenerative joint disease of left hip (Acute) Alcohol dependence (Acute) Tobacco dependence (Acute) HTN (hypertension) (Chronic) Surgical History History of removal of cyst (~12/22/20) upper back, Stoiber, drain placed History of tonsillectomy Hx of wisdom tooth extraction Social History Smoking/Tobacco Use Status: Current every day Tobacco Type: cigarettes Smoking packs per day: 1 Smoking cigarettes per day: 20.0 Years smoked: 30 Smoking pack-years: 30.00 Smoking risk assessment performed?: Yes Alcohol Intake: current Alcohol Intake frequency: 3 or more drinks per day Alcohol type: hard liquor Drug use: Rarely Substance use type: marijuana Details: Pt reports no use marijauna today. current occupation: [employer] Current gender identity: male Do you feel safe at home: Yes Do you feel safe in your relationship?: Yes
--- NOTE | 2022-03-25 17:28 | PDOC.CMDIS ---
- If Service Date Differs Date of service: 03/25/22 Time of Service: 17:28 LACE Index Scoring Tool - Questions: Length of Stay (in days): 7 - 13 Acuity (Admit via E.D.?): Yes Comorbidities: Congestive Heart Failure E.D. Visits: 1 - Answers: Total Score: 11 Risk of Readmission: High Risk Care Management Discharge Reason for Hospitalization: CHF, hemochromatosis. Discharge Plan: Tremaine will return home today with no new services. His will drive him home via private vehicle. He will follow up with his PCP and discharge plan of care. He did not qualify for Bipap vs Trilogy on this admission, therefore he will be advised to complete an out patient sleep study. He will also follow up with Pulmonology. He is happy to be going home. Patient/Family Education Needs: Review discharge instructions and limitations, discussion of self care needs including ask me three.
== END 2022-03-25 17:23 | disposition home or self-care (01) | DRG 291 ==
LOC: ER 08:54 → ICU 10:28 → MS 03-22 20:06
PROVIDERS: Family Medicine; Student in an Organized Health Care Education/Training Program; Surgery; Admitting Provider Internal Medicine; Emergency Provider Emergency Medicine; PCP Nurse Practitioner Family; Visit Provider Internal Medicine
DX: I11.0 Hypertensive heart disease with heart failure (principal); J96.21 Acute and chronic respiratory failure with hypoxia; J96.22 Acute and chronic respiratory failure with hypercapnia; I24.8 Other forms of acute ischemic heart disease; J91.8 Pleural effusion in other conditions classified elsewhere; Z68.42 Body mass index [BMI] 45.0-49.9, adult; J98.11 Atelectasis; J44.9 Chronic obstructive pulmonary disease, unspecified; I42.0 Dilated cardiomyopathy; I50.9 Heart failure, unspecified; F10.20 Alcohol dependence, uncomplicated; F17.210 Nicotine dependence, cigarettes, uncomplicated; E66.01 Morbid (severe) obesity due to excess calories; Z91.14 Patient's other noncompliance with medication regimen; Z96.642 Presence of left artificial hip joint; E11.9 Type 2 diabetes mellitus without complications; F12.90 Cannabis use, unspecified, uncomplicated; G47.33 Obstructive sleep apnea (adult) (pediatric); K70.31 Alcoholic cirrhosis of liver with ascites; D75.1 Secondary polycythemia; E83.118 Other hemochromatosis; I27.20 Pulmonary hypertension, unspecified; R50.9 Fever, unspecified
CPT/HCPCS: 32554; 36415; 51702; 71275; 80048; 80053; 82042; 82805; 84145; 85027; 87040; 87635; 89051; 93005; 93306; 94060; 94618; 94640; 96374; 96375; 97162; 97530; 99285; J1650; 36600; 71045; 76700; 81003; 81015; 81373; 82607; 82746; 83036; 83735; 83880; 83986; 84439; 84443; 84484; 85025; 85610; 85730; 87070; 87086; 87205; 88104; 93010; 93970; 94010; 94660; 94664; 94667; 94760; 99223; 99232; 99233; 99238; 99291; J1100; J1940; J3490; J7614; J7620; J7644

== ENCOUNTER 2022-03-31 01:34 | Outpatient (CLI) | payer BC, SELFPAY ==
[2022-03-31 08:22] LABS: Anion Gap 10.2 mmol/L (3-11); BUN 33 mg/dL (7-18); CO2 27.8 mmol/L (21.0-32.0); Calcium 9.4 mg/dL (8.5-10.1); Chloride 101 mmol/L (98-107); Glucose 195 mg/dL (74-106); Potassium 4.1 mmol/L (3.5-5.1); Sodium 139 mmol/L (136-145)
[2022-03-31 08:29] LABS: Iron 146 ug/dL (65-175)
== END 2022-03-31 01:35 | disposition home or self-care (01) ==
LOC: LBO 01:34
PROVIDERS: Internal Medicine; PCP Nurse Practitioner Family; Visit Provider Nurse Practitioner Family
DX: I50.9 Heart failure, unspecified (principal); Z51.81 Encounter for therapeutic drug level monitoring
CPT/HCPCS: 36415; 80048; 83540

== ENCOUNTER 2022-05-31 03:04 | Outpatient (CLI) | payer BC, SELFPAY ==
[2022-05-31] MEDS: Inhaler, Assist Device 1 EACH MC (09:31)
[2022-05-31] MEDS: Albuterol HFA 18 GM 200 PUFF INH IH (09:31)
--- NOTE | 2022-05-31 12:52 | PFT_ITS ---
Date of service: 05/31/22 Time of Service: 08:37 Pulmonary Function Test Result Requesting Provider Rafal Indications: Hypercapnic respiratory failure Interpretation Spirometry: There is moderate airflow limitation. There is a significant bronchodilator response. Lung Volumes: There is air trapping. Diffusion Capacity: Normal diffusion. Airway Pressure: Increased airways resistance. Impression Moderate airflow obstruction with a bronchodilator response and a normal diffusion. This could represent chronic bronchitis (COPD) and possible asthma- COPD overlap syndrome in the correct clinical setting. Clinical Correlation therefore is recommended.
--- NOTE | 2022-05-31 13:00 | W.PFT ---
Date of service: 05/31/22 Time of Service: 08:19 Pulmonary Function Test Result Requesting Provider Rafal Indications: Hypercapnic respiratory failure Note: 6 Minute Walk Test Distance walked: 1000 feet Desaturations: Desaturation from 95% to 82% at 2 minutes, 2LPM required to increased O2 saturation >88% Heart rate changes:85 bpm at rest to 98 at peak Recommendation: 2LPM suplemental O2 with exertion Dionne Lyles MD Pulmonary & Critical Care Medicine Clinical Correlation therefore is recommended.
== END 2022-05-31 03:05 | disposition home or self-care (01) ==
LOC: RT 03:04
PROVIDERS: PCP Nurse Practitioner Family; Visit Provider Student in an Organized Health Care Education/Training Program
DX: R94.2 Abnormal results of pulmonary function studies (principal); J96.92 Respiratory failure, unspecified with hypercapnia; Z87.891 Personal history of nicotine dependence
CPT/HCPCS: 94060; 94618; 94726; 94729

== ENCOUNTER 2022-05-31 03:07 | Outpatient (CLI) | payer BC, SELFPAY ==
[2022-05-31 08:11] LABS: BE 7 mmol/L (-2-3); HCO3 32 mmol/L (22-26); pCO2 50 mmHg (35-45); pH 7.41 (7.35-7.45); pO2 67 mmHg (80-105); sO2 93 % (95-98); tCO2 28 mmol/L (23-27)
[2022-05-31 08:13] LABS: Site Right Radial
[2022-05-31 08:14] LABS: FIO2 R/A %
== END 2022-05-31 03:08 | disposition home or self-care (01) ==
LOC: RT 03:07
PROVIDERS: PCP Nurse Practitioner Family; Visit Provider Student in an Organized Health Care Education/Training Program
DX: J96.92 Respiratory failure, unspecified with hypercapnia (principal)
CPT/HCPCS: 82805; 36600

== ENCOUNTER 2023-01-10 01:32 | Outpatient (CLI) | payer BC, SELFPAY ==
[2023-01-10 09:16] LABS: CREATININE 0.9 mg/dL (0.70-1.30); Estimated GFR 102.12 (mL/min/1.73m2)
--- NOTE | 2023-01-10 09:30 | DI.CT_ITS ---
Exam(s) CT THORAX ABD/PEL CTA EXAM: CT THORAX ABD/PEL CTA CLINICAL HISTORY: THORACIC AORTIC ANEURYSM WO RUPTURE, I71.20. TECHNIQUE: Imaging Protocol: Axial CT angiography was performed with multi-slice acquisition and m ulti-planar and/or 3D reconstructions. CONTRAST MATERIAL: Intravenous: Omnipaque 350 contrast volume:99 mL Oral: No COMPARISON: CT CT CHEST PE CTA from 03/18/[address] CHEST LUNG CANCER SCREEN from 06/21/2022 FINDINGS: CHEST: Tracheobronchial tree: Patent where visualized. Pulmonary parenchyma: No consolidation or dominant measurable mass. No architectural distortion. Pulmonary Arteries: Due to the bolus timing pulmonary arteries are inadequately evaluated for pulmona ry emboli evaluation. No large central pulmonary embolus is seen. Mediastinum and Yudelka: No dominant adenopathy or fluid collection. The esophagus is unremarkable. Visualized thyroid: Unremarkable. Pleura: No effusion or pneumothorax. Heart: The heart is not dilated. Coronary artery calcification or stent is present. No pericardial e ffusion. Aorta: The ascending thoracic aorta measures 4 x 4 cm. Atherosclerosis is present. No evidence of d issection. Soft Tissues: There is gynecomastia present. Bones: Within normal limits for the patient's age. ABDOMEN AND PELVIS: Abdomen: Celiac axis/mesenteric arteries: No evidence of occlusion or significant stenosis. Mild atherosclero sis at the origins of both the celiac axis and the superior mesenteric artery. Renal Arteries: No evidence of occlusion or significant stenosis. There is a single renal artery per fusing each kidney. There is atherosclerosis at the origins of both renal arteries. Aorta: No evidence of occlusion or significant stenosis. No aneurysm or dissection. Atherosclerosi s. Pelvis: Iliac Arteries: No evidence of occlusion or significant stenosis. There is atherosclerosis present. Common Femoral Arteries: No evidence of occlusion or significant stenosis. There is atherosclerosis present. ABDOMEN: Liver: Normal density. No measurable mass. The liver measures 20.4 cm long. Gallbladder and Biliary Tract: No radiodense calculus or dilation. Pancreas: Normal density, no abnormal calcifications or inflammatory process. Spleen: Normal. Adrenals: No masses seen. Kidneys: Normal size, contour and axis. No radiodense stones or obstructive uropathy. There are 2 sma ll less than 1 cm hypodensities in the kidneys. These likely reflect small cysts. No follow-up is r ecommended. Bowel: No obstruction or bowel wall thickening. Appendix is unremarkable. Peritoneal Cavity: No ascites, collection or mesenteric inflammatory response. No free air. Lymph Nodes: Within normal limits. Bones: Within normal limits for the patient's age. The patient has a left total hip replacement. Fi ndings most suggestive of avascular necrosis are seen in the right femoral head. Soft Tissues: There is a small fat containing anterior abdominal wall hernia. PELVIS: Bladder: Symmetric distention, no gross wall thickening. Reproductive Organs: Unremarkable as visualized. Lymph Nodes: Within normal limits. Bones: Within normal limits for the patient's age. IMPRESSION: 1. No change in size of the ascending thoracic aorta which measures 4 cm. 2. No evidence of abdominal aortic aneurysm or dissection. 3. Findings suggestive of AVN of the right femoral head. RADIATION DOSE DELIVERED: 1,479.22mGy.cm Total DLP DATA REPOSITORY: All CT scans at this facility are submitted to the National Radiology Data Registry (NRDR) Dose Index Registry (DIR) with the [employer] (ACR). RADIATION OPTIMIZATION: All CT scans at this facility use at least one of these dose optimization te chniques: automated exposure control; mA and/or kV adjustment per patient size (includes targeted exa ms where dose is matched to clinical indication); or iterative reconstruction.
[2023-01-10] MEDS: Omnipaque 350 MG/ML 500 ML BTL-Imaging package IJ (09:33)
== END 2023-01-10 01:52 ==
LOC: DI 01:32
PROVIDERS: PCP Nurse Practitioner Family; Visit Provider Nurse Practitioner Family
DX: Z96.642 Presence of left artificial hip joint; M87.051 Idiopathic aseptic necrosis of right femur
CPT/HCPCS: 71275; 74174; 82565

== ENCOUNTER 2023-05-02 16:05 | Outpatient (REF) | payer BC, SELFPAY ==
[2023-05-02 17:17] LABS: HCT 46.1 % (40.0-50.0); HGB 16.2 g/dL (13.5-17.5); MCH 37.9 pg (27.0-33.0); MCHC 35.1 % (32.0-36.0); MCV 108 fL (80-95); MPV 10.8 fL (8.0-11.0); Platelet Count 205 10^3/uL (130-400); RBC 4.27 10^6/uL (4.36-5.78); RDW 12.3 % (11.8-14.1); RDW-SD 49.4 fL; WBC 7.93 10^3/uL (4.4-10.8)
[2023-05-02 18:54] LABS: ALT 80 U/L (16-63); AST 64 U/L (15-37); Albumin 3.9 g/dL (3.4-5.0); Alkaline Phosphatase 129 U/L (46-116); Anion Gap 7.9 mmol/L (3-11); BUN 14 mg/dL (7-18); Bilirubin, Total 0.6 mg/dL (0.2-1.0); CO2 31.1 mmol/L (21.0-32.0); CREATININE 0.8 mg/dL (0.70-1.30); Calcium 9.4 mg/dL (8.5-10.1); Calculated LDL 129 mg/dL (<100); Chloride 101 mmol/L (98-107); Cholesterol 207 mg/dL (<200); Estimated GFR 105.82 (mL/min/1.73m2); Glucose 112 mg/dL (74-106); HDL Cholesterol 48 mg/dL (40-60); Potassium 4.2 mmol/L (3.5-5.1); Sodium 140 mmol/L (136-145); Total Protein 7.9 g/dL (6.4-8.2); Triglyceride 151 mg/dL (<150)
[2023-05-02 19:16] LABS: Ferritin 1905 ng/mL (26-388)
[2023-05-02 20:03] LABS: Iron 227 ug/dL (65-175); Total Iron Binding Capacity 225 ug/dL (250-450); Transferrin Sat 101 % (20-55)
[2023-05-03 18:26] LABS: PSA, Screening 0.6 ng/mL (<=3.5)
== END 2023-05-02 16:06 | disposition home or self-care (01) ==
LOC: NCHCN 16:05
PROVIDERS: PCP Nurse Practitioner Family; Visit Provider Nurse Practitioner Family
DX: I50.9 Heart failure, unspecified (principal); I10 Essential (primary) hypertension; Z00.00 Encounter for general adult medical examination without abnormal findings; I71.20 Thoracic aortic aneurysm, without rupture, unspecified
CPT/HCPCS: 80053; 80061; 84153; 85027; 82728; 83540; 83550

== ENCOUNTER → 2023-07-20 01:33 | Outpatient (CLI) | payer BC, SELFPAY ==
--- NOTE | 2023-07-20 10:27 | DI.US_ITS ---
APPROVED REPORT EXAM: Comprehensive 2D, Doppler, and color-flow Echocardiogram Patient Location: Out-Patient Healthcare Economics Manager: Sandi Regalado RDCS (AE) Indications: Hemochromatosis, Congestive heart failure Other Information Study Quality: Fair. Technically limited study due to body habitus. Conclusion The left ventricle appears grossly normal in size, wall thickness and systolic function. Diastolic f unction is consistent with impaired relaxation. Ejection fraction is 55 to 60% Right ventricle appears grossly normal in size and systolic function Both atria are normal in size Aortic valve is sclerotic and trileaflet, no stenosis or regurgitation Within the limits of the study, no additional structural or hemodynamically significant valvular dise ase is identified Wall motion Left Ventricle Technically limited parasternal imaging. The overall left ventricular systolic function appears gay l. Regional wall motion is not well visualized but grossly normal. Transmitral Doppler flow pattern s uggests impaired LV relaxation. Right Ventricle Right ventricle is grossly normal in size. Right ventricular systolic function is grossly normal. Atria The left atrium size is normal. The right atrium size is normal. Aortic Valve The Aortic valve is sclerotic. Aortic valve is trileaflet. There is no aortic valvular stenosis. No a ortic regurgitation is present. Mitral Valve The mitral valve is normal in structure. No evidence of mitral valve stenosis. Trace mitral regurgita tion. Tricuspid Valve The tricuspid valve is normal in structure. There is no tricuspid valve stenosis. Trace tricuspid reg urgitation. Unable to assess PA pressure. Pulmonic Valve Pulmonic valve is not well visualized. There is no pulmonic valvular stenosis. There is no pulmonic v alvular regurgitation. Great Vessels The aortic root is normal in size. Ascending aorta is not well visualized. The IVC was not well visua lized. Pericardium Technically limited subcostal imaging. 2D Dimensions Ao Root d 3.35 cm M: 3.1 - 3.7 LV Diastology MV E' medial 0.077 (>0.07 m/s) MV E Vmax 0.57 (0.4-1.3 m/s) MV E/E' MED 7.38 (<14) MV A Vmax 0.85 (0.4-1.3 m/s) MV E' lateral 0.067 (>0.1 m/s) E/A Ratio 0.7 MV E/E' LAT 8.57 (<14) MV E' Average 0.072 m/s MV E/E'(average) 7.93 Aortic Valve AoV Vmax 1.33 m/s LVOT Vmax 1.00 m/s AoV Peak Grad 7.1 mmHg LVOT Peak Grad 4.0 mmHg AoV Area (Vmax) 2.70 cm2 LVOT VTI 0.176 m AoV VTI 0.254 m LVOT Mean Grad 2.6 mmHg AoV Mean Pepe. 0.95 m/s LVOT SV 63.34 mL AoV Mean Grad 4.1 mmHg LVOT Diam s 2.10 cm AoV Area (VTI) 2.49 cm2 Velocity Ratio 0.75 Mitral Valve MV DT 359 (160-240 msec) MV Vmax TIPS 1.00 m/s MV Mean Grad 1.1 (<2mmHg) MV VTI 0.262 m Pulmonary Valve PV Vmax 1.05 (0.5-1.5 m/s) RVOT Vmax 0.86 m/s PV Peak Grad 4.4 mmHg RVOT Peak Gr. 2.9 mmHg PV Mean Pepe 0.81 m/s RVOT VTI 0.150 m PV Mean Grad 2.9 mmHg RVOT Mean Gr. 1.2 mmHg Tricuspid Valve TV S' 0.16 m/s
== END ==
PROVIDERS: PCP Nurse Practitioner Family; Visit Provider Nurse Practitioner Family
DX: E83.119 Hemochromatosis, unspecified (principal); I50.22 Chronic systolic (congestive) heart failure
CPT/HCPCS: 93306

== ENCOUNTER 2023-09-01 11:18 | Outpatient (CLI) | payer BC, SELFPAY ==
--- NOTE | 2023-09-01 11:00 | DI.RAD_ITS ---
Exam(s) XR HIP RT COMPLETE AP PELVIS EXAM: XR HIP RT COMPLETE AP PELVIS CLINICAL HISTORY: hip pain. TECHNIQUE: 2D digital imaging was performed of the right hip. Two images were obtained. AP pelvis a nd lateral right hip views were obtained. COMPARISON: CR XR HIP LT COMPLETE AP PELVIS from 06/25/2020 CR XR HIP LT AP LAT ONLY from 06/14/2021 FINDINGS: BONES: No acute fracture is present. No bony destructive lesion is seen. JOINTS: No dislocation present. There is a left total hip replacement again seen. In the right hip t here is again seen a lucency on the articular surface of the femoral head suggesting avascular necros is. Moderate degenerative changes are seen in the right hip with joint space narrowing. Osteophytes are seen at the acetabulum and femoral head. SOFT TISSUE: Normal. IMPRESSION: 1. Moderate degenerative changes of the right hip. 2. 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 DATA REPOSITORY: RADIATION DOSE DELIVERED:
== END 2023-09-01 11:19 | disposition home or self-care (01) ==
LOC: DIORS 11:18
PROVIDERS: PCP Nurse Practitioner Family; Referring Provider Nurse Practitioner Family; Visit Provider Physician Assistant
DX: M87.051 Idiopathic aseptic necrosis of right femur (principal)
CPT/HCPCS: 73502

== ENCOUNTER 2023-09-08 01:18 | Outpatient (CLI) | payer BC, SELFPAY ==
[2023-09-08 09:10] LABS: HCT 45.9 % (40.0-50.0); MCH 38.1 pg (27.0-33.0); MCHC 34.9 % (32.0-36.0); MCV 109 fL (80-95); MPV 9.7 fL (8.0-11.0); Platelet Count 174 10^3/uL (130-400); RDW 12.4 % (11.8-14.1); RDW-SD 50.5 fL; WBC 8.15 10^3/uL (4.4-10.8)
[2023-09-08 09:19] LABS: Anion Gap 6.6 mmol/L (3-11); BUN 9 mg/dL (7-18); CO2 33.4 mmol/L (21.0-32.0); CREATININE 0.9 mg/dL (0.70-1.30); Calcium 9.3 mg/dL (8.5-10.1); Chloride 98 mmol/L (98-107); Estimated GFR 101.49 (mL/min/1.73m2); Glucose 158 mg/dL (74-106); Potassium 3.8 mmol/L (3.5-5.1); Sodium 138 mmol/L (136-145)
== END 2023-09-08 01:19 | disposition home or self-care (01) ==
LOC: LBO 01:20
PROVIDERS: PCP Nurse Practitioner Family; Visit Provider Student in an Organized Health Care Education/Training Program
DX: M87.051 Idiopathic aseptic necrosis of right femur (principal); Z01.818 Encounter for other preprocedural examination
CPT/HCPCS: 36415; 80048; 85027

== ENCOUNTER 2023-09-20 06:04 | Day surgery (SDC) | payer BC, SELFPAY ==
[2023-09-20] VITALS (9 sets, daily range): BP systolic 90–146; BP diastolic 53–78; PULSE 64–76; RESP 16–24; TEMP 36.2–36.6; O2SAT 91–97; BMI 42.3
[2023-09-20] MEDS: Acetaminophen 500 MG TAB 1000 MG PO (06:42)
[2023-09-20] MEDS: Celecoxib 200 MG CAP 400 MG PO (06:42)
[2023-09-20] MEDS: Lactated Ringers 1,000 ML 80 ML IV (06:43)
--- NOTE | 2023-09-20 07:00 | W.ANESPRE ---
General Info Date of Service Date Performed: 09/20/23 Height: 6 ft 3 in Weight: 153.5 kg Body Mass Index (BMI): 42.3 Surgical Procedure: Operation Date: 09/20/23 07:50 Proposed Procedure Side Surgeon p Hip Total Hip Anterior, ACTIS Right Harvey Camara MD Meds Allergies and Home Medications Allergies Allergy/AdvReac Type Severity Reaction Status Date / Time grass pollen-perennial rye, Allergy Mild Other (See Verified 09/20/23 06:09 standar Comment) lisinopril AdvReac Severe made me Verified 09/20/23 06:09 feel lousy Home Medication Medication Instructions Recorded amlodipine 10 mg tablet 10 mg PO DAILY #30 tabs 04/28/19 multivitamin (Multiple Vitamins 1 tab PO DAILY #30 tabs 04/28/19 tablet) aspirin 81 mg tablet,delayed 81 mg PO DAILY 11/24/20 release (Adult Aspirin Regimen) losartan 25 mg tablet 25 mg PO DAILY 11/24/20 Inhaler, Assist Devices [Pocket 1 ea miscellaneous DIRECTED ##0 03/25/22 Chamber] empagliflozin 10 mg tablet 10 mg PO QAM #30 tabs 03/25/22 (Jardiance) metoprolol succinate 200 mg 200 mg PO DAILY #30 tabs 03/25/22 tablet,extended release 24 hr (Toprol XL) spironolactone 25 mg tablet 25 mg PO DAILY #30 tabs 03/25/22 torsemide 20 mg tablet 20 mg PO DAILY #30 tabs 03/25/22 fluticasone fur. 100 mcg-umeclid See Rx Instructions .Route 08/23/23 62.5 mcg-vilant 25 mcg .COMPLEX #360 blisters inhalat.powder (Trelegy Ellipta) Current Visit Medications: Current Medications Generic Name Dose Route Start Last Admin Trade Name Freq PRN Reason Stop Dose Admin Acetaminophen 1,000 mg 09/20/23 06:00 09/20/23 06:42 Acetaminophen 500 Mg Tab PO 10/20/23 05:59 1,000 mg PREOP NOEMI Administration Celecoxib 400 mg 09/20/23 06:00 09/20/23 06:42 Celecoxib 200 Mg Cap PO 10/20/23 05:59 400 mg PREOP NOEMI Administration Tranexamic Acid 1,000 mg/ 60 mls @ 360 mls/hr 09/20/23 06:00 Sodium Chloride IV 10/20/23 05:59 PREOP NOEMI Ringer's Solution 1,000 mls @ 80 mls/hr 09/20/23 06:00 09/20/23 06:43 IV 10/19/23 23:59 80 mls/hr INFUSION NOEMI Administration Cefazolin Sodium 3,000 mg/ 100 mls @ 200 mls/hr 09/20/23 06:00 Sodium Chloride IVPB 09/20/23 23:59 PREOP NOEMI IV Miscellaneous Supplies 1 each 09/20/23 06:00 Iv Access IV 10/19/23 23:59 DIRECTED NOEMI Sodium Chloride 0 ml 09/20/23 06:00 Normal Saline Flush 10 Ml Syr IV 10/19/23 23:59 PRN PRN Sodium Chloride 0 ml 09/20/23 06:00 Normal Saline 10 Ml Vial IJ 10/19/23 23:59 DIRECTED PRN Sterile Water 0 ml 09/20/23 06:00 Water,Injection,Sterile 10 Ml Vial IJ 10/19/23 23:59 DIRECTED PRN PFSH Active Problems Active Problems: Problem Status Onset Code Avascular necrosis of right femoral head M87.051 Personal history of nicotine dependence Z87.891 Hypercapnic respiratory failure J96.92 COPD (chronic obstructive pulmonary disease) J44.9 Medication monitoring encounter Z51.81 Ascites R18.8 Morbid obesity E66.01 CHF (congestive heart failure) I50.9 Hemochromatosis E83.119 Delayed wound healing T14.8XXD Sebaceous cyst L72.3 Status post total hip replacement, left 06/10/20 Z96.642 Degenerative joint disease of left hip M16.12 Colon polyp K63.5 Headache R51 DVT prophylaxis Z29.9 Groin strain S76.219A Obesity E66.9 Hemochromatosis E83.119 Degenerative joint disease of right hip M16.11 Degenerative joint disease of left hip M16.12 Alcohol dependence F10.20 Tobacco dependence F17.200 HTN (hypertension) I10 Surgical History Surgical History History of removal of cyst (~12/22/20) upper back, Stoiber, drain placed History of tonsillectomy Hx of wisdom tooth extraction Tobacco Smoking/Tobacco Use Status: Current every day Tobacco Type: cigarettes Smoking packs per day: 1 Smoking cigarettes per day: 20.0 Years smoked: 30 Smoking pack-years: 30.00 Alcohol Alcohol Intake: current Alcohol intake frequency: 3 or more drinks per day Alcohol type: hard liquor Substance Use Substance use: Rarely Substance use type: marijuana Vital Signs and Lab Results Vital Signs Most Recent Vital Signs in EMR: Most Recent Vital Signs Temp Pulse Resp BP Pulse Ox 36.2 C L 76 16 116/65 93 09/20/23 06:15 09/20/23 06:15 09/20/23 06:15 09/20/23 06:15 09/20/23 06:15 Lab Results Blood Type / Crossmatch: No Data to Display Complete Blood Count: White Blood Count 8.15 10^3/uL (4.4-10.8) 09/08/23 09:05 Red Blood Count 4.20 10^6/uL (4.36-5.78) L 09/08/23 09:05 Hemoglobin 16.0 g/dL (13.5-17.5) 09/08/23 09:05 Hematocrit 45.9 % (40.0-50.0) 09/08/23 09:05 Platelet Count 174 10^3/uL (130-400) 09/08/23 09:05 Complete Metabolic Panel: Sodium 138 mmol/L (136-145) 09/08/23 09:05 Potassium 3.8 mmol/L (3.5-5.1) 09/08/23 09:05 Chloride 98 mmol/L (98-107) 09/08/23 09:05 Carbon Dioxide 33.4 mmol/L (21.0-32.0) H 09/08/23 09:05 BUN 9 mg/dL (7-18) 09/08/23 09:05 Creatinine 0.9 mg/dL (0.70-1.30) 09/08/23 09:05 Est GFR (CKD-EPI 2020) 101.49 (mL/min/1.73m2) 09/08/23 09:05 Calcium 9.3 mg/dL (8.5-10.1) 09/08/23 09:05 Glucose 158 mg/dL (74-106) H 09/08/23 09:05 Liver Function Panel: No Data to Display Coagulation Panel: No Data to Display Cardiac Panel: No Data to Display Arterial Blood Gas: No Data to Display Venous Blood Gas: No Data to Display Pancreas Panel: No Data to Display Thyroid Panel: No Data to Display Infectious Disease: No Data to Display Blood Cultures: No Data to Display Toxicology Panel: No Data to Display Imaging and Studies Imaging and Studies Study information below may be from another EMR and interpreted by another provider. Please see original notes in EMR for more complete details. EKG Summary: DATE/TIME OF SERVICE: 03/18/22 0725 : 1970 PERFORMING LOCATION: ICU APPROVED REPORT Exam: Resting ECG Reason for Exam: chest pain Patient Location: E HR:85 bpm ECG Measurements Heart Rate 85 AXIS OK 198 P 55 QRSd 91 QRS 10 QT 370 T62 QTc 441 Conclusion Sinus rhythm...normal P axis, V-rate 60- 99 Atrial premature complexes...SV complexes w/ short R-R intvls Probable left atrial enlargement...P >50mS, <-0.10mV V1 Echocardiogram Summary: Date of Exam: 07/20/23 Sex: M Admission Date: 07/20/23 : 1970 Age: 52 APPROVED REPORT EXAM: Comprehensive 2D, Doppler, and color-flow Echocardiogram Patient Location: Out-Patient Operations Manager Station: Sandi Regalado RDCS ([place]) Indications: Hemochromatosis, Congestive heart failure Other Information Study Quality: Fair. Technically limited study due to body habitus. Conclusion The left ventricle appears grossly normal in size, wall thickness and systolic function. Diastolic function is consistent with impaired relaxation. Ejection fraction is 55 to 60% Right ventricle appears grossly normal in size and systolic function Both atria are normal in size Aortic valve is sclerotic and trileaflet, no stenosis or regurgitation Within the limits of the study, no additional structural or hemodynamically significant valvular disease is identified Pulmonary Function Summary: Date of service: 05/31/22 Time of Service: 08:19 Pulmonary Function Test Result Requesting Provider Rafal Indications: Hypercapnic respiratory failure Note: 6 Minute Walk Test Distance walked: 1000 feet Desaturations: Desaturation from 95% to 82% at 2 minutes, 2LPM required to increased O2 saturation >88% Heart rate changes:85 bpm at rest to 98 at peak Recommendation: 2LPM suplemental O2 with exertion Anesthesia Assessment and Plan Anesthesia History Personal History: No History of Anesthesia Complications Family History: No Family History of Anesthesia Complications Exercise Tolerance Exercise Tolerance: Metabolic Equivalents>4 Pertinent Negatives Pertinent Negatives: No Symptoms of GERD Cardiac & Pulmonary Exam Cardiac Exam: Normal S1/S2 Heart Sounds Pulmonary Exam: Clear Bilateral Breath Sounds Implantable Cardiac Device Does patient have a Pacemaker or an ICD?: No Airway Exam Known Difficult Airway: No Mallampati Class: 2 Mouth Opening: Normal (> 3cm) Thyromental Distance: Greater than 3 cm Neck Range of Motion: Full ROM Neck Circumference: Normal Teeth Condition: Normal Dentition ASA Classification ASA Score: ASA 4 Emergency Case?: No NPO Status NPO Status: NPO Clears >2 hours, Solids >8 hours Anesthesia Plan Resuscitation Status: Full Code Anesthesia Technique: General Anesthesia Airway Planned: LMA Monitors Used: Standard Monitors
--- NOTE | 2023-09-20 07:17 | PDOC.DSDIS_ITS ---
Date of service: 09/20/23 Time of Service: 07:17 Discharge Plan Disposition Patient Disposition: Home Condition: Good Discharge Details Reason For Visit: R THR Attending Provider: Harvey Camara Primary Care Provider: Suze Nair Home Meds and New Rx's Prescriptions: New acetaminophen 500 mg tablet 1,000 mg PO TID Qty: 90 3RF aspirin 81 mg tablet,delayed release (DR/EC) 81 mg PO BID Qty: 60 0RF celecoxib 200 mg capsule 200 mg PO BID Qty: 60 0RF pantoprazole 40 mg tablet,delayed release (DR/EC) 40 mg PO DAILY Qty: 30 0RF dexamethasone 4 mg tablet 4 mg PO DAILY Qty: 2 0RF oxycodone 5 mg tablet 5 mg PO Q4H MDD 6 tabs PRN (Reason: pain) Qty: 20 0RF Continued losartan 25 mg tablet 25 mg PO DAILY Trelegy Ellipta 100-62.5-25 mcg blister with device See Rx Instructions .ROUTE .COMPLEX Qty: 360 12RF Dose Instruction: USE 1 INHALATION DAILY Rx Instructions: USE 1 INHALATION DAILY multivitamin [Multiple Vitamins] Tablet 1 tab PO DAILY Qty: 30 0RF amlodipine 10 mg Tablet 10 mg PO DAILY Qty: 30 0RF spironolactone 25 mg Tablet 25 mg PO DAILY Qty: 30 0RF Jardiance 10 mg Tablet 10 mg PO QAM Qty: 30 0RF Inhaler, Assist Devices [Pocket Chamber] 1 ea miscellaneous DIRECTED Qty: 0 0RF metoprolol succinate [Toprol XL] 200 mg tablet extended release 24 hr 200 mg PO DAILY Qty: 30 0RF torsemide 20 mg tablet 20 mg PO DAILY Qty: 30 0RF Discontinued aspirin [Adult Aspirin Regimen] 81 mg tablet,delayed release (DR/EC) 81 mg PO DAILY Discharge Instructions Additional Instructions: Total Hip Discharge Instructions Activity: The most important activity is to walk. You should try to take short walks a few times a day. You have no restrictions on movement or positioning, but do not try to force what you do. You will find some stiffness and weakness with hip flexion (lifting your knee). Do not try to strengthen this too early, continue to practice walking and stairs and this will come. - Outpatient physical therapy can be helpful to help return you to a normal gait and improve your flexibility and strength. This can start around 2 weeks. For some patients, it?s not necessary. Usually this is determined at the time of discharge or at the first post-operative visit. - You should wear the MONTY hose on both legs for 2 weeks. Dressing: Keep the surgical dressing in place for at least one week. After the first week it may be removed and replace with light gauze and tape or nothing. It may get wet after 3 days but avoid soaking the dressing. If it gets wet, just lightly pat dry. It is important to always keep some gauze between skin folds, especially when you are sitting. Spend some time with the wound exposed when you are lying flat as the incision does wrinkle onto itself. Medications: - You should take Tylenol and an anti-inflammatory Celebrex as your primary pain control medications. If the Celebrex is too expensive or not covered, please call the office for another alternative (Advil/Ibuprofen or Naproxen/Aleve). - You have been prescribed a stronger pain medication Oxycodone for breakthrough pain, take as needed as prescribed. - You have also been prescribed a stomach acid reduction agent Pantoprozole to help reduce stomach acid and reflux. - You have also been prescribed Decadron to help with post-operative nausea and pain. You will take this for two days starting tomorrow. - You will be taking Aspirin 81mg twice a day for DVT prevention unless instructed otherwise. - If you have constipation you should take Colace or Miralax (both kofo-qyn-kitoeol). It takes most people 3-4 days to have a bowel movement. Follow-up: 2 weeks If you have any acute concerns or questions, please do not hesitate to contact the office at [phone]. You may contact Dr. Camara with any questions after hours through the hospital at [phone] or on his cell phone at [phone]. Referrals: Harvey Camara MD [ [facility] STAFF PHYSICIAN] - Equipment/Supplies: Walker Activity:: Activity as Tolerated Shower/Bathe:: 72 hours Diet:: As Tolerated DS: Diagnosis Discharge Diagnosis (1) Avascular necrosis of right femoral head: Status: Acute
[2023-09-20] MEDS: ceFAZolin 3,000 MG in Normal Saline 100 ML 200 MG IVPB (07:46)
--- NOTE | 2023-09-20 10:25 | DI.RAD_ITS ---
Exam(s) XR HIP RT IN OR EXAM: XR HIP RT IN OR CLINICAL HISTORY: Avascular necrosis of right femoral head: TECHNIQUE: 2D and realtime digital imaging was performed. CONTRAST MATERIAL: Refer to procedure report. COMPARISON: CR XR HIP RT COMPLETE AP PELVIS from 09/01/2023 FINDINGS: Fluoroscopy was provided for Dr. Camara during the performance of a right total hip replacement. Please refer to the procedure report for complete details. Ka,r=32.4 mGy IMPRESSION: RADIATION DOSE DELIVERED:
[2023-09-20] MEDS: fentaNYL 100 MCG/2 ML VIAL IVP (11:28)
--- NOTE | 2023-09-20 13:00 | PT.INIE ---
PT Notes Visit Reasons: R THR Physical Therapy Day Surgery Initial Evaluation Date: 09/20/2023 Referring Doctor: SAVANAH Turner PT Orders: PT CONSULT: S/P Ortho Surgery Precautions: WBAT on the R LE with AD. Patient Profile/Admitting Diagnosis: Tremaine is a 53-year-old male with avascular necrosis of the right femoral head and is status post right total hip arthroplasty on postoperative day 0. PMHX: All Active Problems (Updated 04/13/23 @ 09:26 by SAVANAH Flores) Avascular necrosis of right femoral head (Acute) Personal history of nicotine dependence (Acute) Hypercapnic respiratory failure (Acute) COPD (chronic obstructive pulmonary disease) (Chronic) Medication monitoring encounter (Acute) Ascites (Acute) Morbid obesity (Chronic) CHF (congestive heart failure) (Chronic) Hemochromatosis (Chronic) Delayed wound healing (Acute) Sebaceous cyst (Acute) Status post total hip replacement, left (Acute 06/10/20) Degenerative joint disease of left hip (Acute) Colon polyp (Acute) Headache (Acute) DVT prophylaxis (Acute) Groin strain (Acute) Obesity (Chronic) Hemochromatosis (Acute) Degenerative joint disease of right hip (Acute) pt. denies having this on right R hip Degenerative joint disease of left hip (Acute) Alcohol dependence (Acute) Tobacco dependence (Acute) HTN (hypertension) (Chronic) Surgical History History of removal of cyst (~12/22/20) upper back, Stoiber, drain placed History of tonsillectomy Hx of wisdom tooth extraction Social History/Home Situation: Lives with in a private home with a ramp to enter. Independent with all aspect of ADLs prior to surgery although has had increasing difficulty due to worsening R hip pain. Equipment Owned/DME: None, donated the walker that was given to him 4 years ago. Subjective: Reports 2-3/10 pain in the R hip at rest and with movement. Denied headache, chest pain, and lightheadedness. Per Nurses Adrienne and Albin, patient had general anesthesia. Objective: General Observation: Mepilex Ag over surgical incision. TEDS to B legs. Mental Status: A and O x 4 Pain: As above ROM: Right Lower Extremity: Hip flexion WFL. Hip abduction WFL. Knee flexion WFL. Ankle dorsiflexion WFL. Ankle plantarflexion WFL. Left Lower Extremity: Hip flexion WFL. Hip abduction WFL. Knee flexion WFL. Ankle dorsiflexion WFL. Ankle plantarflexion WFL. Strength: Right Lower Extremity: Hip flexors 4-/5. Hip abductors 4-/5. Knee flexors 5/5. Knee extensors 4-/5. Ankle dorsiflexors 5/5. Ankle plantarflexors 5/5. Left Lower Extremity:Hip flexors 5/5. Hip abductors 5/5. Knee flexors 5/5. Knee extensors 5/5. Ankle dorsiflexors 5/5. Ankle plantarflexors 5/5. Sensation: Inatact as to pain and light pressure in B LE Bed Mobility/Transfers: Minimal cueing provided for use of B hands as needed for support, movement sequence, AD management, and posture to reduce fall risk and minimize pain report Supine to sit stand by assist Sit to stand stand by assist Stand to sit stand by assist Bed to chair stand by assist Gait: 150 feet, SBA with bariatric front-wheeled walker. Minimal cueing provided for movement sequence, AD management, and posture to reduce fall risk and minimize pain report. Reciprocal swing through gait pattern. Stairs: Up and down 3 x 4-inch steps and 2 x 6-inch steps while holding onto B rails with moderate cueing provided for movement sequence, AD management, and posture to reduce fall risk and minimize pain report. Balance: Static Sitting: Normal Dynamic Sitting: Normal Static Standing: Fair Dynamic Standing: Fair Special Tests: Mobility Limitations Standardized Measure [facility]-PAC 6 clicks Basic Mobility Inpatient Short Form: Raw Score: 23 CMS Score: 11% deficit Informed Consent/Education: Patient instructed in purpose of PT consult. Packet containing HIEU exercise protocol has been given to patient. Education and training on initial set of exercises that can be done at home have been completed with patient. Trained patient with correct performance of exercises below to maximize motor control, joint flexibility, soft tissue extensibility of the [] hip musculature to facilitate return to independent functional mobility performance. Access Code: [email or web address] URL: [email or web address] Date: 09/20/2023 Prepared by: Nicol Quinteros Exercises - Gluteal Sets - 1 x daily - 7 x weekly - 1 sets - 10 reps - 5 hold - Supine Heel Slide - 1 x daily - 7 x weekly - 1 sets - 10 reps - 5 hold - Supine Ankle Pumps - 1 x daily - 7 x weekly - 1 sets - 10 reps - 5 hold - Seated March - 1 x daily - 7 x weekly - 1 sets - 10 reps - 5 hold - Seated Long Arc Quad - 1 x daily - 7 x weekly - 1 sets - 10 reps - 5 hold Assessment: Patient requires the use of a front wheeled walker for all mobility ADL performance to maximize independence and reduce fall risk. Patient presents with clinical signs and symptoms consistent with current/admitting diagnoses that have resulted to mobility limitations, gait instability, generalized weakness, and impairment of motor control as demonstrated by the following impairment level findings: 1. Decreased strength to right hip major muscle groups 2. Impaired standing balance Impairments are contributing to the following functional limitations: 1. Inability to safely ambulate without assistive device 2. Increase completion time for mobility ADL performance 3. Increased fall risk Patient is assessed as a 49349 moderate complexity based on the following: History: 53-year-old male with impairment level findings, functional limitations, and past medical history as indicated above Examination: Demonstrable impairment in strength, balance, and mobility level with underlying impairments and functional limitations as documented above Presentation: Evolving Decision Makin moderate complexity Goals: N/A. PT evaluation and 1-2 treatment sessions only for functional mobility training using recommended AD and for HEP instruction. Plan of Care/Treatment Plan: N/A. PT evaluation and 1-2 treatment session only for functional mobility training using recommended AD and for HEP instruction. DISCHARGE RECOMMENDATIONS: Home when medically cleared by orthopedic surgeon. Recommend outpatient PT services in order to optimize functional mobility outcomes and facilitate return to independent community ambulation without an assistive device. TREATMENT CODE/TIME: 64859 x 23 minutes for 1 unit beginning at 13:00 PM. Thank you for the opportunity to participate in the care of this patient. Please sign an return this page within 30 days if you agree with the above POC. Thank you! Physician Signature Date [facility] Nicol Quinteros PT, DPT, CLT [facility] [place], [place]
--- NOTE | 2023-09-20 13:43 | W.ANESPOSTOP ---
Postoperative Evaluation Date, Time and Location Date Performed: 09/20/23 Time Performed: 13:43 Patient Location: Day Surgery Unit Vital Signs Most Recent Imported Vital Signs: Most Recent Vital Signs Temp Pulse Resp BP Pulse Ox 36.2 C L 69 16 146/77 H 93 09/20/23 12:31 09/20/23 12:31 09/20/23 12:31 09/20/23 12:31 09/20/23 12:31 Pain Score Most Recent Pain Score: Most Recent Pain Score Pain Level 0 09/20/23 12:31 Assessment Mental Status: Awake (Alert & Oriented to Patient Baseline) Airway and Respiratory Function: Patent airway with normal (patient baseline) respiratory exam Cardiovascular Function: Hemodynamically Stable Hydration Status: Adequately Hydrated Nausea & Vomiting: No Nausea or Vomiting Pain: Pt. Denies Any Pain Peripheral Nerve Block: Patient did not receive a nerve block
--- NOTE | 2023-09-20 17:03 | ROE_ITS ---
Date of service: 09/20/23 Time of Service: 08:00 Operative Note Operative Note DATE OF PROCEDURE: 09/20/23 PRE-OP DIAGNOSIS: Right Hip Osteoarthritis POST-OP DIAGNOSIS: same PROCEDURE: Right Anterior Total Hip Arthroplasty with Intraoperative Navigation SURGEON: Harvey [facility] DIRECTOR: Jose Marina ANESTHESIA TYPE: Spinal Refer to Anesthesia Record ESTIMATED BLOOD LOSS: 800 PATHOLOGY: none sent TOURNIQUET TIME: 0 COMPLICATIONS: None Patient was transported to: PACU Patient's condition: stable Implants: 1. Depuy Tarrs Acetabular Component, 58mm 2. Depuy Acetabular Liner, 58x36 +4mm 3. Depuy Actis Standard Collared Femoral Stem, Size 8 4. Depuy Altrx Ceramic Femoral Head, Size 36+8.5mm Indications: I have seen Tremaine in clinic for symptoms of hip arthritis and AVN, confirmed with radiographic findings. He has exhausted nonoperative methods and was having significant limitations in daily function and desired better function and less pain. I discussed the technical details of a hip replacement. I explained the risks of the procedure to include, but not limited to, bleeding, infection, pain, stiffness, fracture, damage to nerves and vessels, damage to muscles and tendons, loosening, instability, leg length inequality, need for repeat procedure, blood clot and cardiopulmonary demise. Despite these risks, Tremaine elected to proceed. Findings: There was significant synovitis throughout the right hip. There is notable thinning of the cartilage surface of the right hip with softening of the cartilage and some lamination. Hip replacement was quite challenging given his overall size. He had dense muscle tissues throughout the hip which made access challenging. Procedure Description: Tremaine was greeted in the preoperative holding area where the correct side was identified and marked. The consent was reviewed with the patient and signed. The history and physical was updated. All questions were answered. Tremaine was taken back to the operating room. A general anesthetic was then administered. The feet were wrapped with cast padding and Coban and then placed into the boot liners and then into the boots. Care was taken to protect the skin and make sure the heels were fully down and the boots were stable. The patient was then positioned onto the HANA table. Both legs were held in a neutral position. SCDs were applied. The patient was then slid down onto a peroneal post. Prophylactic antibiotics in the form of Cefazolin were administered. 1g of Tranxemic Acid was given intravenously within 30 minutes of incision. The right leg was then prepped with Chloraprep and draped in a standard fashion. A second prep with Chloraprep was performed prior to placement of a shower-curtain type drape with Iodine impregnated skin protection. A timeout to confirm correct identity, side and site, procedure, allergies, anesthesia, and medical concerns was performed. An obliquely oriented incision was made starting lateral to the ASIS and running distal over the Tensor Fascia Apoorva (TFL) muscle belly toward the fibular head, approximately 10cm. The skin and soft tissue was dissected sharply, through Izabela?s fascia, and to the fascia of the TFL. With the fascia and superior border of the IT band identified, the fascia was incised with a new knife just above any perforators from the IT band. The TFL muscle belly was bluntly dissected away from the fascia and moved laterally. The fat between TFL and rectus was identified to ensure the dissection was not within the TFL. Blunt dissection created space between abductors and the capsule and retractor was placed over the lateral femoral neck. The fibers of the rectus femoris tendon were identified and these were freed from the anterior capsule. A second cobra retractor was placed around the medial femoral neck. The TFL was further retracted laterally to show the deep fascia. Careful dissection through this layer identified three main crossing vessels of the lateral femoral circumflex. These were cauterized in multiple locations and then cut without any noticeable bleeding. The TFL was further released bluntly from the deep fascia to expose anterior hip capsule and fat The Michael orthopaedic retractor was then placed beneath the TFL and against sartorius and medial soft tissues to protect and retract the soft tissues. A T-capsulotomy was then performed starting at the superior lateral acetabulum and moving distally to the intertrochanteric ridge. These capsular flaps were tagged with a No. 1 Ethibond and elevated from within. The capsular flaps were released to the shoulder of the lateral neck and to the lesser trochanter to give excellent visualization of the proximal femur. A neck osteotomy was performed using an oscillating saw based on preoperative templates. This cut started in the shoulder and of the lateral neck and exited medially. The saw was at all times directed medially to avoid injury to the greater trochanter. Gross traction was applied to the leg and the osteotomy opened. The femoral head was removed with a corkscrew, making sure to protect the TFL on its exit. Traction was released after head removal. This was measured on the back table to determine the starting reamer size. Portions of the rectus obscuring visualization were minimally elevated off the superior acetabulum. An anterior retractor was placed over the anterior wall between capsule and labrum and attached to the Gripper retraction system. The femur was rotated to 90 degrees and medial capsule was fully released until the lesser trochanter was palpable and visible; the femur was returned to 30 degrees. A posterior retractor was placed similarly between capsule and labrum. Visualization was challenging. He had quite large and dense muscles about the hip. The anterior hip musculature was challenging to mobilize. Gentle releases were performed of capsular attachments around the rim of the acetabulum gaining enough visualization to proceed with the acetabular component. Thus, the contents of the cotyloid fossa were removed with electrocautery and the labrum was removed with a knife. There was a notable floor osteophyte. Acetabular reaming began with a 54mm reamer. This first reaming was directed anterior to posterior and medial to get down to the true floor. This was inspected and reamed until the true floor was reached. The anterior retractor was then released and entry and exit was provided by traction on the capsular flaps. I then reamed sequentially up to a 58mm reamer where good fit was obtained. The larger reamers were oriented based on anatomical reference of the anterior and lateral aguero to ensure proper abduction and anteversion. Positioning and size was confirmed with the fluoroscopy. A 58mm Depuy Tarrs acetabular component was selected. The acetabulum was reamed around the periphery with the selected acetabular size to prevent a rim fit. The deep tiss ues were irrigated. The acetabular component was then impacted in a position of about 40-45 degrees of abduction and 15-20 degrees of anteversion, using the patient?s anatomy as the ultimate landmark. Fluoroscopy was used to confirm this. There was excellent caustic loader of the acetabular component and the inserting handle was removed. The acetabular liner, Depuy [id number] +4 lateralized polyethylene liner, was inserted and lined up with the tines of the acetabular component. There was no soft tissue interposition. The liner was then impacted into position and confirmed to be well-seated. A portion of the debbie-articular cocktail was then injected around the acetabulum into the capsule and periosteum. This cocktail consisted of 123mg of Ropivacaine, 0.25mg of Epinephrine, 0.04mg of Clonidine, and 15mg of Ketorolac, diluted to 50cc. The leg was rotated to 130 degrees. Any remaining medial capsule was released until the lesser trochanter was easily palpable. A retractor was placed med ially. The lateral capsule was further released into the shoulder to allow access to the greater trochanter. A Alarcon retractor was placed over the greater trochanter which allowed the trochanter to flip in front of the capsule, however, visualization was still challenging given the significant density of tissues medially. With releases confirmed and the cross-section of the proximal femur visible, the leg was brought down into maximal extension and 20 degrees of adduction while ensuring there was no impingement on the acetabulum. Any remnant capsule within the trochanter was released. Piriformis and obturator externis were identified and protected. There was excellent access to the proximal femur. The lateral neck remnant was removed with a rongeur. A blunt canal probe was used to identify the canal and trajectory for later broaching. A box osteotome initiated the broach course. A small curved rasp and a curved curette were used to work laterally. Broaching then began with a starter Actis broach. This was inserted manually around the trochanter and into the canal before mallet blows. The broach was seated to the neck cut level based on the neck cut and the preoperative template. Sequential broaching was continued with the [employer] pneumatic broaching device until a tight fit was obtained with good rotational control of the femur. A trial standard neck was inserted along with a +5 trial head. The leg was brought out of extension and adduction and then reduced with traction and internal rotation. The reduction was challenging. It was hard to keep the hip reduced. It was discovered that he had so much medial soft tissue that the leg was relatively 80 ducted providing a lateral base force on the limb. With the leg held in more abduction the maintenance of reduction was much easier. Fluoroscopy was used to ensure there was no fracture and the stem was seated well. Leg lengths were checked with an AP pelvis and pelvic reference points. Cobrain navigation system was used to confirm appropriate positioning and leg length and offset. This showed under correction of leg length and slightly undercorrected offset. Unfortunately, this meant that I needed to extend the leg length but without extending the office at which prompted me to go up in size on the stem and leave it proud as long as it was rotationally stable, which it was. Once content with the desired offset and leg lengths, the leg was brought back into extension, external rotation and adduction. The periosteum and surrounding tissue was injected with remaining portion of the debbie-articular cocktail. The proximal femur was irrigated as well as the deep tissues. The Depuy Actis standard collared stem, size 8, was then manually inserted into the proximal femur making sure to control rotation. It was then malleted into position with light blows, giving breaks to allow bone expansion and decrease risk of fracture. The selected Depuy Altrx Ceramic Head, size 36+8.5mm, was then placed onto the clean and dry trunnion and secured with impaction onto the tapered fit. The leg was brought back out of extension and adduction and reduced with traction and internal rotation. Stability was confirmed with no shuck at 90 degrees of external rotation and 30 degrees of extension. No impingement through range of motion arc. Final x-ray images were obtained with fluoroscopy to confirm adequate positioning and no intraoperative fracture. There was notable blood loss although no significant specific bleeding. And the duration of the case was longer than expected and there is significant amount of soft tissue and surface area which was oozing during the case. The deep tissues were thoroughly irrigated with Surgiphor, betadine solution. This was allowed to sit in the wound for 3 minutes before being thoroughly irrigated out with normal saline. The capsule was then reapproximated with the previously placed Ethibond sutures. The TFL fascia was finally closed with a No. 2 Stratafix, barbed suture. Deep tissues were then reapproximated with 0 Vicryl and a running 2-0 Vicryl. The skin was closed with a running 4-0 Monocryl in a subcuticular fashion. This was reinforced with skin glue. A Mepilex silver dressing was applied. At the end of the case, all counts were correct. Marcelino was transferred to the hospital bed without difficulty and suffering no apparent complication. Tremaine has a good prognosis. Physical therapy will start today and without restrictions, weight-bearing as tolerated. Aspirin 81mg BID will be used for DVT prophylaxis.
== END 2023-09-20 14:20 | disposition home or self-care (01) ==
PROVIDERS: PCP Nurse Practitioner Family; Visit Provider Student in an Organized Health Care Education/Training Program
PROC: (CPT 27130; principal; 2023-09-20 07:30)
DX: M87.051 Idiopathic aseptic necrosis of right femur (principal); Z68.41 Body mass index [BMI] 40.0-44.9, adult; J44.9 Chronic obstructive pulmonary disease, unspecified; E66.01 Morbid (severe) obesity due to excess calories; E83.119 Hemochromatosis, unspecified; F17.210 Nicotine dependence, cigarettes, uncomplicated; I11.0 Hypertensive heart disease with heart failure; I50.9 Heart failure, unspecified
CPT/HCPCS: 27130; 20985; 97162; 73501; C1776; J0690; J1100; J2250; J2405; J2704; J3010

== ENCOUNTER 2023-10-05 10:22 | Outpatient (CLI) | payer BC, SELFPAY ==
--- NOTE | 2023-10-05 09:00 | DI.RAD_ITS ---
Exam(s) XR HIP RT COMPLETE AP PELVIS EXAM: XR HIP RT COMPLETE AP PELVIS INDICATION: s/p right HIEU. COMPARISON: CR XR HIP RT COMPLETE AP PELVIS from 09/01/2023 XA XR HIP RT IN OR from 09/20/2023 TECHNIQUE: 2D digital imaging was performed. Three views. FINDINGS: There are bilateral hip prostheses. The alignment appears satisfactory and unchanged. No cyst abno rmal surrounding bony lucencies. IMPRESSION: Stable appearance of bilateral hip prostheses. DATA REPOSITORY: RADIATION DOSE DELIVERED:
== END 2023-10-05 10:23 | disposition home or self-care (01) ==
LOC: DIORS 10:22
PROVIDERS: PCP Nurse Practitioner Family; Referring Provider Nurse Practitioner Family; Visit Provider Physician Assistant
DX: Z96.641 Presence of right artificial hip joint (principal); Z47.1 Aftercare following joint replacement surgery
CPT/HCPCS: 73502

== ENCOUNTER 2024-01-18 16:28 | Outpatient (REF) | payer BC, SELFPAY ==
--- NOTE | 2024-01-18 11:30 | SKI_PTH ---
PATIENT: Tremaine Godfrey LOC: NCN #:[id number] AGE/SX: 53/M ROOM: RE01/18/[address]: Juwan cAkerman : 1970 BED: DIS: 01/18/2024 SPEC #: [id number] RECD: 01/18/24 17:01 STATUS: ELEANOR REKasi #: [id number] JOHN: 01/18/24 11:[address]: Juwan Ackerman DEPT: Surgical Specimen RECD BY: Iliana Bray ENTERED: 01/18/24 17:03 SP TYPE: MOY KAHN DR: Suze Nair Tissues: 1 - SKIN BIOPSY(SHAVE/PUNCH) Procedures: SKIN LEVEL 4 Comments: [id number]
== END 2024-01-18 16:29 | disposition home or self-care (01) ==
LOC: NCHCN 16:28
PROVIDERS: PCP Nurse Practitioner Family; Visit Provider Family Medicine
DX: L21.9 Seborrheic dermatitis, unspecified (principal)
CPT/HCPCS: 88305

== ENCOUNTER 2024-05-07 19:32 | Outpatient (REF) | payer BC, SELFPAY ==
[2024-05-07 16:15] LABS: HCT 46.4 % (40.0-50.0); HGB 16.2 g/dL (13.5-17.5); MCH 38.3 pg (27.0-33.0); MCHC 34.9 % (32.0-36.0); MCV 110 fL (80-95); MPV 11.1 fL (8.0-11.0); Platelet Count 184 10^3/uL (130-400); RBC 4.23 10^6/uL (4.36-5.78); RDW 13.1 % (11.8-14.1); RDW-SD 53.8 fL; WBC 7.09 10^3/uL (4.4-10.8)
[2024-05-07 16:34] LABS: Iron 227 ug/dL (65-175); Total Iron Binding Capacity 265 ug/dL (250-450); Transferrin Sat 86 % (20-55)
[2024-05-07 17:04] LABS: COMMENT (LAB VIEW ONLY) < 13.00 mg/dL
[2024-05-07 17:13] LABS: ALT 87 U/L (16-63); AST 66 U/L (15-37); Albumin 3.9 g/dL (3.4-5.0); Alkaline Phosphatase 129 U/L (46-116); Anion Gap 9.1 mmol/L (3-11); BUN 17 mg/dL (7-18); Bilirubin, Total 0.56 mg/dL (0.2-1.0); CO2 33.9 mmol/L (21.0-32.0); CREATININE 0.9 mg/dL (0.70-1.30); Calcium 9.1 mg/dL (8.5-10.1); Calculated LDL 109 mg/dL (<100); Chloride 98 mmol/L (98-107); Cholesterol 194 mg/dL (<200); Estimated GFR 101.49 (mL/min/1.73m2); Glucose 115 mg/dL (74-106); HDL Cholesterol 55 mg/dL (40-60); Potassium 3.9 mmol/L (3.5-5.1); Sodium 141 mmol/L (136-145); Total Protein 7.7 g/dL (6.4-8.2); Triglyceride 151 mg/dL (<150)
[2024-05-07 17:15] LABS: Ferritin > 2000 ng/mL (26-388)
--- OUTSIDE RECORDS SUMMARY | 2024-05-07 19:37 | XMS_ITS | Continuity of Care Document ---
Author Organization [place] - [facility] Address [address] [place] [address] Assessment No assessment recorded. Plan of Treatment Reminders Order Date Submit Date Provider Last Modified By Organization Details Last Modified Time Details Appointments Annual Wellness Exam 40 2023 09:00A M Not available Not available Not available Office Visit 30 2024 10:00A M Not available Not available Not available Lab PSA, serum or plasma [address] [facility] (Registration ), [address] [place] [address] [place], [address], 05/07/2024 09:30:32 iron + TIBC + ferritin, serum [address] [facility] (Registration ), [address] [place] [address] [place], [address], 05/07/2024 09:30:32 microalbu min/creat inine, ratio panel, urine [address] [facility] (Registration ), [address] [place] [address] [place], [address], 05/07/2024 09:30:31 CBC 2023 024 [facility] (Registration ), [address] [place] [address] [place], [address], 05/07/2024 16:25:51 CMP, serum or plasma 2023 024 [facility] (Registration ), [address] [place] [address] [place], [address], 05/07/2024 17:17:58 lipids, total, serum 2023 024 [facility] (Registration ), [address] [place] [address] [place], [address], 05/07/2024 11:15:27 Referral None recorded. Procedures None recorded. Surgeries None recorded. Imaging CT, angiogram , abdomen + pelvis, w/ contrast - please protocol. ext [id number] - Sujata 2023 024 [email or web address] [facility] (Radiology), [address] [place] [address] [place], [address], 05/07/2024 13:02:27 Medication Orders None recorded. Patient TargetsNo targets recorded. Patient InstructionsNo instructions recorded. 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 Not Available 05/05 22:33:07 05/05/20 24 03/22/2022 imagi ng/di agnos tic resul t No observ ation record ed. Not Available 05/05 22:33:15 05/05/20 24 04/28/2019 CT, head or brain No observ ation record ed. Not Available 05/05 22:34:54 05/05/20 24 01/21/2020 XR, hip + pelvi s No observ ation record ed. Not Available 05/05 22:35:04 05/05/20 24 04/28/2019 imagi ng/di agnos tic resul t No observ ation record ed. Not Available 05/05 22:35:14 05/05/20 24 03/20/2022 imagi ng/di agnos tic resul t No observ ation record ed. Not Available 05/05 22:35:15 05/05/20 24 03/23/2022 imagi ng/di agnos tic resul t No observ ation record ed. Not Available 05/05 22:35:16 05/05/20 24 01/10/2023 imagi ng/di agnos tic resul t No observ ation record ed. Not Available 05/05 22:35:17 05/05/20 24 03/18/2022 imagi ng/di agnos tic resul t No observ ation record ed. Not Available 05/05 22:35:18 05/05/20 24 07/20/2023 imagi ng/di agnos tic resul t No observ ation record ed. Not Available 05/05 22:35:21 05/05/20 24 06/21/2022 imagi ng/di agnos tic resul t No observ ation record ed. Not Available 05/05 22:36:09 05/05/20 24 03/18/2022 imagi ng/di agnos tic resul t No observ ation record ed. Not Available 05/05 22:36:33 05/05/20 24 03/19/2022 imagi ng/di agnos tic resul t No observ ation record ed. Not Available 05/05 22:36:34 05/05/20 24 03/19/2022 imagi ng/di agnos tic resul t No observ ation record ed. Not Available 05/05 22:36:35 05/05/20 24 03/22/2022 imagi ng/di agnos tic resul t No observ ation record ed. Not Available 05/05 22:36:36 05/05/20 24 06/14/2021 imagi ng/di agnos tic resul t No observ ation record ed. Not Available 05/05 22:37:31 05/05/20 24 06/10/2020 imagi ng/di agnos tic resul t No observ ation record ed. Not Available 05/05 22:37:32 05/05/20 24 06/25/2020 imagi ng/di agnos tic resul t No observ ation record ed. Not Available 05/05 22:37:33 05/05/20 24 03/18/2022 imagi ng/di agnos tic resul t No observ ation record ed. Not Available 05/05 22:37:35 05/05/20 24 03/19/2022 imagi ng/di agnos tic resul t No observ ation record ed. Not Available 05/05 22:37:36 05/05/20 24 03/19/2022 imagi ng/di agnos tic resul t No observ ation record ed. Not Available 05/05 22:37:37 05/05/20 24 03/23/2022 imagi ng/di agnos tic resul t No observ ation record ed. Not Available 05/05 22:37:38 05/05/20 24 03/23/2022 imagi ng/di agnos tic resul t No observ ation record ed. Not Available 05/05 22:37:39 05/05/20 24 09/25/2019 imagi ng/di agnos tic resul t No observ ation record ed. Not Available 05/05 22:37:40 05/05/20 24 07/24/2019 imagi ng/di agnos tic resul t No observ ation record ed. Not Available 05/05 22:37:41 05/05/20 24 02/20/2020 imagi ng/di agnos tic resul t No observ ation record ed. Not Available 05/05 22:37:42 05/05/20 24 04/23/2020 imagi ng/di agnos tic resul t No observ ation record ed. Not Available 05/05 22:37:43 05/05/20 24 01/21/2020 imagi ng/di agnos tic resul t No observ ation record ed. Not Available 05/05 22:37:44 05/05/20 24 02/17/2020 imagi ng/di agnos tic resul t No observ ation record ed. Not Available 05/05 22:37:45 05/05/20 24 02/17/2020 imagi ng/di agnos tic resul t No observ ation record ed. Not Available 05/05 22:37:46 05/05/20 24 04/27/2019 imagi ng/di agnos tic resul t No observ ation record ed. Not Available 05/05 22:37:52 05/05/20 24 04/28/2019 imagi ng/di agnos tic resul t No observ ation record ed. Not Available 05/05 22:38:31 Result Notes None recorded. 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 4 19:46:17 Peripher al venous insuffic iency 90332828 Active 2021 [facility] 4 19:48:29 Alcohol abuse 51663893 Active 2021 [place] [facility] 4 19:46:22 Chronic respirat ory failure 42938012 Active 2021 [facility]. 4 19:47:08 Heart failure 44324253 Active 2021 [facility] 4 19:47:27 Active immuniza tion Completed 202105/17/2022 Problem Code: Z23; Problem Code Type: ICD-10; Not Available [facility] 3 05:03:35 Thoracic aortic aneurysm without rupture 09413985 Active 2022 [facility] 4 19:48:36 Bone necrosis 349123582 Completed 202210/30/2023 Problem Code: M87.9; Problem Code Type: ICD-10; [facility] 4 19:46:52 Pain of left hip joint 14045381738 9100 Completed 201911/19/2020 Problem Code: M25.552; Problem Code Type: ICD-10; Not Available [facility] 3 05:03:36 Screenin g for malignan t neoplasm of colon Completed 201911/19/2020 Problem Code: Z12.11; Problem Code Type: ICD-10; Not Available [facility] 3 05:03:36 Respirat ory failure 562500049 Completed 202105/17/2023 Problem Code: J96.90; Problem Code Type: ICD-10; Not Available [facility] 3 05:03:37 Lipoma of skin and subcutan eous tissue of trunk 526887286 Completed 202005/27/2021 Problem Code: D17.1; Problem Code Type: ICD-10; Not Available [facility] 3 05:03:37 Hyperten sive disorder 21753591 Completed 200905/17/2023 01/21/20 20 - Comments only - Kalin Moses RPA - Reasonab ly stable on current medicati on manageme nt. No medicati on changes made today. Fasting blood work prior to PE in 6 months. Not Available [facility] 3 05:03:37 Visual disturba nce 32045545 Completed 201811/19/2020 Problem Code: H53.9; Problem Code Type: ICD-10; Not Available [facility] 3 05:03:37 Follicul ar cysts of skin and subcutan eous tissue 063761672 Completed 202005/27/2021 Problem Code: L72.9; Problem Code Type: ICD-10; Not Available [facility] 3 05:03:37 Screenin g for malignan t neoplasm of prostate Completed 201911/19/2020 Problem Code: Z12.5; Problem Code Type: ICD-10; Not Available [facility] 3 05:03:37 Osteonec rosis of hip 117695300 Completed 202205/07/2024 Removal Reason: s/p total hip replacem ent [address], [place], [address] , [facility] 4 08:59:24 Nodular hyperpla jorge of liver 657161197 Active [address], [place], [address] , [facility] 3 15:15:59 Screenin g for malignan t neoplasm of prostate Completed 202205/12/2023 Problem Code: Z12.5; Problem Code Type: ICD-10; Not Available [facility] 4 05:37:51 Hyperlip idemia 97407314 [facility] 20[facility] 4 19:48:03 Liver enzymes level above referenc e range 951061630 Active 2022 [facility] 4 19:47:55 Ascendin g aorta abnormal ity 830320283 Active [address], [facility] [address] [address] 4 18:51:32 Skin lesion 72250408 Active 2023 Right foot keratoca nthoma. [address], [facility] [address] , [facility] 4 16:52:36 Cutaneou s horn 120708833 Active [address], [facility] [address] [address] 4 10:33:51 Problem Notes None recorded. Procedures Surgical History Date Name Laterality Status Provider Name and Address Organization Details Recorded Time 4 Suture/Stapl e removal completed [facility] 02/08/2024 10:00:19 4 Suture/Stapl e removal completed [facility] 02/01/2024 11:18:02 Imaging Results None recorded. Procedure Notes None recorded. Medical Equipment None Reported. Allergies Allergen ID Allergen Name Allergen Category Reaction Reaction Severity Criticality Documentation Date Start Date Code Code System Note Provider Name and Address Organization Details Recorded Time 18512 lisinopri l medicatio n other severe Not available 10/30/20232020 78742 RxNorm cogni tiludwig ferrera es- felt dev Singh [facility] null, [place] - [facility]. 4 19:45:50 Medications Name Sig Start Date Stop Date Status Note LastModified by Organization Details LastModified Time Prescript ion - Renewal 05/07 completed METOPROL OL TARTRATE 50 MG TAB, [place] POTASSIU M 25 MG TAB Not Available Not Available Not Available celecoxib 200 mg capsule TAKE ONE CAPSULE BY MOUTH TWICE A DAY 11/01 completed Not Available Not Available Not Available torsemide 20 mg tablet TAKE 1 TABLET BY MOUTH DAILY 2023 active Not Available Not Available Not Avai lable IBU 800 mg tablet 1 .tid, prn 12/14 completed Not Available Not Available Not Available pravastat in 40 mg tablet Take 1 tablet every day by oral route. active Not Available Not Available No t Available metoprolo l succinate ER 200 mg tablet,ex tended release 24 hr TAKE 1 TABLET BY MOUTH DAILY 05/07 completed Not Available Not Available Not Available Zithromax 250 mg tablet 1TAB qd 12/12 completed Not Available Not Available Not Available aspirin 81 mg tablet,de layed release TAKE ONE TABLET BY MOUTH TWICE A DAY active Not Available Not Available No t Available acetamino phen 500 mg tablet TAKE TWO TABLETS BY MOUTH THREE TIMES A DAY 01/08 completed Not Available Not Available Not Available spironola ctone 25 mg tablet TAKE 1 TABLET BY MOUTH DAILY 2023 active Not Available Not Available Not Avai lable amlodipin e 10 mg tablet TAKE 1 TABLET BY MOUTH DAILY active Not Available Not Available No t Available pantopraz ole 40 mg tablet,de layed release TAKE ONE TABLET BY MOUTH EVERY DAY 11/01 completed Not Available Not Available Not Available dexametha sone 4 mg tablet TAKE ONE TABLET BY MOUTH DAILY 11/01 completed Not Available Not Available Not Available lisinopri l 10 mg tablet 1 qd 08/31 completed Not Available Not Available Not Available losartan 25 mg tablet TAKE 1 TABLET BY MOUTH DAILY active Not Available Not Available No t Available metoprolo l tartrate 50 mg tablet Take 1 tablet by mouth twice a day 03/29 completed Not Available Not Available Not Available Aspirin Childrens 81 mg chewable tablet 11/01 completed Not Available Not Available Not Available aspirin 81 mg tablet once a day 05/26 completed Not Available Not Available Not Available hydrochlo rothiazid e 25 mg tablet Take 1 tablet by mouth once a day 03/31 completed stopped by hospital 03/25/22 Not Available Not Available Not Available albuterol 90 mcg/actua tion aerosol inhaler 2 PUFFS Q 4-6 hours 11/19 completed Not Available Not Available Not Available albuterol sulfate HFA 90 mcg/actua tion aerosol inhaler Inhale 2 puff using inhaler four times a day as needed 01/08 completed Not Available Not Available Not Available lisinopri l 40 mg tablet 1TAB qd 12/18 completed Not Available Not Available Not Available fluticaso ne propionat e 50 mcg/actua tion nasal spray,steven pension 2023 active Not Available Not Available Not Avai lable oxycodone 5 mg tablet TAKE ONE TABLET BY MOUTH EVERY 4 HOURS NEEDED FOR PAIN MAXIMUM DAILY DOSE = 6 TABLETS 11/01 completed Not Available Not Available Not Available metoprolo l tartrate 25 mg tablet Take 1 tab by mouth twice daily 2018 active Not Available Not Available Not Avai lable multivita min 1 tablet by mouth once a day 2021 active Not Available Not Available Not Avai lable Chantix Starting Month Ivan 0.5 mg (11)-1 mg (42) tablets in dose pack 12/10 completed Not Available Not Available Not Available Multivita l 1 tab qd 2018 active Not Available Not Available Not Avai lable Chantix Continuin g Month Ivan 1 mg tablet 1 bid 07/28 completed Not Available Not Available Not Available Vicodin 5 mg-300 mg tablet 1-2 every six hours 12/22 completed Not Available Not Available Not Available Jardiance 10 mg tablet TAKE 1 TABLET BY MOUTH EVERY MORNING active Not Available Not Available No t Available Stiolto Respimat 2.5 mcg-2.5 mcg/actua tion solution for inhalatio n Inhale 2 puff as directed once a day 05/03 completed Not Available Not Available Not Available oxygen 2lpm with exertion and nocturna l 11/01 completed Not Available Not Available Not Available Trelegy Ellipta 100 mcg-62.5 mcg-25 mcg powder for inhalatio n Inhale 1 puff once daily active Not Available Not Available No t Available Therems-M 9 mg iron-400 mcg tablet 01/08 completed Not Available Not Available Not Available Vitals Date Recorded Body height Body mass index (BMI) Body weight Body temperature Oxygen saturation Oxygen saturation in Arterial blood by Pulse oximetry Heart rate Systolic blood pressure Diastolic blood pressure Provider Name and Address Organization Details Last Updated DateTime 4 187.6 cm 42.7 kg/m2 150311. 51 g 95.8 [degF] 95 % 95 % 76 /min 120 mm[Hg] 80 mm[Hg] Kizzy Poole RN [facility] 08:59:29 Social History Question Answer Notes LastModified by Organizat ion Details LastModified Time Tobacco Smoking Status Current Every Day Smoker Lenora Batista RN [facility], [facility] 11/02/2023 07:19:21 Would You Say That, In General, Your Health Is Good Information not available 05/07/2024 How Often Does Anyone, Including Family, Physically Hurt You? Never [email or web address] Information not available 05/07/2024 How Often Does Anyone, Including Family, Insult Or Talk Down To You? Never [email or web address] Information no t available 05/07/2024 How Often Does Anyone, Including Family, Threaten You With Harm? Never [email or web address] Information not available 05/07/2024 How Often Does Anyone, Including Family, Scream Or Curse At You? Never [email or web address] Information not available 05/07/2024 Within The Past 12 Months, You Worried That Your Food Would Run Out Before You Got Money To Buy More. Never True Information n ot available 05/07/2024 Within The Past 12 Months, The Food You Bought Just Didn't Last And You Didn't Have Money To Get More. Never True [email or web address] Information not available 05/07/2024 How Hard Is It For You To Pay For The Very Basics Like Food, Housing, Medical Care, And Heating? Would You Say It Is: Somewhat Hard [email or web address] Information not available 05/07/2024 In The Past 12 Months, Has Lack Of Reliable Transportation Kept You From Medical Appointments, Meetings, Work Or From Getting Things Needed For Daily Living? No [email or web address] Information not available 05/07/2024 What Is Your Housing Situation Today? I Have Housing. [email or web address] Information not available 05/07/2024 How Often In The Past Year Have You Used Marijuana (including Smoking, Vaping, Dabbing, Or Edibles)? Never Information not available 05/07/2024 How Often In The Past Year Have You Used Prescription Medications That Were Not Prescribed To You? Monthly Or Less [email or web address] Information not available 05/07/2024 How Often In The Past Year Have You Taken Your Own Prescription Medication More Than The Way It Was Prescribed Or For Different Reasons Than Its Intended Purpose? Never [email or web address] Information not available 05/07/2024 How Often In The Past Year Have You Used Other Drugs (for Example, Heroin, Cocaine, Meth, Salvia, Inhalants)? Never [email or web address] Information not available 05/07/2024 Have You Ever Used IV Drugs? No [email or web address] Information not available 05/07/2024 Date Of Most Recent SBINS 05/07/2024 [email or web address] Information not available 05/07/2024 What Was The Date Of Your Most Recent Tobacco Screening? 05/07/2024 [email or web address] Information n ot available 05/07/2024 How Much Tobacco Do You Smoke? 1 PPD [facility] Information not available 11/02/2023 Has Tobacco Cessation Counseling Been Provided? Yes [facility] Information not available 11/02/2023 On What Date Was Tobacco Cessation Counseling Provided? 05/07/2024 [email or web address] Information not available 05/07/2024 Do You Or Have You Ever Used Any Other Forms Of Tobacco Or Nicotine? No [facility] Information not available 11/02/2023 Sex: Male Functional Status None recorded. Mental Status None recorded. Family History Nothing Reported Notes:*Problem: Uncle deceas ed liver failure, dx hemochromatosis mother and 1 sib with dx hemachomatotosis. Mother : alive arthritis Medical History No medical history recorded. Immunizations Vaccine Type Date Status Provider Name and Address Organization Details Recorded Time COVID-19, mRNA, LNP-S, PF, reji-sucrose, 30 mcg/0.3 mL 11/02/[address], [place], [address], [facility] 11/07/2023 08:22:22 Tdap 07/31/2019 completed Not Available [facility] 05:27:49 Influenza, split virus, quadrivalent, PF 05/03/2022 completed Not Available [facility] 06/30/2023 05:27:49 Influenza, split virus, quadrivalent, PF 05/27/2021 completed Not Available [facility] 06/30/2023 05:27:49 Influenza, split virus, quadrivalent, PF 07/31/2019 completed Not Available [facility] 06/30/2023 05:27:50 COVID-19, mRNA, LNP-S, PF, 100 mcg/0.5mL dose or 50 mcg/0.25mL dose 12/10/2020 completed Not Available [facility] 06/30/2023 05:27:50 COVID-19, mRNA, LNP-S, PF, 100 mcg/0.5mL dose or 50 mcg/0.25mL dose 01/07/2021 completed Not Available [facility] 06/30/2023 05:27:50 COVID-19, mRNA, LNP-S, PF, 100 mcg/0.5mL dose or 50 mcg/0.25mL dose 07/12/2021 completed Not Available [facility] 06/30/2023 05:27:50 COVID-19, mRNA, LNP-S, bivalent, PF, 30 mcg/0.3 mL dose 11/01/2022 completed Not Available [facility] 06/30/20 05:27:51 pneumococcal polysaccharide PPV23 07/31/2019 completed Not Available [facility] 2022 05:27:51 Influenza, split virus, quadrivalent, PF 05/02/2023 completed Not Available [facility] 09/01/2023 05:32:12 zoster recombinant 05/02/2023 completed Not Available [facility] 09/01/2023 05:32:12 Past Encounters Encounter ID Performer Location Encounter Start Date Encounter Closed Date Diagnosis/Indication Diagnosis SNOMED-CT Code Diagnosis ICD10 Code [id number] [address] [address] 04/18/2024 09:48:03 04/18/2024 10:38:18 Cutaneous horn 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 [id number] Kizzy Poole RN [address] [address] 05/07/2024 08:45:21 05/07/2024 09:41:45 Adult health examination 800508057 Z00.00 Thoracic a ortic aneurysm without rupture 36319046 I71.20 Hyperlipidemia 50047963 E78.5 Hemochromatosis 72861226 6 E83.119 Nicotine dependence 5629 4008 F17.210 Heart failure 86762960 I 50.9 Essential hypertension 71599704 I10 Screening for malignant neoplasm of prostate 488965879 Z12.5 Cutaneous horn 255876479 L85.8 Chronic re spiratory failure 34340896 J96.10 Health Concerns Section Related Observation LastModified by Organization Detai ls LastModified Time None Recorded Concern Status LastModified by Organization Details LastModified Time None Recorded Payers Encounter Date Sequence Insurance Name Policy Number Policy Saunders Covered Member ID Saunders Member ID Guarantor Name 05/07/2024 1 [employer] [facility] [place] [id number] Tremaine Godfrey [id number] Tremaine Godfrey Notes Date Note Type Note Provider Name and Address Organization Details Recorded Time 05/07/2024 text/html HPI Notes: Abdullahi manzanares is here today for annual exam and to review necessary preventative care. Kizzy Poole RN [facility], [place] - [facility] 05/07/2024 16:18:41
--- OUTSIDE RECORDS SUMMARY | 2024-05-07 19:37 | XMS_ITS | Data Portability ---
Author Organization [place] - [facility] Address [place] [address] Assessment Encounter Date Assessment Date Assessment LastModified by Organization Details LastModified Time 02/01/2024 02/01/[address], central area of incision line swelling, discharge, concern for dehiscence. Had DEV evaluate. Recommended remove 8 simple sutures leave 3 mattress sutures. Apply steri strips over middle of incision patient come back in 5-7 days for removal of remaing sutures. Removed simple sutures, applied 2 steri strips, covered with bandaid. Patient tolerated procedure with no complaint or concerns. Patient advised to call if any S/S of infection. [email or web address] Not available 02/01/2024 11:23:39 02/08/2024 02/08/2024 Removed bandaid, some dried discharge noted. Incision line closed, no redness or active draining. Removed remain mattress suture with no problem or concern. Applied Medihoney to bandaid and covered incision site. [email or web address] Not available 02/08/2024 10:02:21 Plan of Treatment Reminders Order Date Submit Date Provider Last Modified By Organization Details Last Modified Time Details Appointments Annual Wellness Exam 40 2023 09:00A M Not available Not available Not available Office Visit 30 2024 10:00A M Not available Not available Not available Lab PSA, serum or plasma 2023 [email or web address] [facility] (Registration ), [address] [place] [address] [place], [address], 05/07/2024 09:30:32 iron + TIBC + ferritin, serum 2023 [email or web address] [facility] (Registration ), [address] [place] [address] [place], [address], 05/07/2024 09:30:32 microalbu min/creat inine, ratio panel, urine [address] Laboratory (Registration ), [address] [place] [address] [place], [address], 05/07/2024 09:30:31 CBC 2023 024 [facility] (Registration ), [address] [place] [address] [place], [address], 05/07/2024 16:25:51 CMP, serum or plasma 2023 024 [facility] (Registration ), [address] [place] [address] [place], [address], 05/07/2024 17:17:58 lipids, total, serum 2023 024 [facility] (Registration ), [address] [place] [address] [place], [address], 05/07/2024 11:15:27 Referral ENT surgery referral 2023 024 [facility] Kalin Cardona [address] [place], [address], 04/18/2024 11:25:17 Procedures None recorded. Surgeries None recorded. Imaging CT, angiogram , abdomen + pelvis, w/ contrast - please protocol. ext [phone] - Sujata 2023 024 [email or web address] [facility] (Radiology), [address] [place] [address] [place], [address], 05/07/2024 13:02:27 Medication Orders None recorded. Patient TargetsNo targets recorded. Patient InstructionsNo instructions recorded. 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, c282y [facility] 4 19:47:42 Obesity 733668189 Active 2009 [facility] 4 19:48:12 Nicotine dependen ce 39289953 Active 2009 [facility] 4 19:48:07 Cellulit is 490788055 Completed 201808/01/2019 Problem Code: L03.90; Problem Code Type: ICD-10; Not Available [facility] 3 05:03:35 Adult health examinat ion Active 2020 [facility] 4 19:46:17 Peripher al venous insuffic iency 15726722 Active 2021 [facility] 4 19:48:29 Alcohol abuse 36310409 Active 2021 [facility] 4 19:46:22 Chronic respirat ory failure 88613599 Active 2021 [facility] 4 19:47:08 Heart failure 11647285 Active 2021 [facility] 4 19:47:27 Active immuniza tion Completed 202105/17/2022 Problem Code: Z23; Problem Code Type: ICD-10; Not Available [facility] 3 05:03:35 Thoracic aortic aneurysm without rupture 10123896 Active 2022 Francisco Marsh [facility] 4 19:48:36 Bone necrosis 782922461 Completed 202210/30/2023 Problem Code: M87.9; Problem Code Type: ICD-10; Francisco Marsh [facility] 4 19:46:52 Pain of left hip joint 67193195592 9100 Completed 201911/19/2020 Problem Code: M25.552; Problem Code Type: ICD-10; Not Available [facility] 3 05:03:36 Screenin g for malignan t neoplasm of colon Completed 201911/19/2020 Problem Code: Z12.11; Problem Code Type: ICD-10; Not Available [facility] 3 05:03:36 Respirat ory failure 019690689 Completed 202105/17/2023 Problem Code: J96.90; Problem Code Type: ICD-10; Not Available [facility] 3 05:03:37 Lipoma of skin and subcutan eous tissue of trunk 063019155 Completed 202005/27/2021 Problem Code: D17.1; Problem Code Type: ICD-10; Not Available [facility] 3 05:03:37 Hyperten sive disorder 29357001 Completed 200905/17/2023 01/21/20 20 - Comments only - Kalin Lopes RPA - Reasonab ly stable on current medicati on manageme nt. No medicati on changes made today. Fasting blood work prior to PE in 6 months. Not Available [facility] 3 05:03:37 Visual disturba nce 15885777 Completed 201811/19/2020 Problem Code: H53.9; Problem Code Type: ICD-10; Not Available [facility] 3 05:03:37 Follicul ar cysts of skin and subcutan eous tissue 413950980 Completed 202005/27/2021 Problem Code: L72.9; Problem Code Type: ICD-10; Not Available [facility] 3 05:03:37 Screenin g for malignan t neoplasm of prostate Completed 201911/19/2020 Problem Code: Z12.5; Problem Code Type: ICD-10; Not Available [facility] 3 05:03:37 Osteonec rosis of hip 648883875 Completed 202205/07/2024 Removal Reason: s/p total hip replacem ent [address], [facility] [address] , [facility] 4 08:59:24 Nodular hyperpla jorge of liver 209543300 Active [address], [facility] [address] , [facility] 3 15:15:59 Screenin g for malignan t neoplasm of prostate Completed 202205/12/2023 Problem Code: Z12.5; Problem Code Type: ICD-10; Not Available [facility] 4 05:37:51 Hyperlip idemia 65399001 Active 2022 Francisco Marsh [facility] 4 19:48:03 Liver enzymes level above referenc e range 828832744 Active 2022 Francisco Marsh [facility] 4 19:47:55 Ascendin g aorta abnormal ity 836475083 Active [address], [facility] [address] , [facility] 4 18:51:32 Skin lesion 06509536 Active 2023 Right foot keratoca nthoma. [address], [place], [address] , [facility], [facility] 16:52:36 Yeison woody 173892735 Active [address], [place], [address] , [facility] 4 10:33:51 Problem Notes None recorded. Procedures Surgical History Date Name Laterality Status Provider Name and Address Organization Details Recorded Time 4 Suture/Stapl e removal completed FRANCO HERNANDEZ [facility], [facility] 02/08/2024 10:00:19 4 Suture/Stapl e removal completed FRANCO HERNANDEZ [facility] 02/01/2024 11:18:02 Imaging Results Imaging Date Name Status LastModified by Organiz ation Details LastModified Time 03/18/2022 imaging/diag nostic result completed Information not available 05/05/2024 22:33:07 03/22/2022 imaging/diag nostic result completed Information not available 05/05/2024 22:33:15 04/28/2019 CT, head or brain completed Information not available 05/05/2024 22:34:54 01/21/2020 XR, hip + pelvis completed Information not available 05/05/2024 22:35:04 04/28/2019 imaging/diag nostic result completed Information not available 05/05/2024 22:35:14 03/20/2022 imaging/diag nostic result completed Information not available 05/05/2024 22:35:15 03/23/2022 imaging/diag nostic result completed Information not available 05/05/2024 22:35:16 01/10/2023 imaging/diag nostic result completed Information not available 05/05/2024 22:35:17 03/18/2022 imaging/diag nostic result completed Information not available 05/05/2024 22:35:18 07/20/2023 imaging/diag nostic result completed Information not available 05/05/2024 22:35:21 06/21/2022 imaging/diag nostic result completed Information not available 05/05/2024 22:36:09 03/18/2022 imaging/diag nostic result completed Information not available 05/05/2024 22:36:33 03/19/2022 imaging/diag nostic result completed Information not available 05/05/2024 22:36:34 03/19/2022 imaging/diag nostic result completed Information not available 05/05/2024 22:36:35 03/22/2022 imaging/diag nostic result completed Information not available 05/05/2024 22:36:36 06/14/2021 imaging/diag nostic result completed Information not available 05/05/2024 22:37:31 06/10/2020 imaging/diag nostic result completed Information not available 05/05/2024 22:37:32 06/25/2020 imaging/diag nostic result completed Information not available 05/05/2024 22:37:33 03/18/2022 imaging/diag nostic result completed Information not available 05/05/2024 22:37:35 03/19/2022 imaging/diag nostic result completed Information not available 05/05/2024 22:37:36 03/19/2022 imaging/diag nostic result completed Information not available 05/05/2024 22:37:37 03/23/2022 imaging/diag nostic result completed Information not available 05/05/2024 22:37:38 03/23/2022 imaging/diag nostic result completed Information not available 05/05/2024 22:37:39 09/25/2019 imaging/diag nostic result completed Information not available 05/05/2024 22:37:40 07/24/2019 imaging/diag nostic result completed Information not available 05/05/2024 22:37:41 02/20/2020 imaging/diag nostic result completed Information not available 05/05/2024 22:37:42 04/23/2020 imaging/diag nostic result completed Information not available 05/05/2024 22:37:43 01/21/2020 imaging/diag nostic result completed Information not available 05/05/2024 22:37:44 02/17/2020 imaging/diag nostic result completed Information not available 05/05/2024 22:37:45 02/17/2020 imaging/diag nostic result completed Information not available 05/05/2024 22:37:46 04/27/2019 imaging/diag nostic result completed Information not available 05/05/2024 22:37:52 04/28/2019 imaging/diag nostic result completed Information not available 05/05/2024 22:38:31 Procedure Notes None recorded. Medical Equipment None Reported. Allergies Allergen ID Allergen Name Allergen Category Reaction Reaction Severity Criticality Documentation Date Start Date Code Code System Note Provider Name and Address Organization Details Recorded Time 34193 lisinopri l medicatio n other severe Not available 10/30/20232020 40411 RxNorm cogni krystian ferrera es- felt [facility] 19:45:50 Medications Name Sig Start Date Stop [...] mass index (BMI) Body weight Body temperature Heart rate Oxygen saturation Oxygen saturation in Arterial blood by Pulse oximetry Systolic blood pressure Diastolic blood pressure Provider Name and Address Organization Details Last Updated DateTime 4 187.604 4 cm 42.8 kg/m2 297213. 67 g 97.6 [degF] 68 /min 98 % 98 % 110 mm[Hg] 72 mm[Hg] ALFONSO ORDOÑEZ MA [facility] 4 10:29:23 Date Recorded Body height Body mass index (BMI) Body weight Body temperature Heart rate Respiratory rate Oxygen saturation Oxygen saturation in Arterial blood by Pulse oximetry Systolic blood pressure Diastolic blood pressure Provider Name and Address Organization Details Last Updated DateTime 4 187.6 cm 42.3 kg/m2 526312. 1 g 97.6 [degF] 76 /min 22 /min 96 % 96 % 138 mm[Hg] 70 mm[Hg] Maritza Medina [facility] 4 10:09:58 Date Recorded Body height Body mass index (BMI) Body weight Body temperature Oxygen saturation Oxygen saturation in Arterial blood by Pulse oximetry Heart rate Systolic blood pressure Diastolic blood pressure Provider Name and Address Organization Details Last Updated DateTime 4 187.6 cm 42.7 kg/m2 645088. 51 g 95.8 [degF] 95 % 95 % 76 /min 120 mm[Hg] 80 mm[Hg] Kizzy Poole RN [facility] 4 08:59:29 Social History Question Answer Notes LastModified by Organizat ion Details LastModified Time Tobacco Smoking Status Current Every Day Smoker Lenora Batista RN [facility], [facility] 11/02/2023 07:19:21 Would You Say That, In General, Your Health Is Good [email or web address] Information not available 05/07/2024 How Often Does Anyone, Including Family, Physically Hurt You? Never Information not available 05/07/2024 How Often Does Anyone, Including Family, Insult Or Talk Down To You? Never [email or web address] Information no t available 05/07/2024 How Often Does Anyone, Including Family, Threaten You With Harm? Never [email or web address] Information not available 05/07/2024 How Often Does Anyone, Including Family, Scream Or Curse At You? Never [email or web address] Information not available 05/07/2024 Within The Past 12 Months, You Worried That Your Food Would Run Out Before You Got Money To Buy More. Never True [email or web address] Information n ot available 05/07/2024 Within The Past 12 Months, The Food You Bought Just Didn't Last And You Didn't Have Money To Get More. Never True Information not available 05/07/2024 How Hard Is It For You To Pay For The Very Basics Like Food, Housing, Medical Care, And Heating? Would You Say It Is: Somewhat Hard [email or web address] Information not available 05/07/2024 In The Past 12 Months, Has Lack Of Reliable Transportation Kept You From Medical Appointments, Meetings, Work Or From Getting Things Needed For Daily Living? No Information not available 05/07/2024 What Is Your Housing Situation Today? I Have Housing. [email or web address] Information not available 05/07/2024 How Often In The Past Year Have You Used Marijuana (including Smoking, Vaping, Dabbing, Or Edibles)? Never [email or web address] Information not available 05/07/2024 How Often In The Past Year Have You Used Prescription Medications That Were Not Prescribed To You? Monthly Or Less [email or web address] Information not available 05/07/2024 How Often In The Past Year Have You Taken Your Own Prescription Medication More Than The Way It Was Prescribed Or For Different Reasons Than Its Intended Purpose? Never [email or web address] Information not available 05/07/2024 How Often In The Past Year Have You Used Other Drugs (for Example, Heroin, Cocaine, Meth, Salvia, Inhalants)? Never [email or web address] Information not available 05/07/2024 Have You Ever Used IV Drugs? No [email or web address] Information not available 05/07/2024 Date Of Most Recent SBINS 05/07/2024 [email or web address] Information not available 05/07/2024 What Was The Date Of Your Most Recent Tobacco Screening? 05/07/2024 [email or web address] Information n ot available 05/07/2024 How Much Tobacco Do You Smoke? 1 PPD [facility] Information not available 11/02/2023 Has Tobacco Cessation Counseling Been Provided? Yes [facility] Information not available 11/02/2023 On What Date Was Tobacco Cessation Counseling Provided? 05/07/2024 [email or web address] Information not available 05/07/2024 Do You Or Have You Ever Used Any Other Forms Of Tobacco Or Nicotine? No [facility] Information not available 11/02/2023 Sex: Male Functional [...] mcg/0.3 mL 11/02/[address], [place], [address], [facility] 11/07/2023 08:22:22 Tdap 07/31/2019 completed Not Available [facility] 05:27:49 Influenza, split virus, quadrivalent, PF 05/03/2022 completed Not Available [facility] 06/30/2023 05:27:49 Influenza, split virus, quadrivalent, PF 05/27/2021 completed Not Available [facility] 06/30/2023 05:27:49 Influenza, split virus, quadrivalent, PF 07/31/2019 completed Not Available [facility] 06/30/2023 05:27:50 COVID-19, mRNA, LNP-S, PF, 100 mcg/0.5mL dose or 50 mcg/0.25mL dose 12/10/2020 completed Not Available [facility] 06/30/2023 05:27:50 COVID-19, mRNA, LNP-S, PF, 100 mcg/0.5mL dose or 50 mcg/0.25mL dose 01/07/2021 completed Not Available [facility] 06/30/2023 05:27:50 COVID-19, mRNA, LNP-S, PF, 100 mcg/0.5mL dose or 50 mcg/0.25mL dose 07/12/2021 completed Not Available [facility] 06/30/2023 05:27:50 COVID-19, mRNA, LNP-S, bivalent, PF, 30 mcg/0.3 mL dose 11/01/2022 completed Not Available [facility] 06/30/20 05:27:51 pneumococcal polysaccharide PPV23 07/31/2019 completed Not Available [facility] 05:27:51 Influenza, split virus, quadrivalent, PF 05/02/2023 completed Not Available [facility] 09/01/2023 05:32:12 zoster recombinant 05/02/2023 completed Not Available [facility] 09/01/2023 05:32:12 Past Encounters Encounter ID Performer Location Encounter Start Date Encounter Closed Date Diagnosis/Indication Diagnosis SNOMED-CT Code Diagnosis ICD10 Code [id number] BENOIT NAIR [address] [address] 11/02/2023 07:11:27 11/02/2023 07:58:29 Liver enzymes level above reference range 704992339 R74.01 Hyperlipidemia 16594844 E78.5 Osteonecrosis of hip 444 953105 M87.859 Alcohol abuse 74133533 F 10.10 Essential hypertension 48468140 I10 Thoracic a ortic aneurysm without rupture 40484279 I71.20 Nicotine dependence 5629 4008 F17.210 Active or passive immunization 297003213 Z23 [id number] BENOIT NAIR [address] [address] 01/09/2024 13:46:23 01/09/2024 14:30:30 Skin lesion 94768130 L98.9 [id number] SAUNDRA PHAN MD [address] [address] 01/18/2024 10:10:41 01/18/2024 11:57:24 Skin lesion 59828190 L98.9 [id number] FRANCO HERNANDZE [address] [address] 02/01/2024 09:40:40 02/01/2024 11:24:16 Skin lesion 67736405 L98.9 [id number] FRANCO HERNANDEZ [address] [address] 02/08/2024 09:44:24 02/08/2024 10:04:15 Skin lesion 16189445 L98.9 [id number] BENOIT NAIR [address] [address] 04/18/2024 09:48:03 04/18/2024 10:38:18 Cutaneous horn 263396754 L85.8 [id number] Kizzy Poole RN [facility] [address] [place] [address] 05/07/2024 08:45:21 05/07/2024 09:41:45 Adult health examination 080193497 Z00.00 Thoracic a ortic aneurysm without rupture 01728988 I71.20 Hyperlipidemia 40343377 E78.5 Hemochromatosis 20220115 6 E83.119 Nicotine dependence 5629 4008 F17.210 Heart failure 32631419 I 50.9 Essential hypertension 97149588 I10 Screening for malignant neoplasm of prostate 598586196 Z12.5 Cutaneous horn 433507777 L85.8 Chronic re spiratory failure 94148695 J96.10 Health Concerns Section Related Observation LastModified by Organization Detai ls LastModified Time None Recorded Concern Status LastModified by Organization Details LastModified Time None Recorded Advance Directives Directive None Recorded Payers Encounter Date Sequence Insurance Name Policy Number Policy Saunders Covered Member ID Saunders Member ID Guarantor Name 01/18/2024 1 [employer] [place] [id number] Tremaine Godfrey [id number] Tremaine Godfrey 02/01/2024 1 [employer] [place] [id number] Tremaine Godfrey [id number] Tremaine Godfrey 02/08/2024 1 [employer] [place] [id number] Treamine Godfrey [id number] Tremaine Godfrey 04/18/2024 1 [employer] [place] [id number] Tremaine Godfrey [id number] Tremaine Godfrey 05/07/2024 1 [employer] [place] [id number] Tremaine Godfrey [id number] Tremaine Godfrey Notes Date Note Type Note Provider Name and Address Organization Details Recorded Time 01/18/2024 text/html HPI Notes: Abdullahi nt here for 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 Went over the procedure risk and benefits in entirety. Informed consent signed. SAUNDRA PHAN MD [address], [place], [address], [facility]. 01/22/2024 07:52:37 04/18/2024 text/html HPI Notes: Here today for skin lesion near the left eye lid. He noticed a red scab like lesion for weeks and then in the last 1.5 months the lesion grew outward. The lesion does not itch or hurt, but he can see it in his peripheral vision. [address]IONTE M[address]RY [address], [place], [address], [facility], [facility]. 04/18/2024 10:43:52 05/07/2024 text/html HPI Notes: Abdullahi manzanares is here today for annual exam and to review necessary preventative care. Kizzy Poole RN [facility], [facility]. 05/07/2024 16:18:41
--- OUTSIDE RECORDS SUMMARY | 2024-05-07 19:37 | XMS_ITS | Continuity of Care Document ---
Author Organization [facility] Address [address] [place] [address] Assessment No assessment recorded. Plan of Treatment Reminders Order Date Submit Date Provider Last Modified By Organization Details Last Modified Time Details Appointments Annual Wellness Exam 40 2023 09:00A M Not available Not available Not available Office Visit 30 2024 10:00A M Not available Not available Not available Lab None recorded. Referral ENT surgery referral 2023 024 BRANDEN Cardona [address] , [place], [address], 04/18/2024 11:25:17 Procedures None recorded. Surgeries None recorded. Imaging None recorded. Medication Orders None recorded. Patient TargetsNo targets recorded. Patient InstructionsNo instructions recorded. 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 Referring Physician: [facility], Encounter Date: 04/18/2024 Results Created Date Observation Date Name Description Value Unit Range Abnormal Flag Note LastModifiedBy Organization Detail LastModifiedTime 05/05/2003/18/2022 imagi ng/di agnos tic resul t No [...] Name and Address Organization Details Recorded Time Shavon de santiago [id number] Active 2009 Francisco Marsh [facility] 4 19:47:14 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 4 19:48:12 Nicotine dependen ce 51701965 Active 2009 [facility]. 4 19:48:07 Cellulit is 289309591 Completed 201808/01/2019 Problem Code: L03.90; Problem Code Type: ICD-10; Not Available [facility] 3 05:03:35 Adult health examinat ion Active 2020 [facility], [facility]. 4 19:46:17 Peripher al venous insuffic iency 01680732 Active 2021 [facility] 4 19:48:29 Alcohol abuse 68087775 Active 2021 [facility]. 4 19:46:22 Chronic respirat ory failure 30553220 Active 2021 [facility], [facility]. 4 19:47:08 Heart failure 39350800 Active 2021 [facility]. 4 19:47:27 Active immuniza tion Completed 202105/17/2022 Problem Code: Z23; Problem Code Type: ICD-10; Not Available [facility] 3 05:03:35 Thoracic aortic aneurysm without rupture 69870588 Active 2022 [facility], [facility]. 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 4 19:46:52 Pain of left hip joint 65617922119 9100 Completed 201911/19/2020 Problem Code: M25.552; Problem Code Type: ICD-10; Not Available [facility] 3 05:03:36 Screenin g for malignan t neoplasm of colon Completed 201911/19/2020 Problem Code: Z12.11; Problem Code Type: ICD-10; Not Available [facility] 3 05:03:36 Respirat ory failure 865829792 Completed 202105/17/2023 Problem Code: J96.90; Problem Code Type: ICD-10; Not Available [facility] 3 05:03:37 Lipoma of skin and subcutan eous tissue of trunk 728166362 Completed 202005/27/2021 Problem Code: D17.1; Problem Code Type: ICD-10; Not Available [facility] 3 05:03:37 Hyperten sive disorder 77946662 Completed 200905/17/2023 01/21/20 20 - Comments only - Kalin Lopes RPA - Reasonab ly stable on current medicati on manageme nt. No medicati on changes made today. Fasting blood work prior to PE in 6 months. Not Available [facility] 3 05:03:37 Visual disturba nce 55544060 Completed 201811/19/2020 Problem Code: H53.9; Problem Code Type: ICD-10; Not Available [facility] 3 05:03:37 Follicul ar cysts of skin and subcutan eous tissue 418423897 Completed 202005/27/2021 Problem Code: L72.9; Problem Code Type: ICD-10; Not Available [facility] 3 05:03:37 Screenin g for malignan t neoplasm of prostate Completed 201911/19/2020 Problem Code: Z12.5; Problem Code Type: ICD-10; Not Available [facility] 3 05:03:37 Osteonec rosis of hip 651232022 Completed 202205/07/2024 Removal Reason: s/p total hip replacem ent BENOIT PRIETO, DIONTE [address], [place], [address] , [facility] 4 08:59:24 Nodular hyperpla jorge of liver 452594536 Active 2022 DIONTE MURRY [address], [place], [address] , [facility] 3 15:15:59 Screenin g for malignan t neoplasm of prostate Completed 202205/12/2023 Problem Code: Z12.5; Problem Code Type: ICD-10; Not Available [facility] 4 05:37:51 Hyperlip idemia 64105849 Active 2022 [facility] 4 19:48:03 Liver enzymes level above referenc e range 586388191 Active 2022 [facility] 4 19:47:55 Ascendin g aorta abnormal ity 915504115 Active 2023 DIONTE MURRY [address], [place], [address] , [facility] 4 18:51:32 Skin lesion 66147336 Active 2023 Right foot keratoca nthoma. DIONTE MURRY [address], [place], [address] , [facility] 4 16:52:36 Cutaneou s horn 955983344 Active 2023 DIONTE MURRY [address], [place], [address] , [facility] 4 10:33:51 Problem Notes None recorded. Procedures Surgical History Date Name Laterality Status Provider Name and Address Organization Details Recorded Time 4 Suture/Stapl e removal completed FRANCO HERNANDEZ CMA [facility] 02/08/2024 10:00:19 4 Suture/Stapl e removal completed FRANCO HERNANDEZ CMA [facility] 02/01/2024 11:18:02 Imaging Results None recorded. Procedure Notes None recorded. Medical Equipment None Reported. Allergies Allergen ID Allergen Name Allergen Category Reaction Reaction Severity Criticality Documentation Date Start Date Code Code System Note Provider Name and Address Organization Details Recorded Time 30009 lisinopri l medicatio n other severe Not available 10/30/20232020 24089 RxNorm cogni tiludwig ferrera es- felt supid Francisco Marsh [facility], [facility] 19:45:50 Medications Name Sig Start Date Stop [...] Updated DateTime 4 187.6 cm 42.3 kg/m2 267337. 1 g 97.6 [degF] 76 /min 22 /min 96 % 96 % 138 mm[Hg] 70 mm[Hg] Maritza Medina [facility] 10:09:58 Social History Question Answer Notes LastModified by Organizat ion Details LastModified Time Tobacco Smoking Status Current Every Day Smoker Lenora Batista RN null, [facility] 11/02/2023 07:19:21 Would You Say That, In General, Your Health Is Good [email or web address] Information not available 05/07/2024 How Often Does Anyone, Including Family, Physically Hurt You? Never [email or web address] Information not available 05/07/2024 How Often Does Anyone, Including Family, Insult Or Talk Down To You? Never [email or web address] Information no t available 05/07/2024 How Often Does Anyone, Including Family, Threaten You With Harm? Never [email or web address] Information not available 05/07/2024 How Often Does Anyone, Including Family, Scream Or Curse At You? Never [email or web address] Information not available 05/07/2024 Within The Past 12 Months, You Worried That Your Food Would Run Out Before You Got Money To Buy More. Never True [email or web address] Information n ot available 05/07/2024 Within The Past 12 Months, The Food You Bought Just Didn't Last And You Didn't Have Money To Get More. Never True [email or web address] Information not available 05/07/2024 How Hard Is It For You To Pay For The Very Basics Like Food, Housing, Medical Care, And Heating? Would You Say It Is: Somewhat Hard [email or web address] Information not available 05/07/2024 In The Past 12 Months, Has Lack Of Reliable Transportation Kept You From Medical Appointments, Meetings, Work Or From Getting Things Needed For Daily Living? No [email or web address] Information not available 05/07/2024 What Is Your Housing Situation Today? I Have Housing. [email or web address] Information not available 05/07/2024 How Often In The Past Year Have You Used Marijuana (including Smoking, Vaping, Dabbing, Or Edibles)? Never [email or web address] Information not available 05/07/2024 How Often In The Past Year Have You Used Prescription Medications That Were Not Prescribed To You? Monthly Or Less [email or web address] Information not available 05/07/2024 How Often In The Past Year Have You Taken Your Own Prescription Medication More Than The Way It Was Prescribed Or For Different Reasons Than Its Intended Purpose? Never [email or web address] Information not available 05/07/2024 How Often In The Past Year Have You Used Other Drugs (for Example, Heroin, Cocaine, Meth, Salvia, Inhalants)? Never [email or web address] Information not available 05/07/2024 Have You Ever Used IV Drugs? No [email or web address] Information not available 05/07/2024 Date Of Most Recent SBINS 05/07/2024 [email or web address] Information not available 05/07/2024 What Was The Date Of Your Most Recent Tobacco Screening? 05/07/2024 [email or web address] Information n ot available 05/07/2024 How Much Tobacco Do You Smoke? 1 PPD [facility] Information not available 11/02/2023 Has Tobacco Cessation Counseling Been Provided? Yes [facility] Information not available 11/02/2023 On What Date Was Tobacco Cessation Counseling Provided? 05/07/2024 [email or web address] Information not available 05/07/2024 Do You Or Have You Ever Used Any Other Forms Of Tobacco Or Nicotine? No thelstein Information not available 11/02/2023 Sex: Male Functional [...] mcg/0.3 mL 11/02/[address] [place], [address], [facility] 11/07/2023 08:22:22 Tdap 07/31/2019 completed Not Available [facility] 05:27:49 Influenza, split virus, quadrivalent, PF 05/03/2022 completed Not Available [facility] 06/30/2023 05:27:49 Influenza, split virus, quadrivalent, PF 05/27/2021 completed Not Available [facility] 06/30/2023 05:27:49 Influenza, split virus, quadrivalent, PF 07/31/2019 completed Not Available [facility] 06/30/2023 05:27:50 COVID-19, mRNA, LNP-S, PF, 100 mcg/0.5mL dose or 50 mcg/0.25mL dose 12/10/2020 completed Not Available [facility] 06/30/2023 05:27:50 COVID-19, mRNA, LNP-S, PF, 100 mcg/0.5mL dose or 50 mcg/0.25mL dose 01/07/2021 completed Not Available [facility] 06/30/2023 05:27:50 COVID-19, mRNA, LNP-S, PF, 100 mcg/0.5mL dose or 50 mcg/0.25mL dose 07/12/2021 completed Not Available [facility] 06/30/2023 05:27:50 COVID-19, mRNA, LNP-S, bivalent, PF, 30 mcg/0.3 mL dose 11/01/2022 completed Not Available [facility] 06/30/20 05:27:51 pneumococcal polysaccharide PPV23 07/31/2019 completed Not Available [facility] 2022 05:27:51 Influenza, split virus, quadrivalent, PF 05/02/2023 completed Not Available [facility] 09/01/2023 05:32:12 zoster recombinant 05/02/[address] [facility] 09/01/2023 05:32:12 Past Encounters Encounter ID Performer Location Encounter Start Date Encounter Closed Date Diagnosis/Indication Diagnosis SNOMED-CT Code Diagnosis ICD10 Code [id number] DIONTE MURRY [address] [address] 04/18/2024 09:48:03 04/18/2024 10:38:18 Cutaneous horn 765921804 L85.8 Health Concerns Section Related Observation LastModified by Organization Detai ls LastModified Time None Recorded Concern Status LastModified by Organization Details LastModified Time None Recorded Payers Encounter Date Sequence Insurance Name Policy Number Policy Saunders Covered Member ID Saunders Member ID Guarantor Name 04/18/2024 1 [employer] [place] [employer] [id number] Tremaine Godfrey [id number] Tremaine Godfrey Notes Date Note Type Note Provider Name and Address Organization Details Recorded Time 04/18/2024 text/html HPI Notes: Here today for skin lesion near the left eye lid. He noticed a red scab like lesion for weeks and then in the last 1.5 months the lesion grew outward. The lesion does not itch or hurt, but he can see it in his peripheral vision. [address], [place], [address], [facility]. 04/18/2024 10:43:52
--- OUTSIDE RECORDS SUMMARY | 2024-05-07 19:38 | XMS_ITS | Encounter Summary ---
Author Organization Formerly [facility] [place] [address] Care Team Providers Care Customer Contact Representative Name Role Phone Harman Watson Primary Care Provider [phone] Reason for Visit * Reason Comments Blurred Vision * Consultation (ERUM) - Specialty Diagnoses / Procedures Referred By Radha t Referred To Contact Ophthalmology Diagnoses Unspecified visual disturbance CHANGES IN VISION Harman Watson PA [address] [place] [address] [facility] [address] [place] [phone] Referral ID Status Reason Start Date Expiration Date V isits Requested Visits Authorized [id number] Consult, [facility] 05/02/2019 05/01/2020 1 1 Encounter Details Date Type Department Care Team (Late st Contact Info) Description 05/03/2019 8:00 AM EDT Office [place] [phone] Carlene Monreal MD [facility] [place] [address] Presbyopia of both eyes Social History Tobacco Use Types Packs/Day Years Used Date Smoking Tobacco: Every Day Cigarettes Smokeless Tobacco: Never Alcohol Use Standard Drinks/Week Comments Yes 6 (1 standard drink = 0.6 oz pur e alcohol) Sex and Gender Information Value Date Recorded Sex Assigned at Not on file Gender Identity Not on file Sexual Orientation Not on file documented as of this encounter Progress Notes * Carlene Monreal MD - 05/03/2019 8:00 AM EDT Encounter Diagnosis Name Primary? Presbyopia of both eyes Tremaine Godfrey, a 48 y.o. male with the following problem(s): 1. Presbyopia: cause of decreased near vision. Good near vision with +2.00 OU - suspect occult hyperope as notes blurry vision when dilating drops in at distance. - No ocular abnormality found on complete dilated eye exam. Offered OCT to further rule out subtle maculopathy, though very low index of suspicion. Tremaine self-pay and defers at present. - Findings and concerns discussed with Tremaine and he expressed understanding. FOLLOW UP - with [facility] next week as scheduled for refraction documented in this encounter Plan of Treatment Not on file documented as of this encounter Visit Diagnoses Diagnosis Presbyopia of both eyes documented in this encounter Care Teams Customer Contact Representative Relationship Specialty Start Date End Date Harman Watson PA PCP - General General Internal Medicine 05/02/1902/22 documented as of this encounter
--- OUTSIDE RECORDS SUMMARY | 2024-05-07 19:38 | XMS_ITS | Encounter Summary ---
Author Organization [facility] Address [address] [place] [address] Care Team Providers Care Food Safety Technician Name Role Phone Brianne Grant CUSTOMER RESPONSE REPRESENTATIVE Primary Care Provider [phone] Encounter Details Date Type Department Care Team (Late st Contact Info) Description 03/19/2022 Lab Requisition [facility] Pathology & Laboratory Medicine - [facility] [address], [place] [address] Outr Resulting Lab, Provider Social History Tobacco Use Types Packs/Day Years Used Date Smoking Tobacco: Never Assessed Interpersonal Safety Answer Date Record ed Physically Hurt Never 04/13/2020 Verbally Threaten Not on file 04/13/2020 Sex and Gender Information Value Date Recorded Sex Assigned at Not on file Gender Identity Not on file Sexual Orientation Not on file documented as of this encounter Plan of Treatment Not on file documented as of this encounter Procedures Procedure Name Priority Date/Time Associated Diagnosis Comments ALBUMIN, FLUID Routine 03/18/2022 18:20 EDT documented in this encounter Results * ALBUMIN, FLUID (03/18/2022 18:20 EDT) Albumin, Fluid 1.5 See Note g/dL 03/20/2022 17:34 EDT [facility] Comment: Reference range unavailable. Clinical correlation required. This Fluid Albumin assay was developed and its performance characteristics determined by [facility]. ??It has not been cleared or approved by the [place] Food and Drug Administration. Fluid PLEURAL FLUID / Unknown 03/18/2022 18:20 EDT 03/20/2022 17:10 EDT Provider Outr Resulting Lab GEN LAB UNIT COLLECT ORDERABLES [facility] [address] [place] [address] documented in this encounter Visit Diagnoses Not on filedocumented in this encounter Care Teams Food Safety Technician Relationship Specialty Start Date End Date Brianne Grant NP [address] [place] [phone] PCP - General 03/14/11 documented as of this encounter
--- OUTSIDE RECORDS SUMMARY | 2024-05-07 19:38 | XMS_ITS | Referral Summary ---
Author Organization [facility] Address [address] [place] [address] Care Team Providers Care Manager Laundry Name Role Phone Brianne Grant AREA FIELD PERSON Primary Care Provider Encounters Date Type Department Care Team Description 05/07/2024 Lab Requisition [facility] Pathology & Laboratory Medicine - [facility] [address] [place] [address] Outr Resulting Lab, Provider from Last 3 Months Social History Tobacco Use Types Packs/Day Years Used Date Smoking Tobacco: Never Assessed Interpersonal Safety Answer Date Record ed Physically Hurt Never 04/13/2020 Verbally Threaten Not on file 04/13/2020 Sex and Gender Information Value Date Recorded Sex Assigned at Not on file Gender Identity Not on file Sexual Orientation Not on file Plan of Treatment Not on file Care Teams Manager Laundry Relationship Specialty Start Date End Date Brianne Grant NP [address] [place] [phone] PCP - General 03/14/11
--- OUTSIDE RECORDS SUMMARY | 2024-05-07 19:38 | XMS_ITS | Encounter Summary ---
Author Organization [facility] Address [address] [place] [address] Care Team Providers Care Change Lead Name Role Phone Brianne Grant CADASTRAL SURVEYOR Primary Care Provider Encounter Details Date Type Department Care Team (Late st Contact Info) Description 12/23/2020 Lab Requisition [facility] Pathology & Laboratory Medicine - [facility] [address] [place] [address] Gilda Anthony, DO [address] [place], [place] [address] Encounter for other general examination Social History Tobacco Use Types Packs/Day Years [...] Procedure Name Priority Date/Time Associated Diagnosis Comments SURGICAL PATHOLOGY Today 12/22/2020 14 :32 EDT Encounter for other general examination documented in this encounter Results * SURGICAL PATHOLOGY (12/22/2020 14:32 EDT) Final Diagnosis A. SKIN, LEFT UPPER BACK, SEBACEOUS CYST, EXCISION: - Follicular cyst, infundibular type. 12/25/2020 10:[address] [facility] Attestation By the signature below, the attending physician certifies that they have 1) personally conducted a gross and/or microscopic examination of the described specimen(s), and/or personally interpreted the results of laboratory testing of the described specimen(s), and 2) personally rendered or confirmed the above diagnosis. 12/25/2020 10:09 [facility] at 1009 Clinical History Sebaceous cyst left upper back 12/25/2020 10:09 [facility] Gross Description A. Received in formalin labelled with proper patient identification (initials W, M) and sebaceous cyst L upper back are four irregular subcutaneous tissues aggregating 5.0 x 5.0 x 3.0 cm. One surface of each tissue is lined by a dusky estevez cyst wall averaging 0.1 cm in thickness. The cyst wall linings are smooth to focally trabecular and coated with semi-solid estevez-hayes material. The surrounding fibroadipose tissues are without areas of induration. Areas of overlying associated skin are not included. A health and safety representative section from one cyst wall fragment is submitted in A1. SAVANAH FLORES(ASCP) 12/23/2020 9:26 12/25/2020 10:09 [facility] Performing Lab [facility] 12/25/2020 10:09 [facility] Scanned Images 12/25/2020 10:09 [facility] Tissue TISSUE SPECIMEN FROM SKIN / Unknown 12/22/2020 14:32 EDT 12/23/2020 8:23 EDT Gilda Anthony DO PATHOLOGY ORDERABLES [facility] [address] [place] [address] documented in this encounter Visit Diagnoses Diagnosis Encounter for other general examination documented in this encounter Care Teams Change Lead Relationship Specialty Start Date End Date Brianne Grant NP [address] [place] [phone] PCP - General 03/14/11 documented as of this encounter
--- OUTSIDE RECORDS SUMMARY | 2024-05-07 19:38 | XMS_ITS | Encounter Summary ---
Author Organization [facility] Address [address] [place] [address] Care Team Providers Care Radio Script Writer Name Role Phone Brianne Grant COMMUNICATIONS ASSISTANT Primary Care Provider [phone] Encounter Details Date Type Department Care Team (Late st Contact Info) Description 06/05/2020 Lab Requisition [facility] Pathology & Laboratory Medicine - [address] [id number] Outr Resulting Lab, Provider Social History Tobacco [...] Procedure Name Priority Date/Time Associated Diagnosis Comments DO NOT ORDER STANDALONE - BROAD COVID TEST Today 06/05/2020 14:19 EDT COVID-19 TESTING Routine 06/05/2020 14:1 9 EDT documented in this encounter Results * DO NOT ORDER STANDALONE - BROAD COVID TEST (06/05/2020 14:19 EDT) COVID-19 rt-PCR Result NEGATIVE Negative 06/06/2020 16:18 EDT [facility] Comment: 2019-novel Coronavirus (2019-nCoV) not detected by the qRT-PCR assay. Consider testing for other respiratory viruses or re-collecting for 2019-nCoV testing. Note: Optimum timing for peak viral levels during infections caused by 2019-nCoV have not been determined. Collection of multiple specimens from the same patient may be necessary to detect the virus. Limitations Positive results are indicative of active infection with SARS-CoV-2 but do not rule out bacterial infection or co-infection with other viruses. The agent detected may not be the definite cause of disease. In addition, detection of viral RNA may not indicate the presence of infectious virus or that SARS-CoV-2 is the causative agent for clinical symptoms. Negative results do not preclude SARS-CoV-2 infection and should not be used as the sole basis for patient management decisions. Negative results must be combined with clinical observations, patient history, and epidemiological information. False negative results may also occur if amplification inhibitors are present in the specimen or if inadequate numbers of organisms are present in the specimen. Optimum specimen types and timing for peak viral levels during infections caused by SARS-CoV-2 have not been fully determined. Collection of multiple specimens (types and time points) from the same patient may be necessary to detect the virus. The test was validated for use with upper respiratory specimens obtained via nasopharyngeal or oropharyngeal swabs in VTM, UTM, M4, M5, M6, saline, and MTM media. The performance of this test has not been established for other specimens. Specimens collected using other FDA recommended Specimen Collection Materials listed in the FDA COVID-19 [employer] communication (November 14, 2019) are processed with the caveat that they were not all validated for use with this test and the result must be interpreted in this context. Furthermore, a false negative results may occur if a specimen is improperly collected, transported or handled. If the virus mutates in the RT-PCR target region, SARS-CoV-2 may not be detected or may be detected less predictably. Inhibitors or other types of interference may produce a false negative result. An interference study evaluating the effect of common cold medications was not performed. This test is not FDA-cleared but its performance characteristics were established by our CLIA-certified, CAP-accredited, high complexity laboratory in accordance with CLIA regulations, College of [place] [employer] (CAP) guidelines (Nov 07, 2019), and FDA guidance (Oct 19, 2019). This test is only for use under the Food and Drug Administration's Emergency Use Authorization. Swab ENTIRE NASOPHARYNX / Unknown 06/05/2020 14:19 EDT 06/05/2020 21:05 EDT Provider Outr Resulting Lab MICROBIOLOGY - GENERAL ORDERABLES [facility] [place], [place] * COVID-19 TESTING (06/05/2020 14:19 EDT) COVID-19 rt-PCR Result NEGATIVE Negative 06/06/2020 17:50 EDT [facility] Comment: 2019-novel Coronavirus (2019-nCoV) not detected by the qRT-PCR assay. Consider testing for other respiratory viruses or re-collecting for 2019-nCoV testing. Note: Optimum timing for peak viral levels during infections caused by 2019-nCoV have not been determined. Collection of multiple specimens from the same patient may be necessary to detect the virus. Limitations Positive results are indicative of active infection with SARS-CoV-2 but do not rule out bacterial infection or co-infection with other viruses. The agent detected may not be the definite cause of disease. In addition, detection of viral RNA may not indicate the presence of infectious virus or that SARS-CoV-2 is the causative agent for clinical symptoms. Negative results do not preclude SARS-CoV-2 infection and should not be used as the sole basis for patient management decisions. Negative results must be combined with clinical observations, patient history, and epidemiological information. False negative results may also occur if amplification inhibitors are present in the specimen or if inadequate numbers of organisms are present in the specimen. Optimum specimen types and timing for peak viral levels during infections caused by SARS-CoV-2 have not been fully determined. Collection of multiple specimens (types and time points) from the same patient may be necessary to detect the virus. The test was validated for use with upper respiratory specimens obtained via nasopharyngeal or oropharyngeal swabs in VTM, UTM, M4, M5, M6, saline, and MTM media. The performance of this test has not been established for other specimens. Specimens collected using other FDA recommended Specimen Collection Materials listed in the FDA COVID-19 [employer] communication (November 14, 2019) are processed with the caveat that they were not all validated for use with this test and the result must be interpreted in this context. Furthermore, a false negative results may occur if a specimen is improperly collected, transported or handled. If the virus mutates in the RT-PCR target region, SARS-CoV-2 may not be detected or may be detected less predictably. Inhibitors or other types of interference may produce a false negative result. An interference study evaluating the effect of common cold medications was not performed. This test is not FDA-cleared but its performance characteristics were established by our CLIA-certified, CAP-accredited, high complexity laboratory in accordance with CLIA regulations, College of [place] [employer] (CAP) guidelines (Nov 07, 2019), and FDA guidance (Oct 19, 2019). This test is only for use under the Food and Drug Administration's Emergency Use Authorization. Performing Lab [facility] 06/06/2020 17:50 EDT [facility] Swab 06/05/2020 14:1 9 EDT 06/05/2020 21:05 EDT Provider Outr Resulting Lab MICROBIOLOGY - GENERAL ORDERABLES [facility] [address] [place] [address] [facility] [place] documented in this encounter Visit Diagnoses Not on filedocumented in this encounter Care Teams Radio Script Writer Relationship Specialty Start Date End Date Brianne Grant NP [address] [place] [address] [phone] PCP - General 03/14/11 documented as of this encounter
--- OUTSIDE RECORDS SUMMARY | 2024-05-07 19:38 | XMS_ITS | Clinical Summary ---
Author Organization [facility] Address [address] [facility] [place] [address] Care Team Providers Care Waterproof Material Folder Name Role Phone Unknown Primary Care Provider Unavailabl e Allergies No known active allergies Medications Medication Sig Dispensed Refills Start Date End Date Status amLODIPine (NORVASC) 10 mg Tablet TAKE 1 TABLET BY MOUTH ONCE DAILY 0 04/29/2019 Active hydroCHLOROthiazide (HYDRODIURIL) 25 mg Tablet TAKE 1 TABLET BY MOUTH ONCE DAILY 0 04/29/2019 Active metoprolol tartrate (LOPRESSOR) 25 mg Tablet TAKE 1 TABLET BY MOUTH TWICE DAILY 0 04/29/2019 Active TAB-A-NADIA Tablet TAKE 1 TABLET BY MOUTH ONCE DAILY 0 04/29/2019 Active fluticasone propionate (FLONASE) 50 mcg/actuation [place], Suspension 1 spray as needed for Rhinitis. Active Active Problems Problem Noted Date Diagnosed Date Presbyopia of both eyes 05/03/2019 Family History Medical History Relation Comments Amblyopia Neg Hx Glaucoma Neg Hx Macular Degeneration Neg Hx Strabismus Neg Hx Social History Tobacco Use Types Packs/Day Years Used Date Smoking Tobacco: Every Day Cigarettes Smokeless Tobacco: Never Alcohol Use Standard Drinks/Week Comments Yes 6 (1 standard drink = 0.6 oz pur e alcohol) Sex and Gender Information Value Date Recorded Sex Assigned at Not on file Gender Identity Not on file Sexual Orientation Not on file Plan of Treatment Health Maintenance Due Date Last Done Comments CT Colonography 1969 Colonoscopy 1969 Colorectal Cancer Screening 1969 FIT DNA 1969 FIT 1969 Sigmoidoscopy (10 year) with FIT yearly 1969 Sigmoidoscopy 1969 HIV screen 1987 Hepatitis C Screening 1987 Lipid Screening 1987 Hepatitis B vaccine (0-59 yrs) (1) 1988 Tdap adult 1988 Tetanus vaccine 1988 Zoster vaccine (1 of 2) 2019 Covid-19 Vaccine (1 - season) 2024 Influenza (Flu) vaccine (1 o f 1 - Influenza standard series) 04/21/2024 Care Teams Waterproof Material Folder Relationship Specialty Start Date End Date Unknown None PCP - General 02/23/21
--- OUTSIDE RECORDS SUMMARY | 2024-05-07 19:38 | XMS_ITS | Encounter Summary ---
Author Organization [facility] Address [address] [place] [address] Care Team Providers Care Video Surveillance Technician Name Role Phone Brianne Grant SOFTBALL WINDER Primary Care Provider [phone] Encounter Details Date Type Department Care Team (Late st Contact Info) Description 03/19/2022 Lab Requisition [facility] Pathology & Laboratory Medicine - [facility] [address] [place], [place] [address] Outr Resulting Lab, Provider Social History Tobacco [...] Procedure Name Priority Date/Time Associated Diagnosis Comments GLUCOSE, FLUID Routine 03/18/2022 18:20 EDT documented in this encounter Results * GLUCOSE, FLUID (03/18/2022 18:20 EDT) Glucose, Fluid 151 See Note mg/dL 03/20/2022 17:35 EDT [facility] Comment: Reference range unavailable. Clinical correlation required. This Fluid Glucose assay was developed and its performance characteristics determined by [facility]. ??It has not been cleared or approved by the US Food and Drug Administration. Fluid PLEURAL FLUID / Unknown 03/18/2022 18:20 EDT 03/20/2022 17:10 EDT Provider Outr Resulting Lab GEN LAB UNIT COLLECT ORDERABLES [facility] [address] [place] [address] documented in this encounter Visit Diagnoses Not on filedocumented in this encounter Care Teams Video Surveillance Technician Relationship Specialty Start Date End Date Brianne Grant NP [address] [place] [address] [phone] PCP - General 03/14/11 documented as of this encounter
--- OUTSIDE RECORDS SUMMARY | 2024-05-07 19:38 | XMS_ITS | Encounter Summary ---
Author Organization [facility] Address [address] [place] [address] Care Team Providers Care Website Optimization Strategist Name Role Phone Brianne Grant BISQUE WARE DIPPER Primary Care Provider Encounter Details Date Type Department Care Team (Late st Contact Info) Description 03/22/2022 Lab Requisition [facility] Pathology & Laboratory Medicine - [facility] [address] [place] [address] Gilda Anthony, DO [address] [place], [place] [address] Encounter for other general examination Social History [...] Procedure Name Priority Date/Time Associated Diagnosis Comments NON ASSORTMENT PLANNER/FNA CYTOLOGY Today 03/18/2022 18:20 EDT Encounter for other general examination documented in this encounter Results * NON ASSORTMENT PLANNER/FNA CYTOLOGY (03/18/2022 18:20 EDT) Note to Patient The following pathology results have been interpreted by your pathologist and may be available to you before your health provider has had the opportunity to review them. Please allow time for your provider to receive these results and explore management options, if applicable. 03/24/2022 10:28 [facility] Final Diagnosis A. PLEURAL FLUID, RIGHT, CYTOLOGIC EVALUATION: - Negative for malignant cells. - Mesothelial cells with reactive atypia. See comment. 03/24/2022 10:28 [facility] Diagnosis Comment The thin prep slide shows small groups of mesothelial cells with reactive atypia. Cell blocks obtained on this case were reviewed. 03/24/2022 10:28 [facility] Attestation By the signature below, the attending physician certifies that they have personally conducted a gross and/or microscopic examination of the described specimens and rendered or confirmed the above diagnosis. 03/24/2022 10:28 [facility] at 1028 Clinical History Right pleural effusion 03/24/2022 10:28 [facility] Gross Description A. 750cc's of cloudy yellow fluid were received and processed by selective cellular enhancement technique. 03/24/2022 10:28 [facility] Performing Lab [facility] 03/24/2022 10:28 [facility] Scanned Images 03/24/2022 10:28 [facility] Fluid PLEURAL FLUID / Unknown 03/18/2022 18:20 EDT 03/22/2022 6:31 EDT Gilda Anthony DO PATHOLOGY ORDERABLES Performing Organization Address City/State/[facility] Co de Phone Number [facility] [address] [place] [address] documented in this encounter Visit Diagnoses Diagnosis Encounter for other general examination documented in this encounter Care Teams Website Optimization Strategist Relationship Specialty Start Date End Date Brianne Grant NP [address] [place] [address] [phone] PCP - General 03/14/11 documented as of this encounter
--- OUTSIDE RECORDS SUMMARY | 2024-05-07 19:38 | XMS_ITS | Encounter Summary ---
Author Organization [facility] Address [address] [place] [address] Care Team Providers Care Dental Biller Name Role Phone Brianne Grant APPLICATION SECURITY ENGINEER Primary Care Provider Encounter Details Date Type Department Care Team (Late st Contact Info) Description 05/07/2024 Lab Requisition [facility] Pathology & Laboratory Medicine - [facility] [address] [place] [address] Outr Resulting Lab, Provider Social History Tobacco [...] as of this encounter Plan of Treatment Scheduled Orders Name Type Priority Associated Diagnoses Orde r Schedule PSA TOTAL, DIAGNOSTIC Lab Routine Ord ered: 05/07/2024 documented as of this encounter Visit Diagnoses Not on filedocumented in this encounter Care Teams Dental Biller Relationship Specialty Start Date End Date Brianne Grant NP [address] [place] [address] [phone] PCP - General 03/14/11 documented as of this encounter
--- OUTSIDE RECORDS SUMMARY | 2024-05-07 19:38 | XMS_ITS | Encounter Summary ---
Author Organization [facility] Address [address] [place] [address] Care Team Providers Care Electricity Trading Analyst Name Role Phone Brianne Grant WATER TAXI DRIVER Primary Care Provider [phone] Encounter Details Date Type Department Care Team (Late st Contact Info) Description 2020 Lab Requisition [facility] Pathology & Laboratory Medicine - [address] [id number] Outr Resulting Lab, Provider Social History Tobacco [...] ORDER STANDALONE - BROAD COVID TEST Today 2020 9:05 EST COVID-19 TESTING Routine 2020 9:05 EST documented in this encounter Results * DO NOT ORDER STANDALONE - BROAD COVID TEST (2020 9:05 EST) COVID-19 rt-PCR Result NEGATIVE Negative 07/31/2020 17:27 EST [facility] Comment: 2019-novel Coronavirus (2019-nCoV) not [...] in accordance with CLIA regulations, [employer] [place] [employer] (CAP) guidelines (Nov 07, 2019), and FDA guidance (Oct 19, 2019). This test is only for use under the Food and Drug Administration's Emergency Use Authorization. Swab ENTIRE NASOPHARYNX / Unknown 2020 9:05 EST 2020 18:01 EST Provider Outr Resulting Lab MICROBIOLOGY - GENERAL ORDERABLES [facility] [place], [place] * COVID-19 TESTING (2020 9:05 EST) COVID-19 rt-PCR Result NEGATIVE Negative 07/31/2020 18:48 EST [facility] Comment: 2019-novel Coronavirus (2019-nCoV) not detected [...] in accordance with CLIA regulations, [employer] [place] [employer] (CAP) guidelines (Nov 07, 2019), and FDA guidance (Oct 19, 2019). This test is only for use under the Food and Drug Administration's Emergency Use Authorization. Performing Lab [facility] 07/31/2020 18:48 EST [facility] Swab 2020 9:05 EST 2020 18:01 EST Provider Outr Resulting Lab MICROBIOLOGY - GENERAL ORDERABLES [facility] [address] [place] [address] [facility] [place], [place] documented in this encounter Visit Diagnoses Not on filedocumented in this encounter Care Teams Electricity Trading Analyst Relationship Specialty Start Date End Date Brianne Grant NP [address] [place] [phone] PCP - General 03/14/11 documented as of this encounter
--- OUTSIDE RECORDS SUMMARY | 2024-05-07 19:38 | XMS_ITS | Encounter Summary ---
Author Organization [facility] [place] [address] Care Team Providers Care Felling Bucking Supervisor Name Role Phone Unavailable Primary Care Provider Unavailabl e Encounter Details Date Type Department Care Team (Late st Contact Info) Description 07/02/2010 4:30 PM EST [place] [phone] Dread Abad MD [facility] [place] [address] Social History Tobacco Use Types Packs/Day Years Used Date Smoking Tobacco: Never Assessed Sex and Gender Information Value Date Recorded Sex Assigned at Not on file Gender Identity Not on file Sexual Orientation Not on file documented as of this encounter Plan of Treatment Not on file documented as of this encounter Visit Diagnoses Not on filedocumented in this encounter
--- OUTSIDE RECORDS SUMMARY | 2024-05-07 19:38 | XMS_ITS | Encounter Summary ---
Author Organization [facility] Address [address] [place] [address] Care Team Providers Care Affiliate Manager Name Role Phone Brianne Grant LAMINATION OPERATOR Primary Care Provider [phone] Encounter Details Date Type Department Care Team (Late st Contact Info) Description 03/27/2020 Lab Requisition [facility] Pathology & Laboratory Medicine - [address] [address] Ava Lazaro MD [address] [place] [address] [phone] Encounter for screening for malignant neoplasm of colon; Polyp of colon Social History Tobacco Use Types Packs/Day Years Used Date Smoking Tobacco: Never Assessed Sex and Gender Information Value Date Recorded Sex Assigned at Not on file Gender Identity Not on file Sexual Orientation Not on file documented as of this encounter Plan of Treatment Not on file documented as of this encounter Procedures Procedure Name Priority Date/Time Associated Diagnosis Comments SURGICAL PATHOLOGY Today 03/27/2020 9:55 EDT Encounter for screening for malignant neoplasm of colon documented in this encounter Results * SURGICAL PATHOLOGY (03/27/2020 9:55 EDT) Final Diagnosis A. RECTUM, POLYP, BIOPSY: - Hyperplastic polyp. 03/30/2020 11:10 EDT [facility] Attestation By the signature below, the attending physician certifies that they have 1) personally conducted a gross and/or microscopic examination of the described specimen(s), and/or personally interpreted the results of laboratory testing of the described specimen(s), and 2) personally rendered or confirmed the above diagnosis. 03/30/2020 11:10 EDT [facility] at 1110 Clinical History Screening for colon cancer 03/30/2020 11:10 EDT [facility] Gross Description A. Received in formalin labelled with proper patient identification (initials W, M) and rectal polyp are 2 hayes tissues (0.3 x 0.2 x 0.1 cm, and 0.3 x 0.2 x 0.1 cm). Submitted entirely in A1. Panda Bolton 03/27/2020 17:11 03/30/2020 11:10 EDT [facility] Performing Lab [facility] 03/30/2020 11:10 EDT [facility] Scanned Images 03/30/2020 11:10 EDT [facility] Tissue SPECIMEN FROM RECTUM / Unknown 03/27/2020 9:55 EDT 03/27/2020 16:45 EDT Ava Lazaro MD PATHOLOGY ORDERABLES [facility] [address] [place] [address] documented in this encounter Visit Diagnoses Diagnosis Encounter for screening for malignant neoplasm of colon Special screening for malignant neoplasms, colon Polyp of colon Benign neoplasm of colon documented in this encounter Care Teams Affiliate Manager Relationship Specialty Start Date End Date Brianne Grant NP [address] [place] [phone] PCP - General 03/14/11 documented as of this encounter
--- OUTSIDE RECORDS SUMMARY | 2024-05-07 19:38 | XMS_ITS | Encounter Summary ---
Author Organization [facility] Address [address] [place] [address] Care Team Providers Care Metallography Teacher Name Role Phone Brianne Grant TECHNICAL ANALYST Primary Care Provider [phone] Encounter Details Date Type Department Care Team (Late st Contact Info) Description 01/19/2024 Lab Requisition [facility] Pathology & Laboratory Medicine - [facility] [address] [place] [address] Juwan Ackerman MD [address] [facility] [address] [place], [place] [id number] Encounter for other general examination Social History [...] Date/Time Associated Diagnosis Comments SURGICAL PATHOLOGY Today 01/18/2024 11 :30 EDT Encounter for other general examination documented in this encounter Results * SURGICAL PATHOLOGY (01/18/2024 11:30 EDT) Note to Patient The following pathology results have been interpreted by your pathologist and may be available to you before your health provider has had the opportunity to review them. Please allow time for your provider to receive these results and explore management options, if applicable. 01/22/2024 11:43 EDT [facility] Final Diagnosis A. 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 01/22/2024 11:43 [facility] Attestation By the signature below, the attending physician certifies that they have 1) personally conducted a gross and/or microscopic examination of the described specimen(s), and/or personally interpreted the results of laboratory testing of the described specimen(s), and 2) personally rendered or confirmed the above diagnosis. 01/22/2024 11:43 [facility] at [address] Microscopic Description The stratum corneum is thickened by orthohyperkeratosis with foci of parakeratosis and scale crust. The epidermis shows marked irregular hyperplasia with elongate and thickened rete ridges. There are areas of papillomatosis. The keratinocytes show mild reactive changes with an accentuated granular layer. The dermal papillae are widened by thick bundles of collagen oriented in a vertical array. There is mild chronic inflammation. 01/22/2024 11:43 [facility] Clinical History ? keratoacanthoma 01/22/2024 11:43 [facility] Gross Description A. Received in formalin labelled with proper patient identification (initials W, M) and R dorsum foot is an elliptical excision of hayes skin with a black suture at one tip. The requisition does not state what the suture designates, thus the suture is arbitrarily designated as 12 o'clock. The specimen measures 2.7 cm from 12 o'clock to 6 o'clock, 1.6 cm from 9 o'clock to 3 o'clock, and is excised to a depth of 0.2 cm. There is a central ovoid hayes keratotic nodule that measures 1.5 x 1.3 x 0.5 cm. The 3 o'clock margin is inked blue and the 9 o'clock margin is inked black. The specimen is serially sectioned from 12 o'clock to 6 o'clock and is entirely submitted as follows: BLOCK DANG A1- 12 o'clock tip, reverse en face A2-A4- 8 central sections A5- 6 o'clock tip, reverse en face Carol Burns 01/19/2024 10:10 01/22/2024 11:43 EDT [facility] Performing Lab [facility] 01/22/2024 11:43 EDT [facility] Scanned Images 01/22/2024 11:43 EDT [facility] Tissue SPECIMEN FROM SKIN / Unknown 01/18/2024 11:30 EDT 01/19/2024 8:14 EDT Juwan Ackerman MD PATHOLOGY ORDERABLES [facility] [address] [place] [address] documented in this encounter Visit Diagnoses Diagnosis Encounter for other general examination documented in this encounter Care Teams Metallography Teacher Relationship Specialty Start Date End Date Brianne Grant NP [address] [place] [phone] PCP - General 03/14/11 documented as of this encounter
--- OUTSIDE RECORDS SUMMARY | 2024-05-07 19:38 | XMS_ITS | Encounter Summary ---
Author Organization [facility] [place] [address] Care Team Providers Care Exhibition Designer Name Role Phone Brianne Grant APRN Primary Care Provider [phone] Encounter Details Date Type Department Care Team (Late st Contact Info) Description 06/22/2010 [place] [address] [facility] [place] [address] Social History Tobacco Use Types Packs/Day Years Used Date Smoking Tobacco: Never Assessed Sex and Gender Information Value Date Recorded Sex Assigned at Not on file Gender Identity Not on file Sexual Orientation Not on file documented as of this encounter Plan of Treatment Not on file documented as of this encounter Procedures Procedure Name Priority Date/Time Associated Diagnosis Comments SURGICAL PATHOLOGY REPORT Routine 06/22/2010 2:42 PM EDT documented in this encounter Results * PATHOLOGY SURGICAL PATHOLOGY FINAL REPORT (06/22/2010 2:42 PM EDT) Surgical Pathology Report ? [facility] ? Provider: ?? IVAN WALLACE ??Pt. Name: ?? TREMAINE FELIZ ? Acc #: ?[id number] ?Pt. ? Col Date: ?? 06/22/2010 ? /Sex: ?1970,(39 years),Male ? Rec Date: ?? 06/22/2010 ? LOC: ?3W ? SURGICAL PATHOLOGY ? ---Pathologic Diagnosis--- ? Liver, needle biopsy specimen showing mild to moderate mixed micro- and ? macrovesicular steatosis, accompanied by focal ballooned hepatocytes and ? mild lobular inflammation including neutrophils. ? Trichrome stain shows portal and periportal fibrosis and ? centrilobular/debbie cellular fibrosis. ? Iron stain shows 2-3+ iron deposition in hepatocytes, Kupffer cells and ? portal macrophages. ? The findings are consistent with hemochromatosis and ? steatohepatitis/st eatofibrosis. ? CR-0 ? 06/23/10 ? AAS ? 06/23/10 Verified by: ? Ciro Laureano MD ? Pathologist ? (Electronic Signature) ? The attending pathologist whose signature appears on this report has ? reviewed all diagnostic slides and has edited the gross and/or ? microscopic portion of the report in rendering the final pathologic ? diagnosis. ? ---Microscopic Description--- ? Slides reviewed, microscopic description not recorded. ? ---Gross Description--- ? Labeled/Fixative: ? Right lobe liver, formalin. ? Qty/Size/Weight: ?Eight, hayes to brown-orange needle core biopsies, ? ranging from 0.7 cm to 2.0 cm. ? Sections/Processin g: ??(T2) ??vms/SHB ? ---Clinical Information--- ? Specimen Submitted: ? A - Liver biopsy ? Clinical History: ? Hx of hemochromatosis and ETOH ? SILVA ? Clinical Diagnosis: ? Hemochromatosis LOPEZ PAULINO 06/22/2010 2:42 PM EDT Ivan Wallace MD PATHOLOGY/CYTOLOGY ORDERABLES Performing Organization Address City/State/[facility] Co de Phone Number LOPEZ PAULINO documented in this encounter Visit Diagnoses Not on filedocumented in this encounter Care Teams Exhibition Designer Relationship Specialty Start Date End Date Brianne Grant, SENIOR INFRASTRUCTURE ENGINEER [facility] [address] [place] [address] PCP - General 07/13/10 05/01/19 documented as of this encounter
--- OUTSIDE RECORDS SUMMARY | 2024-05-07 19:38 | XMS_ITS | Continuity of Care Document ---
Author Organization [facility] Address [address] [place] [address] Assessment Encounter Date Assessment Date Assessment LastModified by Organization Details LastModified Time 02/08/2024 02/08/2024 Removed bandaid, some dried discharge noted. Incision line closed, no redness or active draining. Removed remain mattress suture with no problem or concern. Applied Medihoney to bandaid and covered incision site. [email or web address] Not available 02/08/2024 10:02:21 Plan of Treatment Reminders Order Date Submit Date Provider Last Modified By Organization Details Last Modified Time Details Appointments Annual Wellness Exam 40 2023 09:00A M Not available Not available Not available Office Visit 30 2024 10:00A M Not available Not available Not available Lab None recorded. Referral None recorded. Procedures None recorded. 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 19:47:42 Obesity 967790605 Active 2009 [facility] 19:48:12 Nicotine dependen ce 84382429 Active 2009 [facility] 4 19:48:07 Cellulit is 441606049 Completed 201808/01/2019 Problem Code: L03.90; Problem Code Type: ICD-10; Not Available [facility] 3 05:03:35 Adult health examinat ion Active 2020 [facility] 4 19:46:17 Peripher al venous insuffic iency 63094249 Active 2021 [facility] 4 19:48:29 Alcohol abuse 54474248 Active 2021 [facility] 4 19:46:22 Chronic respirat ory failure 33149275 Active 2021 [facility] 4 19:47:08 Heart failure 29504342 Active 2021 [facility] 4 19:47:27 Active immuniza tion Completed 202105/17/2022 Problem Code: Z23; Problem Code Type: ICD-10; Not Available [facility] 3 05:03:35 Thoracic aortic aneurysm without rupture 63327844 Active 2022 [facility] 4 19:48:36 Bone necrosis 650698415 Completed 202210/30/2023 Problem Code: M87.9; Problem Code Type: ICD-10; [facility] 4 19:46:52 Pain of left hip joint 68711767029 9100 Completed 201911/19/2020 Problem Code: M25.552; Problem Code Type: ICD-10; Not Available [facility] 3 05:03:36 Screenin g for malignan t neoplasm of colon Completed 201911/19/2020 Problem Code: Z12.11; Problem Code Type: ICD-10; Not Available [facility] 3 05:03:36 Respirat ory failure 585483828 Completed 202105/17/2023 Problem Code: J96.90; Problem Code Type: ICD-10; Not Available [facility] 3 05:03:37 Lipoma of skin and subcutan eous tissue of trunk 071256621 Completed 202005/27/2021 Problem Code: D17.1; Problem Code Type: ICD-10; Not Available [facility] 3 05:03:37 Hyperten sive disorder 93848778 Completed 200905/17/2023 01/21/20 20 - Comments only - Kalin Lopes RPA - Reasonab ly stable on current medicati on manageme nt. No medicati on changes made today. Fasting blood work prior to PE in 6 months. Not Available [facility] 3 05:03:37 Visual disturba nce 23111060 Completed 201811/19/2020 Problem Code: H53.9; Problem Code Type: ICD-10; Not Available [facility] 3 05:03:37 Follicul ar cysts of skin and subcutan eous tissue 687574292 Completed 202005/27/2021 Problem Code: L72.9; Problem Code Type: ICD-10; Not Available [facility] 3 05:03:37 Screenin g for malignan t neoplasm of prostate Completed 201911/19/2020 Problem Code: Z12.5; Problem Code Type: ICD-10; Not Available [facility] 3 05:03:37 Osteonec rosis of hip 258785460 Completed 202205/07/2024 Removal Reason: s/p total hip replacem ent [address], [place], [address] , [facility] 4 08:59:24 Nodular hyperpla jorge of liver 991577658 Active 2022 [address], [place], [address] , [facility] 3 15:15:59 Screenin g for malignan t neoplasm of prostate Completed 202205/12/2023 Problem Code: Z12.5; Problem Code Type: ICD-10; Not Available [facility] 4 05:37:51 Hyperlip idemia 41129303 Active 2022 Francisco Marsh [facility] 4 19:48:03 Liver enzymes level above referenc e range 743847936 Active 2022 Francisco Marsh [facility] 4 19:47:55 Ascendin g aorta abnormal ity 133737296 Active 2023 [address], [place], [address] , [facility] 4 18:51:32 Skin lesion 84930665 Active 2023 Right foot keratoca nthoma. [address], [place], [address] , [facility] 4 16:52:36 Cutaneou s horn 095164930 Active [address], [place], [address] , [facility] 4 10:33:51 Problem Notes None recorded. Procedures Surgical History Date Name Laterality Status Provider Name and Address Organization Details Recorded Time 4 Suture/Stapl e removal completed FRANCO HERNANDEZ CMA [facility] 02/08/2024 10:00:19 4 Suture/Stapl e removal completed FRANCO HERNANDEZ [facility] 02/01/2024 11:18:02 Imaging Results None recorded. Procedure Notes None recorded. Medical Equipment None Reported. Allergies Allergen ID Allergen Name Allergen Category Reaction Reaction Severity Criticality Documentation Date Start Date Code Code System Note Provider Name and Address Organization Details Recorded Time 72171 lisinopri l medicatio n other severe Not available 10/30/20232020 72985 RxNorm cogni tive maisha es- felt chelseyid Francisco Marsh null, [facility] 4 19:45:50 Medications Name Sig Start Date [...] Not Available Not Available Not Available Vitals None Recorded Social History Question Answer Notes LastModified by Organizat ion Details LastModified Time Tobacco Smoking Status Current Every Day Smoker Lenora Batista RN null, [place] [facility]. 11/02/2023 07:19:21 Would You Say That, In General, Your Health Is Good [email or web address] Information not available 05/07/2024 How Often Does Anyone, Including Family, Physically Hurt You? Never [email or web address] Information not available 05/07/2024 How Often Does Anyone, Including Family, Insult Or Talk Down To You? Never [email or web address] Information no t available 05/07/2024 How Often Does Anyone, Including Family, Threaten You With Harm? Never [email or web address] Information not available 05/07/2024 How Often Does Anyone, Including Family, Scream Or Curse At You? Never [email or web address] Information not available 05/07/2024 Within The Past 12 Months, You Worried That Your Food Would Run Out Before You Got Money To Buy More. Never True [email or web address] Information n ot available 05/07/2024 Within The Past 12 Months, The Food You Bought Just Didn't Last And You Didn't Have Money To Get More. Never True [email or web address] Information not available 05/07/2024 How Hard Is It For You To Pay For The Very Basics Like Food, Housing, Medical Care, And Heating? Would You Say It Is: Somewhat Hard [email or web address] Information not available 05/07/2024 In The Past 12 Months, Has Lack Of Reliable Transportation Kept You From Medical Appointments, Meetings, Work Or From Getting Things Needed For Daily Living? No [email or web address] Information not available 05/07/2024 What Is Your Housing Situation Today? I Have Housing. [email or web address] Information not available 05/07/2024 How Often In The Past Year Have You Used Marijuana (including Smoking, Vaping, Dabbing, Or Edibles)? Never [email or web address] Information not available 05/07/2024 How Often In The Past Year Have You Used Prescription Medications That Were Not Prescribed To You? Monthly Or Less [email or web address] Information not available 05/07/2024 How Often In The Past Year Have You Taken Your Own Prescription Medication More Than The Way It Was Prescribed Or For Different Reasons Than Its Intended Purpose? Never [email or web address] Information not available 05/07/2024 How Often In The Past Year Have You Used Other Drugs (for Example, Heroin, Cocaine, Meth, Salvia, Inhalants)? Never [email or web address] Information not available 05/07/2024 Have You Ever Used IV Drugs? No [email or web address] Information not available 05/07/2024 Date Of Most Recent SBINS 05/07/2024 [email or web address] Information not available 05/07/2024 What Was The Date Of Your Most Recent Tobacco Screening? 05/07/2024 [email or web address] Information n ot available 05/07/2024 How Much Tobacco Do You Smoke? 1 PPD Information not available 11/02/2023 Has Tobacco Cessation Counseling Been Provided? Yes Information not available 11/02/2023 On What Date Was Tobacco Cessation Counseling Provided? 05/07/2024 [email or web address] Information not available 05/07/2024 Do You Or Have You Ever Used Any Other Forms Of Tobacco Or Nicotine? No Information not available 11/02/2023 Sex: Male Functional [...] 30 mcg/0.3 mL 11/02/2023 completed [address], [place], [address], [facility] 11/07/2023 08:22:22 Tdap 07/31/2019 completed Not Available [facility] 05:27:49 Influenza, split virus, quadrivalent, PF 05/03/2022 completed Not Available [facility] 06/30/2023 05:27:49 Influenza, split virus, quadrivalent, PF 05/27/2021 completed Not Available [facility] 06/30/2023 05:27:49 Influenza, split virus, quadrivalent, PF 07/31/2019 completed Not Available [facility] 06/30/2023 05:27:50 COVID-19, mRNA, LNP-S, PF, 100 mcg/0.5mL dose or 50 mcg/0.25mL dose 12/10/2020 completed Not Available [facility] 06/30/2023 05:27:50 COVID-19, mRNA, LNP-S, PF, 100 mcg/0.5mL dose or 50 mcg/0.25mL dose 01/07/2021 completed Not Available [facility] 06/30/2023 05:27:50 COVID-19, mRNA, LNP-S, PF, 100 mcg/0.5mL dose or 50 mcg/0.25mL dose 07/12/2021 completed Not Available [facility] 06/30/2023 05:27:50 COVID-19, mRNA, LNP-S, bivalent, PF, 30 mcg/0.3 mL dose 11/01/2022 completed Not Available [facility] 06/30/20 05:27:51 pneumococcal polysaccharide PPV23 07/31/2019 completed Not Available [facility] 2022 05:27:51 Influenza, split virus, quadrivalent, PF 05/02/2023 completed Not Available [facility] 09/01/2023 05:32:12 zoster recombinant 05/02/[address] [facility] 09/01/2023 05:32:12 Past Encounters Encounter ID Performer Location Encounter Start Date Encounter Closed Date Diagnosis/Indication Diagnosis SNOMED-CT Code Diagnosis ICD10 Code [id number] [address]ION[address] [address] 01/09/2024 13:46:23 01/09/2024 14:30:30 Skin lesion 09377137 L98.9 [id number] SAUNDRA PHAN MD [address] [address] 01/18/2024 10:10:41 01/18/2024 11:57:24 Skin lesion 50180781 L98.9 [id number] FRANCO HERNANDEZ [address] [address] 02/01/2024 09:40:40 02/01/2024 11:24:16 Skin lesion 18648700 L98.9 [id number] FRANCO HERNANDEZ [address] [address] 02/08/2024 09:44:24 02/08/2024 10:04:15 Skin lesion 33160000 L98.9 Health Concerns Section Related Observation LastModified by Organization Detai ls LastModified Time None Recorded Concern Status LastModified by Organization Details LastModified Time None Recorded Payers Encounter Date Sequence Insurance Name Policy Number Policy Saunders Covered Member ID Saunders Member ID Guarantor Name 02/08/2024 1 [employer] [id number] [id number] Tremaine Godfrey [id number] Tremaine Godfrey
--- OUTSIDE RECORDS SUMMARY | 2024-05-07 19:38 | XMS_ITS | Encounter Summary ---
Author Organization [facility] Address [address] [place] [address] Care Team Providers Care Analytical Tech Name Role Phone Unknown, Provider Primary Care Provider [phone] Encounter Details Date Type Department Care Team (Late st Contact Info) Description 03/10/2011 Results Only [facility] [phone] Sebastien Raymond, DO [address] [place] [address] Social History Tobacco Use Types Packs/Day Years Used Date Smoking Tobacco: Never Assessed Sex and Gender Information Value Date Recorded Sex Assigned at Not on file Gender Identity Not on file Sexual Orientation Not on file documented as of this encounter Plan of Treatment Not on file documented as of this encounter Procedures Procedure Name Priority Date/Time Associated Diagnosis Comments SURGICAL PATHOLOGY Routine 03/10/2011 0:00 EDT documented in this encounter Results * SURGICAL PATHOLOGY (03/10/2011 0:00 EDT) Pathology Report: SURGICAL PATHOLOGY REPORT ? Reports generated via electronic interface contain original data; ? however they are lacking the format of the original report. ? Caution should be taken when reading/interpreti ng unformatted reports. ? Name: ? TRAY, TREMAINE ? Accession #: ? [id number] ? : ? 1970 (Age: 40) ??M ? Collect Date: ? 03/10/2011 ? Location: ? [facility] ? Receive Date: ? 03/10/2011 ? Provider: SEBASTIEN RAYMOND DO ? Copy to: MAURO W BESCH PROJECT MANAGEMENT CONSULTANT ? Final Pathologic Diagnosis: ? Skin of back, excision: ? - Dermal fibrosis with associated inflammation. ??See comment. ? Comment: ? Present is dense dermal inflammation with associated fibrosis. ??The ? inflammation is mixed in composition and includes rare giant cells. ??Although ?? cyst epithelium is not identified, the features could be consistent with a ? ruptured cyst. ??(Dr. Alcantar)/cjh ? Document reviewed and electronically signed by: ? DIANA ALCANTAR MD ? Report ??Date: 03/11/2011 16:34 ? By the signature above, the attending physician certifies that he/she has ? personally conducted a gross and/or microscopic examination of the described ? specimens and rendered or confirmed the above diagnosis. ? Specimen(s) Received: ? Back cyst tissue ? Clinical History: ? Back cyst for pathology; Dx: cyst back ? Gross Description: ? Received in formalin labelled Tremaine Godfrey and back cyst for ? pathology is a 1.3 x 0.4 cm unoriented elliptical excision of virgen-purple skin with an underlying 0.6 x 0.5 x 0.2 cm portion of hayes-white, firm subcutaneous ?? tissue. ??The margins are inked black. ??The specimen is sectioned and a cystic ?? structure is not identified. ??The specimen is entirely submitted, with the ? central sections as (A1) and tips, reverse en face, as (A2). ??(Amarjit Scott)/eda ? End of Report ? [facility] 03/10/2011 03/10/2011 19: 11 EDT Sebastien Raymond DO PATHOLOGY ORDERABLES [facility] [address] [place] [address] documented in this encounter Visit Diagnoses Not on filedocumented in this encounter Care Teams Analytical Tech Relationship Specialty Start Date End Date Unknown, Provider, PCP - General 03/10/11 03/13/11 documented as of this encounter
--- OUTSIDE RECORDS SUMMARY | 2024-05-07 19:38 | XMS_ITS | Encounter Summary ---
Author Organization [facility] Address [address] [place] [address] Care Team Providers Care Piano Bench Assembler Name Role Phone Brianne Grant HELPER/DRIVER Primary Care Provider Encounter Details Date Type Department Care Team (Late st Contact Info) Description 05/03/2023 Lab Requisition [facility] Pathology & Laboratory Medicine - [address] [id number] Outr Resulting Lab, Provider Social History Tobacco [...] Procedure Name Priority Date/Time Associated Diagnosis Comments PSA TOTAL, DIAGNOSTIC Routine 05/02/2023 8:20 EDT documented in this encounter Results * PSA TOTAL, DIAGNOSTIC (05/02/2023 8:20 EDT) PSA 0.6 <=3.5 ng/mL 05/03/2023 18:21 EDT [facility] Blood VENOUS BLOOD / Unknown 05/02/2023 8:20 EDT 05/03/2023 17:13 EDT Narrative [facility] - 05/03/2023 18:21 EDT NOTE: Serum PSA concentration should not be interpreted as absolute evidence for the presence or absence of malignant disease. Assayed on Siemens ADVIA Centaur XPT using chemiluminescent technology.??Values obtained by using different assay methods cannot be used interchangeably. Provider Outr Resulting Lab CHEMISTRY & BLOOD GAS ORDERABLES [facility] [address] [place] [address] documented in this encounter Visit Diagnoses Not on filedocumented in this encounter Care Teams Piano Bench Assembler Relationship Specialty Start Date End Date Brianne Grant NP [address] [place] [phone] PCP - General 03/14/11 documented as of this encounter
--- OUTSIDE RECORDS SUMMARY | 2024-05-07 19:38 | XMS_ITS | Encounter Summary ---
Author Organization [facility] [place] [address] Care Team Providers Care Drum Sprayer Name Role Phone Brianne Grant APRN Primary Care Provider [phone] Encounter Details Date Type Department Care Team (Late st Contact Info) Description 06/09/2010 [place] [id number] Dread Abad MD [facility] [place] [address] Social History Tobacco Use Types Packs/Day Years Used Date Smoking Tobacco: Never Assessed Sex and Gender Information Value Date Recorded Sex Assigned at Not on file Gender Identity Not on file Sexual Orientation Not on file documented as of this encounter Plan of Treatment Not on file documented as of this encounter Procedures Procedure Name Priority Date/Time Associated Diagnosis Comments HFE MUT Routine 06/09/2010 2:35 PM EDT SCAN, PERIPHERAL BLOOD Routine 0 2:35 PM EDT DIFFERENTIAL, AUTOMATED Routine 06/09/2010 2:35 PM EDT IRON AND TIBC Routine 06/09/2010 2:35 PM EDT HEPATITIS A ANTIBODY, TOTAL Routine 06/09/2010 2:35 PM EDT HEPATITIS B SURFACE ANTIBODY Routine 06/09/2010 2:35 PM EDT HEPATITIS B SURFACE ANTIGEN Routine 06/09/2010 2:35 PM EDT PROTHROMBIN TIME Routine 06/09/2010 2:35 PM EDT CBC (WITH DIFF) Routine 06/09/2010 2:35 PM EDT TSH Routine 06/09/2010 2:35 PM EDT FERRITIN Routine 06/09/2010 2:35 PM EDT COMPREHENSIVE METABOLIC PANEL Routine 06/09/2010 2:35 PM EDT documented in this encounter Results * REFLEX LAB-HFE MUT (06/09/2010 2:35 PM EDT) HFE Mutation RESULTS: ??HOMOZYGOUS POSITIVE FOR THE C282Y HFE ??MUTATION; ??NEGATIVE FOR THE H63D HFE ??MUTATION. 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 COMMENT: In the study by Abelardo et al. (A novel MHC class I-like gene in patients with hereditary haemochromatosis. ??Nature Genetics 1996;13: 399-408), 83% of unrelated individuals with hereditary hemochromatosis (HH) were homozygous for the C282Y mutation, ??5% were C282Y/H63D compound heterozygotes, and less than 1% ??were heterozygous for the C282Y mutation only. ??Other studies have confirmed the high incidence of these mutations in individuals with HH. Neither of these HFE ??mutations was detected in the remaining 12% of individuals with hemochromatosis. This test provides information on the genetic basis for iron overload by detecting two missense mutations, C282Y and H63D, that occur commonly in Type I hereditary hemochromatosis (HFe). The gene frequency for C282Y and H63D is about 5 to 10%. Homozygosity, double heterozygosity, or heterozygosity for these mutations account for about 70% to 80% of cases of classical HFe. These mutations cause graded severity of iron accumulation with homozygosity for C282Y being the strongest and heterozygosity for H63D the weakest. Other mutations, non-genetic iron excess and various pathophysiologic conditions interact with genotype to alter clinical disease phenotype. Disease-producing iron overload can occur with any genotype depending on the level and duration of iron exposure, and interacting variables (Rajwinder Kelly. Genetic mechanisms and modifying factors in hereditary hemochromatosis. Zainab Rev Gastroenterol Hepatol 2010;7:50-58). Genetic analysis assists diagnosis when expression of a clinical phenotype possibly due to excess iron is incomplete, for predicting future disease risk (e.g., in family members) or for explaining elevated levels of ferritin or % transferrin saturation. Referral is suggested for detailed clinico-pathologic correlation. METHOD: The regions of interest in the HFE gene (C282Y and H63D) are analyzed using [employer] pre-developed assays for SNP detection on an [employer] Prism 7500 Sequence Detection System. DNA is isolated from peripheral blood and analyzed using primers and probes specific to the wild type and mutant sequences of each gene sequence of interest (C282Y and H63D). This assay was performed using analyte specific reagents which are regulated by the U.S. Food and Drug Administration. This test was developed and its performance characteristics determined by the Molecular Pathology Laboratory at [facility] [place]. This test is used for clinical purposes and should not be considered as investigational or for research purposes. ??It has not been cleared or approved by the U.S. Food and Drug Administration. However, as a C[place] licensed laboratory, our facility is approved for such high complexity clinical testing. [facility] Comment: [VERIFIED DATE]06.14.10 Verified By:Gilda Khoury MD Pathologist (Electronic Signature) Blood specimen (specimen) 06/09/2010 2:35 PM EDT 06/09/2010 3:01 PM EDT Dread Abad MD HEMATOLOGY ORDERABL ES Performing Organization Address City/State/[facility] Co de Phone Number [facility] * HEPATITIS A ANTIBODY, TOTAL (06/09/2010 2:35 PM EDT) Hepatitis A ANTIBODY, TOTAL Negative [facility] Blood specimen (specimen) 06/09/2010 2:35 PM EDT 06/09/2010 3:58 PM EDT Dread Abad MD CHEMISTRY ORDERABLE S [facility] * HEPATITIS B SURFACE ANTIGEN (06/09/2010 2:35 PM EDT) Hepatitis B Surface Antigen Negative Negative [facility] Blood specimen (specimen) 06/09/2010 2:35 PM EDT 06/09/2010 3:58 PM EDT Dread Abad MD CHEMISTRY ORDERABLE S Performing Organization Address [facility] Co de Phone Number [facility] * HEPATITIS B SURFACE ANTIBODY (06/09/2010 2:35 PM EDT) Hepatitis B Surface Antibody Negative [facility] Comment: A positive test indicates a value > 10 mIU/ml consistent with protective immunity. Blood specimen (specimen) 06/09/2010 2:35 PM EDT 06/09/2010 3:58 PM EDT Dread Abad MD CHEMISTRY ORDERABLE S Performing Organization Address [facility] Co de Phone Number [facility] * REFLEX LAB-SCAN (06/09/2010 2:35 PM EDT) Plat estimate Normal [facility] RBC Morphology Abnormal [facility] Macrocyte 6-10 /HPF [facility] Tear Cell 1-5 /HPF [facility] Blood specimen (specimen) 06/09/2010 2:35 PM EDT 06/09/2010 2:47 PM EDT Dread Abad MD HEMATOLOGY ORDERABL ES Performing Organization Address [facility]/State/ZIP Co de Phone Number [facility] * (ABNORMAL) REFLEX LAB-A-DIFF (06/09/2010 2:35 PM EDT) Neutrophil % 54.8 34.0 - 71.0 % [facility] Neutrophil Absolute 6.37(H) 1.50 - 6.30 x10(3)/mc L [facility] Lymph % 23.1 19.0 - 53.0 % [facility] Lymphocytes Abs 2.7 1.0 - 3.6 x10(3)/mc L [facility] Monocyte % 9.5 4.0 - 13.0 % [facility] Monocyte Abs 1.1(H) 0.2 - 1.0 x10(3)/mc L [facility] Eos % 11.5(H) 0.0 - 7.0 % [facility] Eosinophils Abs 1.3(H) 0.0 - 0.5 x10(3)/mc L [facility] Basophil % 0.6 0.0 - 2.0 % [facility] Baso Absolute 0.1 0.0 - 0.2 x10(3)/mc L [facility] Immature Gran % 0.50 0.00 - 0.66 % [facility] Comment: Immature granulocytes(IG's)percentage and absolute count will include metamyelocytes, myelocytes, and promyelocytes. Blood smears from CBC's yielding IG's will be scanned manually for concordance. If this scan disagrees with the automated IG or if promyelocytes are noted, a manual differential will be performed. Immature Gran Absolute 0.06(H) 0.00 - 0.05 x10(3)/mc L [facility] Blood specimen (specimen) 06/09/2010 2:35 PM EDT 06/09/2010 2:47 PM EDT Draed Abad MD HEMATOLOGY ORDERABL ES [facility] * (ABNORMAL) CBC (06/09/2010 2:35 PM EDT) White Blood Cell 11.6(H) 4.0 - 10.0 x10(3)/mc L [facility] Red Blood Cell 4.11(L) 4.63 - 6.08 x10(6)/mc L [facility] Hemoglobin 14.4 13.7 - 17.5 gm/dL [facility] Hematocrit 43.9 40.0 - 51.0 % [facility] Mean Cell Volume 106.8(H) 79.0 - 92.0 fL [facility] Mean Cell Hemoglobin 35.0(H) 25.6 - 32.2 pg [facility] Mean Cell Hemoglobin Concentration 32.8 32.0 - 36.5 gm/dL [facility] Platelet 282 145 - 370 x10(3)/mc L [facility] RDW Standard Deviation 50.1(H) 35.0 - 46.0 fL [facility] RDW coefficient of variation 12.7 10.9 - 14.4 % [facility] Mean Platelet Volume 10.7 9.0 - 12.0 fL [facility] Blood specimen (specimen) 06/09/2010 2:35 PM EDT 06/09/2010 2:47 PM EDT Dread Abad MD HEMATOLOGY ORDERABL ES Performing Organization Address [facility] Co de Phone Number [facility] * FERRITIN (06/09/2010 2:35 PM EDT) Ferritin 271 30 - 400 ng/mL [facility] Comment: Pediatric reference ranges not verified at [facility] [place], interpret with caution. Reference ranges for females greater than 50 years of age approach values for men, i.e., 30-400 ng/mL. Blood specimen (specimen) 06/09/2010 2:35 PM EDT 06/09/2010 2:47 PM EDT Dread Abad MD CHEMISTRY ORDERABLE S Performing Organization Address City/[facility] Co de Phone Number [facility] * TSH (06/09/2010 2:35 PM EDT) Thyroid Stimulating Hormone 1.73 0.27 - 4.20 mcIU/mL [facility] Comment: Trion Cord Blood Reference Range: ??0.35 23.00 uIU/mL Blood specimen (specimen) 06/09/2010 2:35 PM EDT 06/09/2010 2:47 PM EDT Dread Abad MD CHEMISTRY ORDERABLE S [facility] * (ABNORMAL) COMPREHENSIVE METABOLIC PANEL (NON-FASTING) (06/09/2010 2:35 PM EDT) Glucose 99 <=199 mg/dL [facility] Comment:Diabetes: >=200 mg/d L plus symptoms Blood Urea Nitrogen 15 10 - 20 mg/dL [facility] Creatinine 0.95 0.80 - 1.50 mg/dL [facility] Sodium 140 135 - 145 mmol/L [facility] Potassium 4.0 3.5 - 5.0 mmol/L [facility] Comment: Please note: ??Patients with WBC >100,000 may have falsely elevated Potassium levels. ??For accurate Potassium quantification in these patients send serum separator tube (gold top) for subsequent determinations. ??Contact the Clinical Chemistry Laboratory if there are any questions. Chloride 102 98 - 107 mmol/L [facility] Carbon Dioxide 24 22 - 31 mmol/L [facility] Anion Gap 14 5 - 15 mmol/L [facility] Calcium 9.5 8.5 - 10.5 mg/dL [facility] Protein, Total 7.4 6.4 - 8.3 gm/dL [facility] Albumin 4.6 3.2 - 5.2 gm/dL [facility] Aspartate Aminotransferase 35 0 - 39 unit/L [facility] Alanine Aminotransferase 58(H) 0 - 55 unit/L [facility] Alkaline Phosphatase 89 40 - 120 unit/L [facility] Bilirubin, Total 0.2 0.2 - 1.3 mg/dL [facility] Bilirubin, Direct 0.1 0.0 - 0.3 mg/dL [facility] Est Glomerular Filtration Rate >60 >=60 [facility] Comment: The National Kidney Disease Education Program (NKDEP) has recommended all laboratories report estimated GFR (eGFR) along with plasma creatinine measurements to assist you with recognition of early kidney disease. Caveats: ??Plasma creatinine should be at steady-state (unchanged within the past week). ??Patient age > = 18 years, and for Americans multiply eGFR by 1.2. At present, NKDEP does NOT recommend using the MDRD equation for drug dosing purposes and pharmacists should continue to use their current dosing methods. In addition, numerical eGFR values greater than 60 ml/min/1.73 square meters should be treated as > 60, and not an exact number due to greater inaccuracies at these higher values. Per NKDEP, they classify normal renal function as any GFR >60ml/min/1.73 square meters; chronic kidney disease when GFR <60, and renal failure when GFR <15. ??This calculation may not be valid for patients with atypical muscle mass (very lean or obese), acute renal failure, and in patients with diabetic kidney disease. References: http://nkdep.nih.gov/resources/NKDEP_Suggestn4Labs_0606_508.pdf http://www.kidney.org/professionals/kls/pdf/faq_gfr.pdf Blood specimen (specimen) 06/09/2010 2:35 PM EDT 06/09/2010 2:47 PM EDT Dread Abad MD CHEMISTRY ORDERABLE S Performing Organization Address [facility]/ZIP Co de Phone Number [facility] * (ABNORMAL) IRON AND TIBC (06/09/2010 2:35 PM EDT) Iron 201(H) 45 - 160 mcg/dL [facility] TIBC 298 250 - 450 mcg/dL [facility] Iron Saturation 67(H) 20 - 50 % [facility] Blood specimen (specimen) 06/09/2010 2:35 PM EDT 06/09/2010 2:47 PM EDT Dread Abad MD CHEMISTRY ORDERABLE S [facility] * PROTIME-INR (06/09/2010 2:35 PM EDT) Prothrombin Time 13.0 11.8 - 15.0 sec [facility] Comment: [facility] Transfusion Committee Guidelines: INR less than 2.0, PTT less than OR equal to 43.5 seconds, or Fibrinogen greater than or equal to 100 mg/dl indicate adequate procoagulant activity for hemostasis in patients without underlying bleeding disorders. International Normalization Ratio 1.0 0.9 - 1.1 [facility] Blood specimen (specimen) 06/09/2010 2:35 PM EDT 06/09/2010 2:47 PM EDT Dread Abad MD HEMATOLOGY ORDERABL ES [facility] documented in this encounter Visit Diagnoses Not on filedocumented in this encounter Care Teams Drum Sprayer Relationship Specialty Start Date End Date Brianne Grant APRN [facility] [address] [place] [address] PCP - General 07/13/10 05/01/19 documented as of this encounter
--- OUTSIDE RECORDS SUMMARY | 2024-05-07 19:38 | XMS_ITS | Encounter Summary ---
Author Organization [facility] [place] [address] Care Team Providers Care Nc Machinist Name Role Phone Unknown Primary Care Provider Unavailabl e Encounter Details Date Type Department Care Team (Late st Contact Info) Description 06/22/2010 Orders Only [place] [address] Dread Abad MD [facility] [place] [address] Social History Tobacco Use Types Packs/Day Years [...] EDT documented in this encounter Results * Surgical Pathology Report (06/22/2010 2:42 PM EDT) Surgical Pathology Report [id number] ? Location: 3W The signing pathologist has (i) examined the relevant preparation(s) for the specimen(s) and (ii) rendered or confirmed the diagnosis(es). . ?Pathology Surgical Pathology Final Report Clinical Information Specimen Submitted: A - Liver biopsy Clinical History: Hx of hemochromatosis and ETOH ? SILVA Clinical Diagnosis: Hemochromatosis Gross Description Labeled/Fixative: ? Right lobe liver, formalin. Qty/Size/Weight: ?Eight, hayes to brown-orange needle core biopsies, ?ranging from 0.7 cm to 2.0 cm. Sections/Processin g: ??(T2) ??vms/SHB Microscopic Description Slides reviewed, microscopic description not recorded. Diagnosis Liver, needle biopsy specimen showing mild to moderate mixed micro- and macrovesicular steatosis, accompanied by focal ballooned hepatocytes and mild lobular inflammation including neutrophils. Trichrome stain shows portal and periportal fibrosis and centrilobular/debbie cellular fibrosis. Iron stain shows 2-3+ iron deposition in hepatocytes, Kupffer cells and portal macrophages. 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 CR-0 06/23/10 AAS 06/23/10 Verified by: ? Sridevi BATEMAN, Ciro Crow ?Pathologist ?(Electronic Signature) The attending pathologist whose signature appears on this report has reviewed all diagnostic slides and has edited the gross and/or microscopic portion of the report in rendering the final pathologic diagnosis. [facility] 06/22/2010 2:42 PM EDT Dread Abad MD PATHOLOGY/CYTOLOGY ORDERABLES [facility] documented in this encounter Visit Diagnoses Not on filedocumented in this encounter Care Teams Nc Machinist Relationship Specialty Start Date End Date Unknown None PCP - General 02/23/21 documented as of this encounter
--- OUTSIDE RECORDS SUMMARY | 2024-05-07 19:38 | XMS_ITS | Clinical Summary ---
Author Organization [facility] Address [address] [place] [address] Care Team Providers Care Cd Reactor Operator Head Name Role Phone ChintansilasBrianne PRODUCTION CHECKER Primary Care Provider Encounters Date Type Department Care Team Description 05/07/2024 Lab Requisition [facility] Pathology & Laboratory Medicine - [facility] [address] [place] [address] Outr Resulting Lab, Provider from Last 3 [...] Health Maintenance Due Date Last Done Comments Hepatitis C Screen 1970 Hepatitis B Vaccine (1 of 3 - 19+ 3-dose series) 07/28 COVID-19 Vaccine (2022- season) 2023 Care Teams Cd Reactor Operator Head Relationship Specialty Start Date End Date Brianne Grant NP [address] [place] [phone] PCP - General 03/14/11
--- OUTSIDE RECORDS SUMMARY | 2024-05-07 19:38 | XMS_ITS | Encounter Summary ---
[place] [address] Care Team Providers Care Circuit Breaker Assembler Name Role Phone Unavailable Primary Care Provider Unavailabl e Encounter Details Date Type Department Care Team (Late st Contact Info) Description 06/22/2010 12:00 PM EDT - 06/22/2010 11:59 PM EDT Hospital Encounter [place] [address] Social History Tobacco Use Types Packs/Day Years [...]
[2024-05-08 09:01] LABS: PSA, Screening 0.3 ng/mL (<=3.5)
== END 2024-05-07 19:33 | disposition home or self-care (01) ==
LOC: NCHCN 19:32
PROVIDERS: PCP Nurse Practitioner Family; Visit Provider Nurse Practitioner Family
DX: E83.119 Hemochromatosis, unspecified (principal); I10 Essential (primary) hypertension; Z12.5 Encounter for screening for malignant neoplasm of prostate; Z00.00 Encounter for general adult medical examination without abnormal findings
CPT/HCPCS: 80053; 80061; 84153; 85027; 82043; 82570; 82728; 83540; 83550

== ENCOUNTER 2024-09-20 08:41 | Outpatient (CLI) | payer BC, SELFPAY ==
--- NOTE | 2024-09-20 07:45 | DI.RAD_ITS ---
Exam(s) XR HIP RT AP LAT ONLY EXAM: XR HIP RT AP LAT ONLY CLINICAL HISTORY: f/u yearly right hillary. TECHNIQUE: 2D digital imaging was performed. Two images were obtained. AP and lateral views were ob tained. COMPARISON: CR XR HIP RT AP LAT ONLY from 02/17/2020 XA XR HIP RT IN OR from 09/20/2023 CR XR HIP RT COMPLETE AP PELVIS from 10/05/2023 FINDINGS: BONES: There are stable post operative changes of a right total hip arthroplasty present. No fractur e or dislocation. JOINTS: The orthopedic hardware is in good position. No evidence of hardware loosening. SOFT TISSUE: Normal. IMPRESSION: Stable right total hip arthroplasty. DATA REPOSITORY: RADIATION DOSE DELIVERED:
== END 2024-09-20 08:42 | disposition home or self-care (01) ==
LOC: DIORS 08:41
PROVIDERS: PCP Nurse Practitioner Family; Visit Provider Physician Assistant
DX: Z96.641 Presence of right artificial hip joint (principal); Z47.1 Aftercare following joint replacement surgery
CPT/HCPCS: 73502

== ENCOUNTER 2025-02-13 00:48 | Outpatient (CLI) | payer BC, SELFPAY ==
--- NOTE | 2025-02-13 | DI.US_ITS ---
APPROVED REPORT EXAM: Comprehensive 2D, Doppler, and color-flow Echocardiogram Patient Location: Out-Patient Office Clinician: Sandi Regalado RDCS (AE) Indications: Heart failure Other Information Study Quality: Fair. Technically limited study due to body habitus. Conclusion Technically suboptimal study Normal left ventricular wall thickness and chamber size. Ejection fraction is 55%. No wall motion abnormalities are identified Grossly normal right ventricular size and function Both atria are normal in size Aortic valve is sclerotic without stenosis or regurgitation Mild mitral annular calcification with trace regurgitation Ascending aorta measures 3.81 cm Wall motion Left Ventricle The left ventricle is normal size. The left ventricular systolic function is normal. The left ventricular ejection fraction is within the normal range. There is normal left ventricular wall thickness. There is normal LV segmental wall motion. There is no ventricular septal defect visualized. LVEF is 55%. Right Ventricle The right ventricle is normal size. Right ventricular systolic function is grossly normal. Atria The left atrium size is normal. The right atrium size is normal. The interatrial septum is intact with no evidence for an atrial septal defect. Aortic Valve The Aortic valve is sclerotic. There is no aortic valvular stenosis. No aortic regurgitation is present. Mitral Valve Mild mitral annular calcification. No evidence of mitral valve stenosis. Trace mitral regurgitation. Tricuspid Valve The tricuspid valve is normal in structure. There is no tricuspid valve stenosis. Trace tricuspid regurgitation. Unable to assess PA pressure. Pulmonic Valve The pulmonary valve is normal in structure. There is no pulmonic valvular stenosis. There is no pulmonic valvular regurgitation. Great Vessels The aortic root is normal in size. The ascending aorta is mildly dilated. Aortic arch is normal in caliber. IVC is normal in size and collapses >50% with inspiration. Pericardium There is no pericardial effusion. 2D Dimensions IVSD d PLAX 0.91 cm M: 0.6-1.2 Ao Root d 3.42 cm M: 3.1 - 3.7 LVPW d PLAX 0.92 cm M: 0.6 - 1.2 Ao Asc Diam d 3.81 cm M: 2.6 - 3.4 LVID d PLAX 5.18 cm M: 4.2 - 5.8 LVDs 3.67 cm M: 2.5 - 4.0 LV EF Teichholz 55.6 % FS 29.12 % LV EDV (Teich) 128.2 mL LV ESV (Teich) 57.0 mL M-Mode TAPSE 3.41 cm (M/F) >1.7 Auto EF LV EDV A4C 162.7 mL LV EDV A2C 134.1 mL LV EDV BP 147.3 mL LV ESV A4C 73.5 mL LV ESV A2C 60.1 mL LV ESV BP 66.1 mL LVEF(%) A4C 54.8 % LVEF(%) A2C 55.1 % LVEF(%) BP 55.1 % LV SV A4C 89.2 ml LV SV A2C 73.9 ml LV SV BP 81.2 ml LV CO A4C 6.3 L/min LV CO A2C 5.3 L/min LV CO BP 5.8 L/min HR A4C 71.15 BPM HR A2C 71.29 BPM LV EDV Index (BP) LA Volume LA Length A4C 4.5 cm LA Length A2C 4.9 cm LA Area A4C s 18.24 cm2 LA Area A2C s 20.70 cm2 LA Vol A4C A-L 62.16 mL LA Vol A2C A-L 74.15 mL LA Vol Biplane A-L 70.5 mL LA Vol/BSA A4C A-L LA Vol/BSA A2C A-L LA Vol/BSA BP A-L 26.0 mL/m2 LA Vol A4C MOD 56.7 mL LA Vol A2C MOD 69.8 mL LA Vol BP MOD 65.0 mL RA Volume RA Area A4C 14.6 cm2 RA ESV A4C (A-L) 41.0mL RA Vol/BSA A4C A-L RA Length A4C 4.4 cm RA ESV A4C (MOD) 37.8mL LV Diastology MV E Vmax 0.91 (0.4-1.3 m/s) MV A Vmax 1.15 (0.4-1.3 m/s) E/A Ratio 0.8 Aortic Valve AoV Vmax 1.78 m/s LVOT Vmax 1.08 m/s AoV Peak Grad 12.6 mmHg LVOT Peak Grad 4.7 mmHg AoV Area (Vmax) 2.13 cm2 LVOT VTI 0.273 m AoV VTI 0.397 m LVOT Mean Grad 3.0 mmHg AoV Mean Pepe. 1.21 m/s LVOT SV 95.64 mL AoV Mean Grad 6.7 mmHg LVOT Diam s 2.10 cm AoV Area (VTI) 2.41 cm2 AV Regurg Peak Gr. 12.61 mmHg Velocity Ratio 0.61 Mitral Valve MV DT 236 (160-240 msec) MV Vmax TIPS 1.06 m/s MV Mean Grad 2.1 (<2mmHg) MV VTI 0.322 m Pulmonary Valve PV Vmax 1.01 (0.5-1.5 m/s) RVOT Vmax 0.79 m/s PV Peak Grad 4.1 mmHg RVOT Peak Gr. 2.5 mmHg PV Mean Pepe 0.79 m/s RVOT VTI 0.152 m PV Mean Grad 2.7 mmHg RVOT Mean Gr. 1.2 mmHg Tricuspid Valve RA Pressure 3.00 mmHg
== END 2025-02-13 01:08 ==
LOC: DI 00:49
PROVIDERS: PCP Nurse Practitioner Family; Visit Provider Internal Medicine Cardiovascular Disease
DX: I50.9 Heart failure, unspecified (principal)
CPT/HCPCS: 93306